=== PATIENT | female | born 1950 | race Caucasian/White ===

== ENCOUNTER → 2018-02-20 14:39 | Outpatient (CLI) | payer MEDICARE, BC, SELFPAY ==
--- NOTE | 2018-02-20 14:43 | XR_ITS ---
XR DEXA axial skeleton HISTORY: ITS.REASON: OSTEOPOROSIS ORDERING PHYSICIAN: Adam Lincoln MD PATIENT AGE: 67 years COMPARISON: 09/02/2014 FINDINGS: The BMD measured at the Total left femoral neck is 0.584 g/cm squared with a T score of -3.4. This is considered Osteoporotic according to the World Health Organization criteria. Fracture risk is High. Treatment is advised. L1-L4 density has a T score of -2.8. Lumbar spine density has decreased by 5.6% and the hip density has decreased by 6.6% IMPRESSION: Osteoporosis with high fracture risk. Pharmacological treatment suggested. Recommend follow-up exam March 07, 2019 to monitor response to therapy
--- NOTE | 2018-02-20 14:44 | CT_ITS ---
CT lung screening EXAM: CT LUNG LOW DOSE WO CONTRAST HISTORY: 30 pack-year smoking history asymptomatic ITS.REASON: PERSONAL HISTORY OF NICOTINE DEPENDENCE ORDERING PHYSICIAN: Adam Lincoln MD PATIENT AGE: 67 years COMPARISON: None TECHNIQUE: The exam was performed on a GE Light Speed [address] scanner using 2.90 mGy CTDI. A low dose helical CT CHEST was performed on a multi-detector scanner. All CT scans at the facility use one or more dose reduction, viz: automated exposure control, ma/kV adjustment per patient size (including targeted exams where dose is matched to indication, i.e. head), or iterative reconstruction technique. The LDCT was performed in a facility that meets the criteria for the screening program. Data regarding this exam was submitted to ACR which is an approved registry. The order for this exam indicates that it came as a result of a lung cancer screening counseling shard decision-making visit that included all the elements required of such a visit including smoking cessation. The radiologist interpreting this exam meets the [facility] criteria for the LDCT lung cancer screening program. The exam is reported using the Lung-RADS classification scale and reported to the ACR registry. NOTE: This study was performed for the specific purposes of lung cancer screening and is not an alternative to diagnostic chest CT. RADIATION DOSE: CTDI vol(CT dose Index-volume) = 2.90mG DLP (Dose Length Product) = 106.81 mGcm FINDINGS: Severe panlobular emphysema. 4 mm subpleural groundglass opacity right lower lobe posterior laterally. Linear subpleural opacity right lower lobe posterior laterally 5 x 2 mm. No suspicious nodules. No adenopathy. There are bilateral breast implants. IMPRESSION: 1. Lung RADS Category: 2, benign 2. Other findings: Panlobular emphysema RECOMMENDATIONS: 12 month LDCT follow-up
== END ==
PROVIDERS: PCP Family Medicine; Visit Provider Family Medicine
DX: Z12.2 Encounter for screening for malignant neoplasm of respiratory organs (principal); Z87.891 Personal history of nicotine dependence; M81.0 Age-related osteoporosis without current pathological fracture
CPT/HCPCS: 77080

== ENCOUNTER 2018-09-22 10:35 | Outpatient (CLI) | payer MEDICARE, BC, SELFPAY ==
[2018-09-22 11:09] VITALS: BP 125/75; PULSE 54; RESP 18; TEMP 36.7
== END 2018-09-22 11:21 | disposition home or self-care (01) ==
LOC: INF 10:43
PROVIDERS: Visit Provider Family Medicine
DX: M81.0 Age-related osteoporosis without current pathological fracture (principal)
CPT/HCPCS: 96372; J0897

== ENCOUNTER 2019-03-25 11:03 | Outpatient (CLI) | payer MEDICARE, BC, SELFPAY ==
[2019-03-25 11:30] VITALS: BP 137/71; PULSE 58; RESP 18; TEMP 36.8; O2SAT 98
== END 2019-03-25 11:50 | disposition home or self-care (01) ==
LOC: INF 11:03
PROVIDERS: Visit Provider Family Medicine
DX: M81.0 Age-related osteoporosis without current pathological fracture (principal)
CPT/HCPCS: 96372; J0897

== ENCOUNTER → 2019-07-13 09:59 | Outpatient (CLI) | payer MEDICARE, BC, SELFPAY ==
--- NOTE | 2019-07-13 10:02 | CT_ITS ---
PROCEDURE: CT LUNG SCREENING CLINICAL INDICATION: HX TOBACCO USE Thirty pack-year smoking history, asymptomatic COMPARISON: LUNGSCREEN CT lung screening from 02/20/2018 TECHNIQUE: The exam was performed on a GE Light Speed [address] scanner using for lung cancer mGy CTDI. A low dose helical CT CHEST was performed on a multi-detector scanner. All CT scans at the facility use one or more dose reduction, viz: automated exposure control, ma/kV adjustment per patient size (including targeted exams where dose is matched to indication, i.e. head), or iterative reconstruction technique. The LDCT was performed in a facility that meets the criteria for the screening program. Data regarding this exam was submitted to ACR which is an approved registry. The order for this exam indicates that it came as a result of a lung cancer screening counseling shard decision-making visit that included all the elements required of such a visit including smoking cessation. The radiologist interpreting this exam meets the CMS criteria for the LDCT lung cancer screening program. The exam is reported using the Lung-RADS classification scale and reported to the ACR registry. NOTE: This study was performed for the specific purposes of lung cancer screening and is not an alternative to diagnostic chest CT. RADIATION DOSE: CTDI vol(CT dose Index-volume) = 2.90mG DLP (Dose Length Product) = 101.34 mGcm FINDINGS: COPD with centrilobular/panlobular emphysema. Evidence of old granulomatous disease. There is some mild ground-glass density in the lung bases. There is thickening of the major fissure on the left inferiorly OTHER FINDINGS: Breast implants are present IMPRESSION: Lung rads category 1, negative Recommend annual screening LD CT Dictated by: Zane Meneses MD 07/17/2019 14:18 Electronically signed by Zane Meneses MD in [place] 07/17/2019 14:18
== END ==
PROVIDERS: PCP Family Medicine; Visit Provider Family Medicine
DX: Z87.891 Personal history of nicotine dependence (principal); Z12.2 Encounter for screening for malignant neoplasm of respiratory organs

== ENCOUNTER 2019-09-24 10:48 | Outpatient (CLI) | payer MEDICARE, BC, SELFPAY ==
[2019-09-24 10:56] VITALS: BP 135/48; PULSE 61; RESP 18; TEMP 36.8; O2SAT 97
== END 2019-09-24 10:56 | disposition home or self-care (01) ==
LOC: INF 10:48
PROVIDERS: PCP Nurse Practitioner Family; Visit Provider Nurse Practitioner Family
DX: M81.0 Age-related osteoporosis without current pathological fracture (principal)
CPT/HCPCS: 96372; J0897

== ENCOUNTER → 2020-02-14 10:25 | Outpatient (CLI) | payer MEDICARE, BC, SELFPAY ==
--- NOTE | 2020-02-14 10:33 | XR_ITS ---
PROCEDURE: XR LUMBAR SPINE MIN 4V CLINICAL INDICATION: ACUTE BI LOW BACK PAIN W/O SCIATICA AGE RELATED OSTEOPOROSIS COMPARISON: No exams were available for comparison FINDINGS: No fracture or dislocation. No lytic or blastic change. There is normal mineralization. There are mild degenerative changes with degenerative disc disease at L2-L3 and L3-L4 with small anterior osteophytes at these levels. There is moderate amount of overlying bowel gas which somewhat obscures fine detail of the bony structures. Other findings:None. IMPRESSION: Mild degenerative changes, no acute finding Dictated by: Zane Meneses MD 02/14/2020 17:26 Zane Meneses MD in [place] 02/14/2020 17:26
--- NOTE | 2020-02-14 10:33 | XR_ITS ---
PROCEDURE: XR PELVIS 1-2V CLINICAL INDICATION: ACUTE BI LOW BACK PAIN W/O SCIATICA AGE RELATED OSTEOPOROSIS COMPARISON: No exams were available for comparison TECHNIQUE: XR Pelvis AP View FINDINGS: There is moderate amount of gas in the large and small bowel in the pelvis obscuring the bony outline of sacrum and chloe there is a small sclerotic focus in the left ilium medially superior to the acetabulum and could be due to a bone island. Calcified densities are present over both iliac fossa and may be due to injection granulomas. 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 Minimal osteoarthritic changes are present in the right hip. IMPRESSION: As above, no acute finding Dictated by: Zane Meneses MD 02/14/2020 15:20 Zane Meneses MD in [place] 02/14/2020 15:20
== END ==
PROVIDERS: PCP Family Medicine; Visit Provider Family Medicine
DX: M54.5 Low back pain (principal); M53.3 Sacrococcygeal disorders, not elsewhere classified; M81.0 Age-related osteoporosis without current pathological fracture
CPT/HCPCS: 72110; 72170

== ENCOUNTER → 2020-03-13 09:33 | Outpatient (POV) | payer MEDICARE, BC, SELFPAY ==
[2020-03-13 09:57] VITALS: BP 112/74; PULSE 65; RESP 18; O2SAT 98; BMI 17.2
--- NOTE | 2020-03-13 12:46 | HMH.PMCON ---
Assessment and Plan (1) Degenerative joint disease (DJD) of lumbar spine Status: Chronic Qualifiers: Spinal osteoarthritis complication: without myelopathy or radiculopathy Qualified Code(s): M47.816 - Spondylosis without myelopathy or radiculopathy, lumbar region Category: Medical Code(s): M47.816 - Spondylosis without myelopathy or radiculopathy, lumbar region (2) Sacroiliitis Status: Chronic Category: Medical Code(s): M46.1 - Sacroiliitis, not elsewhere classified - Assessment and plan all Dx Assessment and Plan for all problems:: I offered the patient injective therapy she would like to hold off on that at this time she would like to continue her anti-inflammatories and think about injection therapy. She has been instructed to call the office if she has any issues or would like to proceed with any kind of treatment plan. She understands. Dr. Grant has reviewed this note and agrees with this plan of care. This note was dictated using voice recognition software and may contain errors or omissions HPI - Data of Consult Consult date: 03/13/20 Requesting Physician: Sierra Palacios APRN Primary Care Provider: Adam Lincoln MD - Consult Narrative Reason for consult: Back pain History of present illness: Ms. Marte is a 69 year old female who presents today for consultation regards her low back pain. Patient has difficulty with bending and squatting while lying flat decreases her pain. She also has radiation into her right hip. Does not radiate down her leg she has no numbness or tingling down her leg. She has extreme tenderness over her bilateral SI joints. She does have a history of arthritis. She is on anti-inflammatories she states that this is helpful somewhat. She has a positive Samson test SI joint compression test Cyndi's test and distraction test bilaterally. She rates her pain today a 4 out of 10. CC: Sierra Palacios APRN [facility] History I have reviewed the patient's past medical history: Yes Medical History: Reports:: Chronic Obstructive Pulmonary Disease (COPD), Hyperlipidemia, Hypertension, Lung Disease Denies:: Cancer, Diabetes Mellitus Type 1, Diabetes Mellitus Type 2, Internal Pacemaker, MRSA, Seizures *Have you ever received a pneumonia vaccine?: Yes *Have you received a flu vaccine this season?: Yes Other Medical History: Reports: Arthritis, Other Other Surgeries: Yes: Colonoscopy, Other (Hemorrhoids). No: Pacemaker Amputation: No Fractures: No - *Social History Smoking Status: Former smoker Tobacco Type: cigarettes Alcohol Intake: never Substance Use Type: denies use *Occupational Status:: other Housing: house Household Members: other *Travel in the last 8 weeks: None Family Hx:: Unable to obtain Review of Systems - Review of Systems ROS General: no recent weight change, no fever, no sleep disturbances Respiratory: no cough, no shortness of air, no recurring pulmonary infections Cardiovascular/Peripheral Vascular: No chest pain, No palpitations, no edema, no shortness of breath. Gastrointestinal: no new onset incontinence, normal bowel movements reported Genitourinary: no new onset incontinence Musculoskeletal: Bilateral hip pain, bilateral SI joint pain Psychiatric: normal mood/ affect Neurological: [denies new onset weakness in extremities], [denies new onset balance issues] Meds Home Medications Medication Instructions Recorded Confirmed Type Amlodipine Besylate 5 mg PO DAILY 04/22/18 03/31/19 History Omeprazole [Omeprazole 40mg 40 mg PO DAILY 04/22/18 03/31/19 History Capsule] Simvastatin 20 mg PO DAILY 04/22/18 03/31/19 History carvediloL [Carvedilol 3.125mg Tab] 3.125 mg PO BID 04/22/18 03/31/19 History Glycopyrrolate/Formoterol Fum 2 puffs INHALATION DAILY 03/19/19 03/31/19 History [Bevespi Aerosphere Inhaler] Meloxicam 15 mg PO DAILY 03/19/19 03/31/19 History Cholecalciferol (Vitamin D3) 1,000 unit PO DAILY 03/25/1903/31
== END ==
PROVIDERS: PCP Family Medicine; Visit Provider Clinical Nurse Specialist Family Health
DX: M47.816 Spondylosis without myelopathy or radiculopathy, lumbar region (principal); M46.1 Sacroiliitis, not elsewhere classified
CPT/HCPCS: 99202

== ENCOUNTER 2020-03-27 10:55 | Outpatient (CLI) | payer MEDICARE, BC, SELFPAY ==
[2020-03-27 11:07] VITALS: BP 161/89; PULSE 56; RESP 18; TEMP 36.1; O2SAT 96
== END 2020-03-27 11:07 | disposition home or self-care (01) ==
LOC: INF 11:03
PROVIDERS: Visit Provider Nurse Practitioner Family
DX: M81.0 Age-related osteoporosis without current pathological fracture (principal)
CPT/HCPCS: 96372; J0897

== ENCOUNTER → 2020-04-10 08:14 | Outpatient (CLI) | payer MEDICARE, BC, SELFPAY ==
[2020-04-10 10:40] LABS: Coronavirus 19 IgG Antibody Negative (Negative); Coronavirus 19 IgM Antibody Negative (Negative)
== END ==
PROVIDERS: Visit Provider Surgery
DX: Z01.818 Encounter for other preprocedural examination (principal); Z13.810 Encounter for screening for upper gastrointestinal disorder
CPT/HCPCS: 36415; 86328

== ENCOUNTER 2020-04-11 07:23 | Day surgery (SDC) | payer MEDICARE, BC, SELFPAY ==
[2020-04-05 12:24] VITALS: BMI 17.2
[2020-04-11 07:38] VITALS: BP 172/77; PULSE 63; RESP 20; TEMP 36.6; O2SAT 94
[2020-04-11 08:21] VITALS: O2SAT 97
--- NOTE | 2020-04-11 08:22 | P.PN_ITS ---
[facility] Anesthesia Checklist - Patient Identification Patient Identification: Arm Band - Structural Data Admitted From: Home Planned Operative Procedure/s: egd Consent for Planned Operative Procedure(s) Verified: Yes Verified Documents: Surgical Consent, History and Physical - NPO Status Verified Time NPO: 00:00 - Additional verifications Anesthesia Reactions: No - Airway Assessment C-Spine Mobility Assessed: Yes (mp2) TMJ Mobility Assessed: Yes Dentition: Good Dentition (upper dentures) - Neurological Assessment Level of Consciousness: Awake, Alert - Anesthesia Plan Anesthesia Risk discussed: Yes Anesthesia Plan: Verified ASA Class: III Anesthesia Type: MAC [facility] History I have reviewed the patient's past medical history: Yes Medical History: Reports:: Chronic Obstructive Pulmonary Disease (COPD), Hyperlipidemia, Hypertension, Lung Disease Denies:: Cancer, Diabetes Mellitus Type 1, Diabetes Mellitus Type 2, Internal Pacemaker, MRSA, Seizures *Have you ever received a pneumonia vaccine?: Yes *Have you received a flu vaccine this season?: Yes Other Medical History: Reports: Arthritis, Other Anesthesia experience/problems:: nac Other Surgeries: Yes: Cardiac Catheterization, Colonoscopy, EGD, Other (Hemorrhoids). No: Pacemaker Amputation: No Fractures: No - *Social History Smoking Status: Former smoker Tobacco Type: cigarettes Alcohol Intake: never Substance Use Type: denies use *Occupational Status:: retired Housing: house Household Members: spouse *Travel in the last 8 weeks: None Family Hx:: Unable to obtain
[2020-04-11 08:37] VITALS: BP 105/58; PULSE 51; RESP 12; TEMP 36.5; O2SAT 99
--- NOTE | 2020-04-11 08:37 | P.PCN_ITS ---
- Procedure: Date: 04/11/20 Patient Date of :: 1950 Procedure Performed:: Esophagogastroduodenoscopy with biopsy Indications:: History of Ardon's esophagus Performing Provider:: Mando Guzman MD Referring Provider:: . Sedation:: Monitored anesthesia care Procedure:: After informed consent was obtained the patient was taken to the endoscopy s uite. Sedation ensued after the patient was transferred to the left lateral decubitus position. Pulse, blood pressure, and oxygen saturation were monitored throughout the procedure. The endoscope was advanced beyond the duodenal bulb. Retroflexion within the gastric lumen was accomplished. The gastroscope was carefully removed and the patient was transferred to recovery in stable condition. Please see findings and specimens below for detail. Findings:: Gastroesophageal junction 38 cm Minimal patchy gastritis with changes consistent with atrophic gastritis Minimal inflammatory changes at gastroesophageal junction No obvious Ardon-type changes Specimens:: Antral biopsy Gastroesophageal junction biopsy Multiple biopsies at 36 cm Mid gastric body biopsies Recommendations:: Continue proton pump inhibition Follow-up pathology Complications:: No immediate Estimated blood obtained (mL): 1
[2020-04-11 08:47] VITALS: BP 117/58; PULSE 52; RESP 16; O2SAT 98
[2020-04-11 08:57] VITALS: BP 132/55; PULSE 51; RESP 16; O2SAT 96
[2020-04-11 09:07] VITALS: BP 135/61; PULSE 54; RESP 16; TEMP 36.5; O2SAT 98
== END 2020-04-11 09:20 | disposition home or self-care (01) ==
LOC: OUTP 07:23
PROVIDERS: PCP Family Medicine; Visit Provider Surgery
PROC: 0DJ08ZZ Inspection of Upper Intestinal Tract, Via Natural or Artificial Opening Endoscopic (ICD-10-PCS; CPT 43235; principal; 2020-04-11 08:30)
DX: Z12.11 Encounter for screening for malignant neoplasm of colon (principal); Z87.19 Personal history of other diseases of the digestive system; K29.40 Chronic atrophic gastritis without bleeding; J44.9 Chronic obstructive pulmonary disease, unspecified; E78.5 Hyperlipidemia, unspecified; I10 Essential (primary) hypertension; M19.90 Unspecified osteoarthritis, unspecified site
CPT/HCPCS: 43239; 88305

== ENCOUNTER → 2020-07-14 13:47 | Outpatient (CLI) | payer MEDICARE, BC, SELFPAY ==
--- NOTE | 2020-07-14 13:52 | CT_ITS ---
PROCEDURE: CT LUNG SCREENING CLINICAL INDICATION: HX OF NICOTINE DEPENDENCE Thirty pack year smoking history COMPARISON: CT CT LUNG SCREENING from 07/13/2019 TECHNIQUE: The exam was performed on a GE Light Speed [address] scanner using 2.90 mGy CTDI. A low dose helical CT CHEST was performed on a multi-detector scanner. All CT scans at the facility use one or more dose reduction, viz: automated exposure control, ma/kV adjustment per patient size (including targeted exams where dose is matched to indication, i.e. head), or iterative reconstruction technique. The LDCT was performed in a facility that meets the criteria for the screening program. Data regarding this exam was submitted to ACR which is an approved registry. The order for this exam indicates that it came as a result of a lung cancer screening counseling shard decision-making visit that included all the elements required of such a visit including smoking cessation. The radiologist interpreting this exam meets the [facility] criteria for the LDCT lung cancer screening program. The exam is reported using the Lung-RADS classification scale and reported to the ACR registry. NOTE: This study was performed for the specific purposes of lung cancer screening and is not an alternative to diagnostic chest CT. RADIATION DOSE: CTDI vol(CT dose Index-volume) = 2.90mG DLP (Dose Length Product) = 101.86 mGcm FINDINGS: Severe panlobular emphysematous changes with scattered areas of scarring. There is evidence of old granulomatous disease. No suspicious lesions are evident. No effusions or infiltrates. OTHER FINDINGS: Bilateral breast implants are present. IMPRESSION: Lung-RADS Category 1 Negative Follow-up: Continue annual screening with LDCT in 12 months Dictated by: Zane Meneses MD 07/17/2020 11:32 Zane Meneses MD in [place] 07/17/2020 11:32
--- NOTE | 2020-07-14 14:20 | XR_ITS ---
PROCEDURE: XR DEXA AXIAL SKELETON CLINICAL HISTORY: OSTEOPOROSIS COMPARISON: CR DEXAAX XR DEXA axial skeleton from 02/20/2018 FINDINGS: The right hip BMD is 0.502 with a T-score of -3.1. The left hip BMD is 0.568 with a T-score of -3.1. The lumbar spine BMD is 0.781 with a T-score of -2.4. Previously the lowest density was in the left hip with a T-score of -3.4 IMPRESSION: This patient is considered osteoporotic according to the World Health Organization criteria. Fracture risk is high. Treatment is advised. Based on these results a follow-up exam is recommended in 1 year. Dictated by: Zane Meneses MD 07/15/2020 10:39 Zane Meneses MD in [place] 07/15/2020 10:39
== END ==
PROVIDERS: PCP Family Medicine; Visit Provider Family Medicine
DX: M81.0 Age-related osteoporosis without current pathological fracture (principal); Z87.891 Personal history of nicotine dependence; Z12.2 Encounter for screening for malignant neoplasm of respiratory organs
CPT/HCPCS: 71271; 77080

== ENCOUNTER 2020-10-10 10:24 | Outpatient (CLI) | payer MEDICARE, BC, SELFPAY ==
[2020-10-10 10:28] VITALS: BP 146/68; PULSE 68; RESP 18; TEMP 36.6; O2SAT 99
== END 2020-10-10 10:45 | disposition home or self-care (01) ==
LOC: INF 10:24
PROVIDERS: Visit Provider Family Medicine
DX: M81.0 Age-related osteoporosis without current pathological fracture (principal)
CPT/HCPCS: 96372; J0897

== ENCOUNTER 2021-04-16 10:22 | Outpatient (CLI) | payer MEDICARE, BC, SELFPAY ==
[2021-04-16 10:38] VITALS: BP 137/64; PULSE 60; RESP 18; TEMP 36.6; O2SAT 98
== END 2021-04-16 11:03 | disposition home or self-care (01) ==
LOC: INF 10:24
PROVIDERS: PCP Family Medicine; Visit Provider Family Medicine
DX: M81.0 Age-related osteoporosis without current pathological fracture (principal)
CPT/HCPCS: 96372; J0897

== ENCOUNTER → 2021-07-12 07:13 | Outpatient (CLI) | payer MEDICARE, BC, SELFPAY ==
--- NOTE | 2021-07-12 07:25 | CT_ITS ---
FINAL REPORT CLINICAL HISTORY: H/O NICOTINE DEPENDENCE former smoker 3mon ago. 1ppd x 25years COMPARISON: July 13, 2019 and July 14, 2020 FINDINGS: Low-Dose Chest CT CTDI vol (mGy): 2.90 DLP (mGy-cm): 107.59 Axial images were obtained from the lung apex to the mid abdomen by computed tomography. Low-dose protocol was utilized. FINDINGS: CHEST: There are bilateral subglandular breast implants. There is no axillary adenopathy. There is no hilar or mediastinal adenopathy. The heart is proper size. There is no pericardial or pleural effusion. Limited images of the upper abdomen are unremarkable. Lung window images demonstrate there are moderately advanced changes of centrilobular emphysema. no suspicious infiltrate or nodule. IMPRESSION: Lung RADS category 1S. Recommend 12 month follow-up low-dose chest CT. Modifier S: Moderately advanced changes of centrilobular emphysema. Reviewed, Interpreted and Dictated by Andriy Ruiz MD Transcribed by Abida Tim Authenticated by Andriy Ruiz MD on 07/12/2021 12:52:52 PM [facility]
== END ==
PROVIDERS: PCP Family Medicine; Visit Provider Family Medicine
DX: Z87.891 Personal history of nicotine dependence (principal); Z12.11 Encounter for screening for malignant neoplasm of colon; R06.00 Dyspnea, unspecified; J44.9 Chronic obstructive pulmonary disease, unspecified
CPT/HCPCS: 71271; 94060; 94618; 94726; 94729

== ENCOUNTER 2021-10-26 09:42 | Outpatient (CLI) | payer MEDICARE, BC, SELFPAY ==
[2021-10-26 10:01] VITALS: BP 137/80; PULSE 75; RESP 18; TEMP 36.4; O2SAT 100
== END 2021-10-26 10:03 | disposition home or self-care (01) ==
LOC: INF 09:44
PROVIDERS: PCP Family Medicine; Visit Provider Family Medicine
DX: M81.0 Age-related osteoporosis without current pathological fracture (principal)
CPT/HCPCS: 96372; J0897

== ENCOUNTER 2022-04-29 09:58 | Outpatient (CLI) | payer MEDICARE, BC, SELFPAY ==
[2022-04-29 10:14] VITALS: BP 153/78; PULSE 58; RESP 18; TEMP 36.3; O2SAT 98
== END 2022-04-29 10:30 | disposition home or self-care (01) ==
LOC: INF 09:59
PROVIDERS: PCP Family Medicine; Visit Provider Family Medicine
DX: M81.0 Age-related osteoporosis without current pathological fracture (principal)
CPT/HCPCS: 96372; J0897

== ENCOUNTER 2022-11-12 09:32 | Outpatient (CLI) | payer MEDICARE, BC, SELFPAY ==
[2022-11-12 09:53] VITALS: BP 157/63; PULSE 63; RESP 18; O2SAT 96
== END 2022-11-12 09:55 | disposition home or self-care (01) ==
LOC: INF 09:33
PROVIDERS: PCP Family Medicine; Visit Provider Family Medicine
DX: M81.0 Age-related osteoporosis without current pathological fracture (principal)
CPT/HCPCS: 96372; J0897

== ENCOUNTER → 2023-03-06 09:12 | Outpatient (CLI) | payer MEDICARE, BC, SELFPAY ==
--- NOTE | 2023-03-06 09:17 | XR_ITS ---
FINAL REPORT TECHNIQUE: Bone densitometry calculations of the lumbar spine and left hip were obtained. CLINICAL HISTORY: SCREENING, post menopause FINDINGS: Using L1-4, the bone mineral density of the spine is 0.78 g/cm2, corresponding to T-score of -2.4. Using the left hip, the bone mineral density of the femoral neck is 0.63 g/cm2, corresponding to a T-score of -2.5. NOTE: T-score: Standard deviation compared with peak bone mass of young adult mean. *Following the recommendations of the International Society of Bone Densitometry, classification of hip BMD is based on the lower of two T-scores; total hip or femoral neck. IMPRESSION: Osteoporosis: Lowest T-score is at or below -2.5. This patient''s T-score meets the World Health Organization criteria for osteoporosis. Reviewed, Interpreted and Dictated by Ted Valdez III, MD Transcribed by Zenia Nava Authenticated and [facility]
== END ==
PROVIDERS: PCP Family Medicine; Visit Provider Family Medicine
DX: M81.0 Age-related osteoporosis without current pathological fracture (principal)
CPT/HCPCS: 77080

== ENCOUNTER 2023-05-15 09:49 | Outpatient (CLI) | payer MEDICARE, BC, SELFPAY ==
[2023-05-15 10:00] VITALS: BP 146/62; PULSE 58; RESP 18; O2SAT 98; BMI 17.2
[2023-05-15] MEDS: DENOSUMAB 60 MG/ML SYRINGE SQ (10:00)
== END 2023-05-15 10:10 | disposition home or self-care (01) ==
LOC: INF 09:50
PROVIDERS: PCP Family Medicine; Visit Provider Family Medicine
DX: M81.0 Age-related osteoporosis without current pathological fracture (principal)
CPT/HCPCS: 96372; J0897

== ENCOUNTER 2023-05-23 08:24 | Inpatient (IN) | payer MEDICARE, BC, SELFPAY ==
[2023-05-23] VITALS (13 sets, daily range): BP systolic 126–197; BP diastolic 67–97; PULSE 79–109; RESP 20–26; TEMP 36.4–36.9; O2SAT 92–100; BMI 15.7; BMI 15.0
--- NOTE | 2023-05-23 08:18 | XR_ITS ---
FINAL REPORT CLINICAL HISTORY: soa, copd COMPARISON: None FINDINGS: SINGLE VIEW CHEST The heart size is normal in size. There are large lung volumes and flattening of the hemidiaphragms consistent with chronic obstructive pulmonary disease. There are mild bibasilar opacities present, which favor atelectasis or scar.. The mediastinum is within normal limits.. There is no evidence of pneumothorax. The bony thorax is intact. IMPRESSION: Changes of COPD. Mild bibasilar opacities, favor atelectasis or scar.. Reviewed, Interpreted and Dictated by Ted Valdez III, MD Transcribed by Kavitha Castaneda Authenticated and [facility]
--- NOTE | 2023-05-23 08:20 | ED_ITS ---
Discharge Plan Disposition Patient Disposition: Admitted Chief Complaint: Shortness of Breath/Dyspnea Prescriptions Prescriptions: No Action montelukast 10 mg tablet 10 mg PO HS amlodipine 2.5 mg tablet 2.5 mg PO DAILY omeprazole 40 MG capsule,delayed release(DR/EC) 40 mg PO DAILY carvedilol 3.125 M tablet 3.125 mg PO BID simvastatin 20 MG tablet 20 mg PO HS meloxicam 15 MG tablet 7.5 mg PO DIRECTED glycopyrrolate-formoterol 9-4.8 M HFA aerosol inhaler 2 puffs INHALATION DAILY cholecalciferol (vitamin D3) 25 MCG tablet 1,000 unit PO DAILY Anoro Ellipta 62.5-25 mcg/actuation Blister With Device 1 inh INHALATION DAILY Referrals Follow up/Referrals: Adam Lincoln MD [Primary Care Provider] - See instructions Clinical Impressions Clinical Impression: Acute exacerbation of chronic obstructive pulmonary disease Discharge ED Provider: Han Etienne HPI General Chief Complaint: Shortness of Breath/Dyspnea Stated Complaint: SOA Time Seen by Provider: 05/23/23 08:26 History of Present Illness HPI narrative: Patient is a 72-year-old female with past medical history of COPD on nocturnal oxygen 2 L no cannula who presents emergency department for evaluation of shortness of breath. Patient is hemodynamically stable upon arrival, in respiratory distress. She arrived via EMS who administered a DuoNeb and round on facemask oxygen. Symptom onset was Friday, patient was diagnosed with respiratory infection and started on a Z-Andrea. Over the last 24 hours she has had progressive symptoms causing her to call 911 and present here for continued valuation. Has soreness with cough however no true chest pain. Related Data Home Medications Medication Instructions Recorded Confirmed carvedilol 3.125 mg tablet 3.125 mg PO BID blood pressure 04/22/18 05/15/23 omeprazole 40 mg capsule,delayed 40 mg PO DAILY stomach 04/22/18 05/15/23 release simvastatin 20 mg tablet 20 mg PO HS Cholesterol 04/22/18 05/15/23 glycopyrrolate 9 mcg-formoterol 2 puffs inhalation DAILY COPD 03/19/19 05/15/23 4.8 mcg HFA aerosol inhaler meloxicam 15 mg tablet 7.5 mg PO DIRECTED Arthritis 03/19/19 05/15/23 montelukast 10 mg tablet 10 mg PO HS allergies 03/22/20 05/15/23 cholecalciferol (vitamin D3) 25 1,000 unit PO DAILY Supplement 03/27/20 05/15/23 mcg (1,000 unit) tablet amlodipine 2.5 mg tablet 2.5 mg PO DAILY blood pressure 01/04/22 05/15/23 umeclidinium 62.5 mcg-vilanterol 1 inh inhalation DAILY COPD 04/29/22 05/15/23 25 mcg/actuation powdr for inhalation (Anoro Ellipta) Allergies Allergy/AdvReac Type Severity Reaction Status Date / Time No Known Allergies Allergy Verified 05/15/23 09:56 [facility] Disclaimer: The information contained in this section may have been updated after the patient was seen, as this information can be updated by other users. Medical History (Updated 05/23/23 @ 11:42 by Han Etienne MD) Arthritis COPD (chronic obstructive pulmonary disease) HLD (hyperlipidemia) HTN (hypertension) Lung disease Surgical History History of colonoscopy Family History Other No significant family history Social History Smoking Status: Former smoker tobacco type: cigarettes alcohol intake: never substance use type: denies use current occupational status: retired Travel in the last 8 weeks: Inside the [place] household members: spouse housing: house current occupational exposures/hazards: No caffeine: Yes ROS Obtained: Yes Systems reviewed as appropriate & no additional complaints except as documented Physical Exam General General appearance: alert and in no apparent distress Head Head exam: atraumatic and normocephalic Eye Eye exam: Present PERRL and EOMI ENT ENT exam: Present mucous membranes moist Neck Neck exam: Present normal inspection Chest Chest inspection: Present normal inspection and symmetric chest wall rise Respiratory Respiratory exam: Present respiratory distress, wheezes, accessory muscle use and prolonged expiratory phase; Absent normal lung sounds bilaterally Cardiovascular Cardiovascular exam: Present regular rate and normal rhythm Abdominal Exam Abdominal exam: Present soft; Absent tenderness Extremities Exam Extremities exam: Present normal inspection Neurological Exam Neurological exam: Present alert Psychiatric Psychiatric exam: Present normal affect Skin Skin exam: Present warm and dry HEART Score HEART Score HEART Score assessment performed?: Yes History (anamnesis): Slightly suspicious ECG: Normal Age: >65 years Risk factors: 1-2 risk factors Troponin: </= normal limit HEART Score: 3 Critical Care Critical Care Time Critical Care Time: No Medical Decision Making Umesh Inquiry Pt receiving controlled substance: No Vital Signs Vital Signs: 05/23/23 08:24 05/23/23 08:40 05/23/23 09:18 Temperature 98.4 F Temperature Source Oral Pulse Rate 90 109 H Pulse Rate [Radial] 89 Respiratory Rate 24 Blood Pressure 171/95 H Blood Pressure [Right Arm] 197/97 H Blood Pressure Mean [Right Arm] 130 Blood Pressure Source [Right Arm] Automatic Cuff Blood Pressure Position [Right Arm] Sitting 02 Sat by Pulse Oximetry 100 97 Oxygen Delivery Method Aerosol Mask 05/23/23 09:18 05/23/23 09:36 05/23/23 10:18 Temperature Temperature Source Pulse Rate 108 H 90 80 Pulse Rate [Radial] Respiratory Rate Blood Pressure 126/67 126/77 Blood Pressure [Right Arm] Blood Pressure Mean [Right Arm] Blood Pressure Source [Right Arm] Blood Pressure Position [Right Arm] 02 Sat by Pulse Oximetry 99 98 Oxygen Delivery Method 05/23/23 11:02 Temperature Temperature Source Pulse Rate 92 H Pulse Rate [Radial] Respiratory Rate 20 Blood Pressure 148/71 H Blood Pressure [Right Arm] Blood Pressure Mean [Right Arm] Blood Pressure Source [Right Arm] Blood Pressure Position [Right Arm] 02 Sat by Pulse Oximetry 97 Oxygen Delivery Method Lab Data Labs: Lab Results 05/23/23 08:20: VBG pH 7.33, VBG pCO2 49.3, VBG pO2 38.6, VBG HCO3 25.5, VBG Total CO2 27.0, VBG O2 Saturation 70.3 H, VBG Base Excess -0.5 05/23/23 08:25: WBC 9.1, RBC 4.82, Hgb 15.2, Hct 45.9, MCV 95.2, MCH 31.6 H, MCHC 33.2, RDW 13.6, Plt Count 220, MPV 8.6, Neut % (Auto) 82.1 H, Lymph % (Auto) 10.3, [place] % (Auto) 6.6, Eos % (Auto) 0.6, Baso % (Auto) 0.5, Neut # (A uto) 7.5, Lymph # (Auto) 0.9, [place] # (Auto) 0.6, Eos # (Auto) 0.1, Baso # (Auto) 0.0, Sodium 136, Potassium 3.8, Chloride 98, Carbon Dioxide 30, Anion Gap 11.8, BUN 10, Creatinine 0.50 L, Estimated Creat Clear 32, Estimated GFR 122, Est GFR ( Amer) 148, Glucose 103 H, Calcium 8.8, Total Bilirubin 0.5, AST 42 H, ALT 28, Alkaline Phosphatase 89, Troponin I < 0.01, Total Protein 8.0, Albumin 4.6, Globulin 3.4 H, Albumin/Globulin Ratio 1.4, SARS-CoV-2 (PCR) Not detected, Influenza A Untype (PCR) Not detected, Influenza Type B (PCR) Not detected 05/23/23 08:25 05/23/23 08:25 Response Orders (Tests/Meds): ED MEDICATIONS Generic Name Dose Route Start Last Admin Trade Name Freq PRN Reason Stop Dose Admin Sodium Chloride 3 ml 05/23/23 09:06 Sodium Chloride 3% 15ml [facility] 06/22/23 09:05 ONCE PRN INDUCE SPUTUM COLLECTION Sodium Chloride 10 ml 05/23/23 10:08 Sodium Chloride 0.9% 10ml Flush Syringe IV 06/22/23 10:07 NEEDED PRN Maintain IV Site Discontinued Medications Generic Name Dose Route Start Last Admin Trade Name Freq PRN Reason Stop Dose Admin Albuterol Sulfate 20 mg 05/23/23 09:18 05/23/23 09:19 Albuterol 0.083% 2.5 Mg/3 Ml [facility] 05/23/23 09:19 20 mg ONCE ONE Administration Albuterol/Ipratropium 6 ml 05/23/23 08:18 05/23/23 08:30 Ipratropium/Albuterol 3 Ml [facility] 05/23/23 08:19 6 ml ONCE ONE Administration Azithromycin 500 mg/ Sodium 250 mls @ 250 mls/hr 05/23/23 08:19 05/23/23 09:10 Chloride IV 05/23/23 08:20 250 mls/hr ONCE ONE Administration Magnesium Sulfate 2 gm in 50 mls @ 50 mls/hr 05/23/23 09:10 05/23/23 09:37 Magnesium Sulfate 2gm/50ml Premix IV 05/23/23 10:09 50 mls/hr ONCE ONE Administration Methylprednisolone Sodium Succinate 125 mg 05/23/23 08:18 05/23/23 08:39 Methylprednisolone Sod Succ 125mg Vial IV 05/23/23 08:19 Not Given ONCE ONE ORDERS Category Date Time Status CXR --portable [XR chest portable] Stat Exams 05/23/23 08:18 Completed CBC w/Auto Diff [Complete Blood Count Auto Diff] Stat Lab 05/23/23 08:25 Co mpleted CMP [Comprehensive Metabolic Panel] Stat Lab 05/23/23 08:25 Completed Rapid PCR Covid and Flu A/B Stat Lab 05/23/23 08:25 Completed Trop I [Troponin I] Stat Lab 05/23/23 08:25 Completed Troponin I Q3H Lab 05/23/23 11:30 Ordered Troponin I Q3H Lab 05/23/23 14:30 Ordered Sputum Culture & Gram Stain Stat Micro 05/23/23 10:20 Received VBG [Venous Blood Gas] Stat RT 05/23/23 08:20 Completed ECG initial [place] Routine Y 05/23/23 08:22 Completed ECG Data Tracing #1: ECG Narrative: Independently interpreted by me, rate is 88, rhythm is regular, axis is normal, no ST elevation in anatomical contiguous leads, QTc 394. MDM Narrative Medical Decision Narrative: In summary patient is 72-year-old female past medical history described above who presents emergency department for evaluation of shortness of breath in setting of COPD. Patient is hemodynamically stable upon arrival, on facemask oxygen with DuoNeb administering through it, in respiratory distress. Differential includes pneumonia, viral COPD exacerbation, atypical ACS, among others. Doubt COPD because patient is not tachycardic, has no chest pain and has respiratory symptoms to explain this in the setting of her COPD. Workup will be conducted with hematologic labs, chest x-ray, EKG, troponin, VBG, viral swab. Initial interventions include DuoNeb's x 2, methylprednisolone, azithromycin, IV magnesium sulfate. Workup reviewed by me, hematologic labs are nonactionable, compensated acid-base status. Chest x-ray informally interpreted by me, no acute lobar opacities or large pneumothorax, there is evidence of significant COPD. Upon repeat evaluation patient continued to require 2 L nasal cannula which is new from her baseline of intermittent nocturnal O2, was in persistent respiratory distress with respiratory rate between 25 and 30 with significant accessory muscle use. Given this case was discussed with hospital medicine regarding management patient will be admitted to their service for continued evaluation at this time.
--- NOTE | 2023-05-23 08:22 | ECG_ITS ---
APPROVED REPORT Exam: Resting ECG HR:88 bpm ECG Measurements Heart Rate 88 AXES TN 107 P 75 QRSd 84 QRS 77 QT 348 T -73 QTc 394 Conclusion SINUS RHYTHM WITH SHORT TN INTERVAL NONSPECIFIC ST & T-WAVE ABNORMALITY ABNORMAL ECG UNCONFIRMED REPORT Electronically signed by : Adam Sifuentes MD 05/24/2023 10:07:35
[2023-05-23] MEDS: IPRATROPIUM/ALBUTEROL 3 ML NEB 6 ML IH (08:30)
[2023-05-23 08:41] LABS: Coronavirus 19, PCR Not Detected (NotDetected); Influenza A, PCR Not Detected (NotDetected); Influenza B, PCR Not Detected (NotDetected)
[2023-05-23 08:47] LABS: Basophils % 0.5 % (0.1-2.0); Eosinophils # 0.1 K/mm3 (0.0-0.4); Eosinophils % 0.6 % (0.1-12.0); Hematocrit 45.9 % (37.0-47.0); Hemoglobin 15.2 g/dL (12.2-16.2); Lymphocytes # 0.9 K/mm3 (0.7-4.5); Lymphocytes % 10.3 % (10-50); Mean Corpuscular HGB Conc 33.2 g/dL (31.8-35.4); Mean Corpuscular Hemoglobin 31.6 pg (27.0-31.2); Mean Corpuscular Volume 95.2 fl (81-99); Mean Platelet Volume 8.6 fl (7.4-10.4); Monocytes # 0.6 K/mm3 (0.1-1.0); Monocytes % 6.6 % (1.7-9.3); Neutrophils # 7.5 K/mm3 (1.8-7.8); Neutrophils % 82.1 % (37.0-80.0); Platelet Count 220 K/mm3 (142-424); Red Blood Count 4.82 M/mm3 (4.20-5.40); Red Cell Distribution Width 13.6 % (11.5-17.5); White Blood Count 9.1 K/mm3 (4.8-10.8)
[2023-05-23 08:52] LABS: Alanine Aminotransferase 28 U/L (12-78); Albumin Level 4.6 g/dl (3.5-5.0); Albumin/Globulin Ratio 1.4 (1.1-1.8); Alkaline Phosphatase 89 U/L (38-126); Anion Gap 11.8 mEq/L (5-15); Aspartate Amino Transferase 42 U/L (14-36); Bilirubin,Total 0.5 mg/dl (0.2-1.3); Blood Urea Nitrogen 10 mg/dl (7-17); Calcium 8.8 mg/dl (8.4-10.2); Carbon Dioxide 30 mmol/L (22.0-30.0); Chloride 98 mmol/L (98-107); Creatinine Clearance Estimated 32 mL/min (50-200); Estimated Glomerular Filt Rate 122 ml/min (>60); GFR (African American) 148 ML/MIN (>60); Globulin 3.4 g/dL (1.3-3.2); Glucose 103 mg/dl (74-100); Potassium 3.8 mmoL/L (3.5-5.1); Sodium 136 mmol/L (136-145)
--- NOTE | 2023-05-23 09:03 | PC.NURSE ---
NO BLOOD CULTURES NEEDED PER DR HIGGINS DUE TO NO WBC ATB GIVEN
[2023-05-23 09:04] LABS: Troponin I < 0.01 ng/ml (0.00-0.034)
[2023-05-23] MEDS: AZITHROMYCIN 500 MG in 0.9 % SODIUM CHLORIDE 250 ML 250 MG IV (09:10)
[2023-05-23] MEDS: ALBUTEROL 0.083% 2.5 MG/3 ML NEB 20 MG IH (09:19)
[2023-05-23] MEDS: MAGNESIUM SULFATE IN WATER 2 GM/50 ML PIGGYBACK IV (09:37)
--- NOTE | 2023-05-23 12:01 | HMH.PHAINT1 ---
Pharmacy Intervention Comments: MEDICATION RECONCILIATION COMPLETED ON PATIENT USING EXTERNAL FILL HISTORY FROM PHARMACY. -KATH LOVE, JOSSELYND
--- NOTE | 2023-05-23 13:00 | PC.NURSE ---
Report given to Sherrie Garcia RN on Med Surg.
--- NOTE | 2023-05-23 13:15 | PC.NURSE ---
arrived by w/c from ED
[2023-05-23] MEDS: DOCUSATE SODIUM 100 MG CAPSULE PO (15:21)
--- NOTE | 2023-05-23 18:03 | EXP.HP ---
History of Present Illness *Admission Date: 05/23/23 *Reason for visit:: SOB *History of present illness: Patient is a 72-year-old female with past medical history of COPD who presents to the hospital due to shortness of breath. According to patient she has been feeling sick for past 3 to 4 days, Getting Worse, She Was a Started on Medrol Dosepak, azithromycin without much relief so she decided to come to the hospital. Patient otherwise denied chest pain nausea vomiting diarrhea constipation dysuria. She endorses having cough productive of phlegm, she does not have sick contacts, her smokes around her. [facility] Disclaimer: The information contained in this section may have been updated after the patient was seen, as this information can be updated by other users. Medical History (Updated 05/23/23 @ 18:04 by Nicol Patel MD) Arthritis COPD (chronic obstructive pulmonary disease) HLD (hyperlipidemia) HTN (hypertension) Lung disease Surgical History History of colonoscopy Family History Other No significant family history Social History (Updated 05/23/23 @ 13:32 by Alber Hernandez RN) Smoking Status: Former smoker tobacco type: cigarettes alcohol intake: never substance use type: denies use current occupational status: retired Travel in the last 8 weeks: Inside the [place] household members: spouse housing: house current occupational exposures/hazards: No caffeine: Yes Review of Systems Review of Systems Review of systems (narrative): as per HPI Meds Home Medications and Allergies Home Medications Medication Instructions Recorded Confirmed Type carvedilol 3.125 mg tablet 3.125 mg PO BID High Blood Pressure 04/22/18 05/23/23 History omeprazole 40 mg capsule,delayed 40 mg PO DAILY Acid Reflux 04/22/18 05/23/23 History release simvastatin 20 mg tablet 20 mg PO HS Cholesterol 04/22/18 05/23/23 History meloxicam 15 mg tablet 7.5 mg PO Q72H Arthritis 03/19/19 05/23/23 History montelukast 10 mg tablet 10 mg PO PM allergies 03/22/20 05/23/23 History amlodipine 2.5 mg tablet 2.5 mg PO DAILY High Blood Pressure 01/04/22 05/23/23 History doxycycline hyclate 100 mg capsule 100 mg PO BID Infection 05/23/23 05/23/23 History guaifenesin 600 mg tablet, 1,200 mg PO BID 05/23/23 05/23/23 History extended release 12 hr methylprednisolone 4 mg tablets in 4 mg PO DIRECTED 05/23/23 05/23/23 History a dose pack tiotropium 2.5 mcg-olodaterol 2.5 2 puff inhalation DAILY Copd 05/23/23 05/23/23 History mcg/actuation mist for inhalation (Stiolto Respimat) New Prescriptions to Start Prescriptions: Allergies Allergy/AdvReac Type Severity Reaction Status Date / Time No Known Allergies Allergy Verified 05/15/23 09:56 Exam Data for Last 24 hours Vital signs and Labs for Last 24 Hours: Temp Pulse Resp BP Pulse Ox O2 Del Method O2 Flow Rate 98.0 F 79 22 145/77 H 94 L Nasal Cannula 3 05/23/23 16:00 05/23/23 16:00 05/23/23 16:00 05/23/23 16:00 05/23/23 16:00 05/23/23 17:00 05/23/23 17:00 Laboratory Results - last 24 hr 05/23/23 08:20: VBG pH 7.33, VBG pCO2 49.3, VBG pO2 38.6, VBG HCO3 25.5, VBG Total CO2 27.0, VBG O2 Saturation 70.3 H, VBG Base Excess -0.5 05/23/23 08:25: WBC 9.1, RBC 4.82, Hgb 15.2, Hct 45.9, MCV 95.2, MCH 31.6 H, MCHC 33.2, RDW 13.6, Plt Count 220, MPV 8.6, Neut % (Auto) 82.1 H, Lymph % (Auto) 10.3, [place] % (Auto) 6.6, Eos % (Auto) 0.6, Baso % (Auto) 0.5, Neut # (Auto) 7.5, Lymph # (Auto) 0.9, [place] # (Auto) 0.6, Eos # (Auto) 0.1, Baso # (Auto) 0.0, Sodium 136, Potassium 3.8, Chloride 98, Carbon Dioxide 30, Anion Gap 11.8, BUN 10, Creatinine 0.50 L, Estimated Creat Clear 32, Estimated GFR 122, Est GFR ( Amer) 148, Glucose 103 H, Calcium 8.8, Total Bilirubin 0.5, AST 42 H, ALT 28, Alkaline Phosphatase 89, Troponin I < 0.01, Total Protein 8.0, Albumin 4.6, Globulin 3.4 H, Albumin/Globulin Ratio 1.4, SARS-CoV-2 (PCR) Not detected, Influenza A Untype (PCR) Not detected, Influenza Type B (PCR) Not detected I & O for Last 24 hours: Intake & Output 05/20/23 05/21/23 05/22/23 05/23/23 23:59 23:59 23:59 23:59 Output Total 0 / 0 Balance 0 / 0 Weight 37.195 kg Constitutional Constitutional: no acute distress *Routine HEENT Exam Head: Present normocephalic Eye: Present EOMI and PERRL ENT: Present mucous membranes moist *Routine Neck Exam Neck: Present supple; Absent lymphadenopathy *Routine Respiratory Exam Respiratory: Present respiratory distress, distant breath sounds and diminished air movement *Routine Cardiovascular Exam Cardiovascular: Present RRR *Routine Abdominal Exam Abdominal: Present soft and normoactive bowel sounds; Absent tenderness *Routine Rectal Exam Rectal:: deferred *Routine Genitalia Exam Genitalia:: deferred *Routine Extremities Exam Extremities: Absent cyanosis, clubbing or edema *Routine Skin Exam Skin: Present warm; Absent rash *Routine Neurological Exam Neurological: Present alert and oriented X3 Assessment and Plan *Assessment and plan (1) Acute exacerbation of chronic obstructive pulmonary disease: Status: Acute Category: Medical Code(s): J44.1 - Chronic obstructive pulmonary disease with (acute) exacerbation (2) Acute hypoxic respiratory failure: Status: Acute Category: Medical Code(s): J96.01 - Acute respiratory failure with hypoxia (3) HLD (hyperlipidemia): Status: Acute Category: Medical Code(s): E78.5 - Hyperlipidemia, unspecified (4) HTN (hypertension): Status: Acute Category: Medical Code(s): I10 - Essential (primary) hypertension Plan Patient is a 72-year-old female with past medical history of COPD who presents to the hospital due to shortness of breath. According to patient she has been feeling sick for past 3 to 4 days, Getting Worse, She Was a Started on Medrol Dosepak, azithromycin without much relief so she decided to come to the hospital. Patient otherwise denied chest pain nausea vomiting diarrhea constipation dysuria. She endorses having cough productive of phlegm, she does not have sick contacts, her smokes around her. Assessment Acute hypoxic respiratory failure satting less than 90% on room air COPD exacerbation Hypertension Hyperlipidemia Plan Started on IV Solu-Medrol Start IV Levaquin Every 4 hours DuoNebs Monitor and replace electrolytes Chest x-ray reviewed negative for acute pulmonary process, did show mild bibasilar opacities suggestive of possible scars, atelectasis Resume home medications DVT prophylaxis-Lovenox
[2023-05-23] MEDS: METHYLPREDNISOLONE SOD SUCC 40MG VIAL 40 MG IV (18:29)
[2023-05-23] MEDS: LEVOFLOXACIN/D5W 250 MG/50 ML PIGGYBACK 100 MG IV (18:30)
[2023-05-23] MEDS: HEPARIN SODIUM 5,000 UNIT/ML VIAL 5000 UNIT SQ (21:18)
[2023-05-23] MEDS: PRAVASTATIN 40MG TAB 40 MG PO (21:19)
[2023-05-23] MEDS: IPRATROPIUM/ALBUTEROL 3 ML NEB IH (22:14)
[2023-05-23] MEDS: guaiFENesin 600 MG TAB.ER.12H 1200 MG PO (22:18)
[2023-05-23] MEDS: DOXYCYCLINE HYCLATE 100 MG 100 EACH PO (22:19)
[2023-05-24] VITALS (15 sets, daily range): BP systolic 133–163; BP diastolic 84–95; PULSE 79–101; RESP 17–26; TEMP 36.6–36.8; O2SAT 90–97; BMI 16.8
[2023-05-24] MEDS: METHYLPREDNISOLONE SOD SUCC 40MG VIAL 40 MG IV ×5 (00:06→22:33)
[2023-05-24] MEDS: IPRATROPIUM/ALBUTEROL 3 ML NEB IH ×6 (01:48→22:05)
--- NOTE | 2023-05-24 06:09 | PC.NURSE ---
PATIENT WANTS HER COREG RESHEDULED TO 7 AM. 02 AT 3LNC. BECOMES VERY SOA WITH EXERTION. WHEEZES HEARD IN ALL LUNG SANCHEZ. MOIST COUGH.
[2023-05-24 06:59] LABS: Anion Gap 6.6 mEq/L (5-15); Blood Urea Nitrogen 10 mg/dl (7-17); Calcium 8.2 mg/dl (8.4-10.2); Carbon Dioxide 31 mmol/L (22.0-30.0); Chloride 97 mmol/L (98-107); Creatinine Clearance Estimated 34 mL/min (50-200); Estimated Glomerular Filt Rate 158 ml/min (>60); GFR (African American) 191 ML/MIN (>60); Glucose 121 mg/dl (74-100); Potassium 3.6 mmoL/L (3.5-5.1); Sodium 131 mmol/L (136-145)
[2023-05-24 07:10] LABS: Basophils % 0.1 % (0.1-2.0); Hematocrit 42.4 % (37.0-47.0); Hemoglobin 13.9 g/dL (12.2-16.2); Lymphocytes # 0.6 K/mm3 (0.7-4.5); Lymphocytes % 5.5 % (10-50); Mean Corpuscular HGB Conc 32.9 g/dL (31.8-35.4); Mean Corpuscular Hemoglobin 31.4 pg (27.0-31.2); Mean Corpuscular Volume 95.4 fl (81-99); Monocytes # 0.3 K/mm3 (0.1-1.0); Neutrophils # 9.4 K/mm3 (1.8-7.8); Neutrophils % 91.3 % (37.0-80.0); Platelet Count 188 K/mm3 (142-424); Red Blood Count 4.44 M/mm3 (4.20-5.40); Red Cell Distribution Width 13.4 % (11.5-17.5); White Blood Count 10.3 K/mm3 (4.8-10.8)
[2023-05-24 07:12] LABS: MANUAL DIFFERENTIAL MANUAL DIFFERENTIAL (MANUAL DIFF)
[2023-05-24 08:19] LABS: Lymphocytes % 6 % (10-50); Monocytes % 3 % (2-9); Neutrophils % 91 % (42-76); Platelet Estimate Normal; RBC Morphology Normal; Total Cells Counted 100
[2023-05-24] MEDS: DOXYCYCLINE HYCL 100 MG TABLET PO ×2 (08:54→20:17)
[2023-05-24] MEDS: guaiFENesin 600 MG TAB.ER.12H 1200 MG PO ×2 (08:54→20:17)
[2023-05-24] MEDS: DOCUSATE SODIUM 100 MG CAPSULE PO (08:55)
[2023-05-24] MEDS: HEPARIN SODIUM 5,000 UNIT/ML VIAL 5000 UNIT SQ ×2 (08:56→20:18)
--- NOTE | 2023-05-24 15:14 | EXP.PN ---
Subjective *Date: 05/24/23 *Time: 15:14 Interval history: complains of SOB, denied CP, SOB, N/V Exam Data for Last 24 hours Vital signs and Labs for Last 24 Hours: Temp Pulse Resp BP Pulse Ox O2 Del Method O2 Flow Rate 97.9 F 87 22 145/84 H 95 Nasal Cannula 3 05/24/23 11:33 05/24/23 14:13 05/24/23 11:33 05/24/23 11:33 05/24/23 11:33 05/24/23 14:58 05/24/23 14:58 Laboratory Results - last 24 hr 05/24/23 06:19: WBC 10.3, RBC 4.44, Hgb 13.9, Hct 42.4, MCV 95.4, MCH 31.4 H, MCHC 32.9, RDW 13.4, Plt Count 188, MPV 8.0, Neut % (Auto) 91.3 H, Lymph % (Auto) 5.5 L, [place] % (Auto) 3.0, Eos % (Auto) 0.0 L, Baso % (Auto) 0.1, Neut # (Auto) 9.4 H, Lymph # (Auto) 0.6 L, [place] # (Auto) 0.3, Eos # (Auto) 0.0, Baso # (Auto) 0.0, Total Counted 100, Neutrophils % (Manual) 91 H, Lymphocytes % (Manual) 6 L, Monocytes % (Manual) 3, Platelet Estimate Normal, RBC Morphology Normal, Sodium 131 L, Potassium 3.6, Chloride 97 L, Carbon Dioxide 31 H, Anion Gap 6.6, BUN 10, Creatinine 0.40 L, Estimated Creat Clear 34, Estimated GFR 158, Est GFR ( Amer) 191 D, Glucose 121 H, Calcium 8.2 L I & O for Last 24 hours: Intake & Output 05/21/23 05/22/23 05/23/23 05/24/23 23:59 23:59 23:59 23:59 Intake Total 360 / 600 495 / 495 Output Total 300 / 500 1200 / 1200 Balance 60 / 100 -705 / -705 Weight 37.195 kg 41.549 kg Constitutional Constitutional: no acute distress *Routine HEENT Exam Head: Present normocephalic Eye: Present EOMI and PERRL ENT: Present mucous membranes moist *Routine Neck Exam Neck: Present supple; Absent lymphadenopathy *Routine Respiratory Exam Respiratory: Present wheezes and diminished air movement *Routine Cardiovascular Exam Cardiovascular: Present RRR *Routine Abdominal Exam Abdominal: Present soft and normoactive bowel sounds; Absent tenderness *Routine Extremities Exam Extremities: Absent cyanosis, clubbing or edema *Routine Skin Exam Skin: Present warm; Absent rash *Routine Neurological Exam Neurological: Present alert and oriented X3 Assessment and Plan *Assessment and plan (1) Acute exacerbation of chronic obstructive pulmonary disease: Status: Acute Category: Medical Code(s): J44.1 - Chronic obstructive pulmonary disease with (acute) exacerbation (2) Acute hypoxic respiratory failure: Status: Acute Category: Medical Code(s): J96.01 - Acute respiratory failure with hypoxia (3) HLD (hyperlipidemia): Status: Acute Category: Medical Code(s): E78.5 - Hyperlipidemia, unspecified (4) HTN (hypertension): Status: Acute Category: Medical Code(s): I10 - Essential (primary) hypertension Plan Patient is a 72-year-old female with past medical history of COPD who presents to the hospital due to shortness of breath. According to patient she has been feeling sick for past 3 to 4 days, Getting Worse, She Was a Started on Medrol Dosepak, azithromycin without much relief so she decided to come to the hospital. Patient otherwise denied chest pain nausea vomiting diarrhea constipation dysuria. She endorses having cough productive of phlegm, she does not have sick contacts, her smokes around her. Assessment Acute hypoxic respiratory failure satting less than 90% on room air COPD exacerbation Hypertension Hyperlipidemia Plan continue IV Solu-Medrol, IV Levaquin Every 4 hours DuoNebs check PCT Monitor and replace electrolytes Chest x-ray reviewed negative for acute pulmonary process, did show mild bibasilar opacities suggestive of possible scars, atelectasis Resume home medications DVT prophylaxis-Lovenox
[2023-05-24 15:49] LABS: VBG Base Excess 0.5 mmol/L (-2.4-2.3); VBG HCO3 25.7 mmol/L (23-30); VBG Oxygen Saturation 65.9 % (50-70); VBG PCO2 44.9 mmol/L (35-51); VBG PH 7.38 mmol/L (7.31-7.41); VBG Total CO2 27.1 mmol/L (23-27)
--- NOTE | 2023-05-24 17:02 | PC.NURSE ---
PT IS RESTING IN BED. ALERT AND ORIENTED X4. EATING AND DRINKING WELL. O2 SATURATION HAS MAINTAINED 90-95% ON 3 L NC. 1 ASSIST TO GET UP TO THE BSC. WHEN PT GETS UP SHE BECOMES VERY ANXIOUS AND SOA. LUNG SOUNDS DIMINISHED WITH AUDIBLE WHEEZING. ABDOMEN SOFT/NON TENDER WITH ACTIVE BOWEL SOUNDS. WILL CONTINUE TO MONITOR.
[2023-05-24] MEDS: LEVOFLOXACIN/D5W 250 MG/50 ML PIGGYBACK 100 MG IV (20:17)
[2023-05-24] MEDS: PRAVASTATIN 40MG TAB 40 MG PO (20:17)
[2023-05-24] MEDS: CARVEDILOL 3.125MG TABLET 3.125 MG PO (20:17)
[2023-05-24] MEDS: PANTOPRAZOLE 40MG TABLET 40 MG PO (20:17)
[2023-05-25] VITALS (14 sets, daily range): BP systolic 147–161; BP diastolic 75–93; PULSE 73–89; RESP 17–22; TEMP 36.6–37.1; O2SAT 94–96; BMI 16.9
[2023-05-25] MEDS: IPRATROPIUM/ALBUTEROL 3 ML NEB IH ×6 (02:25→22:29)
--- NOTE | 2023-05-25 03:06 | PC.NURSE ---
WHEEZES PERSISTANT. PERFORMS 750 ML ON INCENTIVE SPIROMETER. MOIST COUGH PRESENT. VERY SOA WITH MINIMAL EXERTION.
[2023-05-25] MEDS: METHYLPREDNISOLONE SOD SUCC 40MG VIAL 40 MG IV ×4 (04:20→23:13)
[2023-05-25 08:13] LABS: Anion Gap 7.7 mEq/L (5-15); Blood Urea Nitrogen 13 mg/dl (7-17); Calcium 8.4 mg/dl (8.4-10.2); Carbon Dioxide 31 mmol/L (22.0-30.0); Chloride 93 mmol/L (98-107); Creatinine Clearance Estimated 35 mL/min (50-200); Estimated Glomerular Filt Rate 99 ml/min (>60); GFR (African American) 120 ML/MIN (>60); Glucose 143 mg/dl (74-100); Potassium 3.7 mmoL/L (3.5-5.1); Sodium 128 mmol/L (136-145)
[2023-05-25 08:24] LABS: Basophils % 0.1 % (0.1-2.0); Hematocrit 43.9 % (37.0-47.0); Hemoglobin 14.7 g/dL (12.2-16.2); Lymphocytes # 0.7 K/mm3 (0.7-4.5); Lymphocytes % 7.3 % (10-50); Mean Corpuscular HGB Conc 33.4 g/dL (31.8-35.4); Mean Corpuscular Hemoglobin 31.7 pg (27.0-31.2); Mean Corpuscular Volume 94.9 fl (81-99); Monocytes # 0.2 K/mm3 (0.1-1.0); Monocytes % 2.6 % (1.7-9.3); Neutrophils # 8.1 K/mm3 (1.8-7.8); Platelet Count 208 K/mm3 (142-424); Red Blood Count 4.62 M/mm3 (4.20-5.40); Red Cell Distribution Width 13.4 % (11.5-17.5)
[2023-05-25 08:28] LABS: MANUAL DIFFERENTIAL MANUAL DIFFERENTIAL (MANUAL DIFF)
[2023-05-25] MEDS: HEPARIN SODIUM 5,000 UNIT/ML VIAL 5000 UNIT SQ ×2 (08:39→21:03)
[2023-05-25] MEDS: guaiFENesin 600 MG TAB.ER.12H 1200 MG PO ×2 (08:39→21:03)
[2023-05-25] MEDS: DOCUSATE SODIUM 100 MG CAPSULE PO (08:39)
[2023-05-25] MEDS: DOXYCYCLINE HYCL 100 MG TABLET PO ×2 (08:39→21:03)
[2023-05-25 09:37] LABS: Lymphocytes % 5 % (10-50); Monocytes % 2 % (2-9); Neutrophils % 93 % (42-76); Total Cells Counted 100
[2023-05-25 09:38] LABS: Platelet Estimate Normal; RBC Morphology Normal
--- NOTE | 2023-05-25 14:45 | EXP.PN ---
Subjective *Date: 05/25/23 *Time: 14:45 Interval history: complains of SOB, denied CP, N/V Exam Data for Last 24 hours Vital signs and Labs for Last 24 Hours: Temp Pulse Resp BP Pulse Ox O2 Del Method O2 Flow Rate 98.4 F 86 20 161/90 H 94 L Nasal Cannula 2 05/25/23 11:47 05/25/23 14:02 05/25/23 11:47 05/25/23 11:47 05/25/23 14:02 05/25/23 14:02 05/25/23 14:02 FiO2 32 05/24/23 19:11 Laboratory Results - last 24 hr 05/25/23 07:12: WBC 9.0, RBC 4.62, Hgb 14.7, Hct 43.9, MCV 94.9, MCH 31.7 H, MCHC 33.4, RDW 13.4, Plt Count 208, MPV 9.0, Neut % (Auto) 90.0 H, Lymph % (Auto) 7.3 L, [place] % (Auto) 2.6, Eos % (Auto) 0.0 L, Baso % (Auto) 0.1, Neut # (Auto) 8.1 H, Lymph # (Auto) 0.7, [place] # (Auto) 0.2, Eos # (Auto) 0.0, Baso # (Auto) 0.0, Total Counted 100, Neutrophils % (Manual) 93 H, Lymphocytes % (Manual) 5 L, Monocytes % (Manual) 2, Platelet Estimate Normal, RBC Morphology Normal, Sodium 128 L, Potassium 3.7, Chloride 93 L, Carbon Dioxide 31 H, Anion Gap 7.7, BUN 13 D, Creatinine 0.60 D, Estimated Creat Clear 35, Estimated GFR 99, Est GFR ( Amer) 120 D, Glucose 143 H, Calcium 8.4 I & O for Last 24 hours: Intake & Output 05/22/23 05/23/23 05/24/23 05/25/23 23:59 23:59 23:59 23:59 Intake Total 360 / 600 975 / 1265 1010 / 1010 Output Total 300 / 500 1500 / 1500 450 / 450 Balance 60 / 100 -525 / -235 560 / 560 Weight 37.195 kg 41.549 kg 41.821 kg Microbiology Reports for the Last 24 Hours: Microbiology 05/23/23 10:20 Sputum - Expectorated Sputum Gram Stain - Final Constitutional Constitutional: no acute distress *Routine HEENT Exam Head: Present normocephalic Eye: Present EOMI and PERRL ENT: Present mucous membranes moist *Routine Neck Exam Neck: Present supple; Absent lymphadenopathy *Routine Respiratory Exam Respiratory: Present diminished air movement *Routine Cardiovascular Exam Cardiovascular: Present RRR *Routine Abdominal Exam Abdominal: Present soft and normoactive bowel sounds; Absent tenderness *Routine Extremities Exam Extremities: Absent cyanosis, clubbing or edema *Routine Skin Exam Skin: Present warm; Absent rash *Routine Neurological Exam Neurological: Present alert and oriented X3 Assessment and Plan *Assessment and plan (1) Acute exacerbation of chronic obstructive pulmonary disease: Status: Acute Category: Medical Code(s): J44.1 - Chronic obstructive pulmonary disease with (acute) exacerbation (2) Acute hypoxic respiratory failure: Status: Acute Category: Medical Code(s): J96.01 - Acute respiratory failure with hypoxia (3) HLD (hyperlipidemia): Status: Acute Category: Medical Code(s): E78.5 - Hyperlipidemia, unspecified (4) HTN (hypertension): Status: Acute Category: Medical Code(s): I10 - Essential (primary) hypertension Plan Patient is a 72-year-old female with past medical history of COPD who presents to the hospital due to shortness of breath. According to patient she has been feeling sick for past 3 to 4 days, Getting Worse, She Was a Started on Medrol Dosepak, azithromycin without much relief so she decided to come to the hospital. Patient otherwise denied chest pain nausea vomiting diarrhea constipation dysuria. She endorses having cough productive of phlegm, she does not have sick contacts, her smokes around her. Assessment Acute hypoxic respiratory failure satting less than 90% on room air COPD exacerbation Hypertension Hyperlipidemia Plan continue IV Solu-Medrol, IV Levaquin Every 4 hours DuoNebs check PCT Monitor and replace electrolytes Chest x-ray reviewed negative for acute pulmonary process, did show mild bibasilar opacities suggestive of possible scars, atelectasis Resume home medications DVT prophylaxis-Lovenox wheezing better, SOB better, continue current regimen
--- NOTE | 2023-05-25 14:59 | PC.NURSE ---
PT IS SITTING UP IN THE BED. ALERT AND ORIENTED X4. EATING AND DRINKING WELL. O2 SATURATION HAS MAINTAINED 90-96% ON 3-4 L NC. O2 SATURATION DROPPED TO 85% ON 2 L NC. LUNG SOUNDS DIMINISHED WITH SCATTERED WHEEZES. ABDOMEN SOFT/NON TENDER WITH ACTIVE BOWEL SOUNDS. OFFERED TO TAKE PT'S HOME MEDS TO LOCK UP AND PT REFUSED. PT HAD BEEN TAKING HER OWN BP MEDS IN THE MORNING B/C PT STATES SHE TAKES HER MEDS AT HOME ON A VERY PARTICULAR SCHEDULE AND SHE WANTS TO STAY ON THAT SAME SCHEDULE. NOTIFIED PHARMACY TO HAVE MEDICATION TIMES CHANGED. PT IS AWARE AND SHE STATED SHE WOULD NOT TAKE HER OWN MEDS LONG SHE CAN GET HERS THE SAME TIME SHE TAKES THEM AT HOME. INHALER HAS BEEN LABELED AND PUT IN THE OMNI. WILL CONTINUE TO MONITOR.
[2023-05-25] MEDS: LEVOFLOXACIN/D5W 250 MG/50 ML PIGGYBACK 100 MG IV (21:03)
[2023-05-25] MEDS: PRAVASTATIN 40MG TAB 40 MG PO (21:03)
[2023-05-25] MEDS: BUDESONIDE 0.5MG/2ML NEB 0.5 MG IH (22:29)
[2023-05-26] VITALS (11 sets, daily range): BP systolic 132–156; BP diastolic 87–98; PULSE 76–88; RESP 16–20; TEMP 36.7–37; O2SAT 93–98; BMI 16.9
[2023-05-26] MEDS: IPRATROPIUM/ALBUTEROL 3 ML NEB IH ×5 (02:05→23:58)
[2023-05-26] MEDS: METHYLPREDNISOLONE SOD SUCC 40MG VIAL 40 MG IV ×4 (05:09→22:43)
--- NOTE | 2023-05-26 05:15 | PC.NURSE ---
Patient has had a good night tonight. Was able to sleep some through the shift. Did start a new nebulizer that seems to help with patient wheezing. Patient has not complained of SOB or pain through the shift
[2023-05-26] MEDS: BUDESONIDE 0.5MG/2ML NEB 0.5 MG IH (06:10)
[2023-05-26] MEDS: AMLODIPINE 2.5MG TABLET 2.5 MG PO (06:43)
[2023-05-26] MEDS: PATIENT'S OWN HOME MEDICATION (Tiotropium-Olodaterol [Stiolto Respimat] 2.5-2.5 mcg/actuat 2 EACH IH (06:43)
[2023-05-26] MEDS: CARVEDILOL 3.125MG TABLET 3.125 MG PO ×2 (06:43→20:55)
[2023-05-26 07:14] LABS: Basophils % 0.2 % (0.1-2.0); Hematocrit 41.8 % (37.0-47.0); Hemoglobin 14.3 g/dL (12.2-16.2); Lymphocytes # 0.9 K/mm3 (0.7-4.5); Lymphocytes % 11.3 % (10-50); Mean Corpuscular HGB Conc 34.3 g/dL (31.8-35.4); Mean Corpuscular Hemoglobin 32.2 pg (27.0-31.2); Mean Platelet Volume 8.2 fl (7.4-10.4); Monocytes # 0.3 K/mm3 (0.1-1.0); Monocytes % 4.1 % (1.7-9.3); Neutrophils # 6.7 K/mm3 (1.8-7.8); Neutrophils % 84.3 % (37.0-80.0); Platelet Count 199 K/mm3 (142-424); Red Blood Count 4.44 M/mm3 (4.20-5.40); Red Cell Distribution Width 13.4 % (11.5-17.5)
[2023-05-26 07:20] LABS: Anion Gap 3.2 mEq/L (5-15); Blood Urea Nitrogen 15 mg/dl (7-17); Calcium 8.1 mg/dl (8.4-10.2); Carbon Dioxide 34 mmol/L (22.0-30.0); Chloride 94 mmol/L (98-107); Creatinine Clearance Estimated 35 mL/min (50-200); Estimated Glomerular Filt Rate 99 ml/min (>60); GFR (African American) 120 ML/MIN (>60); Glucose 116 mg/dl (74-100); Potassium 3.2 mmoL/L (3.5-5.1); Sodium 128 mmol/L (136-145)
--- NOTE | 2023-05-26 09:42 | EXP.PULM.CON ---
History of Present Illness History of present illness: Ms. Marte is a 80-year-old female greater than 30 PPD carries a diagnosis open Stiolto inhaler and nocturna oxygen therapy at 2 L, not needing any oxygen supplementation during the daytime and baseline presented to the ER with worsening respiratory send found to have new oxygen And pulmonary was called for further evaluation and management. [facility] Disclaimer: The information contained in this section may have been updated after the patient was seen, as this information can be updated by other users. Medical History (Updated 05/26/23 @ 11:16 by Vidhya Huerta MD) Arthritis COPD (chronic obstructive pulmonary disease) HLD (hyperlipidemia) HTN (hypertension) Lung disease Pneumonia Surgical History History of colonoscopy Family History Other No significant family history Social History (Updated 05/23/23 @ 13:32 by Alber Hernandez RN) Smoking Status: Former smoker tobacco type: cigarettes alcohol intake: never substance use type: denies use current occupational status: retired Travel in the last 8 weeks: Inside the [place] household members: spouse housing: house current occupational exposures/hazards: No caffeine: Yes Review of Systems Constitutional Constitutional: Reports body ache(s) and Reports fatigue Eyes Eyes: Denies eye discharge, Denies dry eyes, Denies irritation and Denies itchy eyes ENT Ears, Nose, Mouth, and Throat: Denies epistaxis, Denies facial pain, Denies lip swelling and Denies throat swelling *Cardiovascular Cardiovascular: Reports dyspnea and Reports dyspnea on exertion *Respiratory Respiratory: Reports chest congestion, Reports cough, Reports dyspnea, Reports dyspnea on exertion, Reports excessive phlegm production and Reports wheezing *Gastrointestinal Gastrointestinal: Denies abdominal pain, Denies belching and Denies cramping *Musculoskeletal Musculoskeletal: Reports back pain, Reports myalgias and Reports other (No small joint swelling or Pain) Psychiatric Psychiatric: Denies homicidal ideation and Denies suicidal ideation Endocrine Endocrine: Reports fatigue and Denies heat intolerance Hematologic/Lymphatic Hematologic/Lymphatic: Denies easy bleeding and Denies lymphadenopathy Allergic/Immunologic Allergic/Immunologic: Denies itchy eyes, Denies lip swelling, Denies throat swelling and Reports wheezing Pulmonology Exam Inpatient Vital signs and Labs for Last 24 Hours: Temp Pulse Resp BP Pulse Ox O2 Del Method O2 Flow Rate 98.1 F 86 18 132/98 H 96 Nasal Cannula 4 05/26/23 08:00 05/26/23 08:00 05/26/23 08:00 05/26/23 08:00 05/26/23 08:07 05/26/23 08:07 05/26/23 08:07 FiO2 32 05/25/23 18:46 Laboratory Results - last 24 hr 05/26/23 06:38: WBC 8.0, RBC 4.44, Hgb 14.3, Hct 41.8, MCV 94.0, MCH 32.2 H, MCHC 34.3, RDW 13.4, Plt Count 199, MPV 8.2, Neut % (Auto) 84.3 H, Lymph % (Auto) 11.3, [place] % (Auto) 4.1, Eos % (Auto) 0.0 L, Baso % (Auto) 0.2, Neut # (Auto) 6.7, Lymph # (Auto) 0.9, [place] # (Auto) 0.3, Eos # (Auto) 0.0, Baso # (Auto) 0.0, Sodium 128 L, Potassium 3.2 L, Chloride 94 L, Carbon Dioxide 34 H, Anion Gap 3.2 L, BUN 15, Creatinine 0.60, Estimated Creat Clear 35, Estimated GFR 99, Est GFR ( Amer) 120, Glucose 116 H, Calcium 8.1 L I & O for Labs for Last 24 Hours: Intake & Output 05/23/23 05/24/23 05/25/23 05/26/23 23:59 23:59 23:59 23:59 Intake Total 360 / 600 975 / 1265 1490 / 1790 750 / 750 Output Total 300 / 500 1500 / 1500 450 / 450 425 / 425 Balance 60 / 100 -525 / -235 1040 / 1340 325 / 325 Weight 82 lb 91 lb 9.6 oz 92 lb 3.157 oz 92 lb 3.51 oz Constitutional: Present moderate distress Head: Present normocephalic and atraumatic ENT: Present normal exam, normal oropharynx and mucous membranes moist Neck: Present normal inspection and full ROM Respiratory: Present respiratory distress, wheezes, diminished air movement and able to speak in complete sentences Cardiac: Present S1/S2, Tachycardia and radial pulses present GI: Present soft and distention; Absent tenderness or guarding Rectal (female): Present deferred (female): Present deferred Skin: Present intact; Absent cyanosis or jaundice Neuro: Present alert, awake and oriented x 3 Extremities: Present normal inspection; Absent clubbing or cyanosis Psychiatric: Present normal affect and cooperative Meds Home Medications and Allergies Home Medications Medication Instructions Recorded Confirmed Type carvedilol 3.125 mg tablet 3.125 mg PO BID High Blood Pressure 04/22/18 05/23/23 History omeprazole 40 mg capsule,delayed 40 mg PO DAILY Acid Reflux 04/22/18 05/23/23 History release simvastatin 20 mg tablet 20 mg PO HS Cholesterol 04/22/18 05/23/23 History meloxicam 15 mg tablet 7.5 mg PO Q72H Arthritis 03/19/19 05/23/23 History montelukast 10 mg tablet 10 mg PO PM allergies 03/22/20 05/23/23 History amlodipine 2.5 mg tablet 2.5 mg PO DAILY High Blood Pressure 01/04/22 05/23/23 History doxycycline hyclate 100 mg capsule 100 mg PO BID Infection 05/23/23 05/23/23 History guaifenesin 600 mg tablet, 1,200 mg PO BID 05/23/23 05/23/23 History extended release 12 hr methylprednisolone 4 mg tablets in 4 mg PO DIRECTED 05/23/23 05/23/23 History a dose pack tiotropium 2.5 mcg-olodaterol 2.5 2 puff inhalation DAILY Copd 05/23/23 05/23/23 History mcg/actuation mist for inhalation (Stiolto Respimat) New Prescriptions to Start Prescriptions: Allergies Allergy/AdvReac Type Severity Reaction Status Date / Time No Known Allergies Allergy Verified 05/15/23 09:56 Results Laboratory Findings 05/26/23 06:38 05/26/23 06:38 Abnormal lab findings: Abnormal Labs 05/23/23 05/24/23 05/25/23 08:25 06:19 07:12 MCH 31.6 H 31.4 H 31.7 H Neut % (Auto) 82.1 H 91.3 H 90.0 H Lymph % (Auto) 5.5 L 7.3 L Eos % (Auto) 0.0 L 0.0 L Neut # (Auto) 9.4 H 8.1 H Lymph # (Auto) 0.6 L Neutrophils % (Manual) 91 H 93 H Lymphocytes % (Manual) 6 L 5 L Sodium 131 L 128 L Potassium Chloride 97 L 93 L Carbon Dioxide 31 H 31 H Anion Gap Creatinine 0.50 L 0.40 L Glucose 103 H 121 H 143 H Calcium 8.2 L AST 42 H Globulin 3.4 H 05/26/23 06:38 MCH 32.2 H Neut % (Auto) 84.3 H Lymph % (Auto) Eos % (Auto) 0.0 L Neut # (Auto) Lymph # (Auto) Neutrophils % (Manual) Lymphocytes % (Manual) Sodium 128 L Potassium 3.2 L Chloride 94 L Carbon Dioxide 34 H Anion Gap 3.2 L Creatinine Glucose 116 H Calcium 8.1 L AST Globulin Assessment and Plan *Assessment and plan (1) Acute exacerbation of chronic obstructive pulmonary disease: Status: Acute Category: Medical Code(s): J44.1 - Chronic obstructive pulmonary disease with (acute) exacerbation (2) Acute hypoxic respiratory failure: Status: Acute Category: Medical Code(s): J96.01 - Acute respiratory failure with hypoxia (3) Pneumonia: Status: Acute Category: Medical Code(s): J18.9 - Pneumonia, unspecified organism Plan Ms. Marte is a 72-year-old female greater than 30 PPD carries a diagnosis open Stiolto inhaler and nocturna oxygen therapy at 2 L, not needing any oxygen supplementation during the daytime and baseline presented to the ER with worsening respiratory send found to have new oxygen And pulmonary was called for further evaluation and management. Denies any frequent exacerbations at baseline Afebrile. No evidence of leukocytosis upon admission. VBG on admission pending. Labs on admission significant for hyponatremia and hypokalemia. Chest x-ray upon admission bilateral significant emphysematous changes, bullae and hyperinflated lungs. No dense consolidation noted. Low-dose CT June 2021 significant centrilobular emphysematous changes with no suspicious nodules. Patient on admission was initiated on levofloxacin, doxycycline, methylprednisolone 40 every 6 hours along with DuoNebs every 4 scheduled and Pulmicort every 12 scheduled. On examination patient appeared to be in moderate respiratory distress with bilateral wheezing. Patient admits improvement in her symptoms but she is needing clinical To maintain O2 saturation goal of 90% above. Plan: -Initiate patient on Breztri inhaler, 2 puffs twice daily. Patient previous to her inhalers has led to oral thrush, will closely monitor. -Recommend to continue DuoNebs every 6 hours on as-needed basis after initiating Breztri inhaler -Recommend to weaned steroids to prednisone 40 mg daily to complete total of 5-day course -Recommend to change antibiotics to levofloxacin for community-acquired pneumonia to complete a total of 5-day course since admission. # Thank you for involving pulmonary in this patient. Will continue to follow, anticipate discharge tomorrow on long-term oxygen supplementation at rest.
[2023-05-26] MEDS: guaiFENesin 600 MG TAB.ER.12H 1200 MG PO ×2 (09:48→20:52)
[2023-05-26] MEDS: DOXYCYCLINE HYCL 100 MG TABLET PO ×2 (09:48→20:52)
[2023-05-26] MEDS: HEPARIN SODIUM 5,000 UNIT/ML VIAL 5000 UNIT SQ ×2 (09:51→20:53)
--- NOTE | 2023-05-26 10:37 | PC.NURSE ---
Patient's O2 sat 86% on room air at rest
--- NOTE | 2023-05-26 12:53 | P.PN_ITS ---
Subjective *Date: 05/26/23 *Time: 12:53 Interval history: complains of SOB,no events reported overnight, she thinks she is not back to her normal breathing, denied CP, N/V Exam Data for Last 24 hours Vital signs and Labs for Last 24 Hours: Temp Pulse Resp BP Pulse Ox O2 Del Method O2 Flow Rate 98.1 F 86 16 154/88 H 94 L Nasal Cannula 4 05/26/23 12:00 05/26/23 12:00 05/26/23 12:00 05/26/23 12:00 05/26/23 12:00 05/26/23 12:47 05/26/23 12:47 FiO2 32 05/25/23 18:46 Laboratory Results - last 24 hr 05/26/23 06:38: WBC 8.0, RBC 4.44, Hgb 14.3, Hct 41.8, MCV 94.0, MCH 32.2 H, MCHC 34.3, RDW 13.4, Plt Count 199, MPV 8.2, Neut % (Auto) 84.3 H, Lymph % (Auto) 11.3, [place] % (Auto) 4.1, Eos % (Auto) 0.0 L, Baso % (Auto) 0.2, Neut # (Auto) 6.7, Lymph # (Auto) 0.9, [place] # (Auto) 0.3, Eos # (Auto) 0.0, Baso # (Auto) 0.0, Sodium 128 L, Potassium 3.2 L, Chloride 94 L, Carbon Dioxide 34 H, Anion Gap 3.2 L, BUN 15, Creatinine 0.60, Estimated Creat Clear 35, Estimated GFR 99, Est GFR ( Amer) 120, Glucose 116 H, Calcium 8.1 L I & O for Last 24 hours: Intake & Output 05/23/23 05/24/23 05/25/23 05/26/23 23:59 23:59 23:59 23:59 Intake Total 360 / 600 975 / 1265 1490 / 1790 750 / 750 Output Total 300 / 500 1500 / 1500 450 / 450 425 / 425 Balance 60 / 100 -525 / -235 1040 / 1340 325 / 325 Weight 37.195 kg 41.549 kg 41.82 kg 41.83 kg Constitutional Constitutional: no acute distress *Routine HEENT Exam Head: Present normocephalic Eye: Present EOMI and PERRL ENT: Present mucous membranes moist *Routine Neck Exam Neck: Present supple; Absent lymphadenopathy *Routine Respiratory Exam Respiratory: Present diminished air movement *Routine Cardiovascular Exam Cardiovascular: Present RRR *Routine Abdominal Exam Abdominal: Present soft and normoactive bowel sounds; Absent tenderness *Routine Extremities Exam Extremities: Absent cyanosis, clubbing or edema *Routine Skin Exam Skin: Present warm; Absent rash *Routine Neurological Exam Neurological: Present alert and oriented X3 Assessment and Plan *Assessment and plan (1) Acute exacerbation of chronic obstructive pulmonary disease: Status: Acute Category: Medical Code(s): J44.1 - Chronic obstructive pulmonary disease with (acute) exacerbation (2) Acute hypoxic respiratory failure: Status: Acute Category: Medical Code(s): J96.01 - Acute respiratory failure with hypoxia (3) Pneumonia: Status: Acute Category: Medical Code(s): J18.9 - Pneumonia, unspecified organism (4) HTN (hypertension): Status: Acute Category: Medical Code(s): I10 - Essential (primary) hypertension Plan Patient is a 72-year-old female with past medical history of COPD who presents to the hospital due to shortness of breath. According to patient she has been feeling sick for past 3 to 4 days, Getting Worse, She Was a Started on Medrol Dosepak, azithromycin without much relief so she decided to come to the hospital. Patient otherwise denied chest pain nausea vomiting diarrhea constipation dysuria. She endorses having cough productive of phlegm, she does not have sick contacts, her smokes around her. Assessment Acute hypoxic respiratory failure satting less than 90% on room air COPD exacerbation Hypertension Hyperlipidemia Plan continue IV Solu-Medrol, IV Levaquin Every 4 hours DuoNebs Monitor and replace electrolytes Chest x-ray reviewed negative for acute pulmonary process, did show mild bibasilar opacities suggestive of possible scars, atelectasis Resume home medications DVT prophylaxis-Lovenox wheezing better, SOB better, continue current regimen, may need more home oxygen at dc, new baseline, normally at 2L NC at home
--- NOTE | 2023-05-26 18:02 | PC.NURSE ---
Patient alert and oriented. VSS. Up to BR with 1 for voids. Denies pain. Patient states she is feeling better this evening. IV steroids and antibiotics administered per orders. Full shower completed.
[2023-05-26] MEDS: PRAVASTATIN 40MG TAB 40 MG PO (20:53)
[2023-05-26] MEDS: PANTOPRAZOLE 40MG TABLET 40 MG PO (20:59)
[2023-05-27] VITALS (8 sets, daily range): BP systolic 145–161; BP diastolic 72–89; PULSE 63–83; RESP 18–20; TEMP 36.5–37.3; O2SAT 92–97; BMI 16.8
[2023-05-27] MEDS: PATIENT'S OWN HOME MEDICATION (Tiotropium-Olodaterol [Stiolto Respimat] 2.5-2.5 mcg/actuat 2 EACH IH (05:41)
[2023-05-27] MEDS: CARVEDILOL 3.125MG TABLET 3.125 MG PO ×2 (06:32→22:14)
[2023-05-27] MEDS: AMLODIPINE 2.5MG TABLET 2.5 MG PO (06:32)
[2023-05-27] MEDS: METHYLPREDNISOLONE SOD SUCC 40MG VIAL 40 MG IV (06:32)
[2023-05-27] MEDS: IPRATROPIUM/ALBUTEROL 3 ML NEB IH ×2 (06:57→19:15)
[2023-05-27 08:36] LABS: Basophils % 0.2 % (0.1-2.0); Eosinophils % 0.4 % (0.1-12.0); Hemoglobin 15.5 g/dL (12.2-16.2); Lymphocytes # 0.8 K/mm3 (0.7-4.5); Lymphocytes % 10.8 % (10-50); Mean Corpuscular HGB Conc 34.4 g/dL (31.8-35.4); Mean Corpuscular Hemoglobin 32.5 pg (27.0-31.2); Mean Corpuscular Volume 94.5 fl (81-99); Monocytes # 0.3 K/mm3 (0.1-1.0); Monocytes % 4.6 % (1.7-9.3); Neutrophils # 6.2 K/mm3 (1.8-7.8); Neutrophils % 83.9 % (37.0-80.0); Platelet Count 202 K/mm3 (142-424); Red Blood Count 4.76 M/mm3 (4.20-5.40); Red Cell Distribution Width 13.3 % (11.5-17.5); White Blood Count 7.4 K/mm3 (4.8-10.8)
[2023-05-27 08:37] LABS: Chloride 93 mmol/L (98-107); Sodium 133 mmol/L (136-145)
[2023-05-27 08:38] LABS: Potassium 3.3 mmoL/L (3.5-5.1)
[2023-05-27 08:40] LABS: Alanine Aminotransferase 34 U/L (12-78); Alkaline Phosphatase 69 U/L (38-126); Anion Gap 10.3 mEq/L (5-15); Aspartate Amino Transferase 41 U/L (14-36); Bilirubin,Total 0.5 mg/dl (0.2-1.3); Blood Urea Nitrogen 17 mg/dl (7-17); Calcium 8.7 mg/dl (8.4-10.2); Carbon Dioxide 33 mmol/L (22.0-30.0); Creatinine Clearance Estimated 34 mL/min (50-200); Estimated Glomerular Filt Rate 83 ml/min (>60); GFR (African American) 100 ML/MIN (>60); Glucose 130 mg/dl (74-100)
[2023-05-27 08:41] LABS: Albumin Level 3.6 g/dl (3.5-5.0); Albumin/Globulin Ratio 1.3 (1.1-1.8); Globulin 2.8 g/dL (1.3-3.2); Total Protein,Serum 6.4 g/dl (6.3-8.2)
[2023-05-27] MEDS: DOXYCYCLINE HYCL 100 MG TABLET PO (08:56)
[2023-05-27] MEDS: DOCUSATE SODIUM 100 MG CAPSULE PO (08:56)
[2023-05-27] MEDS: HEPARIN SODIUM 5,000 UNIT/ML VIAL 5000 UNIT SQ ×2 (08:57→22:14)
--- NOTE | 2023-05-27 09:42 | EXP.PULM.PN ---
Subjective *Date: 05/27/23 *Time: 10:41 Interval history: No acute respiratory vents overnight. Patient denies any new respiratory complaints. Pulmonology Exam Inpatient Vital signs and Labs for Last 24 Hours: Temp Pulse Resp BP Pulse Ox O2 Del Method O2 Flow Rate 99.2 F 82 18 145/86 H 95 Nasal Cannula 3 05/27/23 08:00 05/27/23 08:00 05/27/23 08:00 05/27/23 08:00 05/27/23 08:00 05/27/23 09:02 05/27/23 09:02 FiO2 32 05/25/23 18:46 Laboratory Results - last 24 hr 05/27/23 08:23: WBC 7.4, RBC 4.76, Hgb 15.5, Hct 45.0, MCV 94.5, MCH 32.5 H, MCHC 34.4, RDW 13.3, Plt Count 202, MPV 8.0, Neut % (Auto) 83.9 H, Lymph % (Auto) 10.8, [place] % (Auto) 4.6, Eos % (Auto) 0.4, Baso % (Auto) 0.2, Neut # (Auto) 6.2, Lymph # (Auto) 0.8, [place] # (Auto) 0.3, Eos # (Auto) 0.0, Baso # (Auto) 0.0, Sodium 133 L, Potassium 3.3 L, Chloride 93 L, Carbon Dioxide 33 H, Anion Gap 10.3, BUN 17, Creatinine 0.70, Estimated Creat Clear 34, Estimated GFR 83, Est GFR ( Amer) 100, Glucose 130 H, Calcium 8.7, Total Bilirubin 0.5, AST 41 H, ALT 34, Alkaline Phosphatase 69, Total Protein 6.4, Albumin 3.6, Globulin 2.8, Albumin/Globulin Ratio 1.3 I & O for Labs for Last 24 Hours: Intake & Output 05/24/23 05/25/23 05/26/23 05/27/23 23:59 23:59 23:59 23:59 Intake Total 975 / 1265 1490 / 1790 1610 / 1610 480 / 480 Output Total 1500 / 1500 450 / 450 1125 / 1225 300 / 300 Balance -525 / -235 1040 / 1340 485 / 385 180 / 180 Weight 91 lb 9.6 oz 92 lb 3.157 oz 92 lb 3.51 oz 91 lb 8 oz Microbiology Reports for the Last 24 Hours: Microbiology 05/23/23 10:20 Sputum - Expectorated Sputum Gram Stain - Final 05/23/23 10:20 Sputum - Expectorated Sputum Sputum Culture - Final Constitutional: Present mild distress Head: Present normocephalic and atraumatic ENT: Present normal exam, normal oropharynx and mucous membranes moist Neck: Present normal inspection and full ROM Respiratory: Present respiratory distress, wheezes and able to speak in complete sentences; Absent diminished air movement Cardiac: Present S1/S2, Tachycardia and radial pulses present GI: Present soft and distention; Absent tenderness or guarding Rectal (female): Present deferred (female): Present deferred Skin: Present intact; Absent cyanosis or jaundice Neuro: Present alert, awake and oriented x 3 Extremities: Present normal inspection; Absent clubbing or cyanosis Psychiatric: Present normal affect and cooperative Assessment and Plan *Assessment and plan (1) Acute exacerbation of chronic obstructive pulmonary disease: Status: Acute Category: Medical Code(s): J44.1 - Chronic obstructive pulmonary disease with (acute) exacerbation (2) Acute hypoxic respiratory failure: Status: Acute Category: Medical Code(s): J96.01 - Acute respiratory failure with hypoxia (3) Pneumonia: Status: Acute Category: Medical Code(s): J18.9 - Pneumonia, unspecified organism Plan Ms. Marte is a 72-year-old female greater than 30 PPD carries a diagnosis open Stiolto inhaler and nocturna oxygen therapy at 2 L, not needing any oxygen supplementation during the daytime and baseline presented to the ER with worsening respiratory send found to have new oxygen And pulmonary was called for further evaluation and management. Denies any frequent exacerbations at baseline Afebrile. No evidence of leukocytosis upon admission. VBG on admission pending. Labs on admission significant for hyponatremia and hypokalemia. Chest x-ray upon admission bilateral significant emphysematous changes, bullae and hyperinflated lungs. No dense consolidation noted. Low-dose CT June 2021 significant centrilobular emphysematous changes with no suspicious nodules. Patient on admission was initiated on levofloxacin, doxycycline, methylprednisolone 40 every 6 hours along with DuoNebs every 4 scheduled and Pulmicort every 12 scheduled. On initial examination patient appeared to be in moderate respiratory distress with bilateral wheezing. Patient admits improvement in her symptoms but she is needing clinical Interval update: No acute respiratory events overnight. Continued remain on oxygen supplementation, weaned to 1 L this morning. Auscultation improved wheezing Plan: -Change Stiolto to Breztri inhaler 2 puffs twice daily upon discharge. Patient previous to her inhalers has led to oral thrush, will closely monitor. -Recommend to continue DuoNebs every 6 hours on as-needed basis after initiating Breztri inhaler -Recommend to weaned steroids to prednisone 40 mg daily to complete total of 5-day course -Recommend to change antibiotics to levofloxacin for community-acquired pneumonia to complete a total of 5-day course since admission. # Thank you for involving pulmonary in this patient. Will follow the patient in pulmonary clinic in 2 weeks post discharge.
--- NOTE | 2023-05-27 13:47 | HMH.PTEV ---
Physical Therapy Evaluation Rehab PT IP Evaluation Start: 05/27/23 10:35 Freq: ONCE Status: Active Protocol: Document 05/27/23 13:41 IQRA (Rec: 05/27/23 13:46 PHONARA [id number]) Subjective/History History History 72 yowf adm to [facility] with COPD exac with increased SOA. She reports she lives with her , no stept to enter the home, and she is generally independent with all mobility prior to adm. She does use oxygen via NC at all times at baseline. Subjective Subjective Currently she reports feeling more tired than usual, but better than when I came in. New diagnosis of cancer in past 12 No months? Rehab PT IP Eval Objective Appearance Patient Behavior Appropriate Patient Orientation Person,Place,Time Difficulty following instructions none Speech Pattern Clear Ambulation Patient Able to Ambulate Yes Ambulation Observation IP General Gait Pattern Observation No Deviations/Normal Ambulation Distance (feet) 20 Ambulation Assistive Device None Ambulation Ability Supervision/Stand by Balance Ability to Arise Able, w/o using arms Sitting Balance Steady, safe Standing Balance Steady, wide stance Dynamic Sitting Balance Ability Good Dynamic Standing Balance Ability Good Transfers Bed Transfer Ability Supervision/Stand by Chair Transfer Ability Supervision/Stand by Sit to Stand Bed Transfer Ability Supervision/Stand by Sit to Stand Chair Transfer Ability Supervision/Stand by ROM All Extremities PT ROM Status WFL MMT All Extremities PT MMT WFL Rehab PT IP prob,goals,plan Problems Date of Evaluation: 05/27/23 Discharge Plan PT Discharge Plan Pt is currently appropriate to return home once medically stable for d/c. She would benefit from a BSC for home use and Home Health therapy after d/c. Eval Complexity Eval Charge Codes 25657 - High Complexity PHYSICIAN CERTIFICATION: I certify the specified therapy services for Charisse Marte are required, authorized, and reviewed every 30 days.
--- NOTE | 2023-05-27 13:56 | HMH.OTEV ---
OT Inpatient Evaluation Rehab OT IP Evaluation Start: 05/27/23 10:35 Freq: ONCE Status: Active Protocol: Document 05/27/23 13:53 CAMELIA (Rec: 05/27/23 13:56 [id number] Rehab OT IP Assessment Subjective History Pt oriented x 3 on arrival. Pt agreeable to engage in therapy evaluation. Pt is a 72 [address] [facility] with COPD exac with increased SOA. She reports she lives with her , no stept to enter the home, and she is generally independent with all mobility prior to adm. Pt also claims she is normally independently with all ADLs and IADLs. She does use oxygen via NC at all times at baseline. Subjective I could do whatever I needed to. Objective Patient Orientation Person,Place,Birthday Right Upper Extremity Gross ROM WFL Left Upper Extremity Gross ROM WFL Bed Mobility bed mobility-scooting,bed mobility - supine/sit Assist Level Supervision/Stand by Transfer Training Sit/Stand Transfer Assist Level Supervision/Stand by Lower Body Dressing Ability Standby Assistance Rehab OT IP prob,goals,plan Problems Date of Evaluation: 05/27/23 Rehab Potential Rehab Potential Innapropriate for Skilled Therapy Discharge Plan OT Discharge Plan Pt appears to be at her baseline with functional transfers and ADL independence . Pt can return home with once she is medically stable per physcian. Therapist recommends home health OT evaluation for environmental safety at home. Eval Complexity Eval Charge Codes 91112 - Moderate Complexity PHYSICIAN CERTIFICATION: I certify the specified therapy services for Charisse Marte are required, authorized, and reviewed every 30 days.
--- NOTE | 2023-05-27 14:15 | SW/DCPLANNER ---
Addendum entered by Annalee Brown RN 05/28/23 14:59: Patient requires home O2 at discharge. Patient Choice signed for [facility]. Order/clinical faxed and portable delivered prior to discharge. Addendum entered by Zuleyma Sosa 05/28/23 13:16: Rosa w/ [facility] stated that services will start this week. Addendum entered by Zuleyma Sosa 05/28/23 11:03: The plan for this patient is to discharge home today: patient information/order will be faxed to [facility] today. Original Note: I spoke w/ this patient regarding plans once medically stable for discharge. PT/OT evaluated patient and recommended returning home w/ home health services. Patient is agreeable to home health services and prefers to use [facility]. Patient information/order will be faxed at time of discharge. Patient is planned to discharge home tomorrow pending no setbacks.
--- NOTE | 2023-05-27 17:36 | PC.NURSE ---
Pt alert and oriented. VSS. On 1-2L O2 via nasal cannula. Up with 1 to bsc for voids. Steroids and antibiotics administered per orders. Denies pain. Plan for discharge home tomorrow.
--- NOTE | 2023-05-27 18:16 | EXP.ACUTE.PN ---
Subjective *Date: 05/27/23 *Time: 18:16 Interval history: Patient still feels symptomatic and short of breath. Requiring 2 to 3 L of oxygen, at home is on 2 L at baseline just at night. Room air sat today was 96%. Room cell counts and labs. Tolerating p.o. intake. No nausea or vomiting. No chest pain. Patient anxious about going home Medical Exam Vital signs and Labs for Last 24 Hours: Vital Signs Temp Pulse Pulse Resp BP Pulse Ox O2 Del Method 05/27/23 17:15 Nasal Cannula 05/27/23 16:00 98.3 F 63 18 148/78 H 93 L Nasal Cannula 05/27/23 15:01 Nasal Cannula 05/27/23 13:28 Nasal Cannula 05/27/23 12:00 98.1 F 74 20 161/72 H 94 L Nasal Cannula 05/27/23 11:25 Nasal Cannula 05/27/23 09:02 Nasal Cannula 05/27/23 08:00 99.2 F 82 18 145/86 H 95 Nasal Cannula 05/27/23 07:00 Nasal Cannula 05/27/23 07:00 Nasal Cannula 05/27/23 07:29 05/27/23 06:56 75 05/27/23 06:56 74 05/27/23 05:00 Nasal Cannula 05/27/23 04:00 98.9 F 83 20 149/87 H 95 Nasal Cannula 05/27/23 03:00 Nasal Cannula 05/27/23 01:00 Nasal Cannula 05/26/23 23:00 Nasal Cannula 05/26/23 21:00 Nasal Cannula 05/26/23 21:00 Nasal Cannula 05/27/23 00:00 97.7 F 79 18 152/89 H 97 Nasal Cannula 05/26/23 20:00 98.1 F 82 18 149/87 H 95 Nasal Cannula 05/26/23 18:43 Nasal Cannula O2 Flow Rate 05/27/23 17:15 2 05/27/23 16:00 1 05/27/23 15:01 1 05/27/23 13:28 2 05/27/23 12:00 2 05/27/23 11:25 1 05/27/23 09:02 3 05/27/23 08:00 3 05/27/23 07:00 3 05/27/23 07:00 3 05/27/23 07:29 3 05/27/23 06:56 05/27/23 06:56 05/27/23 05:00 3 05/27/23 04:00 05/27/23 03:00 3 05/27/23 01:00 3 05/26/23 23:00 3 05/26/23 21:00 3 05/26/23 21:00 3 05/27/23 00:00 05/26/23 20:00 05/26/23 18:43 3 Intake and Output 05/27/23 05/27/23 05/27/23 07:59 15:59 23:59 Intake Total 480 / 1320 840 / 1320 Output Total 300 / 700 400 / 700 Balance 180 / 620 440 / 620 Intake: Intake, Oral Amount 480 / 1320 840 / 1320 Output: Output, Urine Amount 300 / 700 400 / 700 Other: Number of Unmeasured Voids 0 Weight 41.504 kg Patient Weight 05/27/23 23:59 Weight 41.504 kg Laboratory Results - last 24 hr 05/27/23 08:23: WBC 7.4, RBC 4.76, Hgb 15.5, Hct 45.0, MCV 94.5, MCH 32.5 H, MCHC 34.4, RDW 13.3, Plt Count 202, MPV 8.0, Neut % (Auto) 83.9 H, Lymph % (Auto) 10.8, [place] % (Auto) 4.6, Eos % (Auto) 0.4, Baso % (Auto) 0.2, Neut # (Auto) 6.2, Lymph # (Auto) 0.8, [place] # (Auto) 0.3, Eos # (Auto) 0.0, Baso # (Auto) 0.0, Sodium 133 L, Potassium 3.3 L, Chloride 93 L, Carbon Dioxide 33 H, Anion Gap 10.3, BUN 17, Creatinine 0.70, Estimated Creat Clear 34, Estimated GFR 83, Est GFR ( Amer) 100, Glucose 130 H, Calcium 8.7, Total Bilirubin 0.5, AST 41 H, ALT 34, Alkaline Phosphatase 69, Total Protein 6.4, Albumin 3.6, Globulin 2.8, Albumin/Globulin Ratio 1.3 I & O for Labs for Last 24 Hours: Intake & Output 05/24/23 05/25/23 05/26/2324 23:59 23:59 23:59 23:59 Intake Total 975 / 1265 1490 / 1790 1610 / 1610 1320 / 1320 Output Total 1500 / 1500 450 / 450 1125 / 1225 700 / 700 Balance -525 / -235 1040 / 1340 485 / 385 620 / 620 Weight 41.549 kg 41.82 kg 41.83 kg 41.504 kg Microbiology Reports for the Last 24 Hours: Microbiology 05/23/23 10:20 Sputum - Expectorated Sputum Gram Stain - Final 05/23/23 10:20 Sputum - Expectorated Sputum Sputum Culture - Final Constitutional: Present no acute distress, thin and chronically ill appearing Head: Present atraumatic and normocephalic ENT: Present normal exam Neck: Present normal inspection Respiratory: Present prolonged expiratory phase, wheezes and normal respiratory effort; Absent rhonchi or crackles Cardiac: Present Reg Rate and Rhythm GI: Present normal bowel sounds; Absent tenderness Extremities: Present normal inspection and full ROM Skin: Present intact; Absent erythema Neuro: Present Grossly Intact, alert, awake, oriented x 3 and moves all extremities Assessment and Plan *Assessment and plan (1) Pneumonia: Status: Acute Category: Medical Code(s): J18.9 - Pneumonia, unspecified organism (2) Acute exacerbation of chronic obstructive pulmonary disease: Status: Acute Category: Medical Code(s): J44.1 - Chronic obstructive pulmonary disease with (acute) exacerbation (3) Acute hypoxic respiratory failure: Status: Acute Category: Medical Code(s): J96.01 - Acute respiratory failure with hypoxia (4) HTN (hypertension): Status: Acute Category: Medical Code(s): I10 - Essential (primary) hypertension Plan Patient is a 72-year-old female with past medical history of COPD who presents to the hospital due to shortness of breath. According to patient she has been feeling sick for past 3 to 4 days, Getting Worse, She Was a Started on Medrol Dosepak, azithromycin without much relief so she decided to come to the hospital. Patient otherwise denied chest pain nausea vomiting diarrhea constipation dysuria. She endorses having cough productive of phlegm, she does not have sick contacts, her smokes around her. Continues to require inpatient management. Problems addressed as follows: Acute hypoxic respiratory failure due to pneumonia causing COPD exacerbation -Pulmonology consulted, direct patient is. Discussed case today. Transition to Levaquin to complete oral course. Will transition to prednisone. Continue 5 days total of antibiotics and steroids. Goal saturation greater 90%, currently on 2 to 3 L nasal cannula oxygen. Will need daytime oxygen based on room air sat today of 86. -If remains on current level of oxygen need, stable for discharge tomorrow. -Continue DuoNebs every 6 hours -Transition to Breztri inhaler -Continue Singulair 10 mg nightly Hypertension: Continue carvedilol 3.125 mg twice daily and amlodipine 2.5 mg daily Hyperlipidemia: Continue simvastatin 20 mg nightly White cell count normal at 7.4, hemoglobin 15.5. Kidney function normal with creatinine of 0.7 and BUN 17. Potassium 3.3. Tolerating p.o. intake. Repeat CMP, CBC, magnesium ordered for the morning
[2023-05-27] MEDS: guaiFENesin 600 MG TAB.ER.12H 1200 MG PO (22:14)
[2023-05-27] MEDS: PRAVASTATIN 40MG TAB 40 MG PO (22:15)
[2023-05-27] MEDS: PANTOPRAZOLE 40MG TABLET 40 MG PO (22:15)
[2023-05-28] VITALS: BP 155/80; PULSE 84; RESP 18; TEMP 36.6; O2SAT 94
[2023-05-28 04:00] VITALS: BP 146/82; PULSE 73; RESP 18; TEMP 36.6; O2SAT 97; BMI 16.5
[2023-05-28] MEDS: PATIENT'S OWN HOME MEDICATION (Tiotropium-Olodaterol [Stiolto Respimat] 2.5-2.5 mcg/actuat 2 EACH IH (06:16)
[2023-05-28 06:17] VITALS: O2SAT 93
[2023-05-28 06:27] VITALS: BP 156/88; PULSE 66
[2023-05-28] MEDS: CARVEDILOL 3.125MG TABLET 3.125 MG PO (06:28)
[2023-05-28] MEDS: AMLODIPINE 2.5MG TABLET 2.5 MG PO (06:28)
[2023-05-28 06:43] LABS: Alanine Aminotransferase 20 U/L (12-78); Albumin Level 2.9 g/dl (3.5-5.0); Albumin/Globulin Ratio 1.2 (1.1-1.8); Alkaline Phosphatase 59 U/L (38-126); Anion Gap 1.2 mEq/L (5-15); Aspartate Amino Transferase 32 U/L (14-36); Bilirubin,Total 0.4 mg/dl (0.2-1.3); Blood Urea Nitrogen 21 mg/dl (7-17); Calcium 7.9 mg/dl (8.4-10.2); Carbon Dioxide 35 mmol/L (22.0-30.0); Chloride 96 mmol/L (98-107); Creatinine Clearance Estimated 34 mL/min (50-200); Estimated Glomerular Filt Rate 99 ml/min (>60); GFR (African American) 120 ML/MIN (>60); Globulin 2.5 g/dL (1.3-3.2); Glucose 88 mg/dl (74-100); Magnesium 2.1 mg/dl (1.6-2.3); Potassium 3.2 mmoL/L (3.5-5.1); Sodium 129 mmol/L (136-145); Total Protein,Serum 5.4 g/dl (6.3-8.2)
[2023-05-28 06:44] LABS: Basophils % 0.4 % (0.1-2.0); Eosinophils % 0.2 % (0.1-12.0); Hematocrit 41.6 % (37.0-47.0); Lymphocytes # 2.1 K/mm3 (0.7-4.5); Mean Corpuscular HGB Conc 33.6 g/dL (31.8-35.4); Mean Corpuscular Hemoglobin 31.3 pg (27.0-31.2); Mean Corpuscular Volume 93.3 fl (81-99); Mean Platelet Volume 8.3 fl (7.4-10.4); Monocytes # 0.9 K/mm3 (0.1-1.0); Monocytes % 10.7 % (1.7-9.3); Neutrophils # 5.3 K/mm3 (1.8-7.8); Neutrophils % 63.7 % (37.0-80.0); Platelet Count 203 K/mm3 (142-424); Red Blood Count 4.46 M/mm3 (4.20-5.40); Red Cell Distribution Width 13.7 % (11.5-17.5); White Blood Count 8.4 K/mm3 (4.8-10.8)
--- NOTE | 2023-05-28 07:42 | EXP.DC.SUM ---
General Admission date:: 05/23/23 Discharge date: 05/28/23 HPI HPI HPI: Patient is a 72-year-old female with past medical history of COPD who presents to the hospital due to shortness of breath. According to patient she has been feeling sick for past 3 to 4 days, Getting Worse, She Was a Started on Medrol Dosepak, azithromycin without much relief so she decided to come to the hospital. Patient otherwise denied chest pain nausea vomiting diarrhea constipation dysuria. She endorses having cough productive of phlegm, she does not have sick contacts, her smokes around her. Hospital Course Hospital Course Hospital Course: Patient is a 72-year-old female with past medical history of COPD who presents to the hospital due to shortness of breath. According to patient she has been feeling sick for past 3 to 4 days, Getting Worse, She Was a Started on Medrol Dosepak, azithromycin without much relief so she decided to come to the hospital. Patient otherwise denied chest pain nausea vomiting diarrhea constipation dysuria. She endorses having cough productive of phlegm, she does not have sick contacts, her smokes around her. Patient responded to inpatient treatment. Doing better meeting criteria to discharge home. Pulmonology was consulted and assisted with care. Plan for close follow-up in the next 2 weeks with pulmonology. Problems addressed as follows: Acute hypoxic respiratory failure due to pneumonia causing COPD exacerbation -Pulmonology consulted. Patient's antibiotic course was transitioned to levofloxacin, plan to complete a 5-day course of antibiotics and steroids. Goal saturation greater 90%. Continues to require 3 L of oxygen. Room air was 84% on day of discharge. Treated with DuoNebs during admission. Did well, transitioned to Breztri inhaler at discharge. Continue Singulair 10 mg nightly. Stable to discharge home to complete therapy. Hypertension: Continue carvedilol 3.125 mg twice daily and amlodipine 2.5 mg daily Hyperlipidemia: Continue simvastatin 20 mg nightly Labs on day of discharge normalized with normal white cell count of 8.4. Kidney function stable. Potassium replaced orally. Exam Data for Last 24 hours Vital signs and Labs for Last 24 Hours: Temp Pulse Resp BP Pulse Ox O2 Del Method O2 Flow Rate 97.9 F 66 18 156/88 H 93 L Nasal Cannula 2 05/28/23 04:00 05/28/23 06:27 05/28/23 04:00 05/28/23 06:27 05/28/23 06:17 05/28/23 07:00 05/28/23 07:00 FiO2 32 05/27/23 19:13 Laboratory Results - last 24 hr 05/27/23 08:23: WBC 7.4, RBC 4.76, Hgb 15.5, Hct 45.0, MCV 94.5, MCH 32.5 H, MCHC 34.4, RDW 13.3, Plt Count 202, MPV 8.0, Neut % (Auto) 83.9 H, Lymph % (Auto) 10.8, [place] % (Auto) 4.6, Eos % (Auto) 0.4, Baso % (Auto) 0.2, Neut # (Auto) 6.2, Lymph # (Auto) 0.8, [place] # (Auto) 0.3, Eos # (Auto) 0.0, Baso # (Auto) 0.0, Sodium 133 L, Potassium 3.3 L, Chloride 93 L, Carbon Dioxide 33 H, Anion Gap 10.3, BUN 17, Creatinine 0.70, Estimated Creat Clear 34, Estimated GFR 83, Est GFR ( Amer) 100, Glucose 130 H, Calcium 8.7, Total Bilirubin 0.5, AST 41 H, ALT 34, Alkaline Phosphatase 69, Total Protein 6.4, Albumin 3.6, Globulin 2.8, Albumin/Globulin Ratio 1.3 05/28/23 05:40: WBC 8.4, RBC 4.46, Hgb 14.0, Hct 41.6, MCV 93.3, MCH 31.3 H, MCHC 33.6, RDW 13.7, Plt Count 203, MPV 8.3, Neut % (Auto) 63.7, Lymph % (Auto) 25.0, [place] % (Auto) 10.7 H, Eos % (Auto) 0.2, Baso % (Auto) 0.4, Neut # (Auto) 5.3, Lymph # (Auto) 2.1, [place] # (Auto) 0.9, Eos # (Auto) 0.0, Baso # (Auto) 0.0, Sodium 129 L, Potassium 3.2 L, Chloride 96 L, Carbon Dioxide 35 H, Anion Gap 1.2 L, BUN 21 H, Creatinine 0.60, Estimated Creat Clear 34, Estimated GFR 99, Est GFR ( Amer) 120, Glucose 88 D, Calcium 7.9 L, Magnesium 2.1, Total Bilirubin 0.4, AST 32, ALT 20 D, Alkaline Phosphatase 59, Total Protein 5.4 L, Albumin 2.9 L D, Globulin 2.5, Albumin/Globulin Ratio 1.2 I & O for Last 24 hours: Intake & Output 05/25/23 05/26/23 05/27/23 05/28/23 23:59 23:59 23:59 23:59 Intake Total 1490 / 1790 1610 / 1610 1600 / 1600 440 / 440 Output Total 450 / 450 1125 / 1225 1000 / 1200 500 / 500 Balance 1040 / 1340 485 / 385 600 / 400 -60 / -60 Weight 41.82 kg 41.83 kg 41.504 kg 40.778 kg Constitutional Constitutional: no acute distress, cachectic and chronically ill appearing *Routine HEENT Exam Head: Present normocephalic Eye: Present EOMI and PERRL ENT: Present mucous membranes moist *Routine Neck Exam Neck: Present supple; Absent lymphadenopathy *Routine Respiratory Exam Respiratory: Present CTA bilaterally *Routine Cardiovascular Exam Cardiovascular: Present RRR *Routine Abdominal Exam Abdominal: Present soft and normoactive bowel sounds; Absent tenderness *Routine Extremities Exam Extremities: Absent cyanosis, clubbing or edema *Routine Skin Exam Skin: Present warm; Absent rash *Routine Neurological Exam Neurological: Present alert and oriented X3 Results Data Completed and Pending Labs on day of discharge: Labs from last 24 hours 05/28/23 05/27/23 05:40 08:23 WBC 8.4 7.4 RBC 4.46 4.76 Hgb 14.0 15.5 Hct 41.6 45.0 MCV 93.3 94.5 MCH 31.3 H 32.5 H MCHC 33.6 34.4 RDW 13.7 13.3 Plt Count 203 202 MPV 8.3 8.0 Neut % (Auto) 63.7 83.9 H Lymph % (Auto) 25.0 10.8 [place] % (Auto) 10.7 H 4.6 Eos % (Auto) 0.2 0.4 Baso % (Auto) 0.4 0.2 Neut # (Auto) 5.3 6.2 Lymph # (Auto) 2.1 0.8 [place] # (Auto) 0.9 0.3 Eos # (Auto) 0.0 0.0 Baso # (Auto) 0.0 0.0 Sodium 129 L 133 L Potassium 3.2 L 3.3 L Chloride 96 L 93 L Carbon Dioxide 35 H 33 H Anion Gap 1.2 L 10.3 BUN 21 H 17 Creatinine 0.60 0.70 Estimated Creat Clear 34 34 Estimated GFR 99 83 Est GFR ( Amer) 120 100 Glucose 88 D 130 H Calcium 7.9 L 8.7 Magnesium 2.1 Total Bilirubin 0.4 0.5 AST 32 41 H ALT 20 D 34 Alkaline Phosphatase 59 69 Total Protein 5.4 L 6.4 Albumin 2.9 L D 3.6 Globulin 2.5 2.8 Albumin/Globulin Ratio 1.2 1.3 DS: Diagnosis Discharge Diagnosis (1) Pneumonia: Status: Acute Code(s): J18.9 - Pneumonia, unspecified organism (2) Acute exacerbation of chronic obstructive pulmonary disease: Status: Acute Code(s): J44.1 - Chronic obstructive pulmonary disease with (acute) exacerbation (3) Acute hypoxic respiratory failure: Status: Acute Code(s): J96.01 - Acute respiratory failure with hypoxia (4) HTN (hypertension): Status: Acute Code(s): I10 - Essential (primary) hypertension Meds Home Medications and Allergies Home Medications Medication Instructions Recorded Confirmed Type carvedilol 3.125 mg tablet 3.125 mg PO BID High Blood Pressure 04/22/18 05/23/23 History omeprazole 40 mg capsule,delayed 40 mg PO DAILY Acid Reflux 04/22/18 05/23/23 History release simvastatin 20 mg tablet 20 mg PO HS Cholesterol 04/22/18 05/23/23 History meloxicam 15 mg tablet 7.5 mg PO Q72H Arthritis 03/19/19 05/23/23 History montelukast 10 mg tablet 10 mg PO PM allergies 03/22/20 05/23/23 History amlodipine 2.5 mg tablet 2.5 mg PO DAILY High Blood Pressure 01/04/22 05/23/23 History guaifenesin 600 mg tablet, 1,200 mg PO BID 05/23/23 05/23/23 History extended release 12 hr budesonide 160 mcg-glycopyr 9 2 inh inhalation BID 90 days #10.7 05/27/23 Rx mcg-formot 4.8 mcg/actuation HFA grams inhaler (Breztri Aerosphere) levofloxacin 750 mg tablet 750 mg PO Q48H 2 days #1 tab 05/28/23 Rx New Prescriptions to Start Prescriptions: levofloxacin Max Pringle Allergies Allergy/AdvReac Type Severity Reaction Status Date / Time No Known Allergies Allergy Verified 05/15/23 09:56 Discharge Plan Disposition Patient Disposition: Home, Self-Care Condition: Fair Discharge Order Discharge Orders: Discharge Order (Routine); Ordered 05/28/23 Ordered By: Max Pringle Follow up Plan Follow up with: Vidhya Huerta MD [Physician] - 06/12/23 1:00 pm Adam Lincoln MD [Primary Care Provider] - 06/05/23 11:15 am Prescriptions/Medication Reconciliation: New levofloxacin 750 mg Tablet 750 mg PO Q48H 2 Days Qty: 1 0RF Rx Instructions: take on 05/30/23 Continued montelukast 10 mg tablet 10 mg PO PM amlodipine 2.5 mg tablet 2.5 mg PO DAILY Breztri Aerosphere 160-9-4.8 mcg/actuation HFA aerosol inhaler 2 inh inhalation BID 90 Days Qty: 10.7 3RF omeprazole 40 MG capsule,delayed release(DR/EC) 40 mg PO DAILY carvedilol 3.125 M tablet 3.125 mg PO BID simvastatin 20 MG tablet 20 mg PO HS meloxicam 15 MG tablet 7.5 mg PO Q72H guaifenesin 600 mg tablet extended release 12hr 1,200 mg PO BID Patient Comments: TAKE 2 TABLETS BY MOUTH TWICE DAILY FOR 5 DAYS Discontinued doxycycline hyclate 100 mg capsule 100 mg PO BID Patient Comments: TAKE 1 CAPSULE BY MOUTH TWICE DAILY FOR 10 DAYS methylprednisolone 4 mg tablets,dose pack 4 mg PO DIRECTED Patient Comments: FOLLOW PACKAGE DIRECTIONS Other Ambulatory Orders: Home Medical Equipment (Routine) Location: None Selected Ordered By: Max Pringle Problem Reconciliation Problems Reviewed?: Yes Patient Discharge Instructions ACTIVITY: Continue current activity DIET: continue same diet Patient Instructions: DI for Chronic Obstructive Pulmonary Disease, DI for Respiratory Failure Providers Primary Care Provider: Adam Lincoln Admit Provider: Nicol Patel Attending Provider: Nicol Patel
[2023-05-28 08:00] VITALS: BP 111/63; PULSE 66; RESP 22; TEMP 36.6; O2SAT 94
[2023-05-28] MEDS: POTASSIUM CHLORIDE 20MEQ TAB 40 MEQ PO (09:17)
[2023-05-28] MEDS: guaiFENesin 600 MG TAB.ER.12H 1200 MG PO (09:17)
[2023-05-28] MEDS: HEPARIN SODIUM 5,000 UNIT/ML VIAL 5000 UNIT SQ (09:17)
[2023-05-28] MEDS: predniSONE 20MG TAB 40 MG PO (09:17)
[2023-05-28] MEDS: DOCUSATE SODIUM 100 MG CAPSULE PO (09:20)
--- NOTE | 2023-05-28 09:43 | EXP.PULM.PN ---
Subjective *Date: 05/28/23 *Time: 12:06 Interval history: No acute respiratory events overnight. Patient denies any new respiratory complaints. Pulmonology Exam Inpatient Vital signs and Labs for Last 24 Hours: Temp Pulse Resp BP Pulse Ox O2 Del Method O2 Flow Rate 97.9 F 66 22 111/63 94 L Nasal Cannula 2 05/28/23 08:00 05/28/23 08:00 05/28/23 08:00 05/28/23 08:00 05/28/23 08:00 05/28/23 09:32 05/28/23 09:32 FiO2 32 05/27/23 19:13 Laboratory Results - last 24 hr 05/28/23 05:40: WBC 8.4, RBC 4.46, Hgb 14.0, Hct 41.6, MCV 93.3, MCH 31.3 H, MCHC 33.6, RDW 13.7, Plt Count 203, MPV 8.3, Neut % (Auto) 63.7, Lymph % (Auto) 25.0, [place] % (Auto) 10.7 H, Eos % (Auto) 0.2, Baso % (Auto) 0.4, Neut # (Auto) 5.3, Lymph # (Auto) 2.1, [place] # (Auto) 0.9, Eos # (Auto) 0.0, Baso # (Auto) 0.0, Sodium 129 L, Potassium 3.2 L, Chloride 96 L, Carbon Dioxide 35 H, Anion Gap 1.2 L, BUN 21 H, Creatinine 0.60, Estimated Creat Clear 34, Estimated GFR 99, Est GFR ( Amer) 120, Glucose 88 D, Calcium 7.9 L, Magnesium 2.1, Total Bilirubin 0.4, AST 32, ALT 20 D, Alkaline Phosphatase 59, Total Protein 5.4 L, Albumin 2.9 L D, Globulin 2.5, Albumin/Globulin Ratio 1.2 I & O for Labs for Last 24 Hours: Intake & Output 05/25/23 05/26/23 05/27/23 05/28/23 23:59 23:59 23:59 23:59 Intake Total 1490 / 1790 1610 / 1610 1600 / 1600 920 / 920 Output Total 450 / 450 1125 / 1225 1000 / 1200 500 / 500 Balance 1040 / 1340 485 / 385 600 / 400 420 / 420 Weight 92 lb 3.157 oz 92 lb 3.51 oz 91 lb 8 oz 89 lb 14.4 oz Microbiology Reports for the Last 24 Hours: Microbiology 05/23/23 10:20 Sputum - Expectorated Sputum Gram Stain - Final 05/23/23 10:20 Sputum - Expectorated Sputum Sputum Culture - Final Constitutional: Present mild distress Head: Present normocephalic and atraumatic ENT: Present normal exam, normal oropharynx and mucous membranes moist Neck: Present normal inspection and full ROM Respiratory: Present respiratory distress and able to speak in complete sentences; Absent wheezes or diminished air movement Cardiac: Present S1/S2, Tachycardia and radial pulses present GI: Present soft and distention; Absent tenderness or guarding Rectal (female): Present deferred (female): Present deferred Skin: Present intact; Absent cyanosis or jaundice Neuro: Present alert, awake and oriented x 3 Extremities: Present normal inspection; Absent clubbing or cyanosis Psychiatric: Present normal affect and cooperative Assessment and Plan *Assessment and plan (1) Acute exacerbation of chronic obstructive pulmonary disease: Status: Acute Category: Medical Code(s): J44.1 - Chronic obstructive pulmonary disease with (acute) exacerbation (2) Acute hypoxic respiratory failure: Status: Acute Category: Medical Code(s): J96.01 - Acute respiratory failure with hypoxia (3) Pneumonia: Status: Acute Category: Medical Code(s): J18.9 - Pneumonia, unspecified organism Plan Ms. Marte is a 72-year-old female greater than 30 PPD carries a diagnosis open Stiolto inhaler and nocturna oxygen therapy at 2 L, not needing any oxygen supplementation during the daytime and baseline presented to the ER with worsening respiratory send found to have new oxygen And pulmonary was called for further evaluation and management. Denies any frequent exacerbations at baseline Afebrile. No evidence of leukocytosis upon admission. VBG on admission pending. Labs on admission significant for hyponatremia and hypokalemia. Chest x-ray upon admission bilateral significant emphysematous changes, bullae and hyperinflated lungs. No dense consolidation noted. Low-dose CT June 2021 significant centrilobular emphysematous changes with no suspicious nodules. Patient on admission was initiated on levofloxacin, doxycycline, methylprednisolone 40 every 6 hours along with DuoNebs every 4 scheduled and Pulmicort every 12 scheduled. On initial examination patient appeared to be in moderate respiratory distress with bilateral wheezing. Patient admits improvement in her symptoms but she is needing clinical Interval update: No acute respiratory vents overnight. Patient continued needing oxygen supplementation and 1 to 2 L nasal cannula. Plan was made to discharge patient on levofloxacin 750 mg daily for 5 days along with prednisone to complete total of 5-day course on Breztri inhaler. Plan: -Change Stiolto to Breztri inhaler 2 puffs twice daily upon discharge. Patient previous to her inhalers has led to oral thrush, will closely monitor. -Recommend to continue DuoNebs every 6 hours on as-needed basis after initiating Breztri inhaler -Recommend to weaned steroids to prednisone 40 mg daily to complete total of 5-day course -Recommend to change antibiotics to levofloxacin for community-acquired pneumonia to complete a total of 5-day course since admission. # Thank you for involving pulmonary in this patient. Will follow the patient in pulmonary clinic in 2 weeks post discharge.
--- NOTE | 2023-05-28 10:26 | DIET.NUTRFU ---
RD did verify, patient has not had a BM since admit on 05/23. She has been receiving colace daily. Meal intake has been fair. She reported upon interview she normal can go 5 days without BM, she was no concerns. will relay to provider. Denies any discomfort and plans to discharge today. She did say she will take her mineral oil at home and that normally helps, this RD also recommended miralax if that does not help. Maybe when she home he will feel more comfortable about going. She also tried Ensure well she was here, liked it and agreed to add in daily for the next month to help build her strength
--- NOTE | 2023-05-28 10:30 | PC.NURSE ---
patient oxygen saturation 83% on room air at rest
[2023-05-28 11:17] VITALS: BP 134/76; PULSE 76; RESP 24; TEMP 36.7; O2SAT 95
[2023-05-28] MEDS: levoFLOXacin 750 MG TABLET PO (11:21)
--- NOTE | 2023-05-30 14:37 | CARE MANAGER ---
Attempted to contact patient x2 related to hospital discharge. No VM option. TAM Grady
== END 2023-05-28 14:00 | disposition home or self-care (01) | DRG 193 ==
LOC: ER 11:42 → 2ND 12:01
PROVIDERS: Internal Medicine Adolescent Medicine; Admitting Provider Internal Medicine; Emergency Provider Emergency Medicine; PCP Family Medicine; Visit Provider Internal Medicine
DX: J18.9 Pneumonia, unspecified organism (principal); J96.01 Acute respiratory failure with hypoxia; J44.1 Chronic obstructive pulmonary disease with (acute) exacerbation; J44.0 Chronic obstructive pulmonary disease with (acute) lower respiratory infection; Z99.81 Dependence on supplemental oxygen; M19.90 Unspecified osteoarthritis, unspecified site; E78.5 Hyperlipidemia, unspecified; I10 Essential (primary) hypertension; Z87.891 Personal history of nicotine dependence
CPT/HCPCS: 36415; 71045; 80048; 80053; 82803; 83735; 84484; 85007; 85025; 87070; 87205; 87636; 93005; 94640; 94760; 94761; 97163; 97166; 99285; J0456; J1956; J3475

== ENCOUNTER 2023-08-06 15:36 | Outpatient (CLI) | payer MEDICARE, BC, SELFPAY | END 2023-08-06 23:59 | PROVIDERS: PCP Student in an Organized Health Care Education/Training Program; Visit Provider Student in an Organized Health Care Education/Training Program | DX: B37.89 Other sites of candidiasis (principal); J02.9 Acute pharyngitis, unspecified; R05.9 Cough, unspecified; R49.0 Dysphonia; K21.9 Gastro-esophageal reflux disease without esophagitis | CPT/HCPCS: 87070 ==

== ENCOUNTER 2023-08-13 13:58 | Outpatient (CLI) | payer MEDICARE, BC, SELFPAY ==
--- NOTE | 2023-08-13 13:59 | CT_ITS ---
FINAL REPORT TECHNIQUE: Axial CT images of the chest were obtained without contrast. Low-dose protocol was utilized. This study was performed with techniques to keep radiation doses as low as reasonably achievable (ALARA). Individualized dose reduction techniques using automated exposure control or adjustment of mA and/or kV according to the patient's size were employed. CLINICAL HISTORY: lung cancer screening current smoker 1 ppd x 30 years COMPARISON: 07/12/2021 FINDINGS: CT CHEST WITHOUT, LOW DOSE SCREENING CT Di Vol: 2.90 mGy DLP: 103.94 mGy*cm There is a calcified right hilar lymph node. The heart size is normal. There are moderate vascular calcifications in the aortic arch. Bilateral subglandular breast implants are present. There is no pleural or pericardial effusion. The lung windows show no suspicious mass or nodule. There is a calcified right lower lobe granuloma. There are advanced changes of centrilobular emphysema. There is mild scarring in the lingula. Limited images of the upper abdomen demonstrate no acute finding. IMPRESSION: LR Category 1S: 12 month follow-up low-dose chest CT is recommended. Modifier S: Advanced changes of centrilobular emphysema. Reviewed, Interpreted and Dictated by Andriy Ruiz MD Transcribed by Sarah Campuzano Authenticated and [facility]
== END 2023-08-13 23:59 ==
LOC: RAD 13:59
PROVIDERS: PCP Family Medicine; Visit Provider Internal Medicine Pulmonary Disease
DX: F17.210 Nicotine dependence, cigarettes, uncomplicated (principal); Z12.2 Encounter for screening for malignant neoplasm of respiratory organs; R06.02 Shortness of breath
CPT/HCPCS: 71271; 94060; 94618; 94726; 94729

== ENCOUNTER 2023-11-17 09:42 | Outpatient (CLI) | payer MEDICARE, BC, SELFPAY ==
[2023-11-17 09:51] VITALS: BP 144/79; PULSE 69; RESP 16; TEMP 36.3; O2SAT 96
[2023-11-17] MEDS: DENOSUMAB 60 MG/ML SYRINGE SQ (09:51)
== END 2023-11-17 10:13 | disposition home or self-care (01) ==
LOC: INF 09:43
PROVIDERS: PCP Family Medicine; Visit Provider Family Medicine
DX: M81.0 Age-related osteoporosis without current pathological fracture (principal)
CPT/HCPCS: 96372; J0897

== ENCOUNTER 2024-01-11 15:36 | Inpatient (IN) | payer MEDICARE, BC, SELFPAY ==
[2024-01-11] VITALS (7 sets, daily range): BP systolic 136–182; BP diastolic 72–95; PULSE 60–70; RESP 16–22; TEMP 36.6–36.8; O2SAT 95–100; BMI 15.9; BMI 17.8
--- NOTE | 2024-01-11 15:37 | ECG_ITS ---
APPROVED REPORT Exam: Resting ECG HR:71 bpm ECG Measurements Heart Rate 71 AXES CA 120 P 77 QRSd 84 QRS 71 QT 370 T 70 QTc 393 Conclusion Sinus rhythm minimal ST depression without reciprocal change Electronically signed by : ALKA KNOWLES, 01/11/2024 19:53:06
--- NOTE | 2024-01-11 15:42 | [facility].EDCP ---
Discharge Plan Disposition Patient Disposition: Admitted Condition: Good Clinical Impressions Clinical Impression: Acute on chronic hypoxic respiratory failure, Right lower lobe lung mass Discharge ED Provider: Rashid Good HPI <CANELO Sky - Last Filed: 01/11/24 21:25> General Chief Complaint: Shortness of Breath/Dyspnea Stated Complaint: Chest Pain, SOA/dsypnea Time Seen by Provider: 01/11/24 15:42 History of Present Illness HPI narrative: Patient presents for evaluation of dyspnea and chest pain. Patient has a past medical history of COPD on 2 L of chronic oxygen. She presents for evaluation of dyspnea. Patient does not give herself nebulizers at home normally. She also reports now that she is dyspnea even with light exertion and she feels exhausted even trying to do her activities of daily living. Patient reports that she has chest pain with breathing but not cardiac type chest pain. She is a former smoker. She denies fever chills hemoptysis hematochezia melena nausea vomiting diarrhea. Related Data Home Medications ?Medication ?Instructions ?Recorded ?Confirmed carvedilol 3.125 mg tablet 3.125 mg PO BID High Blood Pressure 04/22/18 12/19/23 omeprazole 40 mg capsule,delayed 40 mg PO DAILY Acid Reflux 04/22/18 12/19/23 release simvastatin 20 mg tablet 20 mg PO HS Cholesterol 04/22/18 12/19/23 meloxicam 15 mg tablet 7.5 mg PO Q72H Arthritis 03/19/19 12/19/23 montelukast 10 mg tablet 10 mg PO PM allergies 03/22/20 12/19/23 amlodipine 2.5 mg tablet 2.5 mg PO DAILY High Blood Pressure 01/04/22 12/19/23 tiotropium 2.5 mcg-olodaterol 2.5 inhalation 08/06/23 12/19/23 mcg/actuation mist for inhalation (Stiolto Respimat) Previous Rx's ?Medication ?Instructions ?Recorded nystatin 100,000 unit/mL oral 1 ml PO DAILY pharyngeal 08/06/23 suspension candidiasis #60 mL tiotropium 2.5 mcg-olodaterol 2.5 See Rx Instructions .Route 10/27/23 mcg/actuation mist for inhalation .COMPLEX #12 grams (Stiolto Respimat) fluticasone furoate 100 1 inh inhalation DAILY 90 days #90 01/01/24 mcg/actuation blister powder for ea inhalation (Arnuity Ellipta) Allergies Allergy/AdvReac Type Severity Reaction Status Date / Time No Known Allergies Allergy Verified 12/19/23 11:28 [facility] [place] <CANELO Sky - Last Filed: 01/11/24 21:25> [facility] [place] Disclaimer: The information contained in this section may have been updated after the patient was seen, as this information can be updated by other users. Medical History Pharyngeal candidiasis Encounter for screening for malignant neoplasm of lung Pulmonary emphysema Smoking greater than 30 pack years Pneumonia Arthritis Lung disease HTN (hypertension) HLD (hyperlipidemia) COPD (chronic obstructive pulmonary disease) Surgical History History of colonoscopy Family History Other Hypertension Social History Smoking Status: Unknown if ever smoked alcohol intake: never substance use type: denies use current occupational status: retired Travel in the last 8 weeks: None household members: spouse housing: house current occupational exposures/hazards: No caffeine: Yes <CANELO Sky - Last Filed: 01/11/24 21:25> ROS Obtained: Yes Systems reviewed as appropriate & no additional complaints except as documented Physical Exam <CANELO Sky - Last Filed: 01/11/24 21:25> General General appearance: alert and in no apparent distress Chest Chest inspection: Present normal inspection and symmetric chest wall rise; Absent tenderness Respiratory Respiratory exam: Present other (Patient has end expiratory wheezes and rails bilaterally however left is greater than right); Absent respiratory distress or accessory muscle use Cardiovascular Cardiovascular exam: Present regular rate, normal rhythm, normal heart sounds, +S1 and +S2 Neurological Exam Neurological exam: Present alert, oriented X3 and CN II-XII intact HEART Score <CANELO Sky - Last Filed: 01/11/24 21:25> HEART Score HEART Score assessment performed?: Yes History (anamnesis): Slightly suspicious ECG: Non-specific disturbance Age: >65 years Risk factors: 3 or more risk factors Troponin: </= normal limit HEART Score: 5 <Rashid Good MD - Last Filed: 01/11/24 21:50> HEART Score HEART Score: 5 Critical Care <CANELO Sky - Last Filed: 01/11/24 21:25> Critical Care Time Critical Care Time: No <Rashid Good MD - Last Filed: 01/11/24 21:50> Critical Care Time Critical Care Time: Yes (Pulmonary) Attestation: On 01/11/24, the high probability of a clinically significant, sudden or life threatening deterioration of the following system(s) required my full and direct attention, intervention and personal management. The time I documented below is in addition to time spent performing reported procedures but includes the following listed in this critical care notation. Total Time Total Critical Care Time: 45 Medical Decision Making <CANELO Sky - Last Filed: 01/11/24 21:25> Medical Records Medical records reviewed: Yes I reviewed the patient's medical records. Umesh Inquiry Pt receiving controlled substance: No Vital Signs Vital Signs: 01/11/24 15:37 01/11/24 16:01 01/11/24 16:31 Temperature 98.2 F Temperature Source Oral Pulse Rate 60 67 Pulse Rate [Radial] 70 Respiratory Rate 22 Blood Pressure 140/79 165/81 H Blood Pressure [Right Arm] 182/95 H Blood Pressure Mean [Right Arm] 124 Blood Pressure Source Blood Pressure Source [Right Arm] Automatic Cuff Blood Pressure Position Blood Pressure Position [Right Arm] Sitting 02 Sat by Pulse Oximetry 97 100 97 Oxygen Delivery Method Nasal Cannula Oxygen Flow Rate (LPM) 2 01/11/24 18:30 01/11/24 19:00 01/11/24 20:10 Temperature 98.3 F Temperature Source Oral Pulse Rate 67 69 63 Pulse Rate [Radial] Respiratory Rate 21 Blood Pressure 165/80 H 144/72 H Blood Pressure [Right Arm] Blood Pressure Mean [Right Arm] Blood Pressure Source Automatic Cuff Blood Pressure Source [Right Arm] Blood Pressure Position Sitting Blood Pressure Position [Right Arm] 02 Sat by Pulse Oximetry 95 98 Oxygen Delivery Method Room Air Oxygen Flow Rate (LPM) Lab Data Lab results reviewed: Yes I reviewed the patient's lab results. Labs: Lab Results 01/11/24 15:38: WBC 6.1, RBC 4.48, Hgb 14.0, Hct 43.6, MCV 97.4, MCH 31.3 H, MCHC 32.2, RDW 14.0, Plt Count 233, MPV 8.5, Neut % (Auto) 61.3, Lymph % (Auto) 29.6, [place] % (Auto) 6.7, Eos % (Auto) 1.7, Baso % (Auto) 0.8, Neut # (Auto) 3.7, Lymph # (Auto) 1.8, [place] # (Auto) 0.4, Eos # (Auto) 0.1, Baso # (Auto) 0.1, Sodium 135 L, Potassium 3.5, Chloride 101, Carbon Dioxide 28, Anion Gap 9.5, BUN 6 L, Creatinine 0.60, Estimated Creat Clear 32, Estimated GFR 99, Est GFR ( Amer) 119, Glucose 108 H, Lactate 1.6, Calcium 8.9, Total Bilirubin 0.5, AST 29, ALT 19, Alkaline Phosphatase 69, Troponin I < 0.01, Total Protein 7.2 D, Albumin 4.2, Globulin 3.0, Albumin/Globulin Ratio 1.4 01/11/24 15:47: VBG pH 7.39, VBG pCO2 41.1, VBG pO2 40.7 H, VBG HCO3 24.4, VBG Total CO2 25.6, VBG O2 Saturation 75.1 H, VBG Base Excess -0.6, VBG Lactic Acid 1.8 01/11/24 15:54: Chlamy pneumoniae PCR Not detected, Adenovirus (PCR) Not detected, B. pertussis DNA (PCR) Not detected, Coronavirus OC43 (PCR) Not detected, Coronavirus HKU1 (PCR) Not detected, Coronavirus 229E (PCR) Not detected, SARS-CoV-2 (PCR) Not detected, Coronavirus NL63 (PCR) Not detected, Human Metapneumovir PCR Not detected, Influenza A (H1) PCR Not detected, Influ A (H1N1/09) PCR Not detected, Influenza A (H3) PCR Not detected, Influenza Type A (PCR) Not detected, Influenza Type B (PCR) Not detected, M. pneumoniae (PCR) Not detected, Parainfluenza 1 (PCR) Not detected, Parainfluenza 2 (PCR) Not detected, Parainfluenza 3 (PCR) Not detected, Parainfluenza 4 (PCR) Not detected, RSV (PCR) Not detected, Entero/Rhino (PCR) Not detected 01/11/24 19:36: Troponin I < 0.01 01/11/24 15:38 01/11/24 15:38 Response Orders (Tests/Meds): ED MEDICATIONS Generic Name Dose Route Start Last Admin Trade Name Freq PRN Reason Stop Dose Admin Acetaminophen 650 mg 01/11/24 19:53 Acetaminophen 325mg Tab PO 02/10/24 19:52 Q4HP PRN Fever or Mild Pain (1-3) Albuterol/Ipratropium 3 ml 01/12/24 00:00 Ipratropium/Albuterol 3 Ml Neb IH 02/11/24 00:00 Q6RT TAB Enoxaparin Sodium 40 mg 01/11/24 19:55 01/11/24 20:02 Enoxaparin 40mg/0.4ml Syringe SQ 02/10/24 19:54 40 mg DAILY TAB Administration Morphine Sulfate 2 mg 01/11/24 19:53 Morphine 2mg/Ml Syringe IV 02/10/24 19:52 Q2HP PRN Severe Pain (7-10) Nicotine 21 mg 01/11/24 19:53 Nicotine 21mg/24hr Patch TD 02/10/24 19:52 DAILYP PRN Nicotine Cravings Pantoprazole Sodium 40 mg 01/12/24 09:00 Pantoprazole 40mg Tablet PO 02/11/24 08:59 DAILY TAB Discontinued Medications Generic Name Dose Route Start Last Admin Trade Name Freq PRN Reason Stop Dose Admin Acetaminophen 1,000 mg 01/11/24 15:42 01/11/24 16:13 Acetaminophen 1,000mg/100ml Vial IV 01/11/24 15:43 1,000 mg ONCE ONE Administration Albuterol/Ipratropium 3 ml 01/11/24 15:42 01/11/24 15:53 Ipratropium/Albuterol 3 Ml Neb IH 01/11/24 15:43 3 ml ONCE ONE Administration Dexamethasone Sodium Phosphate 10 mg 01/11/24 15:42 01/11/24 16:13 Dexamethasone 4mg/Ml 5ml Mdv IV 01/11/24 15:43 10 mg ONCE ONE Administration Lactated Ringer's 1,000 mls @ 999 mls/hr 01/11/24 16:13 01/11/24 16:42 Lactated Ringer's 1000 Ml Bag IV 01/11/24 17:13 999 mls/hr .Q1H1M ONE Administration Iopamidol 70 ml 01/11/24 16:57 01/11/24 16:58 Iopamidol-370 (76%);100ml Bottle IV 01/11/24 16:58 70 ml ONCE ONE Administration Ketorolac Tromethamine 15 mg 01/11/24 15:42 01/11/24 16:12 Ketorolac 30mg/Ml Vial IV 01/11/24 15:43 15 mg ONCE ONE Administration Sodium Chloride 10 ml 01/11/24 16:57 01/11/24 16:57 Sodium Chloride 0.9% 10ml Syr (Rad Only) IV 01/11/24 16:58 10 ml ONCE ONE Administration Sodium Chloride 50 ml 01/11/24 16:57 01/11/24 16:57 0.9 % Sodium Chloride 50 Ml Vial IV 01/11/24 16:58 50 ml ONCE ONE Administration ORDERS Category Date Time Status CT angio chest PE protocol Stat Cat Scan 01/11/24 15:45 Completed Pulmonology Consult [Consult to Pulmonology] [CONS] Cons 01/11/24 19:53 Active Routine CBC w/Auto Diff [Complete Blood Count Auto Diff] Stat Lab 01/11/24 15:38 Completed CMP [Comprehensive Metabolic Panel] Stat Lab 01/11/24 15:38 Completed Complete Blood Count Auto Diff AMLAB Lab 01/12/24 06:00 Ordered Comprehensive Metabolic Panel AMLAB Lab 01/12/24 06:00 Ordered Full Resp Panel w/COVID ([facility]) Routine Lab 01/11/24 15:54 Completed Lactic Acid Stat Lab 01/11/24 15:38 Completed Magnesium AMLAB Lab 01/12/24 06:00 Ordered Trop I [Troponin I] Stat Lab 01/11/24 15:38 Completed Troponin I Q3H Lab 01/11/24 19:36 Completed Troponin I Q3H Lab 01/11/24 22:00 Ordered VBG [Venous Blood Gas] Stat RT 01/11/24 15:47 Completed MDM Narrative Medical Decision Narrative: In summary patient is a 73-year-old female who presents to the emergency department for evaluation of dyspnea and chest pain. Patient is hemodynamically stable upon arrival, afebrile. Physical exam is remarkable for on reproducible chest pain on palpation, bilateral end expiratory wheezes and rales in all 4 mayers left greater than right.. Differential diagnosis includes COPD exacerbation, PE, pneumonia, ACS etc. Initial workup will be conducted with CTA PE protocol hematologic labs VBG. Initial interventions include crystalloid bolus Tylenol DuoNeb Decadron. Initial workup reviewed by me shows her hematologic labs are nonactionable VBG shows a preserved pH and no elevation in her CO2. My informal interpretation of her CT scan PE protocol does not show any infiltrates and no evidence of thrombus prior to radiology read. Radiology however sees a new soft tissue density in the right lower lobe that appears to surround segmental and subsegmental bronchus without evidence of postobstructive pneumonia. Upon repeat evaluation patient has oxygen saturations dropping down to the 70s with attempted ambulation just to the bedside commode.. Given this I had interactive discussion about hospital medicine about patient management and she will be admitted for further evaluation and care <Rashid Good MD - Last Filed: 01/11/24 21:50> Vital Signs Vital Signs: 01/11/24 15:37 01/11/24 16:01 01/11/24 16:31 Temperature 98.2 F Temperature Source Oral Pulse Rate 60 67 Pulse Rate [Radial] 70 Respiratory Rate 22 Blood Pressure 140/79 165/81 H Blood Pressure [Right Arm] 182/95 H Blood Pressure Mean [Right Arm] 124 Blood Pressure Source Blood Pressure Source [Right Arm] Automatic Cuff Blood Pressure Position Blood Pressure Position [Right Arm] Sitting 02 Sat by Pulse Oximetry 97 100 97 Oxygen Delivery Method Nasal Cannula Oxygen Flow Rate (LPM) 2 01/11/24 18:30 01/11/24 19:00 01/11/24 20:10 Temperature 98.3 F Temperature Source Oral Pulse Rate 67 69 63 Pulse Rate [Radial] Respiratory Rate 21 Blood Pressure 165/80 H 144/72 H Blood Pressure [Right Arm] Blood Pressure Mean [Right Arm] Blood Pressure Source Automatic Cuff Blood Pressure Source [Right Arm] Blood Pressure Position Sitting Blood Pressure Position [Right Arm] 02 Sat by Pulse Oximetry 95 98 Oxygen Delivery Method Room Air Oxygen Flow Rate (LPM) Lab Data Labs: Lab Results 01/11/24 15:38: WBC 6.1, RBC 4.48, Hgb 14.0, Hct 43.6, MCV 97.4, MCH 31.3 H, MCHC 32.2, RDW 14.0, Plt Count 233, MPV 8.5, Neut % (Auto) 61.3, Lymph % (Auto) 29.6, [place] % (Auto) 6.7, Eos % (Auto) 1.7, Baso % (Auto) 0.8, Neut # (Auto) 3.7, Lymph # (Auto) 1.8, [place] # (Auto) 0.4, Eos # (Auto) 0.1, Baso # (Auto) 0.1, Sodium 135 L, Potassium 3.5, Chloride 101, Carbon Dioxide 28, Anion Gap 9.5, BUN 6 L, Creatinine 0.60, Estimated Creat Clear 32, Estimated GFR 99, Est GFR ( Amer) 119, Glucose 108 H, Lactate 1.6, Calcium 8.9, Total Bilirubin 0.5, AST 29, ALT 19, Alkaline Phosphatase 69, Troponin I < 0.01, Total Protein 7.2 D, Albumin 4.2, Globulin 3.0, Albumin/Globulin Ratio 1.4 01/11/24 15:47: VBG pH 7.39, VBG pCO2 41.1, VBG pO2 40.7 H, VBG HCO3 24.4, VBG Total CO2 25.6, VBG O2 Saturation 75.1 H, VBG Base Excess -0.6, VBG Lactic Acid 1.8 01/11/24 15:54: Chlamy pneumoniae PCR Not detected, Adenovirus (PCR) Not detected, B. pertussis DNA (PCR) Not detected, Coronavirus OC43 (PCR) Not detected, Coronavirus HKU1 (PCR) Not detected, Coronavirus 229E (PCR) Not detected, SARS-CoV-2 (PCR) Not detected, Coronavirus NL63 (PCR) Not detected, Human Metapneumovir PCR Not detected, Influenza A (H1) PCR Not detected, Influ A (H1N1/09) PCR Not detected, Influenza A (H3) PCR Not detected, Influenza Type A (PCR) Not detected, Influenza Type B (PCR) Not detected, M. pneumoniae (PCR) Not detected, Parainfluenza 1 (PCR) Not detected, Parainfluenza 2 (PCR) Not detected, Parainfluenza 3 (PCR) Not detected, Parainfluenza 4 (PCR) Not detected, RSV (PCR) Not detected, Entero/Rhino (PCR) Not detected 01/11/24 19:36: Troponin I < 0.01 Response Orders (Tests/Meds): ED MEDICATIONS Generic Name Dose Route Start Last Admin Trade Name Freq PRN Reason Stop Dose Admin Acetaminophen 650 mg 01/11/24 19:53 Acetaminophen 325mg Tab PO 02/10/24 19:52 Q4HP PRN Fever or Mild Pain (1-3) Albuterol/Ipratropium 3 ml 01/12/24 00:00 Ipratropium/Albuterol 3 Ml Neb IH 02/11/24 00:00 Q6RT TAB Enoxaparin Sodium 40 mg 01/11/24 19:55 01/11/24 20:02 Enoxaparin 40mg/0.4ml Syringe SQ 02/10/24 19:54 40 mg DAILY TAB Administration Morphine Sulfate 2 mg 01/11/24 19:53 Morphine 2mg/Ml Syringe IV 02/10/24 19:52 Q2HP PRN Severe Pain (7-10) Nicotine 21 mg 01/11/24 19:53 Nicotine 21mg/24hr Patch TD 02/10/24 19:52 DAILYP PRN Nicotine Cravings Pantoprazole Sodium 40 mg 01/12/24 09:00 Pantoprazole 40mg Tablet PO 02/11/24 08:59 DAILY TAB Discontinued Medications Generic Name Dose Route Start Last Admin Trade Name Freq PRN Reason Stop Dose Admin Acetaminophen 1,000 mg 01/11/24 15:42 01/11/24 16:13 Acetaminophen 1,000mg/100ml Vial IV 01/11/24 15:43 1,000 mg ONCE ONE Administration Albuterol/Ipratropium 3 ml 01/11/24 15:42 01/11/24 15:53 Ipratropium/Albuterol 3 Ml Neb IH 01/11/24 15:43 3 ml ONCE ONE Administration Dexamethasone Sodium Phosphate 10 mg 01/11/24 15:42 01/11/24 16:13 Dexamethasone 4mg/Ml 5ml Mdv IV 01/11/24 15:43 10 mg ONCE ONE Administration Lactated Ringer's 1,000 mls @ 999 mls/hr 01/11/24 16:13 01/11/24 16:42 Lactated Ringer's 1000 Ml Bag IV 01/11/24 17:13 999 mls/hr .Q1H1M ONE Administration Iopamidol 70 ml 01/11/24 16:57 01/11/24 16:58 Iopamidol-370 (76%);100ml Bottle IV 01/11/24 16:58 70 ml ONCE ONE Administration Ketorolac Tromethamine 15 mg 01/11/24 15:42 01/11/24 16:12 Ketorolac 30mg/Ml Vial IV 01/11/24 15:43 15 mg ONCE ONE Administration Sodium Chloride 10 ml 01/11/24 16:57 01/11/24 16:57 Sodium Chloride 0.9% 10ml Syr (Rad Only) IV 01/11/24 16:58 10 ml ONCE ONE Administration Sodium Chloride 50 ml 01/11/24 16:57 01/11/24 16:57 0.9 % Sodium Chloride 50 Ml Vial IV 01/11/24 16:58 50 ml ONCE ONE Administration ORDERS Category Date Time Status CT angio chest PE protocol Stat Cat Scan 01/11/24 15:45 Completed Pulmonology Consult [Consult to Pulmonology] [CONS] Cons 01/11/24 19:53 Active Routine CBC w/Auto Diff [Complete Blood Count Auto Diff] Stat Lab 01/11/24 15:38 Completed CMP [Comprehensive Metabolic Panel] Stat Lab 01/11/24 15:38 Completed Complete Blood Count Auto Diff AMLAB Lab 01/12/24 06:00 Ordered Comprehensive Metabolic Panel AMLAB Lab 01/12/24 06:00 Ordered Full Resp Panel w/COVID ([facility]) Routine Lab 01/11/24 15:54 Completed Lactic Acid Stat Lab 01/11/24 15:38 Completed Magnesium AMLAB Lab 01/12/24 06:00 Ordered Trop I [Troponin I] Stat Lab 01/11/24 15:38 Completed Troponin I Q3H Lab 01/11/24 19:36 Completed Troponin I Q3H Lab 01/11/24 22:00 Ordered VBG [Venous Blood Gas] Stat RT 01/11/24 15:47 Completed ECG Data Tracing #1: Attestation: I reviewed this ECG and interpreted as documented below: (Sinus rhythm 71 beats a minute. No ST changes concerning for acute ischemia. Nonspecific T wave changes without anatomic distribution. NE 120, QRS 84, QTc 393. Buhl normal) MDM Narrative Medical Decision Narrative: In summary patient is a 73-year-old female who presents to the emergency department for evaluation of dyspnea and chest pain. Patient is hemodynamically stable upon arrival, afebrile. Physical exam is remarkable for on reproducible chest pain on palpation, bilateral end expiratory wheezes and rales in all 4 mayers left greater than right.. Differential diagnosis includes COPD exacerbation, PE, pneumonia, ACS etc. Initial workup will be conducted with CTA PE protocol hematologic labs VBG. Initial interventions include crystalloid bolus Tylenol DuoNeb Decadron. Initial workup reviewed by me shows her hematologic labs are nonactionable VBG shows a preserved pH and no elevation in her CO2. My informal interpretation of her CT scan PE protocol does not show any infiltrates and no evidence of thrombus prior to radiology read. Radiology however sees a new soft tissue density in the right lower lobe that appears to surround segmental and subsegmental bronchus without evidence of postobstructive pneumonia. Upon repeat evaluation patient has oxygen saturations dropping down to the 70s with attempted ambulation just to the bedside commode.. Given this I had interactive discussion about hospital medicine about patient management and she will be admitted for further evaluation and care I was consulted by the KEYONNA, and we discussed the complexity of the problems being addressed. I approved the treatment and management plan for this patient's care in the Emergency Department, thus performing a substantive portion of the medical decision making. Rashid Good MD
--- NOTE | 2024-01-11 15:45 | CT_ITS ---
PROCEDURE INFORMATION: Exam: CTA Chest With Contrast Exam date and time: 01/11/2024 4:53 PM Age: 73 years old Clinical indication: Shortness of breath; Additional info: Chest pain, dyspnea, history of lung cancer TECHNIQUE: Imaging protocol: Computed tomographic angiography of the chest with contrast. Exam focused on the arteries. 3D rendering (Not supervised by radiologist): MIP and/or 3D reconstructed images were created by the technologist. Radiation optimization: All CT scans at this facility use at least one of these dose optimization techniques: automated exposure control; mA and/or kV adjustment per patient size (includes targeted exams where dose is matched to clinical indication); or iterative reconstruction. Contrast material: ISOVUE 370; Contrast volume: 70 ml; Contrast route: INTRAVENOUS (IV); COMPARISON: CT LUNG SCREENING 08/13/2023 1:59 PM FINDINGS: Pulmonary arteries: Normal. No pulmonary emboli. Aorta: Regions of atherosclerotic vascular calcification involving the aortic arch. Lungs: soft tissue density surrounding the segmental and subsegmental bronchi to the right lower lobe. Findings suspicious for tumor involvement. Findings demonstrated on series 5, image number 80, series 1001, image number 63. Advanced changes of centrilobular emphysema again demonstrated. Bibasilar atelectasis versus parenchymal scarring. Pleural spaces: Unremarkable. No pneumothorax. No pleural effusion. Heart: Unremarkable. No cardiomegaly. No pericardial effusion. Coronary arteries: Coronary artery calcifications Lymph nodes: Calcified hilar lymph nodes Bones/joints: Unremarkable. No acute fracture. Soft tissues: Unremarkable. Other findings: Calcified granulomas IMPRESSION: 1. Soft tissue density surrounding the segmental and subsegmental bronchi to the right lower lobe. Findings suspicious for tumor involvement. Findings new since 08/13/2023. 2. Advanced changes of centrilobular emphysema. 3. Recommend follow-up with PET-CT imaging. COMMENTS: The presence of pulmonary emphysema on CT is an independent risk factor for lung cancer. In the absence of a history or active diagnosis of lung cancer, it is recommended that this patient with emphysema be evaluated for enrollment in a low dose CT lung cancer screening program.
[2024-01-11] MEDS: IPRATROPIUM/ALBUTEROL 3 ML NEB IH ×2 (15:53→23:23)
[2024-01-11 15:55] LABS: Basophils # 0.1 K/mm3 (0-0.2); Basophils % 0.8 % (0.1-2.0); Eosinophils # 0.1 K/mm3 (0.0-0.4); Eosinophils % 1.7 % (0.1-12.0); Hematocrit 43.6 % (37.0-47.0); Lymphocytes # 1.8 K/mm3 (0.7-4.5); Lymphocytes % 29.6 % (10-50); Mean Corpuscular HGB Conc 32.2 g/dL (31.8-35.4); Mean Corpuscular Hemoglobin 31.3 pg (27.0-31.2); Mean Corpuscular Volume 97.4 fl (81-99); Mean Platelet Volume 8.5 fl (7.4-10.4); Monocytes # 0.4 K/mm3 (0.1-1.0); Monocytes % 6.7 % (1.7-9.3); Neutrophils # 3.7 K/mm3 (1.8-7.8); Neutrophils % 61.3 % (37.0-80.0); Platelet Count 233 K/mm3 (142-424); Red Blood Count 4.48 M/mm3 (4.20-5.40); White Blood Count 6.1 K/mm3 (4.8-10.8)
[2024-01-11 15:59] LABS: Lactate Venous 1.8 mmol/L (0.4-2.0); VBG Base Excess -0.6 mmol/L (-2.4-2.3); VBG HCO3 24.4 mmol/L (23-30); VBG Oxygen Saturation 75.1 % (50-70); VBG PCO2 41.1 mmol/L (35-51); VBG PH 7.39 mmol/L (7.31-7.41); VBG PO2 40.7 mmol/L (28-40); VBG Total CO2 25.6 mmol/L (23-27)
[2024-01-11 16:12] LABS: Adenovirus,PCR Not Detected (NotDetected); Bordetella Pertussis Not Detected (NotDetected); Chlamydophila Pneumoniae, PCR Not Detected (NotDetected); Coronavirus 19, PCR Not Detected (NotDetected); Coronavirus 229E Not Detected (NotDetected); Coronavirus NL63 Not Detected (NotDetected); Coronavirus OC43 Not Detected (NotDetected); Coronovirus HKU1,PCR Not Detected (NotDetected); Human Metapneumovirus Not Detected (NotDetected); Influenza A, PCR Not Detected (NotDetected); Influenza AH1, 2009 Not Detected (NotDetected); Influenza AH1, PCR Not Detected (NotDetected); Influenza AH3,PCR Not Detected (NotDetected); Influenza B, PCR Not Detected (NotDetected); Mycoplasma Pneumoniae, PCR Not Detected (NotDetected); Parainfluenza 1, PCR Not Detected (NotDetected); Parainfluenza 2, PCR Not Detected (NotDetected); Parainfluenza 3, PCR Not Detected (NotDetected); Parainfluenza 4, PCR Not Detected (NotDetected); Respiratory Syncytial Virus Not Detected (NotDetected); Rhinovirus/Enterovirus Not Detected (NotDetected)
[2024-01-11] MEDS: KETOROLAC 30MG/ML VIAL 15 MG IV (16:12)
[2024-01-11] MEDS: ACETAMINOPHEN 1,000MG/100ML VIAL 1000 MG IV (16:13)
[2024-01-11] MEDS: DEXAMETHASONE 4MG/ML 5ML MDV 10 MG IV (16:13)
[2024-01-11 16:20] LABS: Albumin Level 4.2 g/dl (3.5-5.0); Chloride 101 mmol/L (98-107)
[2024-01-11 16:21] LABS: Potassium 3.5 mmoL/L (3.5-5.1); Sodium 135 mmol/L (136-145)
[2024-01-11 16:23] LABS: Alanine Aminotransferase 19 U/L (12-78); Anion Gap 9.5 mEq/L (5-15); Aspartate Amino Transferase 29 U/L (14-36); Blood Urea Nitrogen 6 mg/dl (7-17); Carbon Dioxide 28 mmol/L (22.0-30.0); Creatinine Clearance Estimated 32 mL/min (50-200); Estimated Glomerular Filt Rate 99 ml/min (>60); GFR (African American) 119 ML/MIN (>60)
[2024-01-11 16:24] LABS: Albumin/Globulin Ratio 1.4 (1.1-1.8); Alkaline Phosphatase 69 U/L (38-126); Bilirubin,Total 0.5 mg/dl (0.2-1.3); Calcium 8.9 mg/dl (8.4-10.2); Glucose 108 mg/dl (74-100); Lactic Acid 1.6 mmol/L (0.7-2.1); Total Protein,Serum 7.2 g/dl (6.3-8.2)
[2024-01-11 16:38] LABS: Troponin I < 0.01 ng/ml (0.00-0.034)
[2024-01-11] MEDS: LACTATED RINGERS 1000ML 1,000 ML 999 ML IV (16:42)
--- NOTE | 2024-01-11 16:52 | PC.NURSE ---
I assisted pt up to BSC and she desat to 76% and became very dsypneic. Increased O2 to 3LPM NC. Naun Vincent PA notified of this event.
--- NOTE | 2024-01-11 16:53 | PC.NURSE ---
pt TO RAD
[2024-01-11] MEDS: SODIUM CHLORIDE 0.9% 10ML SYR (RAD ONLY) 10 ML IV (16:57)
[2024-01-11] MEDS: 0.9 % SODIUM CHLORIDE 50 ML VIAL IV (16:57)
[2024-01-11] MEDS: IOPAMIDOL-370 (76%);100ML BOTTLE 70 ML IV (16:58)
--- NOTE | 2024-01-11 16:59 | PC.NURSE ---
Pt taken to ct scan via stretcher
--- NOTE | 2024-01-11 19:45 | PC.NURSE ---
Naun Vincent PA-C s/w hospitalist for possible admission
--- NOTE | 2024-01-11 19:54 | PC.NURSE ---
call placed to house for bed assignment. acute/chronic hypoxemic resp fx. admit to hospitalist; spoke with sherrill sutton.
--- NOTE | 2024-01-11 19:56 | EXP.HP ---
History of Present Illness *Admission Date: 01/11/24 *Reason for visit:: SOB *History of present illness: This is a 73yo female with PMHx of severe COPD, on 2L oxygen at home, smoker greater than 30 pack per year, HTN, HLD presented to Ed for evaluation of acute worsened dyspnea. patient was seen at the begining of the month at the pulmonology clinic for follow up. Patient was previously on Breztri inhaler, complicated by multiple episodes of thrush during which inhalers were plan to change to Bevespi, eventually changed to Stiolto in accordance with insurance complaints. Patient has been using Stiolto for the last 3 months. Admits worsening symptom control than compared to Breztri. therefore ICS was added at a lower dose to further determine symptom benefit and complications, along with douneb as needed. She also reports now that she is dyspnea even with light exertion and she feels exhausted even trying to do her activities of daily living. Patient reports that she has chest pain with breathing but not cardiac type chest pain. She denies fever chills hemoptysis hematochezia melena nausea vomiting diarrhea. Admitted for further treatment and work [facility] Disclaimer: The information contained in this section may have been updated after the patient was seen, as this information can be updated by other users. Medical History Pharyngeal candidiasis Encounter for screening for malignant neoplasm of lung Pulmonary emphysema Smoking greater than 30 pack years Pneumonia Arthritis Lung disease HTN (hypertension) HLD (hyperlipidemia) COPD (chronic obstructive pulmonary disease) Surgical History History of colonoscopy Family History Other Hypertension Social History (Updated 01/11/24 @ 22:22 by Raiza Ospina RN) Smoking Status: Former smoker tobacco type: cigarettes alcohol intake: never substance use type: denies use current occupational status: retired Travel in the last 8 weeks: None household members: spouse housing: house current occupational exposures/hazards: No caffeine: Yes Review of Systems Review of Systems Review of systems:: pertinent systems reviewed and negative unless documented below Meds Home Medications and Allergies Home Medications ?Medication ?Instructions ?Recorded ?Confirmed ?Type carvedilol 3.125 mg tablet 3.125 mg PO BID 04/22/18 01/11/24 History omeprazole 40 mg capsule,delayed 40 mg PO DAILY 04/22/18 01/11/24 History release simvastatin 20 mg tablet 20 mg PO HS 04/22/18 01/11/24 History meloxicam 15 mg tablet 7.5 mg PO Q72H 03/19/19 01/11/24 History montelukast 10 mg tablet 10 mg PO PM 03/22/20 01/11/24 History amlodipine 2.5 mg tablet 2.5 mg PO DAILY 01/04/22 01/11/24 History tiotropium 2.5 mcg-olodaterol 2.5 2.5 inh inhalation DAILY 08/06/23 01/11/24 History mcg/actuation mist for inhalation (Stiolto Respimat) New Prescriptions to Start Prescriptions: Allergies Allergy/AdvReac Type Severity Reaction Status Date / Time No Known Allergies Allergy Verified 12/19/23 11:28 Exam Data for Last 24 hours Vital signs and Labs for Last 24 Hours: Temp Pulse Resp BP Pulse Ox O2 Del Method O2 Flow Rate 98.2 F 69 22 165/80 H 98 Nasal Cannula 2 01/11/24 15:37 01/11/24 19:00 01/11/24 15:37 01/11/24 18:30 01/11/24 19:00 01/11/24 15:37 01/11/24 15:37 Laboratory Results - last 24 hr 01/11/24 15:38: WBC 6.1, RBC 4.48, Hgb 14.0, Hct 43.6, MCV 97.4, MCH 31.3 H, MCHC 32.2, RDW 14.0, Plt Count 233, MPV 8.5, Neut % (Auto) 61.3, Lymph % (Auto) 29.6, [place] % (Auto) 6.7, Eos % (Auto) 1.7, Baso % (Auto) 0.8, Neut # (Auto) 3.7, Lymph # (Auto) 1.8, [place] # (Auto) 0.4, Eos # (Auto) 0.1, Baso # (Auto) 0.1, Sodium 135 L, Potassium 3.5, Chloride 101, Carbon Dioxide 28, Anion Gap 9.5, BUN 6 L, Creatinine 0.60, Estimated Creat Clear 32, Estimated GFR 99, Est GFR ([facility] Am) 119, Glucose 108 H, Lactate 1.6, Calcium 8.9, Total Bilirubin 0.5, AST 29, ALT 19, Alkaline Phosphatase 69, Troponin I < 0.01, Total Protein 7.2 D, Albumin 4.2, Globulin 3.0, Albumin/Globulin Ratio 1.4 01/11/24 15:47: VBG pH 7.39, VBG pCO2 41.1, VBG pO2 40.7 H, VBG HCO3 24.4, VBG Total CO2 25.6, VBG O2 Saturation 75.1 H, VBG Base Excess -0.6, VBG Lactic Acid 1.8 01/11/24 15:54: Chlamy pneumoniae PCR Not detected, Adenovirus (PCR) Not detected, B. pertussis DNA (PCR) Not detected, Coronavirus OC43 (PCR) Not detected, Coronavirus HKU1 (PCR) Not detected, Coronavirus 229E (PCR) Not detected, SARS-CoV-2 (PCR) Not detected, Coronavirus NL63 (PCR) Not detected, Human Metapneumovir PCR Not detected, Influenza A (H1) PCR Not detected, Influ A (H1N1/09) PCR Not detected, Influenza A (H3) PCR Not detected, Influenza Type A (PCR) Not detected, Influenza Type B (PCR) Not detected, M. pneumoniae (PCR) Not detected, Parainfluenza 1 (PCR) Not detected, Parainfluenza 2 (PCR) Not detected, Parainfluenza 3 (PCR) Not detected, Parainfluenza 4 (PCR) Not detected, RSV (PCR) Not detected, Entero/Rhino (PCR) Not detected Temp Pulse Resp BP Pulse Ox O2 Del Method O2 Flow Rate 98.0 F 79 22 145/77 H 94 L Nasal Cannula 3 05/23/23 16:00 05/23/23 16:00 05/23/23 16:00 05/23/23 16:00 05/23/23 16:00 05/23/23 17:00 05/23/23 17:00 Laboratory Results - last 24 hr 05/23/23 08:20: VBG pH 7.33, VBG pCO2 49.3, VBG pO2 38.6, VBG HCO3 25.5, VBG Total CO2 27.0, VBG O2 Saturation 70.3 H, VBG Base Excess -0.5 05/23/23 08:25: WBC 9.1, RBC 4.82, Hgb 15.2, Hct 45.9, MCV 95.2, MCH 31.6 H, MCHC 33.2, RDW 13.6, Plt Count 220, MPV 8.6, Neut % (Auto) 82.1 H, Lymph % (Auto) 10.3, [place] % (Auto) 6.6, Eos % (Auto) 0.6, Baso % (Auto) 0.5, Neut # (Auto) 7.5, Lymph # (Auto) 0.9, [place] # (Auto) 0.6, Eos # (Auto) 0.1, Baso # (Auto) 0.0, Sodium 136, Potassium 3.8, Chloride 98, Carbon Dioxide 30, Anion Gap 11.8, BUN 10, Creatinine 0.50 L, Estimated Creat Clear 32, Estimated GFR 122, Est GFR ( Amer) 148, Glucose 103 H, Calcium 8.8, Total Bilirubin 0.5, AST 42 H, ALT 28, Alkaline Phosphatase 89, Troponin I < 0.01, Total Protein 8.0, Albumin 4.6, Globulin 3.4 H, Albumin/Globulin Ratio 1.4, SARS-CoV-2 (PCR) Not detected, Influenza A Untype (PCR) Not detected, Influenza Type B (PCR) Not detected I & O for Last 24 hours: Intake & Output 01/08/24 01/09/24 01/10/24 01/11/24 23:59 23:59 23:59 23:59 Weight 39.463 kg Intake & Output 05/20/23 05/21/23 05/22/23 05/23/23 23:59 23:59 23:59 23:59 Output Total 0 / 0 Balance 0 / 0 Weight 37.195 kg Constitutional Constitutional: no acute distress *Routine HEENT Exam Head: Present normocephalic Eye: Present EOMI and PERRL ENT: Present mucous membranes moist *Routine Neck Exam Neck: Present supple; Absent lymphadenopathy *Routine Respiratory Exam Respiratory: Present respiratory distress, distant breath sounds and diminished air movement *Routine Cardiovascular Exam Cardiovascular: Present RRR *Routine Abdominal Exam Abdominal: Present soft and normoactive bowel sounds; Absent tenderness *Routine Rectal Exam Rectal:: deferred *Routine Genitalia Exam Genitalia:: deferred *Routine Extremities Exam Extremities: Absent cyanosis, clubbing or edema *Routine Skin Exam Skin: Present warm; Absent rash *Routine Neurological Exam Neurological: Present alert and oriented X3 H&P: Result Imaging and Cardiology EKG: Status: image reviewed by me, Preliminary report and final report CT scan - chest: Status: image reviewed by me, Preliminary report and final report Assessment and Plan *Assessment and plan (1) Acute on chronic hypoxic respiratory failure: Status: Acute Category: Medical Code(s): J96.21 - Acute and chronic respiratory failure with hypoxia (2) Acute exacerbation of chronic obstructive pulmonary disease: Status: Acute Category: Medical Code(s): J44.1 - Chronic obstructive pulmonary disease with (acute) exacerbation (3) Right lower lobe lung mass: Status: Acute Category: Medical Code(s): R91.8 - Other nonspecific abnormal finding of lung field (4) HTN (hypertension): Status: Acute Qualifiers: Hypertension type: unspecified Qualified Code(s): I10 - Essential (primary) hypertension Category: Medical Code(s): I10 - Essential (primary) hypertension (5) HLD (hyperlipidemia): Status: Acute Qualifiers: Hyperlipidemia type: unspecified Qualified Code(s): E78.5 - Hyperlipidemia, unspecified Category: Medical Code(s): E78.5 - Hyperlipidemia, unspecified (6) Smoking greater than 30 pack years: Status: Acute Category: Social Hx Code(s): F17.210 - Nicotine dependence, cigarettes, uncomplicated Plan 73yo female with PMHx of severe COPD, on 2L oxygen at home, smoker greater than 30 pack per year, HTN, HLD presented to Ed for evaluation of acute worsened dyspnea. Initial work up shows her hematologic labs are nonactionable VBG shows a preserved pH and no elevation in her CO2. Her CT scan PE protocol does not show any infiltrates and no evidence of thrombus. Radiology reported a new soft tissue density in the right lower lobe that appears to surround segmental and subsegmental bronchus without evidence of postobstructive pneumonia. patient recieved one round of douneb and saturation continue to drop while attempting to ambulate the patient. ED requested admission. Findings discussed at length. Agreed for inpatient management. Plan: -Acute on chronic hypoxic respiratory failure, Likely secondary to acute exacerbation of severe COPD, (patient has recently had changed her medications due to insurance coverage). Right lower lobe soft tissue density. New since last scan Admit patient for inpatient management. Dispo MedSurg Monitor O2 saturation. currently on continuous 4 L nasal cannula. Wean off Pulmonology consult DuoNeb every 6h. resume home regimen Inh Sputum pending Will monitor off antibiotic Vital signs per unit Repeat labs in the morning Radiology did recommend a PET scan. Will defer to pulmonology for further management and workup on new CTAs finding -Hypertension and hyperlipidemia: Condition reviewed. Stable Resume amlodipine and carvedilol and simvastatin Lovenox for DVT prophylaxis. On Protonix for GI bleed protection and GERD Full code
[2024-01-11] MEDS: ENOXAPARIN 40MG/0.4ML SYRINGE 40 MG SQ (20:02)
[2024-01-11 20:06] LABS: Troponin I < 0.01 ng/ml (0.00-0.034)
--- NOTE | 2024-01-11 22:11 | PC.NURSE ---
Pt states for last 2 weeks she has only been taking her simvastatin, amlodipine, and carvedilol. Hasnt taken the others for different reasons. Uses her inhaler as prescribed.
[2024-01-11 22:29] LABS: Troponin I < 0.01 ng/ml (0.00-0.034)
[2024-01-12] VITALS (10 sets, daily range): BP systolic 116–130; BP diastolic 65–73; PULSE 63–92; RESP 16–17; TEMP 36.5–36.8; O2SAT 92–98; BMI 16.9
--- NOTE | 2024-01-12 05:13 | PC.NURSE ---
Alert and oriented. Pt has not ambulated this shift, states she gets SOA and has been titrating her O2 up at home and has physically done less ADLs due to her SOA. Pt has rested well since arriving to floor. Wheezing/crackles noted bilateral lung sounds. Abdomen soft and nontender. On 2.5L NC at this time, weaned down from 3.5L, O2 sat >90%. Baseline of 2L NC at home. Uses bedpan when needed. No complaints from patient, states she just does not feel good. Later in shift, patient began coughing and was able to produce a sputum for collection, sputum noted to be thick and cream in color. Call light in reach.
[2024-01-12] MEDS: IPRATROPIUM/ALBUTEROL 3 ML NEB IH ×3 (06:05→17:57)
[2024-01-12 06:55] LABS: Basophils % 0.1 % (0.1-2.0); Eosinophils % 0.1 % (0.1-12.0); Hematocrit 43.8 % (37.0-47.0); Hemoglobin 13.8 g/dL (12.2-16.2); Lymphocytes # 1.2 K/mm3 (0.7-4.5); Lymphocytes % 16.6 % (10-50); Mean Corpuscular HGB Conc 31.5 g/dL (31.8-35.4); Mean Corpuscular Hemoglobin 30.8 pg (27.0-31.2); Mean Corpuscular Volume 97.7 fl (81-99); Mean Platelet Volume 8.4 fl (7.4-10.4); Monocytes # 0.2 K/mm3 (0.1-1.0); Monocytes % 2.3 % (1.7-9.3); Neutrophils # 5.7 K/mm3 (1.8-7.8); Neutrophils % 80.9 % (37.0-80.0); Platelet Count 232 K/mm3 (142-424); Red Blood Count 4.49 M/mm3 (4.20-5.40); Red Cell Distribution Width 14.1 % (11.5-17.5); White Blood Count 7.1 K/mm3 (4.8-10.8)
[2024-01-12 07:04] LABS: Albumin Level 3.6 g/dl (3.5-5.0); Chloride 107 mmol/L (98-107); Potassium 3.9 mmoL/L (3.5-5.1); Sodium 136 mmol/L (136-145)
[2024-01-12 07:06] LABS: Blood Urea Nitrogen 10 mg/dl (7-17); Creatinine Clearance Estimated 34 mL/min (50-200); Estimated Glomerular Filt Rate 122 ml/min (>60); GFR (African American) 147 ML/MIN (>60)
[2024-01-12 07:07] LABS: Alanine Aminotransferase 15 U/L (12-78); Albumin/Globulin Ratio 1.3 (1.1-1.8); Alkaline Phosphatase 69 U/L (38-126); Anion Gap 6.9 mEq/L (5-15); Aspartate Amino Transferase 26 U/L (14-36); Bilirubin,Total 0.4 mg/dl (0.2-1.3); Calcium 8.7 mg/dl (8.4-10.2); Carbon Dioxide 26 mmol/L (22.0-30.0); Globulin 2.7 g/dL (1.3-3.2); Glucose 119 mg/dl (74-100); Total Protein,Serum 6.3 g/dl (6.3-8.2)
--- NOTE | 2024-01-12 07:42 | HMH.PHAINT1 ---
Pharmacy Intervention Comments: HOME MEDICATION LIST VERIFIED USING LIST FROM OUTPATIENT PHARMACY AND PT INTERVIEW
--- NOTE | 2024-01-12 09:16 | EXP.EVENT.NO ---
Patient reevaluated today after early a.m. evaluation/admission by rodrigue. Patient with known COPD presents with shortness of breath. Patient struggling with COPD exacerbation. Patient eagerly awaiting pulmonology consultation. Continue nebulization treatments, IV glucocorticoids, supplemental oxygen weaned to home oxygen requirement as tolerated, incentive spirometer, and other supportive COPD management care. Respiratory panel and sputum culture pending. If infectious pathogens noted low threshold to start appropriate empirical antibiotic coverage.
[2024-01-12] MEDS: ENOXAPARIN 40MG/0.4ML SYRINGE 40 MG SQ (09:51)
[2024-01-12] MEDS: METHYLPREDNISOLONE SOD SUCC 40MG VIAL 40 MG IV (09:52)
--- NOTE | 2024-01-12 10:02 | P.CONS_ITS ---
History of Present Illness History of present illness: Ms. Marte is a 73-year-old female prior smoker greater than 30 PPD, stage III COPD at baseline Stiolto inhaler presented to the ER with worsening respiratory distress atypical chest discomfort and pulmonary was called for further evaluation and management. Patient admits gradual worsening respiratory distress since was last seen in pulmonary clinic. Patient unable to get her steroid nebulization therapies. [facility] Disclaimer: The information contained in this section may have been updated after the patient was seen, as this information can be updated by other users. Medical History (Updated 01/12/24 @ 13:56 by Vidhya Huerta MD) Nodule of right lung Abnormal screening CT of chest Pharyngeal candidiasis Encounter for screening for malignant neoplasm of lung Pulmonary emphysema Smoking greater than 30 pack years Pneumonia Arthritis Lung disease HTN (hypertension) HLD (hyperlipidemia) COPD (chronic obstructive pulmonary disease) Surgical History History of colonoscopy Family History Other Hypertension Social History (Updated 01/11/24 @ 22:22 by Raiza Ospina, RN) Smoking Status: Former smoker tobacco type: cigarettes alcohol intake: never substance use type: denies use current occupational status: retired Travel in the last 8 weeks: None household members: spouse housing: house current occupational exposures/hazards: No caffeine: Yes Review of Systems Constitutional Constitutional: Reports anorexia, Reports body ache(s) and Reports fatigue Eyes Eyes: Denies eye discharge, Denies dry eyes, Denies irritation and Denies itchy eyes ENT Ears, Nose, Mouth, and Throat: Denies epistaxis, Denies facial pain, Denies lip swelling and Denies throat swelling *Cardiovascular Cardiovascular: Reports dyspnea and Reports dyspnea on exertion *Respiratory Respiratory: Denies change in phlegm color, Reports chest congestion, Reports cough, Reports dyspnea, Reports dyspnea on exertion, Reports excessive phlegm production and Reports wheezing *Gastrointestinal Gastrointestinal: Denies abdominal pain, Denies belching and Denies cramping *Musculoskeletal Musculoskeletal: Reports back pain, Reports myalgias and Reports other (No small joint swelling or Pain) Psychiatric Psychiatric: Denies homicidal ideation and Denies suicidal ideation Endocrine Endocrine: Reports fatigue and Denies heat intolerance Hematologic/Lymphatic Hematologic/Lymphatic: Denies easy bleeding and Denies lymphadenopathy Allergic/Immunologic Allergic/Immunologic: Denies itchy eyes, Denies lip swelling, Denies throat swelling and Reports wheezing Pulmonology Exam Inpatient Vital signs and Labs for Last 24 Hours: Temp Pulse Resp BP Pulse Ox O2 Del Method O2 Flow Rate 97.9 F 72 16 116/65 95 Nasal Cannula 3.5 01/12/24 08:00 01/12/24 08:00 01/12/24 08:00 01/12/24 08:00 01/12/24 08:00 01/12/24 08:00 01/12/24 08:00 Laboratory Results - last 24 hr 01/11/24 15:38: WBC 6.1, RBC 4.48, Hgb 14.0, Hct 43.6, MCV 97.4, MCH 31.3 H, MCHC 32.2, RDW 14.0, Plt Count 233, MPV 8.5, Neut % (Auto) 61.3, Lymph % (Auto) 29.6, [place] % (Auto) 6.7, Eos % (Auto) 1.7, Baso % (Auto) 0.8, Neut # (Auto) 3.7, Lymph # (Auto) 1.8, [place] # (Auto) 0.4, Eos # (Auto) 0.1, Baso # (Auto) 0.1, S odium 135 L, Potassium 3.5, Chloride 101, Carbon Dioxide 28, Anion Gap 9.5, BUN 6 L, Creatinine 0.60, Estimated Creat Clear 32, Estimated GFR 99, Est GFR ( Amer) 119, Glucose 108 H, Lactate 1.6, Calcium 8.9, Total Bilirubin 0.5, AST 29, ALT 19, Alkaline Phosphatase 69, Troponin I < 0.01, Total Protein 7.2 D, Albumin 4.2, Globulin 3.0, Albumin/Globulin Ratio 1.4 01/11/24 15:47: VBG pH 7.39, VBG pCO2 41.1, VBG pO2 40.7 H, VBG HCO3 24.4, VBG Total CO2 25.6, VBG O2 Saturation 75.1 H, VBG Base Excess -0.6, VBG Lactic Acid 1.8 01/11/24 15:54: Chlamy pneumoniae PCR Not detected, Adenovirus (PCR) Not detected, B. pertussis DNA (PCR) Not detected, Coronavirus OC43 (PCR) Not detected, Coronavirus HKU1 (PCR) Not detected, Coronavirus 229E (PCR) Not detected, SARS-CoV-2 (PCR) Not detected, Coronavirus NL63 (PCR) Not detected, Human Metapneumovir PCR Not detected, Influenza A (H1) PCR Not detected, Influ A (H1N1/09) PCR Not detected, Influenza A (H3) PCR Not detected, Influenza Type A (PCR) Not detected, Influenza Type B (PCR) Not detected, M. pneumoniae (PCR) Not detected, Parainfluenza 1 (PCR) Not detected, Parainfluenza 2 (PCR) Not detected, Parainfluenza 3 (PCR) Not detected, Parainfluenza 4 (PCR) Not detected, RSV (PCR) Not detected, Entero/Rhino (PCR) Not detected 01/11/24 19:36: Troponin I < 0.01 01/11/24 22:00: Troponin I < 0.01 01/12/24 06:27: WBC 7.1, RBC 4.49, Hgb 13.8, Hct 43.8, MCV 97.7, MCH 30.8, MCHC 31.5 L, RDW 14.1, Plt Count 232, MPV 8.4, Neut % (Auto) 80.9 H, Lymph % (Auto) 16.6, [place] % (Auto) 2.3, Eos % (Auto) 0.1, Baso % (Auto) 0.1, Neut # (Auto) 5.7, Lymph # (Auto) 1.2, [place] # (Auto) 0.2, Eos # (Auto) 0.0, Baso # (Auto) 0.0, Sodium 136, Potassium 3.9, Chloride 107, Carbon Dioxide 26, Anion Gap 6.9, BUN 10 D, Creatinine 0.50 L, Estimated Creat Clear 34, Estimated GFR 122, Est GFR ( Amer) 147 D, Glucose 119 H, Calcium 8.7, Magnesium 2.0, Total Bilirubin 0.4, AST 26, ALT 15, Alkaline Phosphatase 69, Total Protein 6.3, A lbumin 3.6 D, Globulin 2.7, Albumin/Globulin Ratio 1.3 I & O for Labs for Last 24 Hours: Intake & Output 01/09/24 01/10/24 01/11/24 01/12/24 23:59 23:59 23:59 23:59 Intake Total 540 / 540 Output Total 0 / 0 Balance 0 / 300 540 / 540 Weight 96 lb 14.4 oz 92 lb 4.8 oz Constitutional: Present moderate distress Head: Present normocephalic and atraumatic ENT: Present normal exam, normal oropharynx and mucous membranes moist Neck: Present normal inspection and full ROM Respiratory: Present prolonged expiratory phase, respiratory distress and able to speak in complete sentences; Absent wheezes Cardiac: Present S1/S2, Tachycardia and radial pulses present GI: Present soft and distention; Absent tenderness or guarding Rectal (female): Present deferred (female): Present deferred Skin: Present intact; Absent cyanosis or jaundice Neuro: Present alert, awake and oriented x 3 Extremities: Present normal inspection; Absent clubbing or cyanosis Psychiatric: Present normal affect and cooperative Meds Home Medications and Allergies Home Medications ?Medication ?Instructions ?Recorded ?Confirmed ?Type carvedilol 3.125 mg tablet 3.125 mg PO BID 04/22/18 01/11/24 History omeprazole 40 mg capsule,delayed 40 mg PO DAILY 04/22/18 01/11/24 History release simvastatin 20 mg tablet 20 mg PO HS 04/22/18 01/11/24 History meloxicam 15 mg tablet 7.5 mg PO Q72H 03/19/19 01/11/24 History montelukast 10 mg tablet 10 mg PO PM 03/22/20 01/11/24 History amlodipine 2.5 mg tablet 2.5 mg PO DAILY 01/04/22 01/11/24 History tiotropium 2.5 mcg-olodaterol 2.5 2.5 inh inhalation DAILY 08/06/23 01/11/24 History mcg/actuation mist for inhalation (Stiolto Respimat) New Prescriptions to Start Prescriptions: Allergies Allergy/AdvReac Type Severity Reaction Status Date / Time No Known Allergies Allergy Verified 12/19/23 11:28 Results Laboratory Findings 01/12/24 06:27 01/12/24 06:27 Abnormal lab findings: Abnormal Labs 01/11/24 01/11/24 01/12/24 15:38 15:47 06:27 MCH 31.3 H MCHC 31.5 L Neut % (Auto) 80.9 H VBG pO2 40.7 H VBG O2 Saturation 75.1 H Sodium 135 L BUN 6 L Creatinine 0.50 L Glucose 108 H 119 H Assessment and Plan *Assessment and plan (1) Acute exacerbation of chronic obstructive pulmonary disease: Status: Acute Category: Medical Code(s): J44.1 - Chronic obstructive pulmonary disease with (acute) exacerbation (2) Pulmonary emphysema: Status: Acute Category: Medical Code(s): J43.9 - Emphysema, unspecified (3) Smoking greater than 30 pack years: Status: Acute Category: Social Hx Code(s): F17.210 - Nicotine dependence, cigarettes, uncomplicated (4) Abnormal screening CT of chest: Status: Acute Category: Medical Code(s): R93.89 - Abnormal findings on diagnostic imaging of other specified body structures (5) Nodule of right lung: Status: Acute Category: Medical Code(s): R91.1 - Solitary pulmonary nodule Plan Ms. Marte is a 73-year-old female prior smoker greater than 30 PPD, stage III COPD at baseline Stiolto inhaler presented to the ER with worsening respiratory distress atypical chest discomfort and pulmonary was called for further evaluation and management. Patient admits gradual worsening respiratory distress since was last seen in pulmonary clinic. Patient unable to get her steroid nebulization therapies. Afebrile. Hemodynamically stable. No evidence of leukocytosis. Blood counts upon admission weakness, concerning for hypoxic respiratory failure. No evidence of hypercarbia. CTA chest upon admission evidence of pulmonary embolism. Right lower lobe endobronchial lesion/mucous plugging. No other dense consolidation/airspace disease noted. Negative for pulmonary embolism. Patient currently being managed for COPD exacerbation with DuoNebs every 6 scheduled along with steroids. No antibiotics. On examination patient mild to moderate respiratory distress. Weaned to room air and saturations maintained at 92% and above. No significant wheezing noted on auscultation. Plan: Incentive spirometry and flutter valve DuoNebs every 6 hours scheduled along with Pulmicort every 12 scheduled Wean steroids prednisone 40 mg daily for a total of 5 days Mucomyst BID PRN Cefdinir 300 mg twice daily x 5 days # For the concerning right lower lobe endobronchial lesion will follow the patient in pulmonary clinic with repeat CT chest in 4 weeks to further determine the need for bronchoscopy airway examination
--- NOTE | 2024-01-12 10:26 | P.PN_ITS ---
Subjective *Date: 01/12/24 *Time: 10:29 Interval history: Patient states she is still suffering from dyspnea. Reports some improvement with nebulization treatments/steroids since admission. Denies fever/chills overnight. Medical Exam Vital signs and Labs for Last 24 Hours: Vital Signs Temp Pulse Pulse Resp BP BP Pulse Ox 01/12/24 08:00 97.9 F 72 16 116/65 95 01/12/24 07:32 63 01/12/24 07:32 67 01/12/24 07:32 92 L 01/12/24 07:00 01/12/24 05:09 97 01/12/24 05:00 01/12/24 04:00 97.7 F 70 16 126/65 97 01/12/24 03:00 01/12/24 01:00 01/12/24 00:02 01/12/24 00:02 66 01/11/24 22:39 01/11/24 22:00 01/11/24 21:00 01/11/24 20:22 97.8 F 60 16 136/74 98 01/11/24 20:10 98.3 F 63 21 144/72 H 01/11/24 19:00 69 98 01/11/24 18:30 67 165/80 H 95 01/11/24 16:31 67 165/81 H 97 01/11/24 16:01 60 140/79 100 01/11/24 15:37 98.2 F 70 22 182/95 H 97 O2 Del Method O2 Flow Rate 01/12/24 08:00 Nasal Cannula 3.5 01/12/24 07:32 01/12/24 07:32 01/12/24 07:32 Nasal Cannula 1 01/12/24 07:00 Nasal Cannula 2 01/12/24 05:09 Nasal Cannula 2.5 01/12/24 05:00 Nasal Cannula 2.5 01/12/24 04:00 Nasal Cannula 3.5 01/12/24 03:00 Nasal Cannula 3.5 01/12/24 01:00 Nasal Cannula 3.5 01/12/24 00:02 Nasal Cannula 3.5 01/12/24 00:02 01/11/24 22:39 Nasal Cannula 3.5 01/11/24 22:00 Nasal Cannula 3.5 01/11/24 21:00 Nasal Cannula 3.5 01/11/24 20:22 Nasal Cannula 3.5 01/11/24 20:10 Room Air 01/11/24 19:00 01/11/24 18:30 01/11/24 16:31 01/11/24 16:01 01/11/24 15:37 Nasal Cannula 2 Intake and Output 01/11/24 01/12/24 01/12/24 23:59 07:59 15:59 Intake Total 300 / 540 240 / 540 Output Total 0 / 0 Balance 0 / 300 300 / 540 240 / 540 Intake: Intake, Oral Amount 300 / 540 240 / 540 Output: Output, Urine Amount 0 / 0 Other: Number of Unmeasured Voids 1 Weight 43.953 kg 41.867 kg Patient Weight 01/12/24 23:59 Weight 41.867 kg Laboratory Results - last 24 hr 01/11/24 15:38: WBC 6.1, RBC 4.48, Hgb 14.0, Hct 43.6, MCV 97.4, MCH 31.3 H, MCHC 32.2, RDW 14.0, Plt Count 233, MPV 8.5, Neut % (Auto) 61.3, Lymph % (Auto) 29.6, Sawyer % (Auto) 6.7, Eos % (Auto) 1.7, Baso % (Auto) 0.8, Neut # (Auto) 3.7, Lymph # (Auto) 1.8, Sawyer # (Auto) 0.4, Eos # (Auto) 0.1, Baso # (Auto) 0.1, Sodium 135 L, Potassium 3.5, Chloride 101, Carbon Dioxide 28, Anion Gap 9.5, BUN 6 L, Creatinine 0.60, Estimated Creat Clear 32, Estimated GFR 99, Est GFR ( Amer) 119, Glucose 108 H, Lactate 1.6, Calcium 8.9, Total Bilirubin 0.5, AST 29, ALT 19, Alkaline Phosphatase 69, Troponin I < 0.01, Total Protein 7.2 D, Albumin 4.2, Globulin 3.0, Albumin/Globulin Ratio 1.4 01/11/24 15:47: VBG pH 7.39, VBG pCO2 41.1, VBG pO2 40.7 H, VBG HCO3 24.4, VBG Total CO2 25.6, VBG O2 Saturation 75.1 H, VBG Base Excess -0.6, VBG Lactic Acid 1.8 01/11/24 15:54: Chlamy pneumoniae PCR Not detected, Adenovirus (PCR) Not detected, B. pertussis DNA (PCR) Not detected, Coronavirus OC43 (PCR) Not detected, Coronavirus HKU1 (PCR) Not detected, Coronavirus 229E (PCR) Not det ected, SARS-CoV-2 (PCR) Not detected, Coronavirus NL63 (PCR) Not detected, Human Metapneumovir PCR Not detected, Influenza A (H1) PCR Not detected, Influ A (H1N1/09) PCR Not detected, Influenza A (H3) PCR Not detected, Influenza Type A (PCR) Not detected, Influenza Type B (PCR) Not detected, M. pneumoniae (PCR) Not detected, Parainfluenza 1 (PCR) Not detected, Parainfluenza 2 (PCR) Not detected, Parainfluenza 3 (PCR) Not detected, Parainfluenza 4 (PCR) Not detected, RSV (PCR) Not detected, Entero/Rhino (PCR) Not detected 01/11/24 19:36: Troponin I < 0.01 01/11/24 22:00: Troponin I < 0.01 01/12/24 06:27: WBC 7.1, RBC 4.49, Hgb 13.8, Hct 43.8, MCV 97.7, MCH 30.8, MCHC 31.5 L, RDW 14.1, Plt Count 232, MPV 8.4, Neut % (Auto) 80.9 H, Lymph % (Auto) 16.6, Sawyer % (Auto) 2.3, Eos % (Auto) 0.1, Baso % (Auto) 0.1, Neut # (Auto) 5.7, Lymph # (Auto) 1.2, Sawyer # (Auto) 0.2, Eos # (Auto) 0.0, Baso # (Auto) 0.0, Sodium 136, Potassium 3.9, Chloride 107, Carbon Dioxide 26, Anion Gap 6.9, BUN 10 D, Creatinine 0.50 L, Estimated Creat Clear 34, Estimated GFR 122, Est GFR ( Amer) 147 D, Glucose 119 H, Calcium 8.7, Magnesium 2.0, Total Bilirubin 0.4, AST 26, ALT 15, Alkaline Phosphatase 69, Total Protein 6.3, Albumin 3.6 D, Globulin 2.7, Albumin/Globulin Ratio 1.3 I & O for Labs for Last 24 Hours: Intake & Output 01/09/24 01/10/24 01/11/24 01/12/24 23:59 23:59 23:59 23:59 Intake Total 540 / 540 Output Total 0 / 0 Balance 0 / 300 540 / 540 Weight 43.953 kg 41.867 kg ENT: Present normal exam and normal oropharynx Neck: Present normal inspection and full ROM Respiratory: Present prolonged expiratory phase and diminished air movement Cardiac: Present Regular Rate and Regular Rhythm GI: Present soft and normal bowel sounds Rectal (female): Present deferred (female): Present deferred Extremities: Present normal inspection and full ROM Skin: Present intact and dry Assessment and Plan *Assessment and plan (1) Acute on chronic hypoxic respiratory failure: Status: Acute Category: Medical Code(s): J96.21 - Acute and chronic respiratory failure with hypoxia (2) Pulmonary emphysema: Status: Acute Category: Medical Code(s): J43.9 - Emphysema, unspecified (3) Smoking greater than 30 pack years: Status: Acute Category: Social Hx Code(s): F17.210 - Nicotine dependence, cigarettes, uncomplicated (4) Acute hypoxic respiratory failure: Status: Acute Category: Medical Code(s): J96.01 - Acute respiratory failure with hypoxia Plan Patient with known COPD on 2 L home oxygen, smoker greater than 30 pack years, hypertension, hyperlipidemia presents with shortness of breath. Patient struggling with COPD exacerbation. Patient eagerly awaiting pulmonology consultation. Continue nebulization treatments, IV glucocorticoids, supplemental oxygen weaned to home oxygen requirement as tolerated, incentive spirometer, and other supportive COPD management care. Respiratory panel and sputum culture pending. If infectious pathogens noted low threshold to start appropriate empirical antibiotic coverage. -Acute on chronic hypoxic respiratory failure, Likely secondary to acute exacerbation of severe COPD, (patient has recently had changed her medications due to insurance coverage). Right lower lobe soft tissue density. New since last scan ?01/11 ordered respiratory panel and pulmonary consultation. Will follow-up on results of sputum culture obtained at time of hospital admission. Monitor O2 saturation. currently on continuous 4 L nasal cannula. Wean off Pulmonology consult DuoNeb every 6h. resume home regimen Inh Sputum pending Will monitor off antibiotic Vital signs per unit Repeat labs in the morning Radiology did recommend a PET scan. Will defer to pulmonology for further management and workup on new CTAs finding -Hypertension and hyperlipidemia: Condition reviewed. Stable Resume amlodipine and carvedilol and simvastatin Lovenox for DVT prophylaxis. On Protonix for GI bleed protection and GERD Full code Disposition: ? 01/11 hopefully patient's respiratory status improves on COPD management within next 72 hours. Patient likely appropriate for hospital disposition within next 72 hours of pulmonary consult agrees that patient is back to clinical baseline.
--- NOTE | 2024-01-12 10:28 | HMH.PTEV ---
Physical Therapy Evaluation Rehab PT IP Evaluation Start: 01/12/24 09:13 Freq: ONCE Status: Active Protocol: Document 01/12/24 09:55 IQRA (Rec: 01/12/24 10:28 IQRA [id number]) Subjective/History History History This is a 73 yof that presents to the hospital with acute respiratory failure. This patient has a PMH severe COPD, on 2L oxygen at home, smoker greater than 30 pack per year, HTN. Subjective Subjective Patient stated that she was independent at home previously but has been noticing some shortness of breath and dizziness sensations when she attempts to do ADL's this past week. Patient stated that she is on 2 L of oxygen at home and has been needing to use the oxygen more often. Patient stated that she lives at home with her and is able to have help if she needs assistance from him. Patient stated she only has one step to go up to get into their house. New diagnosis of cancer in past 12 No months? Rehab PT IP Eval Objective Appearance Patient Behavior Appropriate,Cooperative, Anxious Patient Orientation Person,Place,Birthday, Situation Difficulty following instructions none Speech Pattern Clear Ambulation Patient Able to Ambulate Yes Ambulation Observation IP General Gait Pattern Observation Decrease Stride Lngth (R), Decrease Stride Lngth (L) Ambulation Distance (feet) 10 Ambulation Assistive Device Rolling Walker Ambulation Ability Independent Balance Ability to Arise Able, uses arms to help Sitting Balance Steady, safe Standing Balance Steady, wide stance Dynamic Sitting Balance Ability Good Dynamic Standing Balance Ability Good Transfers Bed Transfer Ability Contact Guard/Hand Hold Sit to Stand Bed Transfer Ability Independent Rehab PT IP prob,goals,plan Problems Date of Evaluation: 01/12/24 PT IP Problems Gait,Self care Rehab Potential Rehab Potential Good Equipment Needs Assistive Devices None / NA Plan PT Intervention Plan Bed Mobility,Transfers,Gait, Therapeutic Exercise PT Plan Frequency Daily Duration LOS Discharge Goals Bed Transfer Ability Independent Sit to Stand Chair Transfer Ability Independent Ambulation Assistive Device None Ambulation Distance (feet) 25 Discharge Plan PT Discharge Plan It is recommended this patient is most appropriate to discharge to home with home health. Skilled therapy is recommended for gait training for increasing endurance so the patient is able to return to ADL's independently. Eval Complexity Eval Charge Codes 63867 - High Complexity PHYSICIAN CERTIFICATION: I certify the specified therapy services for Charisse L Marte are required, authorized, and reviewed every 30 days.
[2024-01-12] MEDS: PATIENT'S OWN HOME MEDICATION (Tiotropium-Olodaterol [Stiolto Respimat] 2.5-2.5 mcg/actuat 2 EACH IH (13:18)
[2024-01-12] MEDS: CEFDINIR 300MG CAPSULE 300 MG PO ×2 (14:58→20:22)
--- NOTE | 2024-01-12 15:32 | PC.NURSE ---
Patient a&o and vss. Patient c/o soa throughout shift and does not tolerate O2 being weaned or off even tough o2 sat is wnl.
[2024-01-12] MEDS: BUDESONIDE 0.5MG/2ML NEB 0.5 MG IH (17:57)
[2024-01-12] MEDS: MONTELUKAST SODIUM 10MG TAB 10 MG PO (18:38)
[2024-01-12] MEDS: ALBUTEROL 0.083% 2.5 MG/3 ML NEB IH (18:45)
[2024-01-12] MEDS: CARVEDILOL 3.125MG TABLET 3.125 MG PO (20:22)
[2024-01-12] MEDS: PRAVASTATIN 40MG TAB 40 MG PO (20:22)
[2024-01-13] MEDS: IPRATROPIUM/ALBUTEROL 3 ML NEB IH ×3 (00:34→11:19)
[2024-01-13 00:35] VITALS: PULSE 82; PULSE 85; O2SAT 92
[2024-01-13 04:00] VITALS: BP 131/70; PULSE 68; RESP 18; TEMP 37.1; O2SAT 97; BMI 16.7
[2024-01-13] MEDS: BUDESONIDE 0.5MG/2ML NEB 0.5 MG IH (06:14)
[2024-01-13] MEDS: PATIENT'S OWN HOME MEDICATION (Tiotropium-Olodaterol [Stiolto Respimat] 2.5-2.5 mcg/actuat 2 EACH IH (06:14)
[2024-01-13 06:15] VITALS: PULSE 76; PULSE 80; O2SAT 97
--- NOTE | 2024-01-13 07:09 | PC.NURSE ---
pt on 2l/nc, having productive cough, rested well through the night
[2024-01-13 08:00] VITALS: BP 126/68; PULSE 74; RESP 16; TEMP 36.6; O2SAT 98
[2024-01-13] MEDS: CARVEDILOL 3.125MG TABLET 3.125 MG PO (08:59)
[2024-01-13] MEDS: AMLODIPINE 2.5MG TABLET 2.5 MG PO (08:59)
[2024-01-13] MEDS: predniSONE 20MG TAB 40 MG PO (08:59)
[2024-01-13] MEDS: CEFDINIR 300MG CAPSULE 300 MG PO (08:59)
[2024-01-13] MEDS: ENOXAPARIN 40MG/0.4ML SYRINGE 40 MG SQ (09:00)
--- NOTE | 2024-01-13 09:35 | P.PN_ITS ---
Subjective *Date: 01/13/24 *Time: 11:10 Interval history: No acute respiratory vents overnight. Patient denies any significant improvement in her respiratory status. Pulmonology Exam Inpatient Vital signs and Labs for Last 24 Hours: Temp Pulse Resp BP Pulse Ox O2 Del Method O2 Flow Rate 97.9 F 74 16 126/68 98 Nasal Cannula 2 01/13/24 08:00 01/13/24 08:00 01/13/24 08:00 01/13/24 08:00 01/13/24 08:00 01/13/24 08:00 01/13/24 08:00 Temp Pulse Resp BP Pulse Ox O2 Del Method O2 Flow Rate 97.9 F 72 16 116/65 95 Nasal Cannula 3.5 01/12/24 08:00 01/12/24 08:00 01/12/24 08:00 01/12/24 08:00 01/12/24 08:00 01/12/24 08:00 01/12/24 08:00 Laboratory Results - last 24 hr 01/11/24 15:38: WBC 6.1, RBC 4.48, Hgb 14.0, Hct 43.6, MCV 97.4, MCH 31.3 H, MCHC 32.2, RDW 14.0, Plt Count 233, MPV 8.5, Neut % (Auto) 61.3, Lymph % (Auto) 29.6, Dickinson % (Auto) 6.7, Eos % (Auto) 1.7, Baso % (Auto) 0.8, Neut # (Auto) 3.7, Lymph # (Auto) 1.8, Dickinson # (Auto) 0.4, Eos # (Auto) 0.1, Baso # (Auto) 0.1, Sodium 135 L, Potassium 3.5, Chloride 101, Carbon Dioxide 28, Anion Gap 9.5, BUN 6 L, Creatinine 0.60, Estimated Creat Clear 32, Estimated GFR 99, Est GFR ( Amer) 119, Glucose 108 H, Lactate 1.6, Calcium 8.9, Total Bilirubin 0.5, AST 29, ALT 19, Alkaline Phosphatase 69, Troponin I < 0.01, Total Protein 7.2 D, Albumin 4.2, Globulin 3.0, Albumin/Globulin Ratio 1.4 01/11/24 15:47: VBG pH 7.39, VBG pCO2 41.1, VBG pO2 40.7 H, VBG HCO3 24.4, VBG Total CO2 25.6, VBG O2 Saturation 75.1 H, VBG Base Excess -0.6, VBG Lactic Acid 1.8 01/11/24 15:54: Chlamy pneumoniae PCR Not detected, Adenovirus (PCR) Not detected, B. pertussis DNA (PCR) Not detected, Coronavirus OC43 (PCR) Not detected, Coronavirus HKU1 (PCR) Not detected, Coronavirus 229E (PCR) Not detected, SARS-CoV-2 (PCR) Not detected, Coronavirus NL63 (PCR) Not detected, Human Metapneumovir PCR Not detected, Influenza A (H1) PCR Not detected, Influ A (H1N1/09) PCR Not detected, Influenza A (H3) PCR Not detected, Influenza Type A (PCR) Not detected, Influenza Type B (PCR) Not detected, M. pneumoniae (PCR) Not detected, Parainfluenza 1 (PCR) Not detected, Parainfluenza 2 (PCR) Not detected, Parainfluenza 3 (PCR) Not detected, Parainfluenza 4 (PCR) Not detected, RSV (PCR) Not detected, Entero/Rhino (PCR) Not detected 01/11/24 19:36: Troponin I < 0.01 01/11/24 22:00: Troponin I < 0.01 01/12/24 06:27: WBC 7.1, RBC 4.49, Hgb 13.8, Hct 43.8, MCV 97.7, MCH 30.8, MCHC 31.5 L, RDW 14.1, Plt Count 232, MPV 8.4, Neut % (Auto) 80.9 H, Lymph % (Auto) 16.6, Dickinson % (Auto) 2.3, Eos % (Auto) 0.1, Baso % (Auto) 0.1, Neut # (Auto) 5.7, Lymph # (Auto) 1.2, Dickinson # (Auto) 0.2, Eos # (Auto) 0.0, Baso # (Auto) 0.0, Sodium 136, Potassium 3.9, Chloride 107, Carbon Dioxide 26, Anion Gap 6.9, BUN 10 D, Creatinine 0.50 L, Estimated Creat Clear 34, Estimated GFR 122, Est GFR ( Amer) 147 D, Glucose 119 H, Calcium 8.7, Magnesium 2.0, Total Bilirubin 0.4, AST 26, ALT 15, Alkaline Phosphatase 69, Total Protein 6.3, Albumin 3.6 D, Globulin 2.7, Albumin/Globulin Ratio 1.3 I & O for Labs for Last 24 Hours: Intake & Output 01/10/24 01/11/24 01/12/24 01/13/24 23:59 23:59 23:59 23:59 Intake Total 780 / 780 120 / 120 Output Total 0 / 0 0 / 0 0 / 0 Balance 0 / 300 780 / 780 120 / 120 Weight 96 lb 14.4 oz 92 lb 4.8 oz 90 lb 12.8 oz Intake & Output 01/09/24 01/10/24 01/11/24 01/12/24 23:59 23:59 23:59 23:59 Intake Total 540 / 540 Output Total 0 / 0 Balance 0 / 300 540 / 540 Weight 96 lb 14.4 oz 92 lb 4.8 oz Microbiology Reports for the Last 24 Hours: Microbiology 01/12/24 05:00 Sputum - Expectorated Sputum Gram Stain - Final Constitutional: Present moderate distress Head: Present normocephalic and atraumatic ENT: Present normal exam, normal oropharynx and mucous membranes moist Neck: Present normal inspection and full ROM Respiratory: Present prolonged expiratory phase, respiratory distress and able to speak in complete sentences; Absent wheezes Cardiac: Present S1/S2, Tachycardia and radial pulses present GI: Present soft and distention; Absent tenderness or guarding Rectal (female): Present deferred (female): Present deferred Skin: Present intact; Absent cyanosis or jaundice Neuro: Present alert, awake and oriented x 3 Extremities: Present normal inspection; Absent clubbing or cyanosis Psychiatric: Present cooperative and anxious Assessment and Plan *Assessment and plan (1) Acute exacerbation of chronic obstructive pulmonary disease: Status: Acute Category: Medical Code(s): J44.1 - Chronic obstructive pulmonary disease with (acute) exacerbation (2) Pulmonary emphysema: Status: Acute Category: Medical Code(s): J43.9 - Emphysema, unspecified (3) Smoking greater than 30 pack years: Status: Acute Category: Social Hx Code(s): F17.210 - Nicotine dependence, cigarettes, uncomplicated (4) Abnormal screening CT of chest: Status: Acute Category: Medical Code(s): R93.89 - Abnormal findings on diagnostic imaging of other specified body structures (5) Nodule of right lung: Status: Acute Category: Medical Code(s): R91.1 - Solitary pulmonary nodule Plan Ms. Marte is a 73-year-old female prior smoker greater than 30 PPD, stage III COPD at baseline Stiolto inhaler presented to the ER with worsening respiratory distress atypical chest discomfort and pulmonary was called for further evaluation and management. Patient admits gradual worsening respiratory distress since was last seen in pulmonary clinic. Patient unable to get her steroid nebulization therapies. Afebrile. Hemodynamically stable. No evidence of leukocytosis. Blood counts upon admission weakness, concerning for hypoxic respiratory failure. No evidence of hypercarbia. CTA chest upon admission evidence of pulmonary embolism. Right lower lobe endobronchial lesion/mucous plugging. No other dense consolidation/airspace disease noted. Negative for pulmonary embolism. Patient currently being managed for COPD exacerbation with DuoNebs every 6 scheduled along with steroids. No antibiotics. On examination patient mild to moderate respiratory distress. Weaned to room air and saturations maintained at 92% and above. No significant wheezing noted on auscultation. Interval update: No acute respiratory vents overnight. Placed on nasal cannula, weaned to room air with saturations maintained at 94% and about this morning. Chest clear with no significant wheezing. Patient anxious and concerned for her dizziness. 6- minute walk testing performed yesterday on room air did not show any significant desaturations, saturations maintained at 93% and above. Plan: Incentive spirometry and flutter valve DuoNebs every 6 hours scheduled along with Pulmicort every 12 scheduled Prednisone 40 mg daily for a total of 5 days Mucomyst BID PRN Cefdinir 300 mg twice daily x 5 days #Thank you for involving pulmonary in this patient care. Will follow the patient in the next 2 to 3 days in the clinic for a posthospital follow-up visit. Patient would also benefit from cardiology follow-up as an outpatient visit to evaluate for other possible cardiac etiologies of her concerning dizziness. # For the concerning right lower lobe endobronchial lesion will follow the patient in pulmonary clinic with repeat CT chest in 4 weeks to further determine the need for bronchoscopy airway examination.
--- NOTE | 2024-01-13 09:56 | SW/DCPLANNER ---
I spoke w/ this patient regarding plans once medically stable for discharge. PT evaluated patient and recommended home health services. Patient expressed that she is not interested in home health at this time. I will continue to follow up w/ patient until medically stable for discharge to assist w/ any new needs/orders. Discharge date is unknown at this time.
[2024-01-13 11:20] VITALS: PULSE 80; PULSE 88; O2SAT 94
--- NOTE | 2024-01-13 11:27 | PC.NURSE ---
RESP CARE NOTE: Pt resting in bed on room air, SPO2 at 94%. Will continue to continuously monitor patient.
--- NOTE | 2024-01-13 12:47 | P.DS_ITS ---
General Admission date:: 01/11/24 Discharge date: 01/13/24 HPI HPI HPI: This is a 73yo female with PMHx of severe COPD, on 2L oxygen at home, smoker greater than 30 pack per year, HTN, HLD presented to [facility] for evaluation of acute worsened dyspnea. patient was seen at the begining of the month at the pulmonology clinic for follow up. Patient was previously on Breztri inhaler, complicated by multiple episodes of thrush during which inhalers were plan to change to Bevespi, eventually changed to Stiolto in accordance with insurance complaints. Patient has been using Stiolto for the last 3 months. Admits wors ening symptom control than compared to Breztri. therefore ICS was added at a lower dose to further determine symptom benefit and complications, along with douneb as needed. She also reports now that she is dyspnea even with light exertion and she feels exhausted even trying to do her activities of daily living. Patient reports that she has chest pain with breathing but not cardiac type chest pain. She denies fever chills hemoptysis hematochezia melena nausea vomiting diarrhea. Admitted for further treatment and work u. Hospital Course Hospital Course Hospital Course: 73-year-old female with COPD on 2 L oxygen at home when active or at night. History of [id number] plus smoking. Presented to the ER with shortness of breath. Found to have COPD exacerbation. Treated with steroids and antibiotics, showed improvement with ability to wean to room air during the day. Pulmonology assisted with care. Stable to discharge home for continued treatment. Problems addressed as follows: Acute on chronic hypoxic respiratory failure secondary to acute exacerbation of severe COPD, Right lower lobe soft tissue density. New since last scan ? Admitted to medicine for management of respiratory failure. Initially on 4 L oxygen. Able to wean with steroids, breathing treatments, antibiotics. Pulmonology was consulted. Recommended continuing antibiotics and steroids for total of 5 days. Transitioned to cefdinir 300 mg twice daily and prednisone 40 mg daily. Given her clinical improvement, patient has weaned to room air during the day, necessitating oxygen when exerting herself or at night. She is back to her baseline oxygen requirements. Imaging of her chest showed concern for mucous plugging versus mass on the right side. Will have close follow-up with pulmonology and further imaging in the coming weeks to evaluate for resolution or planning for possible evaluation with bronchoscopy. Given clinical stability, will discharge home for further management. -Hypertension and hyperlipidemia: Stable during admission. Continued home regimen of amlodipine, carvedilol, simv astatin Extensive discussion about patient's needs for home health to improve her functionality and decrease her risk for readmission. Patient declined this service. Total time spent on discharge 32 minutes in counseling, documentation, chart review, and direct care with patient. Exam Data for Last 24 hours Vital signs and Labs for Last 24 Hours: Temp Pulse Resp BP Pulse Ox O2 Del Method O2 Flow Rate 97.9 F 80 16 126/68 94 L Room Air 1 01/13/24 08:00 01/13/24 11:20 01/13/24 08:00 01/13/24 08:00 01/13/24 11:20 01/13/24 12:38 01/13/24 09:00 I & O for Last 24 hours: Intake & Output 01/10/24 01/11/24 01/12/24 01/13/24 23:59 23:59 23:59 23:59 Intake Total 780 / 780 120 / 120 Output Total 0 / 0 0 / 0 0 / 0 Balance 0 / 300 780 / 780 120 / 120 Weight 43.953 kg 41.867 kg 41.186 kg Microbiology Reports for the Last 24 Hours: Microbiology 01/12/24 05:00 Sputum - Expectorated Sputum Gram Stain - Final 01/12/24 05:00 Sputum - Expectorated Sputum Sputum Culture - Preliminary Constitutional Constitutional: no acute distress, cachectic and chronically ill appearing *Routine HEENT Exam Head: Present normocephalic Eye: Present EOMI and PERRL ENT: Present mucous membranes moist *Routine Neck Exam Neck: Present supple; Absent lymphadenopathy *Routine Respiratory Exam Respiratory: Present prolonged expiratory phase and diminished air movement; Absent rhonchi, wheezes or crackles *Routine Cardiovascular Exam Cardiovascular: Present RRR *Routine Abdominal Exam Abdominal: Present soft and normoactive bowel sounds; Absent tenderness *Routine Rectal Exam Patient deferred: visual exam *Routine Exam Patient deferred: external exam *Routine Extremities Exam Extremities: Absent cyanosis, clubbing or edema *Routine Skin Exam Skin: Present warm; Absent rash *Routine Neurological Exam Neurological: Present alert, oriented X3 and moving all extremities; Absent altered mental status Results Data Completed and Pending Labs on day of discharge: Preliminary micro results at discharge 01/12/24 05:00 Sputum Culture - Preliminary Sputum - Expectorated Sputum DS: Diagnosis Discharge Diagnosis (1) Acute exacerbation of chronic obstructive pulmonary disease: Status: Acute Code(s): J44.1 - Chronic obstructive pulmonary disease with (acute) exacerbation (2) Pulmonary emphysema: Status: Acute Code(s): J43.9 - Emphysema, unspecified (3) Smoking greater than 30 pack years: Status: Acute Code(s): F17.210 - Nicotine dependence, cigarettes, uncomplicated (4) Abnormal screening CT of chest: Status: Acute Code(s): R93.89 - Abnormal findings on diagnostic imaging of other specified body structures (5) Nodule of right lung: Status: Acute Code(s): R91.1 - Solitary pulmonary nodule Meds Home Medications and Allergies Home Medications ?Medication ?Instructions ?Recorded ?Confirmed ?Type carvedilol 3.125 mg tablet 3.125 mg PO BID 04/22/18 01/11/24 History omeprazole 40 mg capsule,delayed 40 mg PO DAILY 04/22/18 01/11/24 History release simvastatin 20 mg tablet 20 mg PO HS 04/22/18 01/11/24 History meloxicam 15 mg tablet 7.5 mg PO Q72H 03/19/19 01/11/24 History montelukast 10 mg tablet 10 mg PO PM 03/22/20 01/11/24 History amlodipine 2.5 mg tablet 2.5 mg PO DAILY 01/04/22 01/11/24 History tiotropium 2.5 mcg-olodaterol 2.5 2.5 inh inhalation DAILY 08/06/23 01/11/24 History mcg/actuation mist for inhalation (Stiolto Respimat) budesonide 0.5 mg/2 mL suspension 0.5 mg (2 mL) inhalation Q12H #180 01/13/24 Rx for nebulization mL cefdinir 300 mg capsule 300 mg PO BID 4 days #7 caps 01/13/24 Rx prednisone 20 mg tablet 40 mg (2 x 20 mg) PO DAILY 3 days 01/13/24 Rx #6 tabs New Prescriptions to Start Prescriptions: cefandreeir Max Pringle prednisone Max Pringle Allergies Allergy/AdvReac Type Severity Reaction Status Date / Time No Known Allergies Allergy Verified 12/19/23 11:28 Discharge Plan Disposition Patient Disposition: Home, Self-Care Condition: Good Discharge Order Discharge Orders: Discharge Order (Routine); Ordered 01/13/24 Ordered By: Max Pringle Follow up Plan Follow up with: Vidhya Huerta MD [Physician] - 01/15/24 3:15 pm Adam Lincoln MD [Primary Care Provider] - 01/20/24 11:15 am Prescriptions/Medication Reconciliation: New prednisone 20 mg Tablet 40 mg PO DAILY 3 Days Qty: 6 0RF cefdinir 300 mg Capsule 300 mg PO BID 4 Days Qty: 7 0RF Continued Stiolto Respimat 2.5-2.5 mcg/actuation mist 2.5 inh inhalation DAILY Rx Instructions: 2 inhalations by mouth daily montelukast 10 mg tablet 10 mg PO PM amlodipine 2.5 mg tablet 2.5 mg PO DAILY omeprazole 40 MG capsule,delayed release(DR/EC) 40 mg PO DAILY carvedilol 3.125 M tablet 3.125 mg PO BID simvastatin 20 MG tablet 20 mg PO HS meloxicam 15 MG tablet 7.5 mg PO Q72H No Action budesonide 0.5 mg/2 mL suspension for nebulization 0.5 mg inhalation Q12H Qty: 180 3RF Problem Reconciliation Problems Reviewed?: Yes Patient Discharge Instructions ACTIVITY: Continue current activity DIET: continue same diet Patient Instructions: DI for Chronic Obstructive Pulmonary Disease Print Language: Macedonian Providers Primary Care Provider: dAam Lincoln Admit Provider: Nicol Patel Attending Provider: Nicol Patel
--- NOTE | 2024-01-14 12:48 | SW/DCPLANNER ---
Hospital follow up phone call: patient stated that she is feeling better than she was prior to admission. 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 Patient did not have any further needs/questions at this time.
== END 2024-01-13 13:50 | disposition home or self-care (01) | DRG 189 ==
LOC: ER 19:55 → 2ND 20:01
PROVIDERS: Nurse Practitioner Family; Physician Assistant; Admitting Provider Internal Medicine; Emergency Provider Emergency Medicine; PCP Family Medicine; Visit Provider Internal Medicine
DX: J44.1 Chronic obstructive pulmonary disease with (acute) exacerbation; J96.21 Acute and chronic respiratory failure with hypoxia; R91.8 Other nonspecific abnormal finding of lung field; I10 Essential (primary) hypertension; E78.5 Hyperlipidemia, unspecified; F17.210 Nicotine dependence, cigarettes, uncomplicated; J43.9 Emphysema, unspecified; Z99.81 Dependence on supplemental oxygen
CPT/HCPCS: 36415; 71275; 80053; 82803; 83605; 83735; 84484; 85025; 87070; 87077; 87186; 87205; 87581; 87632; 87635; 87798; 93005; 94640; 94667; 94760; 94761; 97163; 97530; 99291; J0131; J1100; J1650; J1885; J2919; J7120; J7613; J7620; Q9967

== ENCOUNTER 2024-01-28 15:34 | Outpatient (CLI) | payer MEDICARE, BC, SELFPAY | END 2024-01-28 23:59 | disposition home or self-care (01) | PROVIDERS: PCP Family Medicine; Visit Provider Nurse Practitioner Family | DX: R00.2 Palpitations (principal); R42 Dizziness and giddiness | CPT/HCPCS: 93270 ==

== ENCOUNTER 2024-02-06 12:34 | Outpatient (CLI) | payer MEDICARE, BC, SELFPAY ==
--- NOTE | 2024-02-06 12:49 | CA_ITS ---
APPROVED REPORT EXAM: Comprehensive 2D, Doppler, and color-flow Echocardiogram Slide Forming Machine Operator: Ade Almanza CRT Ht: 5 ft 2 in Wt: 87lbs BSA: 1.34 BP: 170/68 mmHg Indications: Chest Pain, Congestive Heart Failure, COPD, Shortness of Breath, Palpitations, Fatigue, Hyperlipidemia, Hypertension/HDD, home o2 2D Dimensions LA Volume 17.80 mL LA Volume Index 13.00 mL/m2 (M/F) 16-34 EF AP2 2.9 % GL Strain 2.6 % M-Mode Dimensions RVDd 2.15 cm (0.9-2.6) LA Diam 2.83 cm (1.9-4.0) LVDd 4.13 cm (3.5-5.7) LVDs 2.97 cm (3.5-5.7) IVSd 0.98 cm (0.6-1.1) PWd 0.82 cm (0.6-1.1) EF (Teich) 54.70% FS 28.10% EDV (Teich) 75.50 mL ESV (Teich) 34.20 mL LV Diastology E Decel Time 203 (160-240 msec) E/A Ratio 0.52 MED A' 10.90 cm/s LAT A' 12.30 cm/s Aortic Valve AI PHT 678.00 ms AO Peak GR. 7.10 mmHg Mitral Valve MV E Max Marty. 40.0 (40-130 cm/s) MV A Velocity 77.0 (40-130 cm/s) E/A Ratio 0.52 MV PHT 60.0 ms Pulmonary Valve PV Peak Velocity 95.0 (50-150 cm/s) Tricuspid Valve TR P. Velocity 254.00 cm/s RAP Estimate 10.00 mmHg RVSP 35.90 mmHg Left Ventricle The left ventricle is normal size. The left ventricular systolic function is low normal. There is increased LV wall thickness. There is normal LV segmental wall motion. Transmitral Doppler flow pattern suggests impaired LV relaxation. LVEF is 50%. Right Ventricle The right ventricle is normal size. The right ventricular systolic function is normal. Atria Left atrium is mildly dilated. Right atrium is mildly dilated. There is no Doppler evidence of interatrial shunt. Aortic Valve The aortic valve is mildly thickened. There is no aortic valvular stenosis. Moderate aortic regurgitation. Mitral Valve The mitral valve leaflets are mildly thickened. No evidence of mitral valve stenosis. Mild mitral regurgitation. Tricuspid Valve Tricuspid valve is grossly normal in structure and function. Mild tricuspid regurgitation. RVSP is 25-30 mmHg. Pulmonic Valve The pulmonary valve is normal in structure. Trace pulmonic regurgitation. The ascending aorta is not well-visualized. Great Vessels The aortic root is normal in size. IVC is normal in size and collapses >50% with inspiration. Pericardium There is no pericardial effusion. Other Information Study Quality: Fair Conclusion Low normal LV systolic function (LVEF 50%). Mild biatrial dilation. Moderate AI. Mild MR, mild TR. Electronically signed by : Génesis Chapin MD 02/08/2024 22:38:48
== END 2024-02-06 23:59 | disposition home or self-care (01) ==
LOC: RT 12:35
PROVIDERS: PCP Family Medicine; Visit Provider Nurse Practitioner Family
DX: I51.7 Cardiomegaly (principal); I34.0 Nonrheumatic mitral (valve) insufficiency; R42 Dizziness and giddiness; R00.2 Palpitations
CPT/HCPCS: 93306

== ENCOUNTER 2024-02-12 13:35 | Outpatient (CLI) | payer MEDICARE, BC, SELFPAY ==
--- NOTE | 2024-02-12 13:35 | CT_ITS ---
FINAL REPORT TECHNIQUE: This study was performed with techniques to keep radiation doses as low as reasonably achievable, (ALARA). Individualized dose reduction techniques using automated exposure control or adjustment of mA and/or kV according to the patient's size were employed. CLINICAL HISTORY: Lung nodule COMPARISON: CTA of the chest 01/11/2024 FINDINGS: CT CHEST without contrast FINDINGS: No acute lung disease is present . There has been interval resolution in the bronchial wall thickening and opacification in the right lower lobe segmental bronchus noted on the prior CT. Severe changes of emphysema are once again noted. No pleural or pericardial effusion is seen . No adenopathy or mass lesion is present . IMPRESSION: Interval resolution of the bronchial wall thickening and opacification of the right lower lobe segmental bronchi since the prior CT of December 2023. Reviewed, Interpreted and Dictated by Zoraida Lynn MD Transcribed by Kavitha Castaneda Authenticated and [facility]
== END 2024-02-12 23:59 | disposition home or self-care (01) ==
LOC: RAD 13:35
PROVIDERS: PCP Family Medicine; Visit Provider Internal Medicine Pulmonary Disease
DX: R91.8 Other nonspecific abnormal finding of lung field (principal); R91.1 Solitary pulmonary nodule; J44.9 Chronic obstructive pulmonary disease, unspecified; J43.9 Emphysema, unspecified; R06.02 Shortness of breath; J18.9 Pneumonia, unspecified organism
CPT/HCPCS: 71250

== ENCOUNTER 2024-03-17 07:46 | Outpatient (CLI) | payer MEDICARE, BC, SELFPAY ==
--- NOTE | 2024-03-17 | CA_ITS ---
APPROVED REPORT Exam: Resting ECG Tech: Najma Narvaez Ht:5 ft 2 in Wt:87 lbs BSA: 1.34 m2 HR:53 bpm BP:155/131 mmHg ECG Measurements Heart Rate 53 AXES Critical Notification Critical Value: No Date: 03/23/2024 Time: 10:36 Conclusion SOA, mild chest pain, head and stomach discomfort.. Aminophylline 100 mg slow IV was given with resolution of symptoms. Occasional PVCs present Unremarkable ECG portion of Lexiscan stress test. Myoview images are reported separately. Electronically signed by : Génesis Chapin MD 03/24/2024 12:23:49
--- NOTE | 2024-03-17 07:47 | NM_ITS ---
APPROVED REPORT Exam: Nuclear Stress Test Indication: Chest pain, SOB, Fatigue, Dizziness, HTN, High cholesterol, Family history, COPD Patient Location: Outpatient Stress Tech: Najma Narvaez [place] Tech:Eunice Hernandez STEPHEN RT (R)(N)(M) Ht: 5 ft 2 in Wt: 87 lbs Bra Size: A HR: 53 bpm BP: 160/67 mmHg BSA: 1.34 m2 Rhythm: NSR TID: 1.15 BMI: 15.9 History: Chest pain, SOB, Fatigue, Dizziness, HTN, High cholesterol, Family history, COPD pt c/o mild c.p. with lexiscan Procedure: Patient received 0.4 mg of intravenous AdenosineLexiscan, resting heart rate 53 bpm, resting blood pressure 160/67 mmHg, with Lexiscan maximum heart rate achieved was 76 bpm which is % of the maximum predicted heart rate and blood pressure was 155/131 mmHg. Cardiac Stress and Resting SPECT Images: Cardiac Stress and Resting SPECT images were obtained using technetium 99m Myoview 23.1 mCi stress and 8.44 mCi at rest. The patient could not lie on her abdomen. Therefore, prone stress imaging could not be performed. This may affect the diagnostic interpretation of the study findings. Resting and stress imaging in supine positions demonstrate no evidence of fixed or reversible perfusion defects. Gated imaging demonstrates normal global and regional LV systolic function. LVEF is calculated at 53%. Conclusion: No evidence of fixed or reversible perfusion defects. Gated imaging demonstrates normal global and regional LV systolic function. LVEF is calculated at 53%. Electronically signed by : Génesis Chapin MD 03/18/2024 12:07:21
[2024-03-17] MEDS: SODIUM CHLORIDE 0.9% 10ML SYR (RAD ONLY) 10 ML IV ×2 (08:00→10:50)
[2024-03-17] MEDS: REGADENOSON 0.4MG/5ML SYRINGE 0.4 MG IV (10:50)
[2024-03-17] MEDS: ISOTOPE MYOVIEW (PER STUDY) 1 DOSE IV (11:13)
== END 2024-03-17 23:59 | disposition home or self-care (01) ==
LOC: RAD 07:47
PROVIDERS: PCP Family Medicine; Visit Provider Nurse Practitioner Family
DX: R07.9 Chest pain, unspecified (principal); I10 Essential (primary) hypertension
CPT/HCPCS: 78452; 93017; 93018; A9502; J0280; J2785

== ENCOUNTER 2024-05-31 09:31 | Outpatient (CLI) | payer MEDICARE, BC, SELFPAY ==
[2024-05-31 09:48] VITALS: BP 145/70; PULSE 54; RESP 16; TEMP 36.3; O2SAT 98
[2024-05-31] MEDS: DENOSUMAB 60 MG/ML SYRINGE SUBCUT (09:48)
== END 2024-05-31 10:00 | disposition home or self-care (01) ==
LOC: INF 09:32
PROVIDERS: PCP Family Medicine; Visit Provider Family Medicine
DX: M81.0 Age-related osteoporosis without current pathological fracture (principal)
CPT/HCPCS: 96372; J0897

== ENCOUNTER 2024-07-30 11:23 | Emergency (ER) | payer MEDICARE, BC, SELFPAY ==
[2024-07-30] VITALS (10 sets, daily range): BP systolic 147–186; BP diastolic 74–94; PULSE 53–66; RESP 14–24; TEMP 36.6; O2SAT 94–98; BMI 17.4
--- NOTE | 2024-07-30 11:29 | ECG_ITS ---
APPROVED REPORT Exam: Resting ECG HR:65 bpm ECG Measurements Heart Rate 65 AXES RI 124 P 78 QRSd 84 QRS 71 QT 401 T 48 QTc 413 Conclusion SINUS RHYTHM NONSPECIFIC ST & T-WAVE ABNORMALITY BORDERLINE ECG Electronically signed by : CM HIGGINS, 07/30/2024 13:31:39
[2024-07-30 11:38] LABS: Coronavirus 19, PCR Not Detected (NotDetected); Influenza A, PCR Not Detected (NotDetected); Influenza B, PCR Not Detected (NotDetected)
--- NOTE | 2024-07-30 11:42 | CT_ITS ---
FINAL REPORT TECHNIQUE: The patient was injected with IV contrast. Axial images were obtained through the chest in a PE protocol. 3-D reconstruction images were also performed. Individualized dose reduction techniques using automated exposure control or adjustment of the MA and/or KV according to patient's size were employed. CLINICAL HISTORY: cough, smoker, R sided CP COMPARISON: CT 02/12/2024 and CTA 01/11/2024 FINDINGS: Mediastinal vasculature is adequately opacified. No pulmonary artery filling defects are identified to suggest PE. There is no aortic dissection. There is no mediastinal mass or adenopathy. Bilateral subglandular breast implants are noted. The heart size is normal. There is no pericardial or pleural effusion. Limited images of the upper abdomen are unremarkable. There are advanced changes of centrilobular emphysema. Mild chronic scarring or fibrosis is noted. The lung bases are clear. IMPRESSION: No pulmonary embolus or dissection. Reviewed, Interpreted and Dictated by Andriy Ruiz MD Transcribed by Sarah Campuzano Authenticated and . [facility]
--- NOTE | 2024-07-30 11:42 | PC.NURSE ---
I notified Nori that there is a green top in lab for a VBG.
--- NOTE | 2024-07-30 11:45 | HMH.EDCP ---
Discharge Plan Disposition Patient Disposition: Home, Self-Care Prescriptions Prescriptions: New prednisone 20 mg tablet 40 mg PO DAILY 4 Days Qty: 8 0RF azithromycin [Zithromax Z-Andrea] 250 mg tablet 250 mg PO DAILY 4 Days Qty: 4 0RF Rx Instructions: start on day 2 of therapy No Action Stiolto Respimat 2.5-2.5 mcg/actuation mist 2.5 inh inhalation DAILY Rx Instructions: 2 inhalations by mouth daily budesonide [Pulmicort] 0.5 mg/2 mL suspension for nebulization 0.5 mg inhalation BID 90 Days Qty: 360 2RF Stiolto Respimat 2.5-2.5 mcg/actuation mist 2 inh inhalation DAILY 90 Days Qty: 12 3RF ipratropium-albuterol 0.5 mg-3 mg(2.5 mg base)/3 mL solution for nebulization 3 ml inhalation QID PRN (Reason: shortness of breath or wheezing) 90 Days Qty: 270 3RF aspirin [Adult Aspirin Regimen] 81 mg tablet,delayed release (DR/EC) 81 mg PO DAILY Qty: 30 5RF carvedilol [Coreg] 6.25 mg tablet 6.25 mg PO BID Qty: 180 3RF Rx Instructions: must administer with a meal/food montelukast 10 mg tablet 10 mg PO PM amlodipine 2.5 mg tablet 2.5 mg PO DAILY omeprazole 40 MG capsule,delayed release(DR/EC) 40 mg PO DAILY simvastatin 20 MG tablet 20 mg PO HS Referrals Follow up/Referrals: Sukhdeep Alvarez MD [Staff Physician] - See instructions Adam Lincoln MD [Primary Care Provider] - See instructions Activity Restrictions/Add. Instructions Additional Instructions/Restrictions: At this time it was felt you are safe to be discharged home. If new or worsening symptoms please do not hesitate to return the emergency department. As discussed if your chest pain gets worse in any way please present immediately to the emergency department. Your potassium was a little bit low today and I gave it back to you, make sure that they keep an eye on this at your family doctor. Otherwise please follow-up at [facility] cardiology clinic Friday morning at 9 AM. Clinical Impressions Clinical Impression: Acute exacerbation of chronic obstructive pulmonary disease, Chest pain, Hypokalemia Print Language Print Language: Occitan Discharge ED Provider: Han Etienne HPI General Chief Complaint: Shortness of Breath/Dyspnea Stated Complaint: CP Time Seen by Provider: 07/30/24 11:38 Mode of Arrival: Ambulatory Source of Information: Patient Description of Symptoms (Recalled from ER Triage Doc. by RN): patient states she woke up in middle of night with sternal chest pain with pressure and increased shortness of breath. History of Present Illness HPI narrative: Patient is a 73-year-old female past medical history of previous atypical angina, previous smoker, hypertension, hyperlipidemia, COPD on 2 L nasal cannula baseline who presents to the emergency department for evaluation of chest pain and shortness of breath. Onset was acute, over the last 24 hours occurring in the middle of the night right-sided parasternal border persistent nonmodifiable. She has a cough that is slightly worse than normal but has a chronic cough at baseline. No other acute complaints at this time. Please note that above description of symptoms, in this electronic medical record under categorization of recalled from ER triage doctor by RN are reflective of an initial nursing assessment, however, is not reflective of my full history and physical exam that was personally taken and clarified. Consequentially, this preceding description of symptoms, which may include the patient's categorized chief complaint in the EMR, do not reflect my personal clinical impression, and the ultimate description of history of present illness and patient stated complaints should be deferred to this section of the note. Unless stated otherwise or congruent with this section of the note, additional signs, symptoms, or incongruence should be interpreted as inaccurate with my clinical impression. Related Data Home Medications ?Medication ?Instructions ?Recorded ?Confirmed omeprazole 40 mg capsule,delayed 40 mg PO DAILY 04/22/18 07/30/24 release simvastatin 20 mg tablet 20 mg PO HS 04/22/18 07/30/24 montelukast 10 mg tablet 10 mg PO PM 03/22/20 07/30/24 amlodipine 2.5 mg tablet 2.5 mg PO DAILY 01/04/22 07/30/24 tiotropium 2.5 mcg-olodaterol 2.5 2.5 inh inhalation DAILY 08/06/23 07/30/24 mcg/actuation mist for inhalation (Stiolto Respimat) Previous Rx's ?Medication ?Instructions ?Recorded budesonide 0.5 mg/2 mL suspension 0.5 mg (2 mL) inhalation BID 90 01/15/24 for nebulization (Pulmicort) days #360 mL ipratropium 0.5 mg-albuterol 3 mg 3 ml inhalation QID PRN shortness 01/15/24 (2.5 mg base)/3 mL nebulization of breath or wheezing 90 days #270 soln mL tiotropium 2.5 mcg-olodaterol 2.5 2 inh inhalation DAILY 90 days #12 01/15/24 mcg/actuation mist for inhalation grams (Stiolto Respimat) aspirin 81 mg tablet,delayed 81 mg PO DAILY #30 tabs 03/08/24 release (Adult Aspirin Regimen) carvedilol 6.25 mg tablet (Coreg) 6.25 mg PO BID #180 tabs 04/20/24 azithromycin 250 mg tablet 250 mg PO DAILY 4 days #4 tabs 07/30/24 (Zithromax Z-Andrea) prednisone 20 mg tablet 40 mg (2 x 20 mg) PO DAILY 4 days 07/30/24 #8 tabs Allergies Allergy/AdvReac Type Severity Reaction Status Date / Time No Known Allergies Allergy Verified 07/30/24 11:36 [facility] Disclaimer: The information contained in this section may have been updated after the patient was seen, as this information can be updated by other users. Medical History Ischemia Chest pain Atypical angina Dyspnea Dizziness Palpitations Lung nodule seen on imaging study Nodule of right lung Abnormal screening CT of chest Pharyngeal candidiasis Encounter for screening for malignant neoplasm of lung Pulmonary emphysema Smoking greater than 30 pack years Pneumonia Arthritis Lung disease HTN (hypertension) HLD (hyperlipidemia) COPD (chronic obstructive pulmonary disease) Surgical History History of colonoscopy Family History Other Hypertension Social History Smoking Status: Former smoker tobacco type: cigarettes alcohol intake: never substance use type: denies use current occupational status: retired Travel in the last 8 weeks: None household members: spouse housing: house current occupational exposures/hazards: No caffeine: Yes Other Medical History Have you received the Flu Vaccine for this season: No Have you received the Pneumonia Vaccine: Yes ROS Obtained: Yes Systems reviewed as appropriate & no additional complaints except as documented Physical Exam General General appearance: alert and in no apparent distress Head Head exam: atraumatic and normocephalic Eye Eye exam: Present PERRL ENT ENT exam: Present mucous membranes moist Neck Neck exam: Present normal inspection Chest Chest inspection: Present normal inspection and symmetric chest wall rise Respiratory Respiratory exam: Present wheezes (Diffuse expiratory phase) and prolonged expiratory phase; Absent normal lung sounds bilaterally or respiratory distress Cardiovascular Cardiovascular exam: Present regular rate and normal rhythm Abdominal Exam Abdominal exam: Present soft; Absent tenderness Extremities Exam Extremities exam: Present normal inspection; Absent edema Neurological Exam Neurological exam: Present alert and CN II-XII intact Psychiatric Psychiatric exam: Present normal affect Skin Skin exam: Present warm and dry HEART Score HEART Score HEART Score assessment performed?: Yes History (anamnesis): Moderately suspicious ECG: Non-specific disturbance Age: >65 years Risk factors: 3 or more risk factors Troponin: </= normal limit HEART Score: 6 Critical Care Critical Care Time Critical Care Time: No Medical Decision Making Umesh Inquiry Pt receiving controlled substance: No Vital Signs Vital Signs: 07/30/24 11:30 07/30/24 11:34 07/30/24 11:35 Temperature 97.8 F Temperature Source Oral Pulse Rate 63 59 L Pulse Rate [Right] 65 Respiratory Rate 24 Blood Pressure 174/94 H 170/84 H Blood Pressure [Right Arm] 186/92 H Blood Pressure Mean 113 112 Blood Pressure Mean [Right Arm] 123 Blood Pressure Source [Right Arm] Automatic Cuff 02 Sat by Pulse Oximetry 97 98 94 L Oxygen Delivery Method Nasal Cannula Oxygen Flow Rate (LPM) 2 07/30/24 12:31 07/30/24 12:45 07/30/24 13:00 Temperature Temperature Source Pulse Rate 66 53 L 56 L Pulse Rate [Right] Respiratory Rate 14 20 22 Blood Pressure 168/89 H 157/81 H Blood Pressure [Right Arm] Blood Pressure Mean 115 Blood Pressure Mean [Right Arm] Blood Pressure Source [Right Arm] 02 Sat by Pulse Oximetry 95 98 96 Oxygen Delivery Method Oxygen Flow Rate (LPM) 07/30/24 13:30 07/30/24 14:00 07/30/24 14:30 Temperature Temperature Source Pulse Rate 60 60 60 Pulse Rate [Right] Respiratory Rate 23 18 18 Blood Pressure 152/81 H 147/74 H 148/81 H Blood Pressure [Right Arm] Blood Pressure Mean Blood Pressure Mean [Right Arm] Blood Pressure Source [Right Arm] 02 Sat by Pulse Oximetry 98 96 96 Oxygen Delivery Method Oxygen Flow Rate (LPM) Lab Data Labs: Lab Results 07/30/24 11:32: SARS-CoV-2 (PCR) Not detected, Influenza A Untype (PCR) Not detected, Influenza Type B (PCR) Not detected 07/30/24 11:33: WBC 10.7, RBC 4.87, Hgb 14.8, Hct 44.7, MCV 91.8, MCH 30.4, MCHC 33.1, RDW 13.5, Plt Count 246, MPV 10.3, Neut % (Auto) 72.2, Lymph % (Auto) 16.9, [place] % (Auto) 9.4 H, Eos % (Auto) 0.8, Baso % (Auto) 0.5, Neut # (Auto) 7.7, Lymph # (Auto) 1.8, [place] # (Auto) 1.0, Eos # (Auto) 0.1, Baso # (Auto) 0.1, Sodium 137, Potassium 3.3 L, Chloride 100, Carbon Dioxide 30, Anion Gap 10.3, BUN 6 L, Creatinine 0.60, Estimated Creat Clear 35, Estimated GFR 99, Est GFR ( Amer) 119, Glucose 111 H, Calcium 9.8, Total Bilirubin 0.8, AST 34, ALT 20, Alkaline Phosphatase 100, Troponin I < 0.01, NT-Pro-B Natriuret Pep 530 H, Total Protein 7.6, Albumin 4.7, Globulin 2.9, Albumin/Globulin Ratio 1.6, HCV Ab [place]USTEN w/Rflx PCR Qn Negative, HIV Ag/Ab Combo Qual Negative 07/30/24 11:45: VBG pH 7.34, VBG pCO2 49.9, VBG pO2 35.1, VBG HCO3 26.6, VBG Total CO2 28.1 H, VBG O2 Saturation 63.5, VBG Base Excess 0.9, VBG Lactic Acid 1.3 07/30/24 13:46: Troponin I 0.01 07/30/24 11:33 07/30/24 11:33 Response Orders (Tests/Meds): ED MEDICATIONS Discontinued Medications Generic Name Dose Route Start Last Admin Trade Name Freq PRN Reason Stop Dose Admin Albuterol/Ipratropium 6 ml 07/30/24 11:42 07/30/24 11:50 Ipratropium/Albuterol 3 Ml Neb IH 07/30/24 11:43 6 ml ONCE ONE Administration Aspirin 324 mg 07/30/24 12:18 07/30/24 12:27 Aspirin 81mg Chewable Tablet PO 07/30/24 12:19 324 mg ONCE ONE Administration Azithromycin 500 mg 07/30/24 11:42 07/30/24 11:50 Azithromycin 250mg Tablet PO 07/30/24 11:43 500 mg ONCE ONE Administration Magnesium Sulfate 2 gm in 50 mls @ 50 mls/hr 07/30/24 11:42 07/30/24 11:50 Magnesium Sulfate 2gm/50ml Premix IV 07/30/24 12:41 50 mls/hr ONCE ONE Administration Iopamidol 70 ml 07/30/24 12:07 07/30/24 12:08 Iopamidol-370 (76%);100ml Bottle IV 07/30/24 12:08 70 ml ONCE ONE Administration Methylprednisolone Sodium Succinate 125 mg 07/30/24 11:42 07/30/24 11:49 Methylprednisolone Sod Succ 125mg Vial IV 07/30/24 11:43 125 mg ONCE ONE Administration Potassium Chloride 30 meq 07/30/24 12:17 07/30/24 12:27 Potassium Chloride 10meq Capsule.Er PO 07/30/24 12:18 30 meq ONCE ONE Administration Sodium Chloride 10 ml 07/30/24 12:07 07/30/24 12:08 Sodium Chloride 0.9% 10ml Syr (Rad Only) IV 07/30/24 12:08 10 ml ONCE ONE Administration Sodium Chloride 50 ml 07/30/24 12:07 07/30/24 12:08 0.9 % Sodium Chloride 50 Ml Vial IV 07/30/24 12:08 50 ml ONCE ONE Administration ORDERS Category Date Time Status CT angio chest PE protocol Stat Cat Scan 07/30/24 11:42 Completed BNP [NT Pro Brain Natriuretic Pep.] Stat Lab 07/30/24 11:33 Completed CBC w/Auto Diff [Complete Blood Count Auto Diff] Stat Lab 07/30/24 11:33 Completed CMP [Comprehensive Metabolic Panel] Stat Lab 07/30/24 11:33 Completed HIV Combo Stat Lab 07/30/24 11:33 Completed Hepatitis C Ab Qual. W/ RFX Stat Lab 07/30/24 11:33 Completed Rapid PCR Covid and Flu A/B Stat Lab 07/30/24 11:32 Completed Trop I [Troponin I] Stat Lab 07/30/24 11:33 Completed Troponin I Q3H Lab 07/30/24 13:46 Completed Troponin I Q3H Lab 07/30/24 17:45 Ordered VBG [Venous Blood Gas] Stat RT 07/30/24 11:45 Completed ECG Data Tracing #1: ECG Narrative: Independently turbid by me rate of 65, rhythm is regular, axis is normal, no ST elevation in anatomical contiguous leads, QTc 413. Tracing #2: ECG Narrative: Independently interpreted by me rate is 58, rhythm is regular, axis is normal, no ST elevation in anatomical contiguous leads, QTc 411 MDM Narrative Medical Decision Narrative: In summary patient is a 73-year-old female with past medical history described above who presents to the emergency department for evaluation of chest pain and shortness of breath. Patient is hemodynamically stable nontoxic-appearing upon arrival, afebrile, expiratory phase wheezes in all lung mayers in the setting of COPD. Patient is on baseline oxygen for maintenance of oxygen saturations greater than 90%. Differential diagnosis includes pneumonia, pulmonary embolism, pulmonary mass, viral induced COPD exacerbation, among others. Workup will be conducted with hematologic labs, CT angio pulmonary embolism protocol, serial troponins, VBG. Initial interventions include DuoNebs x 2, methylprednisolone, azithromycin, magnesium sulfate. Initial workup reviewed by me, hematologic labs are largely nonactionable except for mild hyperkalemia which will be repleted orally. Compensated acid-base status no critical electrolyte abnormality, serial troponins within normal range. For troponin undetectably low second troponin 0.01 within normal range, viral swab negative. Upon repeat evaluation patient had large resolution of her chest pain now down to a 2 out of 10. I discussed case with Dr. Alvarez regarding management and we agree patient is appropriate for outpatient management with strict return precautions. Serial EKGs show no dynamic changes. Given this patient is appropriate for outpatient management at this time will be treated for her cough and shortness of breath COPD exacerbation with a course of steroids and azithromycin was given multiple return precautions verbalized understanding and otherwise outpatient management has been arranged for Friday morning at 9 AM with cardiology.
[2024-07-30 11:47] LABS: Lactate Venous 1.3 mmol/L (0.4-2.0); VBG Base Excess 0.9 mmol/L (-2.4-2.3); VBG HCO3 26.6 mmol/L (23-30); VBG Oxygen Saturation 63.5 % (50-70); VBG PCO2 49.9 mmol/L (35-51); VBG PH 7.34 mmol/L (7.31-7.41); VBG PO2 35.1 mmol/L (28-40); VBG Total CO2 28.1 mmol/L (23-27)
[2024-07-30 11:49] LABS: Basophils # 0.1 K/mm3 (0-0.2); Basophils % 0.5 % (0.1-2.0); Eosinophils # 0.1 K/mm3 (0.0-0.4); Eosinophils % 0.8 % (0.1-12.0); Hematocrit 44.7 % (37.0-47.0); Hemoglobin 14.8 g/dL (12.2-16.2); Lymphocytes # 1.8 K/mm3 (0.7-4.5); Lymphocytes % 16.9 % (10-50); Mean Corpuscular HGB Conc 33.1 g/dL (31.8-35.4); Mean Corpuscular Hemoglobin 30.4 pg (27.0-31.2); Mean Corpuscular Volume 91.8 fl (81-99); Mean Platelet Volume 10.3 fl (7.4-10.4); Monocytes % 9.4 % (1.7-9.3); Neutrophils # 7.7 K/mm3 (1.8-7.8); Neutrophils % 72.2 % (37.0-80.0); Platelet Count 246 K/mm3 (142-424); Red Blood Count 4.87 M/mm3 (4.20-5.40); Red Cell Distribution Width 13.5 % (11.5-17.5); White Blood Count 10.7 K/mm3 (4.8-10.8)
[2024-07-30] MEDS: METHYLPREDNISOLONE SOD SUCC 125MG VIAL 125 MG IV (11:49)
[2024-07-30] MEDS: MAGNESIUM SULFATE IN WATER 2 GM/50 ML PIGGYBACK IV (11:50)
[2024-07-30] MEDS: IPRATROPIUM/ALBUTEROL 3 ML NEB 6 ML IH (11:50)
[2024-07-30] MEDS: AZITHROMYCIN 250MG TABLET 500 MG PO (11:50)
[2024-07-30 11:51] LABS: Albumin Level 4.7 g/dl (3.5-5.0); Chloride 100 mmol/L (98-107); Potassium 3.3 mmoL/L (3.5-5.1); Sodium 137 mmol/L (136-145)
[2024-07-30 11:54] LABS: Alanine Aminotransferase 20 U/L (12-78); Albumin/Globulin Ratio 1.6 (1.1-1.8); Alkaline Phosphatase 100 U/L (38-126); Anion Gap 10.3 mEq/L (5-15); Aspartate Amino Transferase 34 U/L (14-36); Bilirubin,Total 0.8 mg/dl (0.2-1.3); Blood Urea Nitrogen 6 mg/dl (7-17); Calcium 9.8 mg/dl (8.4-10.2); Carbon Dioxide 30 mmol/L (22.0-30.0); Creatinine Clearance Estimated 35 mL/min (50-200); Estimated Glomerular Filt Rate 99 ml/min (>60); GFR (African American) 119 ML/MIN (>60); Globulin 2.9 g/dL (1.3-3.2); Glucose 111 mg/dl (74-100); Total Protein,Serum 7.6 g/dl (6.3-8.2)
--- NOTE | 2024-07-30 11:59 | HMH.EDCP ---
Discharge Plan Disposition Chief Complaint: Shortness of Breath/Dyspnea Prescriptions Prescriptions: No Action Stiolto Respimat 2.5-2.5 mcg/actuation mist 2.5 inh inhalation DAILY Rx Instructions: 2 inhalations by mouth daily budesonide [Pulmicort] 0.5 mg/2 mL suspension for nebulization 0.5 mg inhalation BID 90 Days Qty: 360 2RF Stiolto Respimat 2.5-2.5 mcg/actuation mist 2 inh inhalation DAILY 90 Days Qty: 12 3RF ipratropium-albuterol 0.5 mg-3 mg(2.5 mg base)/3 mL solution for nebulization 3 ml inhalation QID PRN (Reason: shortness of breath or wheezing) 90 Days Qty: 270 3RF aspirin [Adult Aspirin Regimen] 81 mg tablet,delayed release (DR/EC) 81 mg PO DAILY Qty: 30 5RF carvedilol [Coreg] 6.25 mg tablet 6.25 mg PO BID Qty: 180 3RF Rx Instructions: must administer with a meal/food montelukast 10 mg tablet 10 mg PO PM amlodipine 2.5 mg tablet 2.5 mg PO DAILY omeprazole 40 MG capsule,delayed release(DR/EC) 40 mg PO DAILY simvastatin 20 MG tablet 20 mg PO HS Referrals Follow up/Referrals: Adam Lincoln MD [Primary Care Provider] - See instructions Print Language Print Language: Trinidadian Discharge ED Provider: Han Etienne General Chief Complaint: Shortness of Breath/Dyspnea Stated Complaint: CP Time Seen by Provider: 07/30/24 11:38 Mode of Arrival: Ambulatory Source of Information: Patient Description of Symptoms (Recalled from ER Triage Doc. by RN): patient states she woke up in middle of night with sternal chest pain with pressure and increased shortness of breath. Related Data Home Medications ?Medication ?Instructions ?Recorded ?Confirmed omeprazole 40 mg capsule,delayed 40 mg PO DAILY 04/22/18 07/30/24 release simvastatin 20 mg tablet 20 mg PO HS 04/22/18 07/30/24 montelukast 10 mg tablet 10 mg PO PM 03/22/20 07/30/24 amlodipine 2.5 mg tablet 2.5 mg PO DAILY 01/04/22 07/30/24 tiotropium 2.5 mcg-olodaterol 2.5 2.5 inh inhalation DAILY 08/06/23 07/30/24 mcg/actuation mist for inhalation (Stiolto Respimat) Previous Rx's ?Medication ?Instructions ?Recorded budesonide 0.5 mg/2 mL suspension 0.5 mg (2 mL) inhalation BID 90 01/15/24 for nebulization (Pulmicort) days #360 mL ipratropium 0.5 mg-albuterol 3 mg 3 ml inhalation QID PRN shortness 01/15/24 (2.5 mg base)/3 mL nebulization of breath or wheezing 90 days #270 soln mL tiotropium 2.5 mcg-olodaterol 2.5 2 inh inhalation DAILY 90 days #12 01/15/24 mcg/actuation mist for inhalation grams (Stiolto Respimat) aspirin 81 mg tablet,delayed 81 mg PO DAILY #30 tabs 03/08/24 release (Adult Aspirin Regimen) carvedilol 6.25 mg tablet (Coreg) 6.25 mg PO BID #180 tabs 04/20/24 Allergies Allergy/AdvReac Type Severity Reaction Status Date / Time No Known Allergies Allergy Verified 07/30/24 11:[address] [facility] Disclaimer: The information contained in this section may have been updated after the patient was seen, as this information can be updated by other users. Medical History Ischemia Chest pain Atypical angina Dyspnea Dizziness Palpitations Lung nodule seen on imaging study Nodule of right lung Abnormal screening CT of chest Pharyngeal candidiasis Encounter for screening for malignant neoplasm of lung Pulmonary emphysema Smoking greater than 30 pack years Pneumonia Arthritis Lung disease HTN (hypertension) HLD (hyperlipidemia) COPD (chronic obstructive pulmonary disease) Surgical History History of colonoscopy Family History Other Hypertension Social History Smoking Status: Former smoker tobacco type: cigarettes alcohol intake: never substance use type: denies use current occupational status: retired Travel in the last 8 weeks: None household members: spouse housing: house current occupational exposures/hazards: No caffeine: Yes Other Medical History Have you received the Flu Vaccine for this season: No Have you received the Pneumonia Vaccine: Yes Physical Exam General General appearance: alert and in no apparent distress Medical Decision Making Vital Signs Vital Signs: 07/30/24 11:30 07/30/24 11:34 07/30/24 11:35 Temperature 97.8 F Temperature Source Oral Pulse Rate 63 59 L Pulse Rate [Right] 65 Respiratory Rate 24 Blood Pressure 174/94 H 170/84 H Blood Pressure [Right Arm] 186/92 H Blood Pressure Mean 113 112 Blood Pressure Mean [Right Arm] 123 Blood Pressure Source [Right Arm] Automatic Cuff 02 Sat by Pulse Oximetry 97 98 94 L Oxygen Delivery Method Nasal Cannula Oxygen Flow Rate (LPM) 2 07/30/24 12:31 Temperature Temperature Source Pulse Rate 66 Pulse Rate [Right] Respiratory Rate 14 Blood Pressure 168/89 H Blood Pressure [Right Arm] Blood Pressure Mean 115 Blood Pressure Mean [Right Arm] Blood Pressure Source [Right Arm] 02 Sat by Pulse Oximetry 95 Oxygen Delivery Method Oxygen Flow Rate (LPM) Lab Data Labs: Lab Results 07/30/24 11:32: SARS-CoV-2 (PCR) Not detected, Influenza A Untype (PCR) Not detected, Influenza Type B (PCR) Not detected 07/30/24 11:33: WBC 10.7, RBC 4.87, Hgb 14.8, Hct 44.7, MCV 91.8, MCH 30.4, MCHC 33.1, RDW 13.5, Plt Count 246, MPV 10.3, Neut % (Auto) 72.2, Lymph % (Auto) 16.9, [place] % (Auto) 9.4 H, Eos % (Auto) 0.8, Baso % (Auto) 0.5, Neut # (Auto) 7.7, Lymph # (Auto) 1.8, [place] # (Auto) 1.0, Eos # (Auto) 0.1, Baso # (Auto) 0.1, Sodium 137, Potassium 3.3 L, Chloride 100, Carbon Dioxide 30, Anion Gap 10.3, BUN 6 L, Creatinine 0.60, Estimated Creat Clear 35, Estimated GFR 99, Est GFR ( Amer) 119, Glucose 111 H, Calcium 9.8, Total Bilirubin 0.8, AST 34, ALT 20, Alkaline Phosphatase 100, Troponin I < 0.01, NT-Pro-B Natriuret Pep 530 H, Total Protein 7.6, Albumin 4.7, Globulin 2.9, Albumin/Globulin Ratio 1.6 07/30/24 11:45: VBG pH 7.34, VBG pCO2 49.9, VBG pO2 35.1, VBG HCO3 26.6, VBG Total CO2 28.1 H, VBG O2 Saturation 63.5, VBG Base Excess 0.9, VBG Lactic Acid 1.3 07/30/24 11:33 07/30/24 11:33 Response Orders (Tests/Meds): ED MEDICATIONS Discontinued Medications Generic Name Dose Route Start Last Admin Trade Name Freq PRN Reason Stop Dose Admin Albuterol/Ipratropium 6 ml 07/30/24 11:42 07/30/24 11:50 Ipratropium/Albuterol 3 Ml Neb IH 07/30/24 11:43 6 ml ONCE ONE Administration Aspirin 324 mg 07/30/24 12:18 07/30/24 12:27 Aspirin 81mg Chewable Tablet PO 07/30/24 12:19 324 mg ONCE ONE Administration Azithromycin 500 mg 07/30/24 11:42 07/30/24 11:50 Azithromycin 250mg Tablet PO 07/30/24 11:43 500 mg ONCE ONE Administration Magnesium Sulfate 2 gm in 50 mls @ 50 mls/hr 07/30/24 11:42 07/30/24 11:50 Magnesium Sulfate 2gm/50ml Premix IV 07/30/24 12:41 50 mls/hr ONCE ONE Administration Iopamidol 70 ml 07/30/24 12:07 07/30/24 12:08 Iopamidol-370 (76%);100ml Bottle IV 07/30/24 12:08 70 ml ONCE ONE Administration Methylprednisolone Sodium Succinate 125 mg 07/30/24 11:42 07/30/24 11:49 Methylprednisolone Sod Succ 125mg Vial IV 07/30/24 11:43 125 mg ONCE ONE Administration Potassium Chloride 30 meq 07/30/24 12:17 07/30/24 12:27 Potassium Chloride 10meq Capsule.Er PO 07/30/24 12:18 30 meq ONCE ONE Administration Sodium Chloride 10 ml 07/30/24 12:07 07/30/24 12:08 Sodium Chloride 0.9% 10ml Syr (Rad Only) IV 07/30/24 12:08 10 ml ONCE ONE Administration Sodium Chloride 50 ml 07/30/24 12:07 07/30/24 12:08 0.9 % Sodium Chloride 50 Ml Vial IV 07/30/24 12:08 50 ml ONCE ONE Administration ORDERS Category Date Time Status CT angio chest PE protocol Stat Cat Scan 07/30/24 11:42 Taken BNP [NT Pro Brain Natriuretic Pep.] Stat Lab 07/30/24 11:33 Completed CBC w/Auto Diff [Complete Blood Count Auto Diff] Stat Lab 07/30/24 11:33 Completed CMP [Comprehensive Metabolic Panel] Stat Lab 07/30/24 11:33 Completed HIV Combo Stat Lab 07/30/24 11:33 Received Hepatitis C Ab Qual. W/ RFX Stat Lab 07/30/24 11:33 Received Rapid PCR Covid and Flu A/B Stat Lab 07/30/24 11:32 Completed Trop I [Troponin I] Stat Lab 07/30/24 11:33 Completed Troponin I Q3H Lab 07/30/24 14:45 Ordered Troponin I Q3H Lab 07/30/24 17:45 Ordered VBG [Venous Blood Gas] Stat RT 07/30/24 11:45 Completed
[2024-07-30 12:04] LABS: NT Pro Brain Natriuretic Pep. 530 pg/mL (0-125)
[2024-07-30 12:06] LABS: Troponin I < 0.01 ng/ml (0.00-0.034)
[2024-07-30] MEDS: SODIUM CHLORIDE 0.9% 10ML SYR (RAD ONLY) 10 ML IV (12:08)
[2024-07-30] MEDS: 0.9 % SODIUM CHLORIDE 50 ML VIAL IV (12:08)
[2024-07-30] MEDS: IOPAMIDOL-370 (76%);100ML BOTTLE 70 ML IV (12:08)
[2024-07-30] MEDS: POTASSIUM CHLORIDE 10MEQ CAPSULE.ER 30 MEQ PO (12:27)
[2024-07-30] MEDS: ASPIRIN 81MG CHEWABLE TABLET 324 MG PO (12:27)
--- NOTE | 2024-07-30 12:29 | PC.NURSE ---
Assisted ot to the bathromm and back.. pt was 95% om 2 liters walked to the bathroom and assisted her back to the room and 02 Sat was 85% on room air before she was put back on the oxygen
--- NOTE | 2024-07-30 12:37 | PC.NURSE ---
rounded on patient, no new needs voiced. call light in reach
[2024-07-30 12:44] LABS: HIV Combo NEGATIVE (Negative)
[2024-07-30 12:52] LABS: Hepatitis C Ab Qual. W/ RFX NEGATIVE (Negative)
[2024-07-30 14:27] LABS: Troponin I 0.01 ng/ml (0.00-0.034)
--- NOTE | 2024-07-30 14:42 | PC.NURSE ---
Had Dr Alvarez paged per Dr Etienne
--- NOTE | 2024-07-30 14:57 | ECG_ITS ---
APPROVED REPORT Exam: Resting ECG HR:58 bpm ECG Measurements Heart Rate 58 AXES OR 147 P 74 QRSd 79 QRS 58 QT 414 T 49 QTc 411 Conclusion SINUS BRADYCARDIA NONSPECIFIC ST & T-WAVE ABNORMALITY BORDERLINE ECG UNCONFIRMED REPORT Electronically signed by : GAYLE RESENDEZ, 08/01/2024 03:14:31
== END 2024-07-30 15:35 | disposition home or self-care (01) ==
PROVIDERS: Emergency Provider Emergency Medicine; PCP Family Medicine
DX: J44.1 Chronic obstructive pulmonary disease with (acute) exacerbation (principal); E87.6 Hypokalemia; R07.9 Chest pain, unspecified; R06.02 Shortness of breath; R05.9 Cough, unspecified
CPT/HCPCS: 71275; 80053; 82803; 83880; 84484; 85025; 86803; 87389; 87636; 93005; 96365; 96374; 99285; J2919; J3475; J7620; Q9967

== ENCOUNTER 2024-08-12 09:34 | Outpatient (CLI) | payer MEDICARE, BC, SELFPAY ==
--- NOTE | 2024-08-12 09:45 | CA_ITS ---
APPROVED REPORT EXAM: Comprehensive 2D, Doppler, and color-flow Echocardiogram Hogshead Mat Inspector: Shyla Barrientos RVT Ht: 5 ft 2 in Wt: 92lbs BSA: 1.37 BP: 133/62 mmHg Indications: CP,COPD,SOA,EX SOMKER,HTN,HLD,MOD AI M-Mode Dimensions RVDd 2.29 cm (0.9-2.6) LA Diam 3.00 cm (1.9-4.0) LVDd 4.45 cm (3.5-5.7) LVDs 3.19 cm (3.5-5.7) IVSd 0.28 cm (0.6-1.1) PWd 0.44 cm (0.6-1.1) EF (Teich) 54.90% FS 28.30% EDV (Teich) 90.10 mL TAPSE 2.27 (<1.7) ESV (Teich) 40.60 mL LV Diastology E Decel Time 197 (160-240 msec) E/A Ratio 0.7 Aortic Valve DAMEON Index 1.82 cm2/m2 AoV Peak Marty. 107.0 (50-130 cm/s) AI PHT 1976.00 ms AO Peak GR. 4.50 mmHg AO Mean GR. 2.10 (<5 mmHg) AO VTI 22.4 (18-25 cm) DAMEON (VTI) 2.57 (2.5-4.5 cm2) Mitral Valve MV E Max Marty. 50.0 (40-130 cm/s) MV A Velocity 67.0 (40-130 cm/s) E/A Ratio 0.74 MV PHT 58.0 ms Pulmonary Valve PV Peak Velocity 44.0 (50-150 cm/s) Tricuspid Valve TR P. Velocity 311.00 cm/s RAP Estimate 10.00 mmHg RVSP 48.70 mmHg Left Ventricle The left ventricle is normal size. LVEDD=4.8 cm. LVESD=3.3 cm. The left ventricular systolic function is low normal. There is increased LV wall thickness. There is normal LV segmental wall motion. Transmitral Doppler flow pattern suggests impaired LV relaxation. LVEF is 50%. Right Ventricle The right ventricle is normal size. The right ventricular systolic function is normal. Atria Left atrium is mildly dilated. Right atrium is mildly dilated. There is no Doppler evidence of interatrial shunt. Aortic Valve The aortic valve is mildly thickened. There is no aortic valvular stenosis. Moderate aortic regurgitation. Mitral Valve The mitral valve is normal in structure. No evidence of mitral valve stenosis. Mild mitral regurgitation. Tricuspid Valve Tricuspid valve is grossly normal in structure and function. Mild tricuspid regurgitation. RVSP 25-30 mmHg. Pulmonic Valve The pulmonary valve is normal in structure. Trace pulmonic regurgitation. Great Vessels The aortic root is normal in size. IVC is normal in size and collapses >50% with inspiration. Pericardium There is no pericardial effusion. Other Information Study Quality: Fair Conclusion Low normal LV systolic function (LVEF 50%). Mild biatrial dilation. Moderate AI. Mild MR, mild TR. RVSP 25-30 mmHg. Electronically signed by : Génesis Chapin MD 08/22/2024 23:52:00
[2024-08-12 11:43] LABS: Chloride 100 mmol/L (98-107); Sodium 136 mmol/L (136-145)
[2024-08-12 11:44] LABS: Potassium 4.4 mmoL/L (3.5-5.1)
[2024-08-12 11:47] LABS: Anion Gap 12.4 mEq/L (5-15); Blood Urea Nitrogen 9 mg/dl (7-17); Calcium 9.7 mg/dl (8.4-10.2); Carbon Dioxide 28 mmol/L (22.0-30.0); Estimated Glomerular Filt Rate 99 ml/min (>60); GFR (African American) 119 ML/MIN (>60); Glucose 93 mg/dl (74-100)
== END 2024-08-12 23:59 | disposition home or self-care (01) ==
PROVIDERS: PCP Family Medicine; Visit Provider Nurse Practitioner Family
DX: I51.7 Cardiomegaly (principal); I34.0 Nonrheumatic mitral (valve) insufficiency; I35.1 Nonrheumatic aortic (valve) insufficiency; I36.1 Nonrheumatic tricuspid (valve) insufficiency; I20.89 Other forms of angina pectoris
CPT/HCPCS: 36415; 80048; 93306

== ENCOUNTER 2024-08-18 12:39 | Outpatient (CLI) | payer MEDICARE, BC, SELFPAY ==
[2024-08-18 13:35] VITALS: PULSE 60
[2024-08-18] MEDS: ALBUTEROL 0.083% 2.5 MG/3 ML NEB IH (13:35)
== END 2024-08-18 23:59 | disposition home or self-care (01) ==
LOC: RT 12:40
PROVIDERS: PCP Family Medicine; Visit Provider Internal Medicine Pulmonary Disease
DX: R06.09 Other forms of dyspnea (principal); J44.9 Chronic obstructive pulmonary disease, unspecified
CPT/HCPCS: 94010; 94618; 94640; J7613

== ENCOUNTER 2024-09-13 13:20 | Outpatient (CLI) | payer MEDICARE, BC, SELFPAY ==
[2024-09-13 15:56] LABS: Chloride 96 mmol/L (98-107)
[2024-09-13 15:57] LABS: Potassium 4.7 mmoL/L (3.5-5.1); Sodium 131 mmol/L (136-145)
[2024-09-13 15:59] LABS: Blood Urea Nitrogen 11 mg/dl (7-17); Estimated Glomerular Filt Rate 99 ml/min (>60); GFR (African American) 119 ML/MIN (>60)
[2024-09-13 16:00] LABS: Anion Gap 12.7 mEq/L (5-15); Calcium 9.8 mg/dl (8.4-10.2); Carbon Dioxide 27 mmol/L (22.0-30.0); Glucose 118 mg/dl (74-100)
== END 2024-09-13 23:59 | disposition home or self-care (01) ==
LOC: LAB 13:21
PROVIDERS: PCP Family Medicine; Visit Provider Nurse Practitioner Family
DX: E87.6 Hypokalemia (principal); R79.89 Other specified abnormal findings of blood chemistry; R06.09 Other forms of dyspnea
CPT/HCPCS: 36415; 80048

== ENCOUNTER 2024-11-29 09:40 | Outpatient (CLI) | payer MEDICARE, BC, SELFPAY ==
[2024-11-29] MEDS: DENOSUMAB 60 MG/ML SYRINGE SUBCUT (09:52)
[2024-11-29 09:53] VITALS: BP 121/65; PULSE 49; RESP 18; TEMP 36.7; O2SAT 97
== END 2024-11-29 10:05 | disposition home or self-care (01) ==
LOC: INF 09:40
PROVIDERS: PCP Family Medicine; Visit Provider Family Medicine
DX: M81.0 Age-related osteoporosis without current pathological fracture (principal)
CPT/HCPCS: 96372; J0897

== ENCOUNTER 2024-12-29 10:39 | Outpatient (CLI) | payer MEDICARE, BC, SELFPAY ==
--- OUTSIDE RECORDS SUMMARY | 2024-12-29 10:53 | XMS_ITS | Clinical Summary ---
Author Organization [facility] Address [address] [place] [address] Care Team Providers Care Belt Lacer Name Role Phone Adam Lincoln MD Primary Care Provider + Medications polyethylene glycol (MiraLax) 17 GM/SCOOP powder Take 17 g by mouth Daily. 850 g 4 Active nystatin (MYCOSTATIN) 100,000 unit/mL suspension Swish and swallow 5 mL 2 (Two) Times a Day. 473 mL 2 4 Active carvedilol (COREG) 6.25 MG tablet 1 tablet. 4 Active Aspirin EC Adult Low Dose 81 MG EC tablet Take 1 tablet by mouth Daily. 4 Active budesonide (PULMICORT) 0.5 MG/2ML nebulizer solution Take 2 mL by nebulization Daily. Active spironolactone (ALDACTONE) 25 MG tablet Take 1 tablet by mouth Daily. 5 Active amLODIPine (NORVASC) 2.5 MG tabletIndication s:Essential hypertension Take 1 tablet by mouth Daily. 90 tablet 1 5 Active montelukast (SINGULAIR) 10 MG tabletIndication s:Non-seasonal allergic rhinitis due to pollen Take 1 tablet by mouth Every Night. 90 tablet 3 5 Active omeprazole (priLOSEC) 40 MG capsuleIndicatio ns:GERD without esophagitis Take 1 capsule by mouth Daily. 90 capsule 1 5 Active simvastatin (ZOCOR) 20 MG tabletIndication s:Hypercholester olemia Take 1 tablet by mouth every night at bedtime. 90 tablet 3 5 Active Stiolto Respimat 2.5-2.5 MCG/ACT aerosol solution inhalerIndicatio ns:Panlobular emphysema Inhale 2 puffs Daily. 12 g 3 5 Active meloxicam (MOBIC) 15 MG tabletIndication s:Hand arthritis TAKE ONE-HALF TABLET BY MOUTH EVERY OTHER DAY 23 tablet 3 5 Active albuterol sulfate HFA 108 (90 Base) MCG/ACT inhalerIndicatio ns:Panlobular emphysema USE 2 INHALATIONS BY MOUTH EVERY 4 HOURS NEEDED FOR WHEEZING 34 g 4 5 Active denosumab (PROLIA) 60 MG/ML solution prefilled syringe syringeIndicatio ns:Age-related osteoporosis without current pathological fracture Inject 1 mL under the skin into the appropriate area as directed Every 6 (Six) Months. 1 mL 3 5 Active Hospital, Clinic, or Other Facility Administered Medication Ordered Dose Route Frequency Start Date End Date Status ipratropium-albute rol (DUO-NEB) nebulizer solution 3 mLIndications:Shor tness of breath,COPD with exacerbation 3 mL NEBULIZATION 4 Times Daily - RT 05/21/2023 Active Active Problems Problem Noted Date Diagnosed Date Nonrheumatic aortic valve insufficiency 09/28/19 25 Overview (09/27/2024): Seen on echocardiogram at [facility] July 2024 Chronic respiratory failure with hypoxia 025 Age-related osteoporosis wit hout current pathological fracture 12/17/2021 Panlobular emphysema 10/04/2021 Assessment & Plan (03/30/2024 12:15 PM EST): Assessment & Plan (07/11/2022 9:17 AM EST): At patient's previous visit we discussed a trial of Stiolto. Patient will contact the office if she is in the area and we will try to provide samples for this trial Assessment & Plan (12/17/2021 12:44 PM EDT): COPD is unchanged. Continue current medications. Essential hypertension 10/04/2021 Assessment & Plan (03/30/2024 12:15 PM EST): GERD without esophagitis 10/04/2021 Assessment & Plan (12/17/2021 12:44 PM EDT): Cont. PPI. Regular EGD for h/o Romulo's Encounters Date Type Department Care Team Description 11/25/2024 Telephone [facility] [address] [phone] Adam Lincoln MD RX FOR [facility]TH[facility] 11/16/2024 Refill [facility] [address] [phone] Adam Lincoln MD Panlobular emphysema 11/01/2024 Refill [facility] [address] [phone] Adam Lincoln MD Hand arthritis 09/28/2024 Results Follow-Up [facility] [address] [phone] Adam Lincoln MD from Last 3 Months Immunizations Immunization Administration Dates Next Due ABRYSVO (RSV, 60+ or women 32-36 wks) 1 06/29/2022 COVID-19 (MODERNA) BIVALENT 12+YRS 02/11/2022 Flu Vaccine Quad PF >36MO 02/12/2021,02/13/2016 Fluad Quad 65+ 01/27/2023,02/11/2022 Fluzone (or Fluarix & Flulaval for VFC) >6mos Fluzone High-Dose 65+yrs 03/19/2024 Pneumococcal Conjugate 13-Valent (PCV13) 011 Pneumococcal, Unspecified 06/05/2020,01/22/2013 Td, Unspecified 11/07/2006 Tdap 12/17/2021 Zoster, Unspecified 06/29/2014 Family History Medical History Relation Name Comments Heart attack Father Hypertension Father Migraine headaches Father Relation Name Status Comments Father Social History Tobacco Use Types Packs/Day Years Used Date Smoking Tobacco: Former Cigarettes 1 30 Q uit: 2016 Smokeless Tobacco: Never Tobacco Cessation:Counseling Given: Not Answered Alcohol Use Standard Drinks/Week Comments Never 0 (1 standard drink = 0.6 oz pur e alcohol) PHQ-2 Answer Date Recorded Retired PHQ-9: Brief Depression Severity Measure Score 0 12/19/2022 PHQ-2 Answer Date Recorded Patient Health Questionnaire-2 Score 0 09/27/2024 Comments Unknown Sex and Gender Information Value Date Recorded Sex Assigned at Not on file Legal Sex Female 9:19 AM EDT Gender Identity Not on file Sexual Orientation Not on file Last Filed Vital Signs Vital Sign Reading Time Taken Comments Blood Pressure 152/66 09/27/2024 10:05 AM EDT Pulse 52 09/27/2024 10:05 AM EDT Temperature 36.5 C (97.7 F) 09/27/2024 10:05 AM EDT Respiratory Rate 20 09/27/2024 10:05 AM EDT Oxygen Saturation 98% 09/27/2024 10:05 AM EDT Inhaled Oxygen Concentration - - Weight 42.8 kg (94 lb 6.4 oz) 09/27/2024 10:05 A M EDT Height 157.5 cm (5' 2 ) 09/27/2024 10:05 AM EDT Body Mass Index 17.27 09/27/2024 10:05 AM EDT Plan of Treatment Upcoming Encounters Date Type Department Care Team (Late st Contact Info) Description 04/01/2025 10:15 AM EST Office Visit [facility] [address] [facility] [place] [phone] Adam Lincoln MD [address] [address] Health Maintenance Due Date Last Done Comments COLOGUARD 1997 COLON CANCER SCREENING 5 YEA R SIGMOIDOSCOPY [address] COLONOGRAPHY 1997 FECAL OCCULT BLOOD TEST 1997 FIT Testing (1 year) 1997 LUNG CANCER SCREENING 2002 ZOSTER VACCINE (1 of 2) 2002 06/29/2014 Pneumococcal Vaccine 50+ (2 of 2 - PPSV23) 06/23/2011 06/05/2020, 06/05/2020 (Patient-Reported (Performed Externally)), 01/22/2013, Additional history exists MAMMOGRAM 05/20/2016 05/20/2014 (Alexandra ent-Reported (Performed Externally)) HEPATITIS C SCREENING 10/04/2021 COVID-19 Vaccine (7 - 2023-2 5 season) 2024 03/19/2024, 04/21/2023, 02/11/2022, Additional history exists INFLUENZA VACCINE 02/16/2025 03/19/2024, , 02/11/2022, Additional history exists DXA SCAN 03/08/2025 03/08/2023, 02/16, 03/06/2023, Additional history exists ANNUAL WELLNESS VISIT 03/30/2025 03/30/2024 , 03/30/2024, 12/19/2022, Additional history exists LIPID PANEL 09/27/2025 09/27/2024, 05/0 11/2023, 06/20/2022, Additional history exists COLONOSCOPY 03/19/2029 03/19/2019, 1105/2018, 03/19/2019 (Patient-Reported (Performed Externally)), Additional history exists COLORECTAL CANCER SCREENING 03/19/2029 TDAP/TD VACCINES (2 - Td or Tdap) 12/18/2031 022, 11/07/2006 Procedures Procedure Name Priority Date/Time Associated Diagnosis Comments LIPID PANEL Routine 09/27/2024 10:37 AM EDT Hypercholesterolemia SCANNED - DEXA 03/06/2023 from Last 3 Months or Most Recently Relevant to Health Maintenance Results * (ABNORMAL) Lipid Panel (09/27/2024 10:37 AM EDT) Total Cholesterol 141 0 - 200 mg/dL [facility] Comment: Cholesterol Reference Ranges (U.S. Department of Health and Human Services ATP III Classifications) Desirable <200 mg/dL Borderline High 200-239 mg/dL High Risk >240 mg/dL Triglyceride Reference Ranges (U.S. Department of Health and Human Services ATP III Classifications) Normal <150 mg/dL Borderline High 150-199 mg/dL High 200-499 mg/dL Very High >500 mg/dL HDL Reference Ranges (U.S. Department of Health and Human Services ATP III Classifications) Low <40 mg/dl (major risk factor for CHD) High >60 mg/dl ('negative' risk factor for CHD) LDL Reference Ranges (U.S. Department of Health and Human Services ATP III Classifications) Optimal <100 mg/dL Near Optimal 100-129 mg/dL Borderline High 130-159 mg/dL High 160-189 mg/dL Very High >189 mg/dL LDL is calculated using the NIH LDL-C calculation. Triglycerides 156(H) 0 - 150 mg/dL [facility] HDL Cholesterol 51 40 - 60 mg/dL [facility] VLDL Cholesterol David 27 5 - 40 mg/dL [facility] LDL Chol Calc (NIH) 63 0 - 100 mg/dL [facility] Blood 09/27/2024 10:3 7 AM EDT 09/27/[address] [facility] (AMBULATORY) - 09/28/2024 3:07 AM EDT Performed at: [address] [place] [id number] Director Pediatric: Dae Cheek MD, Phone: [phone] Patient Fasting: Y Adam Lincoln MD LAB BLOOD ORDERABLES Fin al Result Performing Organization Address City/State/[facility] Co de Phone Number [facility] (AMBULATORY) [address] [place] [address], [facility] [address] [place] [address], [place] [phone] * SCANNED - DEXA (03/06/2023) Anatomical Region Laterality Modality Other Adam Lincoln MD CHART REVIEW TABS Fin al Result from Last 3 Months or Most Recently Relevant to Health [place] [address] MEDICARE A & [place] [address] [place] [address] [facility] Care Teams Belt Lacer Relationship Specialty Start Date End Date Adam Lincoln MD [address] [place] [address] PCP - General Family Medicine 10/04/21
--- OUTSIDE RECORDS SUMMARY | 2024-12-29 10:53 | XMS_ITS | Encounter Summary ---
Author Organization [facility] Address [address] [place] [address] Care Team Providers Care Build And Deployment Engineer Name Role Phone Adam Lincoln MD Primary Care Provider + Encounter Details Date Type Department Care Team (Late st Contact Info) Description 09/28/2024 Results Follow-Up [facility] [address] [place] [address] Adam Lincoln MD [address] [place] [address] Social History Tobacco Use Types Packs/Day Years Used Date Smoking Tobacco: Former Cigarettes 1 30 Q uit: 2016 Smokeless Tobacco: Never Alcohol Use Standard Drinks/Week Comments Never 0 [...] on file Sexual Orientation Not on file documented as of this encounter Progress Notes * Danette Viera RegSched Rep - 09/28/2024 12:21 PM EDT RELAYED RESULTS TO PATIENT WITH UNDERSTANDING, SHE HAD NO QUESTIONS AT THIS TIME documented in this encounter Plan of Treatment Upcoming Encounters Date Type Department Care Team (Late st Contact Info) Description 04/01/2025 10:15 AM EST Office Visit [facility] [address] [place] [phone] Adam Lincoln MD [address] [place] [address] documented as of this encounter Visit Diagnoses Not on filedocumented in this encounter Care Teams Build And Deployment Engineer Relationship Specialty Start Date End Date Adam Lincoln MD [address] [place] [address] PCP - General Family Medicine 10/04/21 documented as of this encounter
--- OUTSIDE RECORDS SUMMARY | 2024-12-29 10:53 | XMS_ITS | Encounter Summary ---
Author Organization [facility] Address [address] [place] [address] Care Team Providers Care Platen Drier Operator Name Role Phone Adam Lincoln MD Primary Care Provider + Reason for Visit * Reason Comments Med Refill Encounter Details Date Type Department Care Team (Late Contact Info) Description 11/01/2024 Refill [facility] [address] [facility] [place] [address] Adam Lincoln MD [address] [place] [address] Hand arthritis Social History Tobacco Use Types Packs/Day Years [...] on file documented as of this encounter Plan of Treatment Upcoming Encounters Date Type Department Care Team (Late Contact Info) Description 04/01/2025 10:15 AM EST Office Visit [facility] [address] [facility] [place] [address] Adam Lincoln MD [address] [facility] [address] documented as of this encounter Visit Diagnoses Diagnosis Hand arthritis Unspecified arthropathy, hand documented in this encounter Care Teams Platen Drier Operator Relationship Specialty Start Date End Date Adam Lincoln MD [address] [place] [address] PCP - General Family Medicine 10/04/21 documented as of this encounter
--- OUTSIDE RECORDS SUMMARY | 2024-12-29 10:53 | XMS_ITS | Encounter Summary ---
Author Organization [facility] Address [address] [place] [address] Care Team Providers Care Motion Picture Equipment Supervisor Name Role Phone Adam Lincoln MD Primary Care Provider + Reason for Visit * Reason Onset Date Comments RX FOR [facility] 11/25/2024 Encounter Details Date Type Department Care Team (Late st Contact Info) Description 11/25/2024 Telephone [facility] [address] [place] [address] Adam Lincoln MD [address] [place] [address] RX FOR [facility] Social History Tobacco Use Types Packs/Day Years [...] on file documented as of this encounter Miscellaneous Notes * Telephone Encounter - Melvina Pradhan MA - 11/25/2024 9:54 AM EDT Faxed to [facility] Infusion * Telephone Encounter - Adam Lincoln MD - 11/25/2024 9:40 AM EDT Rx printed for signing * Telephone Encounter - Danette Viera RegSched Rep - 11/25/2024 8:41 AM EDT FAX [phone] PHONE [phone] ANDRZEJ FELIX FROM [facility] CALLED OFFICE AND STATED THEY NEED A NEW ORDER/RX FOR denosumab (PROLIA) 60 MG/ML solution prefilled syringe syringe PATIENT IS COMING IN ON FRIDAY SO THEY ARE REQUESTING FILI documented in this encounter Plan of Treatment Upcoming Encounters Date Type Department Care Team (Late st Contact Info) Description 04/01/2025 10:15 AM EST Office Visit [facility] [address] [facility] [place] [address] Adam Lincoln MD [address] [place] [address] documented as of this encounter Visit Diagnoses Diagnosis Age-related osteoporosis without current pathological fracture- Primary documented in this encounter Care Teams Motion Picture Equipment Supervisor Relationship Specialty Start Date End Date Adam Lincoln MD [address] [place] [address] PCP - General Family Medicine 10/04/21 documented as of this encounter
--- OUTSIDE RECORDS SUMMARY | 2024-12-29 10:53 | XMS_ITS | Encounter Summary ---
Author Organization [facility] Address [address] [place] [address] Care Team Providers Care User Interface Developer Name Role Phone Adam Lincoln MD Primary Care Provider + Reason for Visit * Reason Comments Med Refill Encounter Details Date Type Department Care Team (Late Contact Info) Description 11/16/2024 Refill [facility] [address] [facility] [place] [place] [address] Adam Lincoln MD [address] [facility] [place] [address] Panlobular emphysema Social History Tobacco Use Types Packs/Day Years [...] Description 04/01/2025 10:15 AM EST Office Visit [facility] [address] [facility] [place] [place] [address] Adam Lincoln MD [address] [place] [address] documented as of this encounter Visit Diagnoses Diagnosis Panlobular emphysema Other emphysema documented in this encounter Care Teams User Interface Developer Relationship Specialty Start Date End Date Adam Lincoln MD [address] [place] [address] PCP - General Family Medicine 10/04/21 documented as of this encounter
[2024-12-29 11:17] LABS: Hematocrit 39.8 % (37.0-47.0); Hemoglobin 13.1 g/dL (12.2-16.2); Immature Granulocytes % 0.3 %; Mean Corpuscular HGB Conc 32.9 g/dL (31.8-35.4); Mean Corpuscular Hemoglobin 30.3 pg (27.0-31.2); Mean Corpuscular Volume 92.1 fl (81-99); Nucleated Red Blood Cells % 0 %; Platelet Count 258 K/mm3 (142-424); Red Blood Count 4.32 M/mm3 (4.20-5.40); Red Cell Distribution Width-SD 44.7 fL; White Blood Count 7.9 K/mm3 (4.8-10.8)
[2024-12-29 11:52] LABS: Albumin Level 4.4 g/dl (3.5-5.0); Chloride 95 mmol/L (98-107); Sodium 132 mmol/L (136-145)
[2024-12-29 11:53] LABS: Potassium 4.6 mmoL/L (3.5-5.1)
[2024-12-29 11:55] LABS: Alanine Aminotransferase 11 U/L (12-78); Anion Gap 12.6 mEq/L (5-15); Aspartate Amino Transferase 25 U/L (14-36); Bilirubin,Unconjugated 0.3 mg/dL (0.0-1.1); Blood Urea Nitrogen 9 mg/dl (7-17); Carbon Dioxide 29 mmol/L (22.0-30.0); Creatinine,Serum 0.50 mg/dl (0.52-1.04); Estimated Glomerular Filt Rate 121 ml/min (>60); GFR (African American) 147 ML/MIN (>60); Total Protein,Serum 7.0 g/dl (6.3-8.2)
[2024-12-29 11:56] LABS: Alkaline Phosphatase 75 U/L (38-126); Bilirubin,Direct 0.3 mg/dl (0.0-0.4); Bilirubin,Indirect 0.3 mg/dL (0.0-0.9); Bilirubin,Total 0.6 mg/dl (0.2-1.3); Calcium 9.4 mg/dl (8.4-10.2); Cholesterol 138 mg/dl (140-200); Glucose 96 mg/dl (74-100); HDL Cholesterol 62 mg/dl (40-60); Magnesium 1.9 mg/dl (1.6-2.3); Triglycerides 142 mg/dl (30-150)
[2024-12-29 12:15] LABS: Free T4 (Free Thyroxine) 1.22 ng/dl (0.78-2.19)
[2024-12-29 12:27] LABS: Thyroid Stimulating Hormone 1.68 uIU/mL (0.465-4.68)
== END 2024-12-29 23:59 | disposition home or self-care (01) ==
LOC: LAB 10:41
PROVIDERS: PCP Family Medicine; Visit Provider Nurse Practitioner
DX: E78.5 Hyperlipidemia, unspecified (principal); I10 Essential (primary) hypertension
CPT/HCPCS: 36415; 80048; 80061; 80076; 83735; 84439; 84443; 85025

== ENCOUNTER 2025-02-01 12:07 | Emergency (ER) | payer MEDICARE, BC, SELFPAY ==
--- OUTSIDE RECORDS SUMMARY | 2025-01-13 09:30 | XMS_ITS | Encounter Summary ---
Author Organization [facility] Address [address] [place] [address] Care Team Providers Care Digital Asset Coordinator Name Role Phone Adam Lincoln MD Primary Care Provider + Reason for Visit * Reason Comments Flank Pain Blood in Urine Also having Burning with urination. Started on Friday Encounter Details Date Type Department Care Team (Late st Contact Info) Description 01/13/2025 9:30 AM EDT Office Visit [facility] [address] [facility] [place] [address] Francie Mayers, TITUS [address] [place] [address] Acute cystitis without hematuria (Primary Dx); Dysuria Social History Tobacco Use Types Packs/Day Years [...] on file documented as of this encounter Last Filed Vital Signs Vital Sign Reading Time Taken Comments Blood Pressure 146/82 01/13/2025 9:17 AM EDT Pulse 60 01/13/2025 9:17 AM EDT Temperature 36.8 C (98.2 F) 01/13/2025 9:17 AM EDT Respiratory Rate 20 01/13/2025 9:17 AM EDT Oxygen Saturation - - Inhaled Oxygen Concentration - - Weight 42.6 kg (94 lb) 01/13/2025 9:17 AM EDT Height 157.5 cm (5' 2.01 ) 01/13/2025 9:17 AM ED T Body Mass Index 17.19 01/13/2025 9:17 AM EDT documented in this encounter Progress Notes * Francie Mayers PA-C - 01/13/2025 10:47 AM EDTAssociated Problem(s): Acute cystitis without hematuria Urinalysis appeared normal Due to history and physical will treat for UTI Send urine for culture Initiate Macrobid Ensure adequate hydration Follow-up if needed * Francie Mayers PA-C - 01/13/2025 9:30 AM EDT Images from the original note were not included. Office Note Name: Charisse Marte : 1950 Chief Complaint Flank Pain and Blood in Urine (Also having Burning with urination. Started on Friday/) Subjective History of Present Illness: Charisse Marte is a 74 y.o. female who presents today with complaints of dysuria that began on Friday. Was experiencing some blood on toilet paper when wiping, this only lasted a few days and has since resolved. Complains of bilateral flank pain, suprapubic abdominal pain, urinary frequency, and urinary urgency. Denies any fevers. Denies any other associated symptoms. No other complaints or concerns. Past Medical History: Past Medical History: Diagnosis Date Chronic bronchitis COPD (chronic obstructive pulmonary disease) GERD (gastroesophageal reflux disease) History of colonoscopy Dr Karla Gage 03/19/2019 Hypertension Normal endoscopic ultrasound of upper GI tract Franklyn Thomas 03/2021 Sacroiliitis, not elsewhere classified Past Surgical History: Past Surgical History: Procedure Laterality Date PULMONARY STRESS TEST N/A 07/12/2021 has chronic bronchitis THROAT SURGERY 10/07/2013 Ramesh Bush not cancerous Immunizations: Immunization History Administered Date(s) Administered ABRYSVO (RSV, 60+ or women 32-36 wks) 04/28/2023 COVID-19 (MODERNA) 12YRS+ (SPIKEVAX) 04/21/2023 COVID-19 (MODERNA) BIVALENT 12+YRS 02/11/2022 COVID-19 (PFIZER) 12YRS+ (COMIRNATY) 03/19/2024 COVID-19 (PFIZER) Purple Cap Monovalent 08/09/2020, 09/06/2020, 03/19/2021 Flu Vaccine Quad PF >36MO 02/13/2016, 02/12/2021 Fluad Quad 65+ 02/11/2022, 01/27/2023 Fluzone (or Fluarix & Flulaval for VFC) >6mos 02/13/2016 Fluzone High-Dose 65+yrs 03/19/2024 Pneumococcal Conjugate 13-Valent (PCV13) 04/28/2011 Pneumococcal, Unspecified 01/22/2013, 06/05/2020 Td, Unspecified 11/07/2006 Tdap 12/17/2021 Zoster, Unspecified 06/29/2014 Medications: Current Outpatient Medications: albuterol sulfate HFA 108 (90 Base) MCG/ACT inhaler, USE 2 INHALATIONS BY MOUTH EVERY 4 HOURS NEEDED FOR WHEEZING, Disp: 34 g, Rfl: 4 amLODIPine (NORVASC) 2.5 MG tablet, Take 1 tablet by mouth Daily., Disp: 90 tablet, Rfl: 1 Aspirin EC Adult Low Dose 81 MG EC tablet, Take 1 tablet by mouth Daily., Disp: , Rfl: budesonide (PULMICORT) 0.5 MG/2ML nebulizer solution, Take 2 mL by nebulization Daily., Disp: , Rfl: carvedilol (COREG) 6.25 MG tablet, 1 tablet., Disp: , Rfl: denosumab (PROLIA) 60 MG/ML solution prefilled syringe syringe, Inject 1 mL under the skin into theappropriate area as directed Every 6 (Six) Months., Disp: 1 mL, Rfl: 3 meloxicam (MOBIC) 15 MG tablet, TAKE ONE-HALF TABLET BY MOUTH EVERY OTHER DAY, Disp: 23 tablet, Rfl: 3 montelukast (SINGULAIR) 10 MG tablet, Take 1 tablet by mouth Every Night., Disp: 90 tablet, Rfl: 3 nystatin (MYCOSTATIN) 100,000 unit/mL suspension, Swish and swallow 5 mL 2 (Two) Times a Day., Disp: 473 mL, Rfl: 2 omeprazole (priLOSEC) 40 MG capsule, Take 1 capsule by mouth Daily., Disp: 90 capsule, Rfl: 1 polyethylene glycol (MiraLax) 17 GM/SCOOP powder, Take 17 g by mouth Daily., Disp: 850 g, Rfl: 0 simvastatin (ZOCOR) 20 MG tablet, Take 1 tablet by mouth every night at bedtime., Disp: 90 tablet, Rfl: 3 Stiolto Respimat 2.5-2.5 MCG/ACT aerosol solution inhaler, Inhale 2 puffs Daily., Disp: 12 g, Rfl: 3 nitrofurantoin, macrocrystal-monohydrate, (Macrobid) 100 MG capsule, Take 1 capsule by mouth 2 (Two) Times a Day for 5 days., Disp: 10 capsule, Rfl: 0 spironolactone (ALDACTONE) 25 MG tablet, Take 1 tablet by mouth Daily. (Patient not taking: Reported on 01/13/2025), Disp: , Rfl: Current Facility-Administered Medications: ipratropium-albuterol (DUO-NEB) nebulizer solution 3 mL, 3 mL, Nebulization, 4x Daily - RT, Janey Palma APRN Allergies: No Known Allergies Family History: Family History Problem Relation Age of Onset Hypertension Father Migraine headaches Father Heart attack Father Social History: Social History Socioeconomic History Marital status: Tobacco Use Smoking status: Former Current packs/day: 0.00 Average packs/day: 1 pack/day for 30.0 years (30.0 ttl pk-yrs) Types: Cigarettes Quit date: 2016 Years since quittin.6 Smokeless tobacco: Never Vaping Use Vaping status: Never Used Substance and Sexual Activity Alcohol use: Never Drug use: Never Sexual activity: Defer Objective Vital Signs BP 146/82 Pulse 60 Temp 98.2 ??F (36.8 ??C) Resp 20 Ht 157.5 cm (62.01 ) Wt 42.6 kg (94 lb) BMI 17.19 kg/m?? Estimated body mass index is 17.19 kg/m?? as calculated from the following: Height as of this encounter: 157.5 cm (62.01 ). Weight as of this encounter: 42.6 kg (94 lb). Physical Exam Vitals and nursing note reviewed. Constitutional: Appearance: Normal appearance. HENT: Head: Normocephalic and atraumatic. Cardiovascular: Rate and Rhythm: Normal rate and regular rhythm. Heart sounds: No murmur heard. No friction rub. No gallop. Pulmonary: Effort: Pulmonary effort is normal. Breath sounds: Normal breath sounds. No wheezing, rhonchi or rales. Abdominal: General: Abdomen is flat. Palpations: Abdomen is soft. Tenderness: There is abdominal tenderness in the suprapubic area. There is right CVA tenderness andleft CVA tenderness. Skin: General: Skin is warm and dry. Neurological: General: No focal deficit present. Mental Status: She is alert and oriented to person, place, and time. Psychiatric: Mood and Affect: Mood normal. Behavior: Behavior normal. Assessment and Plan Diagnoses and all orders for this visit: 1. Acute cystitis without hematuria (Primary) Assessment & Plan: Urinalysis appeared normal Due to history and physical will treat for UTI Send urine for culture Initiate Macrobid Ensure adequate hydration Follow-up if needed Orders: - nitrofurantoin, macrocrystal-monohydrate, (Macrobid) 100 MG capsule; Take 1 capsule by mouth 2 (Two) Times a Day for 5 days. Dispense: 10 capsule; Refill: 0 - Urine Culture - Urine, Urine, Clean Catch 2. Dysuria - POC Urinalysis Dipstick Follow Up No follow-ups on file. TITUS Maldonado [facility] [address] [place] [phone] documented in this encounter Plan of Treatment Upcoming Encounters Date Type Department Care Team (Late st Contact Info) Description 04/01/2025 10:15 AM EST Office Visit [facility] [address] [place] [phone] [place] [address] documented as of this encounter Procedures Procedure Name Priority Date/Time Associated Diagnosis Comments URINE CULTURE Routine 01/13/2025 11:00 AM EDT Acute cystitis without hematuria POCT URINALYSIS DIPSTICK, MANUAL Routine 01/13/2025 9:38 AM EDT Dysuria documented in this encounter Results * (ABNORMAL) Urine Culture - Urine, Urine, Clean Catch (01/13/2025 11:00 AM EDT) Urine Culture Final report(A) [facility] Result 1 Comment(A) [facility] Comment: Coagulase negative Staphylococcus species, not Staphylococcus saprophyticus. 25,000-50,000 colony forming units per mL Based on resistance to oxacillin this isolate would be resistant to all currently available beta-lactam antimicrobial agents, with the exception of the newer cephalosporins with anti-MRSA activity, such as Ceftaroline Susceptibility Testing Comment [facility] Comment: S = Susceptible; I = Intermediate; R = Resistant P = Positive; N = Negative MICS are expressed in micrograms per mL Antibiotic RSLT#1 RSLT#2 RSLT#3 RSLT#4 Ciprofloxacin S Gentamicin S Levofloxacin S Linezolid S Moxifloxacin S Nitrofurantoin S Oxacillin R Penicillin R Rifampin S Tetracycline S Trimethoprim/Sulfa S Vancomycin S Urine Urine specimen obtained by clean catch procedure / Unknown 01/13/2025 11:00 AM EDT 01/13/2025 Comment:[facility] - 01/17/2025 8:08 PM EDT Performed at: [facility] [id number] Machinery Engineer: Tato Newton PhD, Phone: [phone] Patient Fasting: N Francie Mayers PA-C MICROBIOLOGY - GENERAL ORDER MEJIA Final Result [facility] [address] [place] [address], [place] [phone] [facility] [address] [place] [address], [place] [phone] * POC Urinalysis Dipstick (01/13/2025 9:38 AM EDT) Color Yellow Yellow, Straw, Dark Yellow, Danette [facility] Clarity, UA Clear Clear [facility] Glucose, UA Negative Negative mg/dL [facility] Bilirubin Negative Negative [facility] Ketones, UA Negative Negative [facility] Specific [place] 1.005 1.005 - 1.030 [facility] Blood, UA Negative Negative [facility] pH, Urine 6.5 5.0 - 8.0 [facility] Protein, POC Negative Negative mg/dL [facility] Urobilinogen, UA 0.2 E.U./dL Normal, 0.2 E.U./dL [facility] Leukocytes Negative Negative [facility] Nitrite, UA Negative Negative [facility] Urine 01/13/2025 9:38 AM EDT Francie Mayers PA-C POINT OF CARE TEST ORDERABLE S Final Result [facility]
[address] [place] [address], documented in this encounter Visit Diagnoses Diagnosis Acute cystitis without hematuria- Primary Dysuria documented in this encounter Care Teams Digital Asset Coordinator Relationship Specialty Start Date End Date Adam Lincoln MD [address] [place] [address] [place] [address] PCP - General Family Medicine 10/04/21 documented as of this encounter
--- OUTSIDE RECORDS SUMMARY | 2025-01-19 10:30 | XMS_ITS | Encounter Summary ---
Author Organization [facility] Address [address] [place] [address] Care Team Providers Care Data Integrity Analyst Name Role Phone Adam Lincoln MD Primary Care Provider + Reason for Visit * Reason Comments Urinary Tract Infection Pt is experienci ng low back pain, burning, and lower abdominal pain. Encounter Details Date Type Department Care Team (Late st Contact Info) Description 01/19/2025 10:30 AM EDT Office Visit [facility] [address] [facility] [place] [address] Francie Mayers, TITUS [address] [place] [address] Acute cystitis without hematuria (Primary Dx) Social History Tobacco Use Types Packs/Day Years [...] Sign Reading Time Taken Comments Blood Pressure 148/92 01/19/2025 10:22 AM EDT Pulse 54 01/19/2025 10:22 AM EDT Temperature 37.4 C (99.3 F) 01/19/2025 10:22 AM EDT Respiratory Rate 18 01/19/2025 10:22 AM EDT Oxygen Saturation 97% 01/19/2025 10:22 AM EDT 2L of Oxygen Inhaled Oxygen Concentration - - Weight 42.6 kg (94 lb) 01/19/2025 10:22 AM EDT Height 157.5 cm (5' 2.01 ) 01/19/2025 10:22 AM E DT Body Mass Index 17.19 01/19/2025 10:22 AM EDT documented in this encounter Progress Notes * Francie Mayers PA-C - 01/19/2025 12:57 PM EDTAssociated Problem(s): Acute cystitis without hematuria Initiate Levaquin for management of resistant cystitis Ensure adequate hydration Discussed signs/symptoms that warrant further medical attention Ensure completion of antibiotic as prescribed * Francie Mayers PA-C - 01/19/2025 10:30 AM EDT Images from the original note were not included. Office Note Name: Charisse Marte : 1950 Chief Complaint Urinary Tract Infection (Pt is experiencing low back pain, burning, and lower abdominal pain./) Subjective History of Present Illness: Charisse Marte is a 74 y.o. female who presents today with complaints of persistent UTI symptoms. Patient admits she has now completed Macrobid as of last night. Concho that after the first couple days symptoms seem to improved, but then they returned and have remained bothersome since. Complains of dysuria, suprapubic abdominal pain, and back pain. Denies blood in urine, fevers, and any other associated symptoms. Urine culture came back positive for E. coli. No other complaints or concerns. Past Medical History: Past Medical History: Diagnosis Date Chronic bronchitis COPD (chronic obstructive pulmonary disease) GERD (gastroesophageal reflux disease) History of colonoscopy Dr Karla Gage 03/19/2019 Hypertension Normal endoscopic ultrasound of upper GI tract Franklyn Guzman 03/2021 Sacroiliitis, not elsewhere classified Past Surgical History: Past Surgical History: Procedure Laterality Date PULMONARY STRESS TEST N/A 07/12/2021 has chronic bronchitis THROAT SURGERY 10/07/2013 Monicacheri Nelsonon not cancerous Immunizations: Immunization History Administered Date(s) [...] at bedtime., Disp: 90 tablet, Rfl: 3 spironolactone (ALDACTONE) 25 MG tablet, Take 1 tablet by mouth Daily., Disp: , Rfl: Stiolto Respimat 2.5-2.5 MCG/ACT aerosol solution inhaler, Inhale 2 puffs Daily., Disp: 12 g, Rfl: 3 levoFLOXacin (LEVAQUIN) 500 MG tablet, Take 1 tablet by mouth Daily for 5 days., Disp: 5 tablet, Rfl: 0 Current Facility-Administered Medications: ipratropium-albuterol (DUO-NEB) nebulizer solution [...] (30.0 ttl pk-yrs) Types: Cigarettes Quit date: 2015 Years since quittin.6 Smokeless tobacco: Never Vaping Use Vaping status: Never Used Substance and Sexual Activity Alcohol use: Never Drug use: Never Sexual activity: Defer Objective Vital Signs BP 148/92 Pulse 54 Temp 99.3 ??F (37.4 ??C) Resp 18 Ht 157.5 cm (62.01 ) Wt 42.6 kg (94 lb) SpO2 97% Comment: 2L of Oxygen BMI 17.19 kg/m?? Estimated body mass index [...] cystitis without hematuria (Primary) Assessment & Plan: Initiate Levaquin for management of resistant cystitis Ensure adequate hydration Discussed signs/symptoms that warrant further medical attention Ensure completion of antibiotic as prescribed Orders: - levoFLOXacin (LEVAQUIN) 500 MG tablet; Take 1 tablet by mouth Daily for 5 days. Dispense: 5 tablet; Refill: 0 - POC Urinalysis Dipstick Follow Up No follow-ups on file. TITUS Maldonado [facility] [address] [place] [place] [phone] documented in this encounter Plan of Treatment Upcoming Encounters Date Type Department Care Team (Late st Contact Info) Description 04/01/2025 10:15 AM EST Office Visit [facility] [address] [place] [phone] Adam Lincoln MD [address] [place] [address] documented as of this encounter Procedures Procedure Name Priority Date/Time Associated Diagnosis Comments POCT URINALYSIS DIPSTICK, MANUAL Routine 01/19/2025 10:54 AM EDT Acute cystitis without hematuria documented in this encounter Results * POC Urinalysis Dipstick (01/19/2025 10:54 AM EDT) Color Yellow Yellow, Straw, Dark Yellow, Danette [facility] Clarity, UA Clear Clear [facility] Glucose, UA Negative Negative mg/dL [facility] Bilirubin Negative Negative [facility] Ketones, UA Negative Negative [facility] Specific [place] 1.015 1.005 - 1.030 [facility] Blood, UA Negative Negative [facility] pH, Urine 6.0 5.0 - 8.0 [facility] Protein, POC Negative Negative mg/dL [facility] Urobilinogen, UA 0.2 E.U./dL Normal, 0.2 E.U./dL [facility] Leukocytes Negative Negative [facility] Nitrite, UA Negative Negative [facility] Urine 01/19/2025 10:5 4 AM EDT us Francie Mayers PA-C POINT OF CARE TEST ORDERABLE S Final Result [facility]
[address] [place] [address], documented in this encounter Visit Diagnoses Diagnosis Acute cystitis without hematuria- Primary documented in this encounter Care Teams Data Integrity Analyst Relationship Specialty Start Date End Date Adam Lincoln MD [facility] [address] [place] [address] PCP - General Family Medicine 10/04/21 documented as of this encounter
--- OUTSIDE RECORDS SUMMARY | 2025-01-28 11:30 | XMS_ITS | Encounter Summary ---
Author Organization [facility] Address [address] [place] [address] Care Team Providers Care Chief Radiology Name Role Phone Adam Lincoln MD Primary Care Provider + Reason for Visit * Reason Comments Difficulty Urinating Encounter Details Date Type Department Care Team (Late st Contact Info) Description 01/28/2025 11:30 AM EDT Office Visit [facility] [address] [place] [address] Adam Lincoln MD [address] [place] [address] Urinary tract infection without hematuria, site unspecified (Primary Dx); Constipation, unspecified constipation type Social History Tobacco Use Types Packs/Day Years [...] Sign Reading Time Taken Comments Blood Pressure 140/80 01/28/2025 11:25 AM EDT Pulse 54 01/28/2025 11:25 AM EDT Temperature 37.1 C (98.8 F) 01/28/2025 11:25 AM EDT Respiratory Rate 20 01/28/2025 11:25 AM EDT Oxygen Saturation 93% 01/28/2025 11:25 AM EDT 2 L/m Inhaled Oxygen Concentration - - Weight 42.8 kg (94 lb 6.4 oz) 01/28/2025 11:25 A M EDT Height 157.5 cm (5' 2.01 ) 01/28/2025 11:25 AM E DT Body Mass Index 17.26 01/28/2025 11:25 AM EDT documented in this encounter Progress Notes * Adam Lincoln MD - 01/28/2025 11:30 AM EDT Chief Complaint Patient presents with Difficulty Urinating Subjective Charisse Marte is a 74 y.o. who presents for continued symptoms of UTI with culture in the last 2 weeks showing staphylococcal species. Patient has taken Macrobid and Levaquin and symptoms persist. She describes dysuria and hesitancy. Urine also remains dark but she denies any evidence of blood Objective Vital Signs: BP 140/80 Pulse 54 Temp 98.8 ??F (37.1 ??C) Resp 20 Ht 157.5 cm (62.01 ) Wt 42.8 kg (94 lb 6.4 oz) SpO2 93% Comment: 2 L/m BMI 17.26 kg/m?? Physical Exam Vitals reviewed. Constitutional: Appearance: Normal appearance. Cardiovascular: Rate and Rhythm: Normal rate and regular rhythm. Pulses: Normal pulses. Heart sounds: Normal heart sounds. Pulmonary: Effort: Pulmonary effort is normal. Breath sounds: Normal breath sounds. Neurological: Mental Status: She is alert. Result Review The following data was reviewed by: Adam Lincoln MD on 01/28/2025: UA 01/13/2025 09:38 01/19/2025 10:54 01/28/2025 11:47 Urinalysis Ketones, UA Negative Negative Negative Leukocytes, UA Negative Negative Negative Assessment and Plan Diagnoses and all orders for this visit: 1. Urinary tract infection without hematuria, site unspecified (Primary) Comments: UA nl. Repeat CX. Trial of Bactrim Orders: - POC Urinalysis Dipstick - Urine Culture - Urine, Urine, Clean Catch; Future - sulfamethoxazole-trimethoprim (Bactrim DS) 800-160 MG per tablet; Take 1 tablet by mouth 2 (Two) Times a Day for 7 days. Dispense: 14 tablet; Refill: 0 2. Constipation, unspecified constipation type - polyethylene glycol (MiraLax) 17 GM/SCOOP powder; Take 17 g by mouth Daily. Dispense: 850 g; Refill: 3 Follow Up No follow-ups on file. Patient was given instructions and counseling regarding her condition or for health maintenance advice. Please see specific information pulled into the AVS if appropriate. documented in this encounter Plan of Treatment Upcoming Encounters Date Type Department Care Team (Late st Contact Info) Description 04/01/2025 10:15 AM EST Office Visit [facility] [address] [place] [address] Adam Lincoln MD [address] [place] [address] documented as of this encounter Procedures Procedure Name Priority Date/Time Associated Diagnosis Comments POCT URINALYSIS DIPSTICK, MANUAL Routine 01/28/2025 11:47 AM EDT Urinary tract infection without hematuria, site unspecified documented in this encounter Results * Urine Culture - Urine, Urine, Clean Catch (01/28/2025 12:25 PM EDT) Urine Culture Final report [facility] Result 1 Comment [facility] Comment: Mixed urogenital pradeep Less than 10,000 colonies/mL Urine Urine specimen obtained by clean catch procedure / Unknown 01/28/2025 12:25 PM EDT 01/28/2025 Comment: Narrative [facility] - 01/30/2025 3:09 AM EDT Performed at: [address] [place] [id number] Powertrain Engineer: Tato Newton PhD, Phone: [phone] Patient Fasting: N Adam Lincoln MD MICROBIOLOGY - GENERAL O RDERABLES Final Result [facility] [address] [place] [address], [place] [phone] [facility] [address] [place] [address], [place] [phone] * POC Urinalysis Dipstick (01/28/2025 11:47 AM EDT) Color Yellow Yellow, Straw, Dark Yellow, Danette [facility] Clarity, UA Clear Clear [facility] Glucose, UA Negative Negative mg/dL [facility] Bilirubin Negative Negative [facility] Ketones, UA Negative Negative [facility] Specific [place] 1.010 1.005 - 1.030 [facility] Blood, UA Negative Negative [facility] pH, Urine 6.5 5.0 - 8.0 [facility] Protein, POC Negative Negative mg/dL [facility] Urobilinogen, UA Normal Normal, 0.2 E.U./dL [facility] Leukocytes Negative Negative [facility] Nitrite, UA Negative Negative [facility] Urine 01/28/2025 11:4 7 AM EDT Adam Lincoln MD POINT OF CARE TEST ORDER MEJIA Final Result [facility]
[address] [place] [address], documented in this encounter Visit Diagnoses Diagnosis Urinary tract infection without hematuria, site unspecified- Primary Constipation, unspecified constipation type documented in this encounter Care Teams Chief Radiology Relationship Specialty Start Date End Date Adam Lincoln MD [address] [place] [address] PCP - General Family Medicine 10/04/21 documented as of this encounter
[2025-02-01] VITALS (9 sets, daily range): BP systolic 115–150; BP diastolic 52–94; PULSE 46–67; RESP 14–22; TEMP 36.7–36.9; O2SAT 96–99; BMI 16.8
--- NOTE | 2025-02-01 12:27 | XR_ITS ---
FINAL REPORT CLINICAL HISTORY: Shortness of breath COMPARISON: None FINDINGS: No acute pulmonary opacity is present. Changes of emphysema are present. There is no evidence of effusion or pneumothorax. Mediastinum is unremarkable. Heart size is normal. IMPRESSION: Changes of emphysema with no acute abnormality. Reviewed, Interpreted and Dictated by Zoraida Lynn MD Transcribed by Kavitha Castaneda Authenticated and [facility]
--- NOTE | 2025-02-01 12:27 | CT_ITS ---
FINAL REPORT TECHNIQUE: IV contrast enhanced exam This study was performed with techniques to keep radiation doses as low as reasonably achievable, (ALARA). Individualized dose reduction techniques using automated exposure control or adjustment of mA and/or kV according to the patient's size were employed. CLINICAL HISTORY: Constipation, abdominal pain/distension COMPARISON: None FINDINGS: Abdomen: Lung bases are clear. The gallbladder is unremarkable. Liver has an unremarkable CT appearance. The spleen, pancreas and adrenal glands are unremarkable. Kidneys show no mass or obstruction. No bowel obstruction or fluid collection is seen. Moderate stool is present in the right colon. Pelvis: The appendix is normal in appearance. There is mild fecal impaction in the rectosigmoid colon. The uterus is normal for age. No fluid collection or adenopathy is seen. IMPRESSION: Mild fecal impaction without evidence of bowel obstruction. Reviewed, Interpreted and Dictated by Zoraida Lynn MD Transcribed by Kavitha Castaneda Authenticated and [facility]
--- NOTE | 2025-02-01 12:29 | ECG_ITS ---
APPROVED REPORT Exam: Resting ECG HR:57 bpm ECG Measurements Heart Rate 57 AXES NE 111 P 67 QRSd 84 QRS 58 QT 413 T 30 QTc 407 Conclusion SINUS BRADYCARDIA WITH SHORT NE INTERVAL NONSPECIFIC ST & T-WAVE ABNORMALITY BORDERLINE ECG UNCONFIRMED REPORT Sinus bradycardia. No ST elevation or depression. QTc of 407 Electronically signed by : CALVIN JACQUES, 02/01/2025 16:02:50
--- NOTE | 2025-02-01 12:29 | [facility].EDGENADL ---
Discharge Plan Disposition Patient Disposition: Home, Self-Care Condition: Good Prescriptions Prescriptions: New ondansetron 4 mg tablet,disintegrating 4 mg PO Q8H PRN (Reason: nausea and vomiting) 5 Days Qty: 10 0RF polyethylene glycol 3350 [Miralax] 17 gram/dose powder 17 g PO BID Qty: 476 0RF sennosides-docusate sodium [Senna with Docusate Sodium] 8.6-50 mg tablet 1 tab-cap PO BID Qty: 60 0RF lidocaine [Hemorrhoidal Relief] 5 % cream 1 applic topical BID PRN (Reason: pain) Qty: 30 0RF No Action ipratropium-albuterol 0.5 mg-3 mg(2.5 mg base)/3 mL solution for nebulization 3 ml inhalation QID PRN (Reason: shortness of breath or wheezing) 90 Days Qty: 270 3RF montelukast 10 mg tablet 10 mg PO PM meloxicam 15 mg tablet 15 mg PO DAILY albuterol sulfate 90 mcg/actuation HFA aerosol inhaler 2 puff inhalation Q6H PRN (Reason: Breathing Problems) Prolia 60 mg/mL syringe 60 mg SQ [id number] albuterol sulfate 90 mcg/actuation HFA aerosol inhaler 2 inh inhalation QID PRN (Reason: shortness of breath or wheezing) 90 Days Qty: 8.5 2RF Stiolto Respimat 2.5-2.5 mcg/actuation mist 2 inh inhalation DAILY 90 Days Qty: 12 3RF amlodipine 2.5 mg tablet 2.5 mg PO DAILY Qty: 90 3RF carvedilol [Coreg] 6.25 mg tablet 6.25 mg PO BID Qty: 180 3RF Rx Instructions: must administer with a meal/food simvastatin 20 mg tablet 20 mg PO HS Qty: 90 3RF spironolactone [Aldactone] 25 mg tablet 25 mg PO DAILY Qty: 90 3RF aspirin [Adult Aspirin Regimen] 81 mg tablet,delayed release (DR/EC) 81 mg PO DAILY Qty: 30 5RF budesonide [Pulmicort] 0.5 mg/2 mL suspension for nebulization 0.5 mg inhalation BID 90 Days Qty: 360 2RF omeprazole 40 MG capsule,delayed release(DR/EC) 40 mg PO DAILY Referrals Follow up/Referrals: Adam Lincoln MD [Primary Care Provider, Medical] - See instructions Activity Restrictions/Add. Instructions Additional Instructions/Restrictions: Apply hemorrhoid cream so that way you are able to have a bowel movement. You need to use MiraLAX as well as the Doc senna to help yourself have a bowel movement. You should take MiraLAX at least 17 g a day or considering taking it until your bowel movements are mashed potato in consistency. Return to the emergency department if you are still unable to have a bowel movement in 3 to 5 days, or you are not passing gas. Otherwise, follow-up with your primary care provider. Clinical Impressions Clinical Impression: Constipation Print Language Print Language: Telugu Discharge ED Provider: Rai Camara General Adult HPI <Rai Camara MD - Last Filed: 02/01/25 15:57> General Chief complaint: Weakness Stated complaint: Bowels havent moved 17 days Time Seen by Provider: 02/01/25 12:18 History of Present Illness HPI narrative: Charisse Marte is a 74y female with a history of COPD on 2 L nasal cannula at all times, HFrEF, hypertension, hyperlipidemia, degenerative disc disease who presents to the emergency department for complaints of constipation and abdominal pain and distention. Patient states that on January 14 and , she had watery diarrhea. She states that that was the last time that she had a bowel movement. She has not had any stool production since then. She does report that she will have flatulence at night but has had worsening lower abdominal distention and generalized abdominal pain. She reports nausea and decreased appetite but no vomiting. She denies any chest pain but does report some worsening shortness of breath over the last 2 to 3 days. She states that she has not had any abdominal surgeries. Patient states that she was told that she had a kidney infection and was on a course of antibiotics and then was seen by her PCP on Friday and was told that she still had a urinary tract infection and was put on additional course of antibiotics. She is currently taking antibiotics. She states that she is still able to urinate. She reports that she has been taking capful of MiraLAX daily and as well as enemas at home without relief. She denies any history of bowel obstructions. Related Data Home Medications ?Medication ?Instructions ?Recorded ?Confirmed omeprazole 40 mg capsule,delayed 40 mg PO DAILY 04/22/18 12/29/24 release montelukast 10 mg tablet 10 mg PO PM 03/22/20 12/29/24 albuterol sulfate 90 mcg/actuation 2 puff inhalation Q6H PRN 08/18/24 12/29/24 aerosol inhaler Breathing Problems denosumab 60 mg/mL subcutaneous 60 mg SQ [id number] 08/18/24 12/29/24 syringe (Prolia) meloxicam 15 mg tablet 15 mg PO DAILY 08/18/24 12/29/24 Previous Rx's ?Medication ?Instructions ?Recorded ipratropium 0.5 mg-albuterol 3 mg 3 ml inhalation QID PRN shortness 01/15/24 (2.5 mg base)/3 mL nebulization of breath or wheezing 90 days #270 soln mL albuterol sulfate 90 mcg/actuation 2 inh inhalation QID PRN shortness 08/18/24 aerosol inhaler of breath or wheezing 90 days #8.5 grams tiotropium 2.5 mcg-olodaterol 2.5 2 inh inhalation DAILY 90 days #12 08/18/24 mcg/actuation mist for inhalation grams (Stiolto Respimat) aspirin 81 mg tablet,delayed 81 mg PO DAILY #30 tabs 09/27/24 release (Adult Aspirin Regimen) budesonide 0.5 mg/2 mL suspension 0.5 mg (2 mL) inhalation BID 90 09/28/24 for nebulization (Pulmicort) days #360 mL amlodipine 2.5 mg tablet 2.5 mg PO DAILY #90 tabs 12/29/24 carvedilol 6.25 mg tablet (Coreg) 6.25 mg PO BID #180 tabs 12/29/24 simvastatin 20 mg tablet 20 mg PO HS #90 tabs 12/29/24 spironolactone 25 mg tablet 25 mg PO DAILY #90 tabs 12/29/24 (Aldactone) lidocaine 5 % topical cream 1 applic topical BID PRN pain #30 02/01/25 (Hemorrhoidal Relief) grams ondansetron 4 mg disintegrating 4 mg PO Q8H PRN nausea and 02/01/25 tablet vomiting 5 days #10 tabs polyethylene glycol 3350 17 17 g PO BID #476 grams 02/01/25 gram/dose oral powder (Miralax) sennosides 8.6 mg-docusate sodium 1 tab-cap PO BID #60 tabs 02/01/25 50 mg tablet (Senna with Docusate Sodium) Allergies Allergy/AdvReac Type Severity Reaction Status Date / Time No Known Allergies Allergy Verified 12/29/24 10:21 [facility] <Rai Camara MD - Last Filed: 02/01/25 15:57> [facility] Disclaimer: The information contained in this section may have been updated after the patient was seen, as this information can be updated by other users. Medical History Elevated brain natriuretic peptide (BNP) level Ischemia Chest pain Atypical angina Dyspnea Dizziness Palpitations Lung nodule seen on imaging study Nodule of right lung Abnormal screening CT of chest Pharyngeal candidiasis Encounter for screening for malignant neoplasm of lung Pulmonary emphysema Smoking greater than 30 pack years Pneumonia Arthritis Lung disease HTN (hypertension) HLD (hyperlipidemia) COPD (chronic obstructive pulmonary disease) Surgical History History of colonoscopy Family History Other Hypertension Social History Smoking Status: Never smoker alcohol intake: never substance use type: denies use current occupational status: retired Travel in the last 8 weeks?: None household members: spouse housing: house current occupational exposures/hazards: No caffeine: Yes Have you lived/traveled outside [place] in past 30 days?: No Contact w/someone who lives/traveled outside [place] past 30 days?: No Exposure to someone with infectious disease in past 14 days?: No Do you have a fever (greater than 100.4 F or 38 C)?: No Have you tested positive for COVID-19?: No Exposed to someone with COVID-19 in past 14 days?: No Do you have a sore throat?: No Do you have a cough?: No Do you have any weakness?: No Do you have any diarrhea?: No Are you experiencing any unusual bleeding?: No Do you have any muscle aches/pain?: No Do you have any abdominal pain?: No Are you experiencing loss of taste or smell?: No Other Medical History Have you received the Flu Vaccine for this season: No Have you received the Pneumonia Vaccine: Yes <Rai Camara MD - Last Filed: 02/01/25 15:57> ROS Obtained: Yes Systems reviewed as appropriate & no additional complaints except as documented Physical Exam <Rai Camara MD - Last Filed: 02/01/25 15:57> General General appearance: alert and in no apparent distress Comment: appears uncomfortable Head Head exam: atraumatic Eye Eye exam: Present normal appearance ENT ENT exam: Present normal external ear exam Neck Neck exam: Present full ROM Chest Chest inspection: Present symmetric chest wall rise Respiratory Respiratory exam: Present normal lung sounds bilaterally; Absent respiratory distress, wheezes or stridor Cardiovascular Cardiovascular exam: Present regular rate and normal rhythm Abdominal Exam Abdominal exam: Present soft, distention (Lower abdomen), tenderness (Generalized with more focal tenderness in the right lower quadrant) and guarding (Lower abdomen, more focally on the right); Absent rigidity Extremities Exam Extremities exam: Present normal inspection Back Exam Back exam: Present normal inspection Neurological Exam Neurological exam: Present alert and oriented X3 Psychiatric Psychiatric exam: Present normal affect Skin Skin exam: Present warm and dry Medical Decision Making <Rai Camara MD - Last Filed: 02/01/25 15:57> Medical Records Screening: Per USPSTF and CDC recommendations, given the prevalence of disease in our region, it is our hospital?s policy to screen for HIV and viral Hepatitis for all patients aged 18 and over and those with ongoing risk factors. Umesh Inquiry Pt receiving controlled substance: No Vital Signs: 02/01/25 12:23 02/01/25 13:00 02/01/25 14:00 Temperature 98.4 F Temperature Source Oral Pulse Rate 67 47 L Pulse Rate [Right Radial] 60 Respiratory Rate 20 22 16 Blood Pressure 150/94 H 115/55 L Blood Pressure [Right Arm] 142/52 H Blood Pressure Mean 111 82 Blood Pressure Mean [Right Arm] 82 Blood Pressure Source [Right Arm] Automatic Cuff Blood Pressure Position [Right Arm] Sitting 02 Sat by Pulse Oximetry 98 97 99 Oxygen Delivery Method Nasal Cannula Oxygen Flow Rate (LPM) 2 02/01/25 14:30 02/01/25 15:00 02/01/25 15:30 Temperature Temperature Source Pulse Rate 48 L 46 L 46 L Pulse Rate [Right Radial] Respiratory Rate 18 14 16 Blood Pressure 127/60 124/57 L 131/56 L Blood Pressure [Right Arm] Blood Pressure Mean 77 75 81 Blood Pressure Mean [Right Arm] Blood Pressure Source [Right Arm] Blood Pressure Position [Right Arm] 02 Sat by Pulse Oximetry 99 98 98 Oxygen Delivery Method Oxygen Flow Rate (LPM) 02/01/25 16:01 02/01/25 16:30 02/01/25 18:44 Temperature 98.1 F Temperature Source Pulse Rate 52 L 50 L 57 L Pulse Rate [Right Radial] Respiratory Rate 17 22 20 Blood Pressure 143/67 H 139/59 L 139/59 L Blood Pressure [Right Arm] Blood Pressure Mean 85 Blood Pressure Mean [Right Arm] Blood Pressure Source [Right Arm] Blood Pressure Position [Right Arm] 02 Sat by Pulse Oximetry 98 96 Oxygen Delivery Method Room Air Oxygen Flow Rate (LPM) Lab Data Lab Results 02/01/25 12:51: WBC 4.9, RBC 4.53, Hgb 14.0, Hct 41.5, MCV 91.6, MCH 30.9, MCHC 33.7, RDW 13.7, Plt Count 171, MPV 10.2, Neut % (Auto) 61.2, Lymph % (Auto) 25.7, [place] % (Auto) 10.3 H, Eos % (Auto) 1.6, Baso % (Auto) 0.8, Neut # (Auto) 3.0, Lymph # (Auto) 1.3, [place] # (Auto) 0.5, Eos # (Auto) 0.1, Baso # (Auto) 0.0, Sodium 130 L, Potassium 5.5 H, Chloride 99, Carbon Dioxide 21 L, Anion Gap 15.5 H, BUN 9, Creatinine 0.80, Estimated Creat Clear 35, Estimated GFR 71, Est GFR ( Amer) 85, Glucose 96, Lactate 1.2, Calcium 9.1, Magnesium 1.9, Total Bilirubin 1.1, AST 39 H, ALT 11 L, Alkaline Phosphatase 54, Troponin I < 0.01, Total Protein 8.0, Albumin 4.7, Globulin 3.3 H, Albumin/Globulin Ratio 1.4, Lipase 71 02/01/25 12:59: Urine Color Yellow, Urine Appearance Clear, Urine pH 6.0, Ur Specific [place] 1.025, Urine Protein Negative, Urine Glucose (UA) Negative, Urine Ketones Negative, Urine Blood Trace-l, Urine Nitrate Negative, Urine Bilirubin Negative, Urine Urobilinogen 0.2, Ur Leukocyte Esterase Negative, Urine RBC Occasional, Urine WBC 3-5, Ur Squamous Epith Cells 3-5, Urine Bacteria Trace 02/01/25 12:51 02/01/25 12:51 Orders (Tests/Meds): ED MEDICATIONS Discontinued Medications Generic Name Dose Route Start Last Admin Trade Name Freq PRN Reason Stop Dose Admin Iopamidol 75 ml 02/01/25 13:32 02/01/25 13:33 Iopamidol-370 (76%);100ml Bottle IV 02/01/25 13:33 75 ml ONCE ONE Administration Morphine Sulfate 4 mg 02/01/25 12:27 02/01/25 13:00 Morphine 4mg/Ml Syringe IV 02/01/25 12:28 4 mg ONCE ONE Administration Ondansetron HCl 4 mg 02/01/25 12:27 02/01/25 13:00 Ondansetron 4mg/2ml Vial IV 02/01/25 12:28 4 mg ONCE ONE Administration Ondansetron HCl 4 mg 02/01/25 16:20 02/01/25 16:59 Ondansetron 4mg/2ml Vial IV 02/01/25 16:21 4 mg ONCE ONE Administration Prochlorperazine Edisylate 10 mg 02/01/25 17:44 02/01/25 18:01 Prochlorperazine 10mg/2ml Vial IV 02/01/25 17:45 10 mg ONCE ONE Administration Sodium Chloride 10 ml 02/01/25 13:32 02/01/25 13:33 Sodium Chloride 0.9% 10ml Syr (Rad Only) IV 02/01/25 13:33 10 ml ONCE ONE Administration Sodium Phosphate 133 ml 02/01/25 16:21 02/01/25 16:59 Sodium Phos/Biphosphate Fleet 133ml Enema RC 02/01/25 16:22 133 ml ONCE ONE Administration ORDERS Category Date Time Status CT abdomen pelvis w con Stat Cat Scan 02/01/25 12:27 Completed CXR --portable [XR chest portable] Stat Exams 02/01/25 12:27 Completed CBC w/Auto Diff [Complete Blood Count Auto Diff] Stat Lab 02/01/25 12:51 Completed CMP [Comprehensive Metabolic Panel] Stat Lab 02/01/25 12:51 Completed Lactic Acid Stat Lab 02/01/25 12:51 Completed Lipase Stat Lab 02/01/25 12:51 Completed Magnesium Stat Lab 02/01/25 12:51 Completed Troponin I Stat Lab 02/01/25 12:51 Completed UA [Urinalysis and Microscopic] Stat Lab 02/01/25 12:59 Completed ECG Data Tracing #1: I reviewed this ECG and interpreted as documented below: Sinus bradycardia with ventricular rate of [address] elevation or depression. QTc normal at 407 Medical Decision Narrative: Charisse Marte is a 74y female with a history of COPD on 2 L nasal cannula at all times, HFrEF, hypertension, hyperlipidemia, degenerative disc disease who presents to the emergency department for complaints of constipation and abdominal pain and distention. Patient states that on January 14 and , she had watery diarrhea. She states that that was the last time that she had a bowel movement. She has not had any stool production since then. She does report that she will have flatulence at night but has had worsening lower abdominal distention and generalized abdominal pain. She reports nausea and decreased appetite but no vomiting. She denies any chest pain but does report some worsening shortness of breath over the last 2 to 3 days. She states that she has not had any abdominal surgeries. Patient states that she was told that she had a kidney infection and was on a course of antibiotics and then was seen by her PCP on Friday and was told that she still had a urinary tract infection and was put on additional course of antibiotics. She is currently taking antibiotics. She states that she is still able to urinate. She reports that she has been taking capful of MiraLAX daily and as well as enemas at home without relief. She denies any history of bowel obstructions. On arrival, patient is hemodynamically stable with initial blood pressure 142/52, heart rate within normal limits, afebrile, on 2 L nasal cannula (which is her baseline) maintaining appropriate oxygen saturations. Physical exam, as stated above, revealed an ill but nontoxic-appearing female in no respiratory distress. Cardiopulmonary exam without wheezing, rales or rhonchi. She is moving a decent amount of air. Abdomen is diffusely tender but not peritonitic. She is more focally tender in the right lower quadrant but tender throughout the entire abdomen. She does have some guarding in the right lower quadrant and left lower quadrant. Her lower abdomen appears more distended than her upper abdomen. Differential diagnosis includes, but is not limited to: Small bowel obstruction, ileus, severe constipation, fecal impaction, malrotation/volvulus, ACS, pneumonia, electrolyte derangement, metabolic derangement, among others. The most morbid conditions were considered and workup was based on these. Workup in the emergency department included: CT abdomen pelvis with IV contrast, CBC with differential, CMP, magnesium level, lactic acid, troponin, UA, chest x-ray, EKG. Patient was initially treated with 4 mg of IV Zofran and 4 mg IV morphine EKG without evidence of ischemia. Labs showed no leukocytosis, no anemia, patient with mild hyponatremia at 130. She is mildly hyperkalemic at 5.5 without EKG changes. Anion gap very mildly elevated at 15.5. CO2 mildly low at 21. Liver enzymes unremarkable nonactionable. Initial troponin less than 0.01. Lipase normal at 71. Urinalysis without blood or evidence of infection. Lactate normal at 1.2. No HALLEY. At this time, final interpretation of patient's CT and x-ray imaging are pending. These were interpreted by me prior to official radiology read. Emphysematous changes are noted on patient's chest x-ray but no focal consolidations or acute findings. CT abdomen pelvis on my interpretation shows moderate to severe amount of stool within the colon and likely a fecal impaction but no evidence of small bowel obstruction. See final interpretation for details. At this time, patient's care was handed off to the oncoming physician, Dr. Kyle, pending final radiology interpretation and reassessment. <Sheron Kyle, DO - Last Filed: 02/02/25 17:58> Vital Signs: 02/01/25 12:23 02/01/25 13:00 02/01/25 14:00 Temperature 98.4 F Temperature Source Oral Pulse Rate 67 47 L Pulse Rate [Right Radial] 60 Respiratory Rate 20 22 16 Blood Pressure 150/94 H 115/55 L Blood Pressure [Right Arm] 142/52 H Blood Pressure Mean 111 82 Blood Pressure Mean [Right Arm] 82 Blood Pressure Source [Right Arm] Automatic Cuff Blood Pressure Position [Right Arm] Sitting 02 Sat by Pulse Oximetry 98 97 99 Oxygen Delivery Method Nasal Cannula Oxygen Flow Rate (LPM) 2 02/01/25 14:30 02/01/25 15:00 02/01/25 15:30 Temperature Temperature Source Pulse Rate 48 L 46 L 46 L Pulse Rate [Right Radial] Respiratory Rate 18 14 16 Blood Pressure 127/60 124/57 L 131/56 L Blood Pressure [Right Arm] Blood Pressure Mean 77 75 81 Blood Pressure Mean [Right Arm] Blood Pressure Source [Right Arm] Blood Pressure Position [Right Arm] 02 Sat by Pulse Oximetry 99 98 98 Oxygen Delivery Method Oxygen Flow Rate (LPM) 02/01/25 16:01 02/01/25 16:30 02/01/25 18:44 Temperature 98.1 F Temperature Source Pulse Rate 52 L 50 L 57 L Pulse Rate [Right Radial] Respiratory Rate 17 22 20 Blood Pressure 143/67 H 139/59 L 139/59 L Blood Pressure [Right Arm] Blood Pressure Mean 85 Blood Pressure Mean [Right Arm] Blood Pressure Source [Right Arm] Blood Pressure Position [Right Arm] 02 Sat by Pulse Oximetry 98 96 Oxygen Delivery Method Room Air Oxygen Flow Rate (LPM) Lab Data Lab results reviewed: Yes I reviewed the patient's lab results. Lab Results 02/01/25 12:51: WBC 4.9, RBC 4.53, Hgb 14.0, Hct 41.5, MCV 91.6, MCH 30.9, MCHC 33.7, RDW 13.7, Plt Count 171, MPV 10.2, Neut % (Auto) 61.2, Lymph % (Auto) 25.7, [place] % (Auto) 10.3 H, Eos % (Auto) 1.6, Baso % (Auto) 0.8, Neut # (Auto) 3.0, Lymph # (Auto) 1.3, [place] # (Auto) 0.5, Eos # (Auto) 0.1, Baso # (Auto) 0.0, Sodium 130 L, Potassium 5.5 H, Chloride 99, Carbon Dioxide 21 L, Anion Gap 15.5 H, BUN 9, Creatinine 0.80, Estimated Creat Clear 35, Estimated GFR 71, Est GFR ( Amer) 85, Glucose 96, Lactate 1.2, Calcium 9.1, Magnesium 1.9, Total Bilirubin 1.1, AST 39 H, ALT 11 L, Alkaline Phosphatase 54, Troponin I < 0.01, Total Protein 8.0, Albumin 4.7, Globulin 3.3 H, Albumin/Globulin Ratio 1.4, Lipase 71 02/01/25 12:59: Urine Color Yellow, Urine Appearance Clear, Urine pH 6.0, Ur Specific [place] 1.025, Urine Protein Negative, Urine Glucose (UA) Negative, Urine Ketones Negative, Urine Blood Trace-l, Urine Nitrate Negative, Urine Bilirubin Negative, Urine Urobilinogen 0.2, Ur Leukocyte Esterase Negative, Urine RBC Occasional, Urine WBC 3-5, Ur Squamous Epith Cells 3-5, Urine Bacteria Trace Orders (Tests/Meds): ED MEDICATIONS Discontinued Medications Generic Name Dose Route Start Last Admin Trade Name Freq PRN Reason Stop Dose Admin Iopamidol 75 ml 02/01/25 13:32 02/01/25 13:33 Iopamidol-370 (76%);100ml Bottle IV 02/01/25 13:33 75 ml ONCE ONE Administration Morphine Sulfate 4 mg 02/01/25 12:27 02/01/25 13:00 Morphine 4mg/Ml Syringe IV 02/01/25 12:28 4 mg ONCE ONE Administration Ondansetron HCl 4 mg 02/01/25 12:27 02/01/25 13:00 Ondansetron 4mg/2ml Vial IV 02/01/25 12:28 4 mg ONCE ONE Administration Ondansetron HCl 4 mg 02/01/25 16:20 02/01/25 16:59 Ondansetron 4mg/2ml Vial IV 02/01/25 16:21 4 mg ONCE ONE Administration Prochlorperazine Edisylate 10 mg 02/01/25 17:44 02/01/25 18:01 Prochlorperazine 10mg/2ml Vial IV 02/01/25 17:45 10 mg ONCE ONE Administration Sodium Chloride 10 ml 02/01/25 13:32 02/01/25 13:33 Sodium Chloride 0.9% 10ml Syr (Rad Only) IV 02/01/25 13:33 10 ml ONCE ONE Administration Sodium Phosphate 133 ml 02/01/25 16:21 02/01/25 16:59 Sodium Phos/Biphosphate Fleet 133ml Enema RC 02/01/25 16:22 133 ml ONCE ONE Administration ORDERS Category Date Time Status CT abdomen pelvis w con Stat Cat Scan 02/01/25 12:27 Completed CXR --portable [XR chest portable] Stat Exams 02/01/25 12:27 Completed CBC w/Auto Diff [Complete Blood Count Auto Diff] Stat Lab 02/01/25 12:51 Completed CMP [Comprehensive Metabolic Panel] Stat Lab 02/01/25 12:51 Completed Lactic Acid Stat Lab 02/01/25 12:51 Completed Lipase Stat Lab 02/01/25 12:51 Completed Magnesium Stat Lab 02/01/25 12:51 Completed Troponin I Stat Lab 02/01/25 12:51 Completed UA [Urinalysis and Microscopic] Stat Lab 02/01/25 12:59 Completed Medical Decision Narrative: Charisse Marte is a 74y female with a history of COPD on 2 L nasal cannula at all times, HFrEF, hypertension, hyperlipidemia, degenerative disc disease who presents to the emergency department for complaints of constipation and abdominal pain and distention. Patient states that on January 14 and , she had watery diarrhea. She states that that was the last time that she had a bowel movement. She has not had any stool production since then. She does report that she will have flatulence at night but has had worsening lower abdominal distention and generalized abdominal pain. She reports nausea and decreased appetite but no vomiting. She denies any chest pain but does report some worsening shortness of breath over the last 2 to 3 days. She states that she has not had any abdominal surgeries. Patient states that she was told that she had a kidney infection and was on a course of antibiotics and then was seen by her PCP on Friday and was told that she still had a urinary tract infection and was put on additional course of antibiotics. She is currently taking antibiotics. She states that she is still able to urinate. She reports that she has been taking capful of MiraLAX daily and as well as enemas at home without relief. She denies any history of bowel obstructions. On arrival, patient is hemodynamically stable with initial blood pressure 142/52, heart rate within normal limits, afebrile, on 2 L nasal cannula (which is her baseline) maintaining appropriate oxygen saturations. Physical exam, as stated above, revealed an ill but nontoxic-appearing female in no respiratory distress. Cardiopulmonary exam without wheezing, rales or rhonchi. She is moving a decent amount of air. Abdomen is diffusely tender but not peritonitic. She is more focally tender in the right lower quadrant but tender throughout the entire abdomen. She does have some guarding in the right lower quadrant and left lower quadrant. Her lower abdomen appears more distended than her upper abdomen. Differential diagnosis includes, but is not limited to: Small bowel obstruction, ileus, severe constipation, fecal impaction, malrotation/volvulus, ACS, pneumonia, electrolyte derangement, metabolic derangement, among others. The most morbid conditions were considered and workup was based on these. Workup in the emergency department included: CT abdomen pelvis with IV contrast, CBC with differential, CMP, magnesium level, lactic acid, troponin, UA, chest x-ray, EKG. Patient was initially treated with 4 mg of IV Zofran and 4 mg IV morphine EKG without evidence of ischemia. Labs showed no leukocytosis, no anemia, patient with mild hyponatremia at 130. She is mildly hyperkalemic at 5.5 without EKG changes. Anion gap very mildly elevated at 15.5. CO2 mildly low at 21. Liver enzymes unremarkable nonactionable. Initial troponin less than 0.01. Lipase normal at 71. Urinalysis without blood or evidence of infection. Lactate normal at 1.2. No HALLEY. At this time, final interpretation of patient's CT and x-ray imaging are pending. These were interpreted by me prior to official radiology read. Emphysematous changes are noted on patient's chest x-ray but no focal consolidations or acute findings. CT abdomen pelvis on my interpretation shows moderate to severe amount of stool within the colon and likely a fecal impaction but no evidence of small bowel obstruction. See final interpretation for details. At this time, patient's care was handed off to the oncoming physician, Dr. Kyle, pending final radiology interpretation and reassessment. Sheron Kyle, DO I assumed care of the patient at 1500. Patient CT scan was reviewed and interpreted by myself and showed a large amount of stool burden. Per radiology, some stool in the rectal vault, no signs of obstruction or other acute pathology. Patient was nauseous in the emergency department therefore she was given IV Zofran. Patient has been trying enemas at home without relief and patient states that she had significant difficulty at home on her own. Patient did have some stool burden in the rectum, Fleet enema was ordered with plan to send patient home with a bowel regimen. Patient had some nausea, was given zofran and compazine and was able to tolerate PO. Patient was sent with miralax, zofran and doc-senna. Patient was also given hemorrhoid treatment and return precautions and discharged home in stable condition. Critical Care <Rai Camara MD - Last Filed: 02/01/25 15:57> Critical Care Time Critical Care Time: No
--- OUTSIDE RECORDS SUMMARY | 2025-02-01 12:36 | XMS_ITS | Clinical Summary ---
Author Organization [facility] Address [address] [place] [address] Care Team Providers Care Justice Court Deputy Clerk Name Role Phone Adam Lincoln MD Primary Care Provider + Allergies No known active allergies Medications carvedilol (COREG) 6.25 MG tablet 1 tablet. 024 Active Aspirin EC Adult Low Dose 81 MG EC tablet Take 1 tablet by mouth Daily. 024 Active budesonide (PULMICORT) 0.5 MG/2ML nebulizer solution Take 2 mL by nebulization Daily. Active spironolactone (ALDACTONE) 25 MG tablet Take 1 tablet by mouth Daily. 025 Active amLODIPine (NORVASC) 2.5 MG tabletIndicatio ns:Essential hypertension Take 1 tablet by mouth Daily. 90 tablet 1 025 Active montelukast (SINGULAIR) 10 MG tabletIndicatio ns:Non-seasonal allergic rhinitis due to pollen Take 1 tablet by mouth Every Night. 90 tablet 3 025 Active omeprazole (priLOSEC) 40 MG capsuleIndicati ons:GERD without esophagitis Take 1 capsule by mouth Daily. 90 capsule 1 025 Active simvastatin (ZOCOR) 20 MG tabletIndicatio ns:Hypercholest erolemia Take 1 tablet by mouth every night at bedtime. 90 tablet 3 025 Active Stiolto Respimat 2.5-2.5 MCG/ACT aerosol solution inhalerIndicati ons:Panlobular emphysema Inhale 2 puffs Daily. 12 g 3 025 Active meloxicam (MOBIC) 15 MG tabletIndicatio ns:Hand arthritis TAKE ONE-HALF TABLET BY MOUTH EVERY OTHER DAY 23 tablet 3 025 Active albuterol sulfate HFA 108 (90 Base) MCG/ACT inhalerIndicati ons:Panlobular emphysema USE 2 INHALATIONS BY MOUTH EVERY 4 HOURS NEEDED FOR WHEEZING 34 g 4 025 Active denosumab (PROLIA) 60 MG/ML solution prefilled syringe syringeIndicati ons:Age-related osteoporosis without current pathological fracture Inject 1 mL under the skin into the appropriate area as directed Every 6 (Six) Months. 1 mL 3 025 Active nystatin (MYCOSTATIN) 100,000 unit/mL suspension SWISH AND SWALLOW 5 ML BY MOUTH TWICE DAILY 473 mL 2 025 Active polyethylene glycol (MiraLax) 17 GM/SCOOP powderIndicatio ns:Constipation , unspecified constipation type Take 17 g by mouth Daily. 850 g 3 025 Active sulfamethoxazol e-trimethoprim (Bactrim DS) 800-160 MG per tabletIndicatio ns:Urinary tract infection without hematuria, site unspecified Take 1 tablet by mouth 2 (Two) Times a Day for 7 days. 14 tablet 025 2024 Active polyethylene glycol (MiraLax) 17 GM/SCOOP powder Take 17 g by mouth Daily. 850 g 024 2024 Discontinued(R eorder) nystatin (MYCOSTATIN) 100,000 unit/mL suspension Swish and swallow 5 mL 2 (Two) Times a Day. 473 mL 2 024 2024 Discontinued nitrofurantoin, macrocrystal-mo nohydrate, (Macrobid) 100 MG capsuleIndicati ons:Acute cystitis without hematuria Take 1 capsule by mouth 2 (Two) Times a Day for 5 days. 10 capsule 025 2024 levoFLOXacin (LEVAQUIN) 500 MG tabletIndicatio ns:Acute cystitis without hematuria Take 1 tablet by mouth Daily for 5 days. 5 tablet 025 2024 Hospital, Clinic, or Other Facility Administered Medication Ordered Dose Route Frequency Start Date End Date Status ipratropium-albute rol (DUO-NEB) nebulizer solution 3 mLIndications:Shor tness of breath,COPD with exacerbation 3 mL NEBULIZATION 4 Times Daily - RT 05/21/2023 Active Active Problems Problem Noted Date Diagnosed Date Acute cystitis without hematuria 01/13/2025 Assessment & Plan (01/19/2025 12:57 PM EDT): Initiate Levaquin for management of resistant cystitis Ensure adequate hydration Discussed signs/symptoms that warrant further medical attention Ensure completion of antibiotic as prescribed Assessment & Plan (01/13/2025 10:47 AM EDT): Urinalysis appeared normal Due to history and physical will treat for UTI Send urine for culture Initiate Macrobid Ensure adequate hydration Follow-up if needed Nonrheumatic aortic valve insufficiency 09/28/19 25 Overview (09/27/2024): Seen on echocardiogram at [facility] July 2024 Chronic respiratory failure with hypoxia [...] Encounters Date Type Department Care Team Description 01/30/2025 Results Follow-Up [facility] [address] [place] [address] Adam Lincoln MD 01/28/2025 11:30 AM EDT Office Visit [facility] [address] [place] [address] Adam Lincoln MD Urinary tract infection without hematuria, site unspecified (Primary Dx); Constipation, unspecified constipation type 01/28/2025 Travel 01/19/2025 10:30 AM EDT Office Visit [facility] [address] [place] [address] Francie Mayers, PA-C Acute cystitis without hematuria (Primary Dx) 01/19/2025 Refill [facility] [address] [facility] [place] [address] Adam Lincoln MD 01/19/2025 Travel 01/19/2025 Results Follow-Up [facility] [address] [place] [address] Francie Mayers, PA-C 01/18/2025 Telephone [facility] [address] [place] [address] Adam Lincoln MD UTI SYMPTOMS 01/13/2025 9:30 AM EDT Office Visit [facility] [address] [place] [address] Francie Mayers, PA-C Acute cystitis without hematuria (Primary Dx); Dysuria 01/13/2025 Travel 11/25/2024 Telephone [facility] [address] [place] [address] Adam Lincoln MD RX FOR [facility] 11/16/2024 Refill [facility] [address] [place] [address] Adam Lincoln MD Panlobular emphysema 11/01/2024 Refill [facility] [address] [place] [address] Adam Lincoln MD Hand arthritis from Last 3 Months Immunizations Immunization Administration [...] Mass Index 17.26 01/28/2025 11:25 AM EDT Plan of Treatment Upcoming Encounters Date Type Department Care Team (Late st Contact Info) Description 04/01/2025 10:15 AM EST Office Visit [facility] [address] [place] [address] Adam Lincoln MD [address] [place] [address] Health Maintenance Due Date Last Done Comments COLOGUARD 1997 COLON CANCER SCREENING [address] COLONOGRAPHY 1997 FECAL OCCULT BLOOD TEST 1997 FIT Testing (1 year) 1997 LUNG CANCER SCREENING 2002 ZOSTER VACCINE (1 of 2) 2002 06/29/2014 Pneumococcal Vaccine 50+ (2 of 2 - PPSV23) 06/23/2011 06/05/2020, 06/05/2020 (Patient-Reported (Performed Externally)), 01/22/2013, Additional history exists MAMMOGRAM 05/20/2016 05/20/2014 (Patient-Reported (Performed Externally)) HEPATITIS C SCREENING 10/04/2021 INFLUENZA VACCINE 12/17/2024 03/19/2024, , 02/11/2022, Additional history exists COVID-19 Vaccine ( season) 2025 03/19/2024, 04/21/2023, 02/11/2022, Additional history exists Postponed from 01/17/2025 (Product Unavailable) DXA SCAN 03/08/2025 03/08/2023, 02/16, 03/06/2023, Additional history exists ANNUAL WELLNESS VISIT 03/30/2025 03/30/2024 , 03/30/2024, 12/19/2022, Additional history exists LIPID PANEL 09/27/2025 09/27/2024, 0511/2023, 06/20/2022, Additional history exists COLONOSCOPY 03/19/2029 03/19/2019, 1105/2018, 03/19/2019 (Patient-Reported (Performed Externally)), Additional history exists COLORECTAL CANCER SCREENING 03/19/2029 TDAP/TD VACCINES (2 - Td or Tdap) 12/18/2031 12/17/2021, 11/07/2006 Procedures Procedure Name Priority Date/Time Associated Diagnosis Comments URINE CULTURE Routine 01/28/2025 12:25 PM EDT Urinary tract infection without hematuria, site unspecified POCT URINALYSIS DIPSTICK, MANUAL Routine 01/28/2025 11:47 AM EDT Urinary tract infection without hematuria, site unspecified POCT URINALYSIS DIPSTICK, MANUAL Routine 01/19/2025 10:54 AM EDT Acute cystitis without hematuria URINE CULTURE Routine 01/13/2025 11:00 AM EDT Acute cystitis without hematuria POCT URINALYSIS DIPSTICK, MANUAL Routine 01/13/2025 9:38 AM EDT Dysuria SCANNED - LABS 12/29/2024 SCANNED - LABS 12/29/2024 LIPID PANEL Routine 09/27/2024 10:37 AM EDT Hypercholesterolemia SCANNED - DEXA 03/06/2023 from Last 3 Months or Most Recently Relevant to Health Maintenance Results * Urine Culture - Urine, Urine, Clean Catch (01/28/2025 12:25 PM EDT) Only the most recent of2 resultswithin the time period is included. Urine Culture Final report [facility] Result 1 Comment [facility] Comment: Mixed urogenital pradeep Less than 10,000 colonies/mL Urine Urine specimen obtained by clean catch procedure / Unknown 01/28/2025 12:25 PM EDT 01/28/2025 Comment:UC Narrative [facility] (AMBULATORY) - 01/30/2025 3:09 AM EDT Performed at: 01 - [address] [id number] History Tutor: Tato Newton PhD, Phone: [phone] Patient Fasting: N Adam Lincoln MD MICROBIOLOGY - GENERAL O RDERABLES Final Result [facility] (AMBULATORY) [address] [place] [address], [facility] [address] [place] [address], [place] [phone] * POC Urinalysis Dipstick (01/28/2025 11:47 AM EDT) Only the most recent of3 resultswithin the time period is included. Color Yellow Yellow, Straw, Dark Yellow, Danette [facility] Clarity, UA Clear Clear [facility] Glucose, UA Negative Negative mg/dL [facility] Bilirubin Negative Negative [facility] Ketones, UA Negative Negative [facility] Specific [place] 1.010 1.005 - 1.030 [facility] Blood, UA Negative Negative [facility] pH, Urine 6.5 5.0 - 8.0 [facility] Protein, POC Negative Negative mg/dL [facility] Urobilinogen, UA Normal Normal, 0.2 E.U./dL [facility] Leukocytes Negative Negative [facility] Nitrite, UA Negative Negative [facility] Urine 01/28/2025 11:4 7 AM EDT Adam Lincoln MD POINT OF CARE TEST ORDER MEJIA Final Result [facility]
[address] [place] [address], [place] [phone] * LABS SCANNED (12/29/2024) Only the most recent of2 resultswithin the time period is included. Adam Lincoln MD LAB BLOOD ORDERABLES Fin al Result * (ABNORMAL) Lipid Panel (09/27/2024 10:37 AM EDT) [facility] Total Cholesterol 141 0 - 200 mg/dL [...] 10:3 7 AM EDT 09/27/2024 Narrative [facility] ([facility]) - 09/28/2024 3:07 AM EDT Performed at: [address] [place], [place] [address], [place] [id number] History Tutor: Dae Cheek MD, Phone: [phone] Patient Fasting: Y Adam Lincoln MD LAB BLOOD ORDERABLES Fin al Result [facility] (AMBULATORY) [address] [place] [address], [place] [phone] [facility] [address] [place] [address], [place] [phone] * SCANNED - DEXA (03/06/2023) Anatomical Region Laterality Modality Other Adam Lincoln MD CHART REVIEW TABS Fin al Result from Last 3 Months or Most Recently Relevant to Health Maintenance Insurance MEDICARE A & B Member Subscriber Plan / Payer (Ef fective 2017-Present) Name:Charisse Siegel Member ID:[id number] Relation to Subscriber:Self Name:Charisse Siegel Subscriber ID:[id number] Payer ID:[id number] Group ID:Not on file Type:Not on file Address: [facility] [id number] Care Teams Justice [address] Deputy Clerk Relationship Specialty Start Date End Date Adam Lincoln MD [address] [place] [address] [place] [address] PCP - General Family Medicine 10/04/21
--- OUTSIDE RECORDS SUMMARY | 2025-02-01 12:36 | XMS_ITS | Encounter Summary ---
Author Organization [facility] Address [address] [place] [address] Care Team Providers Care Telegraph Operator Name Role Phone Adam Lincoln MD Primary Care Provider + Encounter Details Date Type Department Care Team ( Contact Info) Description 09/28/2024 Results Follow-Up [facility] [address] [place] [address] Adam Lincoln MD [address] [place] [address] Social History Tobacco Use Types [...] Upcoming Encounters Date Type Department Care Team ( Contact Info) Description 04/01/2025 10:15 AM EST Office Visit [facility] [address] [place] [phone] Adam Lincoln MD [address] [place] [address] documented as of this encounter Visit Diagnoses Not on filedocumented in this encounter Care Teams Telegraph Operator Relationship Specialty Start Date End Date Adam Lincoln MD [address] [place] [address] PCP - General Family Medicine 10/04/21 documented as of this encounter
--- OUTSIDE RECORDS SUMMARY | 2025-02-01 12:36 | XMS_ITS | Encounter Summary ---
[facility] Organization [facility] Address [address] [place] [address] Care Team Providers Care Rib Stiffener And Heel Dipper Name Role Phone Adam Lincoln MD Primary Care Provider + Encounter Details Date Type Department Care Team (Late Contact Info) Description 01/30/2025 Results Follow-Up [facility] [address] [place] [address] Adam Lincoln MD [address] [place] [address] Social History Tobacco Use Types [...] Description 04/01/2025 10:15 AM EST Office Visit [facility] [address] [place] [address] Adam Lincoln MD [address] [place] [address] documented as of this encounter Visit Diagnoses Not on filedocumented in this encounter Care Teams Rib Stiffener And Heel Dipper Relationship Specialty Start Date End Date Adam Lincoln MD [address] [place] [address] PCP - General Family Medicine 10/04/21 documented as of this encounter
--- OUTSIDE RECORDS SUMMARY | 2025-02-01 12:36 | XMS_ITS | Encounter Summary ---
Author Organization [facility] Address [address] [place] [address] Care Team Providers Care Switch Foreman Name Role Phone Adam Lincoln MD Primary Care Provider + Encounter Details Date Type Department Care Team (Latest Contact Info) Description 01/28/2025 Travel Social History Tobacco Use Types Packs/Day Years [...] Description 04/01/2025 10:15 AM EST Office Visit [facility] [address] [place] [address] Adam Lincoln MD [address] [place] [address] documented as of this encounter Visit Diagnoses Not on filedocumented in this encounter Care Teams Switch Foreman Relationship Specialty Start Date End Date Adam Lincoln MD [address] [place] [address] PCP - General Family Medicine 10/04/21 documented as of this encounter
--- OUTSIDE RECORDS SUMMARY | 2025-02-01 12:37 | XMS_ITS | Encounter Summary ---
[facility] Organization [facility] Address [address] [place] [address] Care Team Providers Care Home Care Chaplain Name Role Phone Adam Lincoln MD Primary Care Provider + Encounter Details Date Type Department Care Team (Late st Contact Info) Description 01/19/2025 Results Follow-Up [facility] [address] [place] [address] Francie Mayers PA-C [address] [place] [address] Social History Tobacco Use Types [...] Description 04/01/2025 10:15 AM EST Office Visit [facility] [address] [place] [address] Adam Lincoln MD [address] [place] [address] documented as of this encounter Visit Diagnoses Not on filedocumented in this encounter Care Teams Home Care Chaplain Relationship Specialty Start Date End Date Adam Lincoln MD [address] [place], [place] [id number] PCP - General Family Medicine 10/04/21 documented as of this encounter
--- OUTSIDE RECORDS SUMMARY | 2025-02-01 12:37 | XMS_ITS | Encounter Summary ---
Author Organization [facility] Address [address] [place] [address] Care Team Providers Care Professor Of Architecture Name Role Phone Adam Lincoln MD Primary Care Provider + Reason for Visit * Reason Onset Date Comments UTI SYMPTOMS 01/18/2025 Encounter Details Date Type Department Care Team (Late st Contact Info) Description 01/18/[address] [facility] [address] [place] [address] Adam Lincoln MD [address] [place] [address] UTI SYMPTOMS Social History Tobacco Use Types Packs/Day Years [...] encounter Miscellaneous Notes * Telephone Encounter - Francie Mayers PA-C - 01/19/2025 10:32 AM EDT Patient has appt. Today. * Telephone Encounter - Shanita Sarabia RegSched Rep - 01/18/2025 8:38 AM EDT Caller: Charisse Marte Relationship to patient: Self Best call back number: [phone] PATIENT IS CALLING TO STATE THAT SHE SAW DR MAYERS LAST WEEK FOR A URINARY TRACT INFECTION. SHE IS NOT BETTER AND WOULD LIKE TO SEE IF SHE COULD GET MEDICATION CALLED IN TO [facility]. documented in this encounter Plan of Treatment Upcoming Encounters Date Type Department Care Team (Late st Contact Info) Description 04/01/2025 10:15 AM EST Office Visit [facility] [address] [place] [address] Adam Lincoln MD [address] [place] [address] documented as of this encounter Visit Diagnoses Not on filedocumented in this encounter Care Teams Professor Of Architecture Relationship Specialty Start Date End Date Adam Lincoln MD [address] [place] [address] PCP - General Family Medicine 10/04/21 documented as of this encounter
--- OUTSIDE RECORDS SUMMARY | 2025-02-01 12:37 | XMS_ITS | Encounter Summary ---
Author Organization [facility] Address [address] [place] [address] Care Team Providers Care Electronic Warfare Specialist Name Role Phone Adam Lincoln MD Primary Care Provider + Encounter Details Date Type Department Care Team (Latest Contact Info) Description 01/19/2025 Travel Social History Tobacco Use Types Packs/Day [...] Description 04/01/2025 10:15 AM EST Office Visit [facility] [address] [place] [address] Adam Lincoln MD [address] [place] [address] documented as of this encounter Visit Diagnoses Not on filedocumented in this encounter Care Teams Electronic Warfare Specialist Relationship Specialty Start Date End Date Adam Lincoln MD [address] [place] [address] PCP - General Family Medicine 10/04/21 documented as of this encounter
--- OUTSIDE RECORDS SUMMARY | 2025-02-01 12:37 | XMS_ITS | Encounter Summary ---
Author Organization [facility] Address [address] [place] [address] Care Team Providers Care Director Of Acquisitions Name Role Phone Adam Lincoln MD Primary Care Provider + Encounter Details Date Type Department Care Team (Latest Contact Info) Description 01/13/2025 Travel Social History Tobacco Use Types Packs/Day [...] Description 04/01/2025 10:15 AM EST Office Visit [facility] [address] [place] [address] Adam Lincoln MD [address] [place] [address] documented as of this encounter Visit Diagnoses Not on filedocumented in this encounter Care Teams Director Of Acquisitions Relationship Specialty Start Date End Date Adam Lincoln MD [address] [place] [address] PCP - General Family Medicine 10/04/21 documented as of this encounter
--- OUTSIDE RECORDS SUMMARY | 2025-02-01 12:37 | XMS_ITS | Encounter Summary ---
[facility] Organization [facility] Address [address] [place] [address] Care Team Providers Care Drug Safety Coordinator Name Role Phone Adam Lincoln MD Primary Care Provider + Reason for Visit * Reason Comments Med Refill Encounter Details Date Type Department Care Team (Late st Contact Info) Description 01/19/2025 Refill [facility] [address] [facility] [place] [address] Adam Lincoln MD [address] [place] [address] Social History Tobacco Use Types [...] 04/01/2025 10:15 AM EST Office Visit [facility] [address] [facility] [place] [address] Adam Lincoln MD [address] [place] [address] documented as of this encounter Visit Diagnoses Not on filedocumented in this encounter Care Teams Drug Safety Coordinator Relationship Specialty Start Date End Date Adam Lincoln MD [address] [place] [address] PCP - General Family Medicine 10/04/21 documented as of this encounter
[2025-02-01] MEDS: MORPHINE 4MG/ML SYRINGE 4 MG IV (13:00)
[2025-02-01] MEDS: ONDANSETRON 4MG/2ML VIAL 4 MG IV ×2 (13:00→16:59)
[2025-02-01 13:06] LABS: Hematocrit 41.5 % (37.0-47.0); Hemoglobin 14.0 g/dL (12.2-16.2); Immature Granulocytes % 0.4 %; Mean Corpuscular HGB Conc 33.7 g/dL (31.8-35.4); Mean Corpuscular Hemoglobin 30.9 pg (27.0-31.2); Mean Corpuscular Volume 91.6 fl (81-99); Nucleated Red Blood Cells % 0 %; Platelet Count 171 K/mm3 (142-424); Red Blood Count 4.53 M/mm3 (4.20-5.40); Red Cell Distribution Width-SD 46.4 fL; White Blood Count 4.9 K/mm3 (4.8-10.8)
[2025-02-01 13:07] LABS: Microscopic, Urine URINE MICROSCOPIC (MICROSCOPIC)
[2025-02-01 13:10] LABS: Bilirubin,Urine Negative (Negative); Color,Urine YELLOW (Yellow); Glucose,Urine (UA) Negative (Negative); Ketones,Urine Negative (Negative); Leukocyte Esterase,Urine Negative (Negative); PH,Urine 6.0 (5.0-8.5); Protein,Urine Negative (Negative); Specific Gravity, Urine 1.025 (1.005-1.030); Urobilinogen,Urine 0.2 EU/dl (0.2)
[2025-02-01 13:14] LABS: Alanine Aminotransferase 11 U/L (12-78); Albumin Level 4.7 g/dl (3.5-5.0); Albumin/Globulin Ratio 1.4 (1.1-1.8); Alkaline Phosphatase 54 U/L (38-126); Anion Gap 15.5 mEq/L (5-15); Aspartate Amino Transferase 39 U/L (14-36); Bilirubin,Total 1.1 mg/dl (0.2-1.3); Blood Urea Nitrogen 9 mg/dl (7-17); Calcium 9.1 mg/dl (8.4-10.2); Carbon Dioxide 21 mmol/L (22.0-30.0); Chloride 99 mmol/L (98-107); Creatinine Clearance Estimated 35 mL/min (50-200); Creatinine,Serum 0.80 mg/dl (0.52-1.04); Estimated Glomerular Filt Rate 71 ml/min (>60); GFR (African American) 85 ML/MIN (>60); Globulin 3.3 g/dL (1.3-3.2); Glucose 96 mg/dl (74-100); Lipase 71 U/L (23-300); Potassium 5.5 mmoL/L (3.5-5.1); Sodium 130 mmol/L (136-145); Total Protein,Serum 8.0 g/dl (6.3-8.2)
[2025-02-01 13:15] LABS: Magnesium 1.9 mg/dl (1.6-2.3)
[2025-02-01 13:19] LABS: Bacteria,Urine Trace /lpf; RBC,Urine Occasional #/hpf (0-3)
[2025-02-01 13:27] LABS: Troponin I < 0.01 ng/ml (0.00-0.034)
[2025-02-01] MEDS: IOPAMIDOL-370 (76%);100ML BOTTLE 75 ML IV (13:33)
[2025-02-01] MEDS: SODIUM CHLORIDE 0.9% 10ML SYR (RAD ONLY) 10 ML IV (13:33)
[2025-02-01] MEDS: SODIUM PHOS/BIPHOSPHATE FLEET 133ML ENEMA 133 ML RC (16:59)
[2025-02-01] MEDS: PROCHLORPERAZINE 10MG/2ML VIAL 10 MG IV (18:01)
== END 2025-02-01 18:45 | disposition home or self-care (01) ==
PROVIDERS: Emergency Provider Student in an Organized Health Care Education/Training Program; PCP Family Medicine
DX: R10.84 Generalized abdominal pain (principal); K59.00 Constipation, unspecified; E87.1 Hypo-osmolality and hyponatremia; E87.5 Hyperkalemia; R14.0 Abdominal distension (gaseous); R11.0 Nausea; R00.1 Bradycardia, unspecified; J44.9 Chronic obstructive pulmonary disease, unspecified; Z87.891 Personal history of nicotine dependence
CPT/HCPCS: 71045; 74177; 80053; 81001; 83605; 83690; 83735; 84484; 85025; 93005; 96374; 96375; 96376; 99285; J0780; J2270; J2405; Q9967

== ENCOUNTER → 2025-05-04 09:05 | Outpatient (CLI) | payer MEDICARE, BC, SELFPAY ==
--- OUTSIDE RECORDS SUMMARY | 2025-04-01 10:15 | XMS_ITS | Encounter Summary ---
[facility] Address [address] [place] [address] Care Team Providers Care Axle Bearing Polisher Name Role Phone Adam Lincoln MD Primary Care Provider + Reason for Referral * Diagnostic Imaging (Routine) - Authorized Specialty Diagnoses / Procedures Referred By Contac t Referred To Contact Diagnoses Age-related osteoporosis without current pathological fracture Procedures DEXA Bone Density Axial Adam Lincoln MD [address] [facility] [place] [address] Phone: tel: fax: [facility] - OUTPT PHYSICAL THERAPY [address] [place] [address] Phone: tel: fax: Referral ID Status Reason Start Date Expiration Date V isits Requested Visits Authorized [id number] Authorized 04/01/2025 07/01/2026 1 1 Reason for Visit * Reason Comments Medicare Wellness-subsequent Encounter Details Date Type Department Care Team (Late st Contact Info) Description 04/01/2025 10:15 AM EST Office Visit [facility] [address] [facility] [place] [phone] Adam Lincoln MD [address] [facility] [place] [address] Medicare annual wellness visit, subsequent (Primary Dx); Panlobular emphysema; Nonrheumatic aortic valve insufficiency; GERD without esophagitis; Essential hypertension; Chronic respiratory failure with hypoxia; Age-related osteoporosis without current pathological fracture; Hyperkalemia Social History Tobacco Use Types Packs/Day Years Used Date Smoking Tobacco: Former Cigarettes 1 30 Q uit: 2015 Smokeless Tobacco: Never Alcohol Use Standard Drinks/Week Comments Never 0 (1 standard drink = 0.6 oz pur e alcohol) PHQ-2 Answer Date Recorded Retired PHQ-9: Brief Depression Severity Measure Score 0 12/19/2022 PHQ-2 Answer Date Recorded Patient Health Questionnaire-2 Score 0 04/01/2025 Comments Unknown Sex and Gender Information Value Date Recorded Sex Assigned at Not on file Legal Sex Female 9:19 AM EDT Gender Identity Not on file Sexual Orientation Not on file documented as of this encounter Last Filed Vital Signs Vital Sign Reading Time Taken Comments Blood Pressure 138/68 04/01/2025 10:12 AM EST Pulse 65 04/01/2025 10:12 AM EST Temperature 36.3 C (97.3 F) 04/01/2025 10:12 AM EST Respiratory Rate 20 04/01/2025 10:12 AM EST Oxygen Saturation 95% 04/01/2025 10:12 AM EST on 2L/min Inhaled Oxygen Concentration - - Weight 42.8 kg (94 lb 6.4 oz) 04/01/2025 10:12 A M EST Height 157.5 cm (5' 2 ) 04/01/2025 10:12 AM EST Body Mass Index 17.27 04/01/2025 10:12 AM EST documented in this encounter Functional Status documented as of this encounter Progress Notes * Adam Lincoln MD - 04/01/2025 10:15 AM ESTAssociated Problem(s): Panlobular emphysema * Adam Lincoln MD - 04/01/2025 10:15 AM ESTAssociated Problem(s): Nonrheumatic aortic valve insufficiency * Adam Lincoln MD - 04/01/2025 10:15 AM ESTAssociated Problem(s): GERD without esophagitis * Adam Lincoln MD - 04/01/2025 10:15 AM ESTAssociated Problem(s): Essential hypertension {Hypertension is (optional):[id number]} * Adam Lincoln MD - 04/01/2025 10:15 AM ESTAssociated Problem(s): Chronic respiratory failure with hypoxia * Adam Lincoln MD - 04/01/2025 10:15 AM ESTAssociated Problem(s): Age- related osteoporosis without current pathological fracture Orders: DEXA Bone Density Axial; Future * Adam Lincoln MD - 04/01/2025 10:15 AM EST Subjective The ABCs of the Annual Wellness Visit Medicare Wellness Visit Charisse Marte is a 74 y.o. patient who presents for a Medicare Wellness Visit. The following portions of the patient's history were reviewed and updated as appropriate: allergies, current medications, past family history, past medical history, past social history, past surgical history, and problem list. Compared to one year ago, the patient's physical health is the same. Compared to one year ago, the patient's mental health is the same. Recent Hospitalizations: She was not admitted to the hospital during the last year. Current Medical Providers: Patient Care Team: Adam Lincoln MD as PCP - General (Family Medicine) Vidhya Huerta MD (Pulmonary Disease) Outpatient Medications Prior to Visit Medication Sig Dispense Refill albuterol sulfate HFA 108 (90 Base) MCG/ACT inhaler USE 2 INHALATIONS BY MOUTH EVERY 4 HOURS NEEDED FOR WHEEZING 34 g 4 amLODIPine (NORVASC) 2.5 MG tablet Take 1 tablet by mouth Daily. 90 tablet 1 Aspirin EC Adult Low Dose 81 MG EC tablet Take 1 tablet by mouth Daily. budesonide (PULMICORT) 0.5 MG/2ML nebulizer solution Take 2 mL by nebulization Daily. carvedilol (COREG) 6.25 MG tablet 1 tablet. denosumab (PROLIA) 60 MG/ML solution prefilled syringe syringe Inject 1 mL under the skin into the appropriate area as directed Every 6 (Six) Months. 1 mL 3 meloxicam (MOBIC) 15 MG tablet TAKE ONE-HALF TABLET BY MOUTH EVERY OTHER DAY 23 tablet 3 montelukast (SINGULAIR) 10 MG tablet Take 1 tablet by mouth Every Night. 90 tablet 3 nystatin (MYCOSTATIN) 100,000 unit/mL suspension SWISH AND SWALLOW 5 ML BY MOUTH TWICE DAILY 473 mL2 omeprazole (priLOSEC) 40 MG capsule TAKE 1 CAPSULE BY MOUTH DAILY 90 capsule 3 polyethylene glycol (MiraLax) 17 GM/SCOOP powder Take 17 g by mouth Daily. 850 g 3 simvastatin (ZOCOR) 20 MG tablet Take 1 tablet by mouth every night at bedtime. 90 tablet 3 spironolactone (ALDACTONE) 25 MG tablet Take 1 tablet by mouth Daily. Stiolto Respimat 2.5-2.5 MCG/ACT aerosol solution inhaler Inhale 2 puffs Daily. 12 g 3 estradiol (ESTRACE VAGINAL) 0.1 MG/GM vaginal cream Insert 2 g into the vagina Daily. (Patient not taking: Reported on 04/01/2025) 42.5 g 0 Facility-Administered Medications Prior to Visit Medication Dose Route Frequency Provider Last Rate Last Admin ipratropium-albuterol (DUO-NEB) nebulizer solution 3 mL 3 mL Nebulization 4x Daily - RT Janey Palma APRN No opioid medication identified on active medication list. I have reviewed chart for other potential high risk medication/s and harmful drug interactions in the elderly. Aspirin is on active medication list. Aspirin use is not indicated based on review of current medical condition/s. Risk of harm outweighs potential benefits. Patient instructed to discontinue this medication. . Patient Active Problem List Diagnosis Panlobular emphysema Essential hypertension GERD without esophagitis Age-related osteoporosis without current pathological fracture Nonrheumatic aortic valve insufficiency Chronic respiratory failure with hypoxia Advance Care Planning Advance Directive is not on file. ACP discussion was held with the patient during this visit. Patient has an advance directive (not in EMR), copy requested. Objective Vitals: 04/01/25 1012 BP: 138/68 Pulse: 65 Resp: 20 Temp: 97.3 ??F (36.3 ??C) SpO2: 95% Comment: on 2L/min Weight: 42.8 kg (94 lb 6.4 oz) Height: 157.5 cm (62 ) PainSc: 0-No pain Estimated body mass index is 17.27 kg/m?? as calculated from the following: Height as of this encounter: 157.5 cm (62 ). Weight as of this encounter: 42.8 kg (94 lb 6.4 oz). Does the patient have evidence of cognitive impairment? No Health Risk Assessment Smoking Status: Social History Tobacco Use Smoking Status Former Current packs/day: 0.00 Average packs/day: 1 pack/day for 30.0 years (30.0 ttl pk-yrs) Types: Cigarettes Quit date: 2016 Years since quittin.8 Smokeless Tobacco Never Alcohol Consumption: Social History Substance and Sexual Activity Alcohol Use Never Fall Risk Screen STEADI Fall Risk Assessment was completed, and patient is at LOW risk for falls.Assessment completed on:04/01/2025 Depression Screening Little interest or pleasure in doing things? Not at all Feeling down, depressed, or hopeless? Not at all PHQ-2 Total Score 0 Health Habits and Functional and Cognitive Screenin04/01/2025 10:15 AM Functional & Cognitive Status Do you have difficulty preparing food and eating? No Do you have difficulty bathing yourself, getting dressed or grooming yourself? No Do you have difficulty using the toilet? No Do you have difficulty moving around from place to place? No Do you have trouble with steps or getting out of a bed or a chair? No Current Diet Well Balanced Diet Dental Exam Up to date Eye Exam Up to date Exercise (times per week) 3 times per week Current Exercises Include Walking Do you need help using the phone? No Are you deaf or do you have serious difficulty hearing? No Do you need help to go to places out of walking distance? No Do you need help shopping? No Do you need help preparing meals? No Do you need help with housework? No Do you need help with laundry? No Do you need help taking your medications? No Do you need help managing money? No Do you ever drive or ride in a car without wearing a seat belt? No Have you felt unusual fatigue (could be tiredness), stress, anger or loneliness in the last month? No Who do you live with? Spouse If you need help, do you have trouble finding someone available to you? No Have you been bothered in the last four weeks by sexual problems? No Do you have difficulty concentrating, remembering or making decisions? No Age-appropriate Screening Schedule: Refer to the list below for future screening recommendations based on patient's age, sex and/or medical conditions. Orders for these recommended tests are listed in the plan section. The patient has been provided with a written plan. Health Maintenance List Health Maintenance Topic Date Due ZOSTER VACCINE (1 of 2) 2002 LUNG CANCER SCREENING Never done Pneumococcal Vaccine 50+ (2 of 2 - PPSV23, PCV20, or PCV21) 06/23/2011 MAMMOGRAM 05/20/2016 HEPATITIS C SCREENING Never done DXA SCAN 03/08/2025 COVID-19 Vaccine (2024- season) 2025 (Originally 04/05/2025) LIPID PANEL 09/27/2025 ANNUAL WELLNESS VISIT 04/01/2026 COLORECTAL CANCER SCREENING 03/19/2029 TDAP/TD VACCINES (2 - Td or Tdap) 12/18/2031 INFLUENZA VACCINE Completed [facility] Preventative Services Quick Reference Risk Factors Identified During Encounter Fall Risk-High or Moderate: Discussed Fall Prevention in the home Immunizations Discussed/Encouraged: Influenza and COVID19 Cardiology f/u in Jun Pulmonoloy f/u in August w/LDCT Surveillance DEXA due and ordered Declines Mammogram The above risks/problems have been discussed with the patient. Pertinent information has been shared with the patient in the After Visit Summary. An After Visit Summary and PPPS were made available to the patient. Follow Up: Next Medicare Wellness visit to be scheduled in 1 year. Assessment & Plan Medicare annual wellness visit, subsequent Panlobular emphysema Nonrheumatic aortic valve insufficiency GERD without esophagitis Essential hypertension Chronic respiratory failure with hypoxia Age-related osteoporosis without current pathological fracture Orders: DEXA Bone Density Axial; Future Hyperkalemia Orders: Potassium Follow Up: Return in about 6 months (around 09/29/2025) for Next scheduled follow up. documented in this encounter Plan of Treatment Upcoming Encounters Date Type Department Care Team (Late st Contact Info) Description 09/29/2025 10:00 AM EDT Office Visit [facility] MEDICINE [address] [place] [address] Adam Lincoln MD [address] [place] [address] 04/03/2026 10:15 AM EST Office Visit [facility] [address] [place] [address] Adam Lincoln MD [address] [place] [address] Scheduled Orders Name Type Priority Associated Diagnoses Orde r Schedule DEXA Bone Density Axial Imaging Routine Age-related osteoporosis without current pathological fracture Expected: 04/15/2025, Expires: 04/01/2026 documented as of this encounter Procedures Procedure Name Priority Date/Time Associated Diagnosis Comments POTASSIUM Routine 04/01/2025 10:47 AM EST Hyperkalemia documented in this encounter Results * (ABNORMAL) Potassium (04/01/2025 10:47 AM EST) Potassium 5.3(H) 3.5 - 5.2 mmol/L [facility] Blood 04/01/2025 10:4 7 AM EST 04/01/2025 Narrative [facility] ([facility]) - 04/02/2025 3:07 AM EST Performed at: 01 - [address] [id number] Car Oiler: Dae Cheek MD, Phone: [phone] Patient Fasting: Y Adam Lincoln MD LAB BLOOD ORDERABLES Fin al Result [facility] ([facility]UL[facility]) [address] [place] [address], [place] [phone] [facility] [address] [place] [address], [place] [phone] documented in this encounter Visit Diagnoses Diagnosis Medicare annual wellness visit, subsequent- Primary Panlobular emphysema Other emphysema Nonrheumatic aortic valve insufficiency GERD without esophagitis Esophageal reflux Essential hypertension Unspecified essential hypertension Chronic respiratory failure with hypoxia Age-related osteoporosis without current pathological fracture Hyperkalemia Hyperpotassemia documented in this encounter Care Teams Axle Bearing Polisher Relationship Specialty Start Date End Date Adam Lincoln MD [address] [place] [address] PCP - General Family Medicine 10/04/21 documented as of this encounter
--- NOTE | 2025-05-04 09:08 | XR_ITS ---
FINAL REPORT CLINICAL HISTORY: SCREENING COMPARISON: 03/06/2023 FINDINGS: Using L1-4, the bone mineral density of the spine is 0.804 g/cm2, corresponding to T-score of -2.2. Using the left hip, the bone mineral density of the femoral neck is 0.630 g/cm2, corresponding to a T-score of -2.6. The bone mineral density change versus baseline is 6.0%. Using the right hip, the bone mineral density of the femoral neck is 0.529 g/cm2, corresponding to a T-score of -2.9. The bone mineral density change versus baseline is 1.8%. NOTE: T-score: Standard deviation compared with peak bone mass of young adult mean. *Following the recommendations of the International Society of Bone densitometry, classification of hip BMD is based on the lower of two T-scores; total hip or femoral neck. IMPRESSION: Diminished bone mineral density of the bilateral hips, corresponding to osteoporosis. Diminished bone mineral density of the lumbar spine, corresponding to osteopenia. Reviewed, Interpreted and Dictated by Zoraida Lynn MD Transcribed by Kavitha Castaneda Authenticated and [facility]
--- OUTSIDE RECORDS SUMMARY | 2025-05-04 09:52 | XMS_ITS | Encounter Summary ---
[facility] Address [address] [place] [address] Care Team Providers Care Picture Hanger Name Role Phone Adam Lincoln MD Primary Care Provider + Encounter Details Date Type Department Care Team (Late st Contact Info) Description 01/30/2025 Results Follow-Up [facility] MEDICINE [address] [facility] [place] [address] Adam Lincoln MD [address] [place] [address] Social History Tobacco Use Types [...] Description 09/29/2025 10:00 AM EDT Office Visit [facility] FAMILY MEDIC[facility] [address] [place] [address] Adam Lincoln MD [address] [place] [address] 04/03/2026 10:15 AM EST Office Visit [facility] [address] [place] [address] Adam Lincoln MD [address] [place] [address] documented as of this encounter Visit Diagnoses Not on filedocumented in this encounter Care Teams Picture Hanger Relationship Specialty Start Date End Date Adam Lincoln MD [address] [place] [address] PCP - General Family Medicine 10/04/21 documented as of this encounter
--- OUTSIDE RECORDS SUMMARY | 2025-05-04 09:52 | XMS_ITS | Encounter Summary ---
[facility] Address [address] [place] [address] Care Team Providers Care Sample Tester Grinder Name Role Phone Adam Lincoln MD Primary Care Provider + Reason for Visit * Reason Comments Med Refill Encounter Details Date Type Department Care Team (Late st Contact Info) Description 03/21/2025 Refill [facility] MED[facility] [address] [facility] [place] [address] Adam Lincoln MD [address] [place] [address] GERD without esophagitis Social History Tobacco Use Types Packs/Day Years [...] Description 09/29/2025 10:00 AM EDT Office Visit [facility] [address] [facility] [place] [address] Adam Lincoln MD [address] [place] [address] 04/03/2026 10:15 AM EST Office Visit [facility] FAMILY MEDICINE [address] [place] [phone] Adam Lincoln MD [address] [place] [address] documented as of this encounter Visit Diagnoses Diagnosis GERD without esophagitis Esophageal reflux documented in this encounter Care Teams Sample Tester Grinder Relationship Specialty Start Date End Date Adam Lincoln MD [address] [place] [address] PCP - General Family Medicine 10/04/21 documented as of this encounter
--- OUTSIDE RECORDS SUMMARY | 2025-05-04 09:52 | XMS_ITS | Encounter Summary ---
[facility] Address [address] [place] [address] Care Team Providers Care Pelt Dropper Name Role Phone Adam Lincoln MD Primary Care Provider + Encounter Details Date Type Department Care Team (Latest Contact Info) Description 04/01/2025 Travel Social History Tobacco Use Types Packs/Day [...] on file documented as of this encounter Functional Status documented as of this encounter Plan of Treatment Upcoming Encounters Date Type Department Care Team (Late st Contact Info) Description 09/29/2025 10:00 AM EDT Office Visit [facility] MED[facility] [address] [place] [address] Adam Lincoln MD [address] [place] [address] 04/03/2026 10:15 AM EST Office Visit [facility] MED[facility] [address] [place] [address] Adam Lincoln MD [address] [place] [address] documented as of this encounter Visit Diagnoses Not on filedocumented in this encounter Care Teams Pelt Dropper Relationship Specialty Start Date End Date Adam Lincoln MD [address] [place] [address] PCP - General Family Medicine 10/04/21 documented as of this encounter
--- OUTSIDE RECORDS SUMMARY | 2025-05-04 09:52 | XMS_ITS | Encounter Summary ---
[facility] Address [address] [place] [address] Care Team Providers Care Baseball Pitcher Name Role Phone Adam Lincoln MD Primary Care Provider + Encounter Details Date Type Department Care Team (Late Contact Info) Description 01/19/2025 Results Follow-Up [facility] MEDICINE [address] [place] [address] Francie Mayers PA-C [address] [place] [address] Social History Tobacco Use Types [...] Department Care Team (Late Contact Info) Description 09/29/2025 10:00 AM EDT Office Visit [facility] MEDIC[facility] [address] [place] [address] Adam Lincoln MD [address] [place] [address] 04/03/2026 10:15 AM EST Office Visit [facility] [address] [place] [address] Adam Lincoln MD [address] [place] [address] documented as of this encounter Visit Diagnoses Not on filedocumented in this encounter Care Teams Baseball Pitcher Relationship Specialty Start Date End Date Adam Lincoln MD [address] [place] [address] PCP - General Family Medicine 10/04/21 documented as of this encounter
--- OUTSIDE RECORDS SUMMARY | 2025-05-04 09:52 | XMS_ITS | Encounter Summary ---
Author Organization [facility] Address [address] [place] [address] Care Team Providers Care Personal Computer Network Engineer Name Role Phone Adam Lincoln MD Primary Care Provider + Encounter Details Date Type Department Care Team (Late st Contact Info) Description 04/04/2025 Results Follow-Up [facility] [address] [place] [address] Adam Lincoln MD [address] [place] [address] Social History Tobacco Use Types [...] encounter Miscellaneous Notes * Telephone Encounter - Jasmin Flores RegSched Rep - 04/05/2025 8:28 AM EST Patient called back and verbalized understanding of Dr. Lincoln message. documented in this encounter Plan of Treatment Upcoming Encounters Date Type Department Care Team (Late st Contact Info) Description 09/29/2025 10:00 AM EDT Office Visit [facility] MEDICINE [address] [place] [address] Adam Lincoln MD [address] [place] [address] 04/03/2026 10:15 AM EST Office Visit [facility] MEDIC[facility] [address] [place] [address] Adam Lincoln MD [address] [place] [address] documented as of this encounter Visit Diagnoses Not on filedocumented in this encounter Care Teams Personal Computer Network Engineer Relationship Specialty Start Date End Date Adam Lincoln MD [address] [place] [address] PCP - General Family Medicine 10/04/21 documented as of this encounter
--- OUTSIDE RECORDS SUMMARY | 2025-05-04 09:52 | XMS_ITS | Encounter Summary ---
Author Organization [facility] Address [address] [place] [address] Care Team Providers Care Marketing Research Analyst Name Role Phone Adam Lincoln MD Primary Care Provider + Encounter Details Date Type Department Care Team ( Contact Info) Description 09/28/2024 Results Follow-Up [facility] MEDICINE [address] [place] [address] Adam Lincoln MD [address] [place] [address] Social History Tobacco Use Types [...] Department Care Team ( Contact Info) Description 09/29/2025 10:00 AM EDT Office Visit [facility] MED[facility] [address] [place] [address] Adam Lincoln MD [address] [place] [address] 04/03/2026 10:15 AM EST Office Visit [facility] MED[facility] [address] [place] [address] Adam Lincoln MD [address] [place] [address] documented as of this encounter Visit Diagnoses Not on filedocumented in this encounter Care Teams Marketing Research Analyst Relationship Specialty Start Date End Date Adam Lincoln MD [address] [place] [address] PCP - General Family Medicine 10/04/21 documented as of this encounter
--- OUTSIDE RECORDS SUMMARY | 2025-05-04 09:52 | XMS_ITS | Clinical Summary ---
[facility] Address [address] [place] [address] Care Team Providers Care Supervisory Air Intercept Controller Name Role Phone Adam Lincoln MD Primary [...] Every Night. 90 tablet 3 5 Active simvastatin (ZOCOR) 20 MG tabletIndication [...] (Six) Months. 1 mL 3 5 Active nystatin (MYCOSTATIN) 100,000 unit/mL suspension SWISH AND SWALLOW 5 ML BY MOUTH TWICE DAILY 473 mL 2 5 Active polyethylene glycol (MiraLax) 17 GM/SCOOP powderIndication s:Constipation, unspecified constipation type Take 17 g by mouth Daily. 850 g 3 5 Active estradiol (ESTRACE VAGINAL) 0.1 MG/GM vaginal creamIndications :Dysuria Insert 2 g into the vagina Daily. 42.5 g 5 Active Additional Information Patient not taking.Reported on 04/01/2025 omeprazole (priLOSEC) 40 MG capsuleIndicatio ns:GERD without esophagitis TAKE 1 CAPSULE BY MOUTH DAILY 90 capsule 3 5 Active Hospital, Clinic, or Other Facility Administered Medication Ordered Dose Route Frequency Start Date End Date Status ipratropium-albute rol (DUO-NEB) nebulizer solution 3 mLIndications:Shor tness of breath,COPD with exacerbation 3 mL NEBULIZATION 4 Times Daily - RT 05/21/2023 Active Active Problems Problem Noted Date Diagnosed Date Nonrheumatic aortic valve insufficiency 09/28/19 25 Overview (09/27/2024): Seen on echocardiogram at [facility] July 2024 Assessment & Plan (04/01/2025 10:42 AM EST): Chronic respiratory failure with hypoxia 025 Assessment & Plan (04/01/2025 10:42 AM EST): Age-related osteoporosis wit hout current pathological fracture 12/17/2021 Assessment & Plan (04/01/2025 10:42 AM EST): Orders: DEXA Bone Density Axial; Future Panlobular emphysema 10/04/2021 Assessment & Plan (04/01/2025 10:42 AM EST): Assessment & Plan (03/30/2024 12:15 PM EST): [...] medications. Essential hypertension 10/04/2021 Assessment & Plan (04/01/2025 10:42 AM EST): {Hypertension is (optional):[id number]} Assessment & Plan (03/30/2024 12:15 PM EST): GERD without esophagitis 10/04/2021 Assessment & Plan (04/01/2025 10:42 AM EST): Assessment & Plan (12/17/2021 12:44 PM EDT): Cont. PPI. Regular EGD for h/o Romulo's Encounters Date Type Department Care Team Description 04/04/2025 Results Follow-Up [facility] [address] [phone] Adam Lincoln MD 04/01/2025 10:15 AM EST Office Visit [facility] [address] [phone] Adam Lincoln MD Medicare annual wellness visit, subsequent (Primary Dx); Panlobular emphysema; Nonrheumatic aortic valve insufficiency; GERD without esophagitis; Essential hypertension; Chronic respiratory failure with hypoxia; Age-related osteoporosis without current pathological fracture; Hyperkalemia 04/01/2025 Travel 03/21/2025 Refill [facility] [address] [phone] Adam Lincoln MD GERD without esophagitis 02/15/2025 9:30 AM EDT Office Visit [facility] [address] [phone] Adam Lincoln MD Dysuria (Primary Dx); Urinary frequency; Constipation, unspecified constipation type 02/15/2025 Travel from Last 3 Months Immunizations Immunization Administration Dates Next Due ABRYSVO (RSV, 60+ or women 32-36 wks) 1 06/29/2022 COVID-19 (MODERNA) BIVALENT 12+YRS 02/11/2022 Flu Vaccine Quad PF >36MO 02/12/2021,02/13/2016 Fluad Quad 65+ 01/27/2023,02/11/2022 Fluzone (or Fluarix & Flulaval for VFC) >6mos Fluzone High-Dose 65+YRS 02/08/2025 Fluzone High-Dose 65+yrs 03/19/2024 Pneumococcal Conjugate 13-Valent [...] Mass Index 17.27 04/01/2025 10:12 AM EST Plan of Treatment Upcoming Encounters Date Type Department Care Team (Late st Contact Info) Description 09/29/2025 10:00 AM EDT Office Visit [facility] [address] [place] [phone] Adam Lincoln MD [address] [place] [address] 04/03/2026 10:15 AM EST Office Visit [facility] [address] [place] [phone] Adam Lincoln MD [address] [facility] [place] [address] Health Maintenance Due Date Last Done Comments COLOGUARD 1997 COLON CANCER SCREENING 5 YEA R SIGMOIDOSCOPY 1997 CT COLONOGRAPHY 1997 FECAL OCCULT BLOOD TEST 1997 FIT Testing (1 year) 1997 LUNG CANCER SCREENING 2002 ZOSTER VACCINE (1 of 2) 2002 06/29/2014 Pneumococcal Vaccine 50+ (2 of 2 - PPSV23, PCV20, or PCV21) 06/23/2011 06/05/2020, 06/05/2020 (Patient-Reported (Performed Externally)), 01/22/2013, Additional history exists MAMMOGRAM 05/20/2016 05/20/2014 (Alexandra ent-Reported (Performed Externally)) HEPATITIS C SCREENING 10/04/2021 DXA SCAN 03/08/2025 03/08/2023, 02/16, 03/06/2023, Additional history exists COVID-19 Vaccine (8 - 2024-2 6 season) 2025 02/08/2025, 03/19/2024, 04/21/2023, Additional history exists LIPID PANEL 12/29/2025 12/29/2024, 09/16, 09/23/2023, Additional history exists ANNUAL WELLNESS VISIT 04/01/2026 04/01/2025 , 04/01/2025, 03/30/2024, Additional history exists COLONOSCOPY 03/19/2029 03/19/2019, 1105/2018, 03/19/2019 (Patient-Reported (Performed Externally)), Additional history exists COLORECTAL CANCER SCREENING 03/19/2029 TDAP/TD VACCINES (2 - Td or Tdap) 12/18/2031 022, 11/07/2006 INFLUENZA VACCINE Completed 02/08/2025, , 01/27/2023, Additional history exists Procedures Procedure Name Priority Date/Time Associated Diagnosis Comments POTASSIUM Routine 04/01/2025 10:47 AM EST Hyperkalemia POCT URINALYSIS DIPSTICK, MANUAL Routine 02/15/2025 9:57 AM EDT Urinary frequency LIPID PANEL Routine 09/27/2024 10:37 AM EDT Hypercholesterolemi a SCANNED - DEXA 03/06/2023 from Last 3 Months or Most Recently Relevant to Health Maintenance Results * (ABNORMAL) Potassium (04/01/2025 10:47 AM EST) Potassium 5.3(H) 3.5 - 5.2 mmol/L [facility] Blood 04/01/2025 10:4 7 AM EST 04/01/2025 Narrative [facility] (AMBULATORY) - 04/02/2025 3:07 AM EST Performed at: [address] [place] [address] [id number] Prefinish Operator: Dae Cheek MD, Phone: [phone] Patient Fasting: Y Adam Lincoln MD LAB BLOOD ORDERABLES Fin al Result Performing Organization Address City/[facility]/ZIP Co de Phone Number [facility] (AMBULATORY) [address] [place] [address], [place] [phone] [facility] [address] [place] [address], [place] [phone] * POC Urinalysis Dipstick (02/15/2025 9:57 AM EDT) Pathologist [facility] Color Yellow Yellow, Straw, Dark Yellow, Danette [facility] Clarity, UA Clear Clear [facility] Glucose, UA Negative Negative mg/dL [facility] Bilirubin Negative Negative [facility] Ketones, UA Negative Negative [facility] Specific [place] 1.020 1.005 - 1.030 [facility] Blood, UA Negative Negative [facility] pH, Urine 6.0 5.0 - 8.0 [facility] Protein, POC Negative Negative mg/dL [facility] Urobilinogen, UA 0.2 E.U./dL Normal, 0.2 E.U./dL [facility] Leukocytes Negative Negative [facility] Nitrite, UA Negative Negative [facility] Urine 02/15/2025 9:57 AM EDT Adam Lincoln MD POINT OF CARE TEST ORDER MEJIA Final Result Performing Organization Address City/[facility]/ZIP Co de Phone Number [facility]
[address] [place] [address], [place] [phone] * (ABNORMAL) Lipid Panel (09/27/2024 10:37 AM [...] 10:3 7 AM EDT 09/27/2024 Narrative [facility] (AMBULATORY) - 09/28/2024 3:07 AM EDT Performed at: [address] [place] [address] [id number] Prefinish Operator: Dae Cheek MD, Phone: [phone] Patient Fasting: Y Adam Lincoln MD LAB BLOOD ORDERABLES Fin renata Result [facility] (AMBULATORY) [address] [place] [address], [facility] [address] [place] [address], * SCANNED - DEXA (03/06/2023) Anatomical Region Laterality Modality Other Adam Lincoln MD CHART REVIEW TABS Fin al Result from Last 3 Months or Most Recently Relevant to Health Maintenance Insurance Member Subscriber Plan / Payer (Ef fective 2017-Present) Name:Charisse Siegel Member ID:[id number] Relation to Subscriber:Self Name:Charisse Siegel Subscriber ID:[id number] Payer ID:[id number] Group ID:Not on file Type:Not on file [address] Member Subscriber Plan / Payer ( fective 2018-Present) Name:Charisse Siegel Relation to Subscriber:Spouse Name:MARCUS SIEGEL Date of :1955 (Home) Address: [address] [place] [address] Payer ID:[id number] (NAIC) Type:Not on file Address: [address] [place] [id number] Care Teams Supervisory Air Intercept Controller Relationship Specialty Start Date End Date Adam Lincoln MD [address] [place] [address] PCP - General Family Medicine 10/04/21
== END ==
LOC: RAD 09:06
PROVIDERS: PCP Family Medicine; Visit Provider Family Medicine
DX: M81.0 Age-related osteoporosis without current pathological fracture (principal)
CPT/HCPCS: 77080